=== PATIENT | female | born 1930 | race Caucasian/White ===

== ENCOUNTER 2016-11-11 11:36 | Emergency (ER) | payer MEDICARE, OTHER ==
[~2016-11-11] VITALS: Ht 152.4 cm; Wt 65.0 kg
[~2016-11-11 11:36] MED LIST: AMLO5 PO; ASPI81TA17 PO; ATOR10 PO; AZIT250T43 PO; B COTAB3 PO; CALTTAB PO; CENTCHW3 PO; CHOL1CAP6 PO; CLOP75 PO; CRAN600T PO; LEVA750T PO; MIRTA15 PO; OCUVTAB PO; OMEG306C PO; PROB1TAB PO; VITA100T65 PO
[2016-11-11 11:42] VITALS: BP 154/90; PULSE 88; RESP 18; TEMP 98.3; O2SAT 96
[2016-11-11] MEDS ORDERED: SODIUM CHLORID 0.9% 500 ML INJ 500 ML IV ONE (12:00)
--- NOTE | 2016-11-11 12:04 | PD ---
HPI Chief Complaint: Back/ Neck Pain or Injury Time Seen by Provider: 11:58 Travel History International Travel<30 days: No Contact w/Intl Traveler<30days: No Traveled to known affect area: No History of Present Illness HPI 86-year-old female with PMH of HTN, TIA, CVA, GERD, chronic pain, overactive bladder on Plavix presents to the ED via EMS from [facility] for evaluation of 3 day history of posterior neck pain. Patient denies any acute injury. She endorses 6/10 posterior neck pain worsened by range of motion. She denies headache, dizziness, numbness, tingling, weakness of the upper extremities. According to EMS the nurses at her assisted living were also concerned that she might have a UTI. Patient denies chest pain, palpitations, abdominal pain, nausea, vomiting, back pain, dysuria. She is ambulatory with a walker. Daughter is at bedside. PFSH Past Medical History Hx Anticoagulant Therapy: Yes Arthritis: Yes Blood Disorders: No Anxiety: Yes Depression: No Heart Rhythm Problems: No Cancer: No Cardiovascular Problems: Yes High Cholesterol: Yes Chemotherapy: No Chest Pain: No Congestive Heart Failure: No Diabetes: No Diminished Hearing: No Endocrine: No Gastrointestinal Disorders: Yes (GERD) GERD: Yes Glaucoma: Yes Genitourinary: Yes (FREQUENCY/INCONTINENCE) Hepatitis: No Hiatal Hernia: Yes Hypertension: Yes Immune Disorder: No Musculoskeletal: Yes (RIGHT KNEE SURGERY) Neurologic: No Psychiatric: No Reproductive: No Respiratory: No Immunizations Current: Yes Radiation Therapy: No Thyroid Disease: No Ulcer: No Menopausal: Yes Past Surgical History Abdominal Surgery: No AICD: No Cardiac Surgery: No Ear Surgery: No Endocrine Surgery: No Eye Surgery: No Genitourinary Surgery: No Gynecologic Surgery: Yes (VAGINAL HYSTERECTOMY) Hysterectomy: Yes Joint Replacement: Yes (RIGHT KNEE) Neurologic Surgery: No Oral Surgery: No Pacemaker: No Thoracic Surgery: No Other Surgery: Yes (hysterectomy, r knee) Social History Alcohol Use: No (RARE) Tobacco Use: No Substance Use: No Allergies-Medications (Allergen,Severity, Reaction): Coded Allergies: Bactrim (Unverified Allergy, Severe, Rash, 11/11/16) Bactroban (Unverified Allergy, Severe, Rash, 11/11/16) Septra (Unverified Allergy, Severe, Rash, 11/11/16) Uncoded Allergies: SULFA DRUGS (Allergy, Severe, Rash, 12/02/12) Reported Meds & Prescriptions Reported Meds & Active Scripts Active Levaquin 750 Mg Tab (Levofloxacin) 750 Mg Tab 750 Mg PO DAILY Azithromycin 250 Mg Tab 250 Mg PO DAILY Mirtazapine 15 Mg Tab 15 Mg PO HS Plavix (Clopidogrel Bisulfate) 75 Mg Tab 75 Mg PO DAILY Lipitor 10 mg tab (Atorvastatin) 10 Mg Tab 10 Mg PO DAILY Norvasc (Amlodipine Besylate) 5 Mg Tab 10 Mg PO HS Reported Vitamin E Unknown Strength Cap Unknown Dose PO DAILY Probiotic (Probiotic Product) 1 Tab Tab 1 Tab PO MOTH Ocuvite (Vit A/Vit C/Vit E/Selen/Cu/Zn/Lutei) Tab 1 Tab PO DAILY Centrum Silver (Multiple Vitamins W/ Minerals) Silver Chw 1 Tab PO DAILY B Complex (Vitamin B Complex) Tab 1 Cap PO DAILY Fish Oil ([place]-3 Fatty Acids) Unknown Strength Cap Unknown Dose PO DAILY Cranberry (Cranberry (Vaccinium Macrocarp) 600 Mg Tab 600 Mg PO DAILY Aspirin EC Low Dose (Aspirin) 81 Mg Tab 81 Mg PO DAILY Vitamin D-3 (Cholecalciferol) 1,000 Unit Tab 2,000 Unit PO DAILY Caltrate 600+D (Calcium Carbonate/Cholecalciferol) + Tab 1 Tab PO BID Review of Systems Except as stated in HPI: all other systems reviewed are Neg Physical Exam Narrative GENERAL: Well-nourished, well-developed, pleasant, elderly white female in no acute distress. SKIN: Focused skin assessment warm/dry. HEAD: Normocephalic. EYES: No scleral icterus. No injection or drainage. NECK: Supple, trachea midline. No JVD or lymphadenopathy. ++ Midline tenderness to palpation in the C5-, 6-7 area. Mild tenderness to palpation of the paraspinal musculature in the cervical area. CARDIOVASCULAR: Regular rate and rhythm without murmurs, gallops, or rubs. 2+ DP and radial pulses bilaterally. RESPIRATORY: Breath sounds clear and equal bilaterally. No accessory muscle use. GASTROINTESTINAL: Abdomen soft, non-tender, nondistended. No suprapubic tenderness. Active bowel sounds. MUSCULOSKELETAL: No cyanosis, or edema. NEUROLOGICAL: Awake and alert. Cranial nerves II through XII intact. Motor and sensory grossly within normal limits. Five out of 5 muscle strength in all muscle groups. Normal speech. No pronator drift. BACK: Nontender without obvious deformity. No CVA tenderness. Data Data Last Documented VS Vital Signs Date Time Temp Pulse Resp B/P Pulse Ox O2 Delivery O2 Flow Rate FiO2 11/11/16 11:42 98.3 88 18 154/[address] Cerv Spine W/O Contrast (11/11/16 11:47) Basic Metabolic Panel (Bmp) (11/11/16 11:47) Complete Blood Count With Diff (11/11/16 11:47) Urinalysis - C+S If Indicated (11/11/16 11:47) Iv Access Insert/Monitor (11/11/16 11:47) Sodium Chlorid 0.9% 500 Ml Inj (Ns 500 M (11/11/16 12:00) Acetaminophen (Tylenol) (11/11/16 12:45) Electrocardiogram (11/11/16 13:06) Ckmb (Isoenzyme) Profile (11/11/16 13:06) Troponin I (11/11/16 13:06) Chest, Single Ap (11/11/16 13:06) Labs Laboratory Tests Test 11/11/16 11/11/16 12:00 13:35 White Blood Count 12.0 TH/MM3 Red Blood Count 4.65 MIL/MM3 Hemoglobin 13.8 GM/DL Hematocrit 40.7 % Mean Corpuscular Volume 87.7 FL Mean Corpuscular Hemoglobin 29.7 PG Mean Corpuscular Hemoglobin 33.8 % Concent Red Cell Distribution Width 15.0 % Platelet Count 205 TH/MM3 Mean Platelet Volume 8.2 FL Neutrophils (%) (Auto) 70.9 % Lymphocytes (%) (Auto) 14.4 % Monocytes (%) (Auto) 13.5 % Eosinophils (%) (Auto) 0.9 % Basophils (%) (Auto) 0.3 % Neutrophils # (Auto) 8.5 TH/MM3 Lymphocytes # (Auto) 1.7 TH/MM3 Monocytes # (Auto) 1.6 TH/MM3 Eosinophils # (Auto) 0.1 TH/MM3 Basophils # (Auto) 0.0 TH/MM3 CBC Comment DIFF FINAL Differential Comment Sodium Level 140 MEQ/L Potassium Level 4.1 MEQ/L Chloride Level 104 MEQ/L Carbon Dioxide Level 29.2 MEQ/L Anion Gap 7 MEQ/L Blood Urea Nitrogen 24 MG/DL Creatinine 1.19 MG/DL Estimat Glomerular Filtration 43 ML/MIN Rate Random Glucose 93 MG/DL Calcium Level 10.1 MG/DL Total Creatine Kinase 52 U/L Troponin I LESS THAN 0.02 NG/ML Urine Color YELLOW Urine Turbidity HAZY Urine pH 7.5 Urine Specific [place] 1.011 Urine Protein NEG mg/dL Urine Glucose (UA) NEG mg/dL Urine Ketones NEG mg/dL Urine Occult Blood NEG Urine Nitrite NEG Urine Bilirubin NEG Urine Urobilinogen LESS THAN 2.0 MG/DL Urine Leukocyte Esterase NEG Urine RBC 1 /hpf Urine WBC 1 /hpf Urine Squamous Epithelial 1 /hpf Cells Urine Amorphous Sediment FEW Urine Mucus FEW /lpf Microscopic Urinalysis Comment CATH-CULT NOT IND MDM Medical Decision Making Medical Screen Exam Complete: Yes Emergency Medical Condition: Yes Differential Diagnosis Acute on chronic neck pain versus cervical subluxation versus cervical fracture versus degenerative changes versus UTI versus other Narrative Course 86-year-old female with PMH of HTN, TIA, CVA, GERD, chronic pain, overactive bladder on Plavix presents to the ED via EMS from [facility] for evaluation of 3 day history of posterior neck pain. Patient denies any acute injury. She endorses 6/10 posterior neck pain worsened by range of motion. She denies headache, dizziness, numbness, tingling, weakness of the upper extremities. According to EMS the nurse's at her assisted living were also concerned that she might have a UTI. Patient denies abdominal pain, nausea, vomiting, back pain, dysuria. She is ambulatory with a walker. Daughter at bedside. Vitals reviewed. Physical exam reveals an alert, pleasant, elderly white female in no acute distress. No appreciable M/R/G. CTAB. Abdomen soft, nontender, active bowel sounds. Equal pulses in the extremities. + Midline tenderness to palpation of the cervical spine and the surrounding musculature. No edema of the extremities. IV was established. Patient was administered 500 mL of normal saline bolus and 650 Tylenol by mouth. CBC: WBC 12.0 BMP: BUN 24 Cr 1.19 UA: No culture indicated. CT neck: Degenerative changes. No acute fracture or malalignment noted per radiology read. During the course of evaluation the patients daughter states that her mother has been complaining of chest pain at the assisted living facility. She states that her mother complained of sharp chest pain first about one week ago. Patient endorses "one or two" episodes since. Last episode this morning, onset suddenly, lasted 30 seconds to 1 minute. Relieved by Pepto Bismol given before arrival. Patient endorses one similar episode while here in the ED. EKG, CXR, cardiac enzymes added to the workup. EKG: Rate 77, sinus rhythm, occasional PVCs. MO interval 163, QRS 83, QTc 407. Normal axis. Questionable mild ST depression in V4 V5 and V6. Similar to previous EKG of 04/26/16. Reviewed by Dr. Brooks. Cardiac enzymes: Negative 1 Chest x-ray: Stable appearance with no acute cardiopulmonary disease per radiology read. Review of record reveals patient underwent heart catheter on 04/28/16. Ejection fraction 50%. Mild aortic and mitral valve regurgitation. On recheck the patient endorses improvement of her neck pain. I discussed the results of the workup with the patient and her daughter. I recommended admission to the chest pain center versus outpatient follow-up with stuffer. The patient and her daughter opted for outpatient follow-up. This is musculoskeletal neck pain. Patient and daughter instructed to continue with symptomatic treatment with Tylenol, muscle rubs, warm compresses. They're instructed to follow-up with the on-call stuffer Dr. Manzano. They indicated understanding of these instructions and are agreeable to the care plan. This patient is stable and discharged home. Diagnosis Primary Impression: Musculoskeletal neck pain Additional Impression: Intermittent chest pain Referrals: Mesfin Manzano MD Patient Instructions: General Instructions, Musculoskeletal Pain (ED) Additional Instructions: Rest, hydrate. Continue with symptomatic treatment of the muscular pain of the neck including Tylenol, muscle rubs, warm compresses. Follow-up with Dr. Manzano for evaluation of chest pain as discussed. Return to the ED for any urgent or emergent medical condition. Disposition: 01 DISCHARGE HOME Condition: Stable Susi Julien November 11, 2016 12:04
[2016-11-11 12:36] LABS: AUTOMATED NEUTROPHIL # 8.5 TH/MM3 (1.8-7.7); BASOPHIL % 0.3 % (0.0-2.0); EOSINOPHIL # 0.1 TH/MM3 (0-0.4); EOSINOPHIL % 0.9 % (0.0-4.0); HEMATOCRIT 40.7 % (35.0-46.0); HEMO FLAGS DIFF FINAL; LYMPH % 14.4 % (9.0-44.0); LYMPHOCYTE # 1.7 TH/MM3 (1.0-4.8); MEAN CELL VOLUME 87.7 FL (80.0-100.0); MEAN CORPUSCULAR HEMOGLOBIN 29.7 PG (27.0-34.0); MEAN CORPUSCULAR HGB CONC 33.8 % (32.0-36.0); MONO % 13.5 % (0.0-8.0); NEUT % 70.9 % (16.0-70.0); PLATELET COUNT 205 TH/MM3 (150-450); RED BLOOD COUNT 4.65 MIL/MM3 (4.00-5.30)
[2016-11-11] MEDS ORDERED: ACETAMINOPHEN 325 MG TAB PO ONE (12:45)
[2016-11-11 13:02] LABS: BICARBONATE 29.2 MEQ/L (21.0-32.0); POTASSIUM 4.1 MEQ/L (3.5-5.1)
--- NOTE | 2016-11-11 13:14 | RADRPT ---
EXAM DATE/TIME: 11/11/2016 12:37 CORRECTION Corrected on: November 11, 2016; [facility] COMPARISON: CT CERVICAL SPINE W/O CONTRAST, May 23, 2013, 12:26. INDICATIONS : Neck pain for three days. RADIATION DOSE: 23.56 CTDIvol (mGy) MEDICAL HISTORY : Hypertension. SURGICAL HISTORY : None. ENCOUNTER: Initial ACUITY: 1 day PAIN SCALE: 7/10 LOCATION: Bilateral neck TECHNIQUE: Volumetric scanning of the cervical spine was performed. Multiplanar reconstructions i n the sagittal, coronal and oblique axial planes were performed. Using automated exposure control a nd adjustment of the mA and/or kV according to patient size, radiation dose was kept as low as reason ably achievable to obtain optimal diagnostic quality images. FINDINGS: The sagittal reconstructions demonstrate normal alignment and normal prevertebral soft tissues. The d ens is intact and there is a normal atlantoaxial relationship. There is patchy osteopenia. Degenerati ve disc changes are again noted. The axial images demonstrate that the vertebral bodies and posterior elements are intact. The soft ti ssues are within normal limits. There is no evidence of acute fracture or malalignment. Degenerative changes are noted involving the facet joints. There are disc osteophyte complexes with mass effect on the anterior thecal sac at the C3-4, C4-5 and C5-6 levels. There is narrowing of the neural foramina bilaterally at the C3-4 and C4-5 levels. CONCLUSION: No acute fracture or malalignment. Degenerative changes. Brandon Fernandez MD on November 11, 2016 at 13:09 Board Certified Radiologist. This report was verified electronically. Brandon Fernandez MD on November 11, 2016 at 13:16 Board Certified Radiologist. This report was verified electronically.
--- NOTE | 2016-11-11 13:26 | RADRPT ---
EXAM DATE/TIME: 11/11/2016 13:18 [facility] COMPARISON: CHEST SINGLE AP, May 23, 2013, 11:32. CHEST PA & LAT, April 18, 2016, 12:55. INDICATIONS : Chest pain. MEDICAL HISTORY : Hypertension. SURGICAL HISTORY : None. ENCOUNTER: Initial ACUITY: 2 weeks PAIN SCORE: 7/10 LOCATION: Bilateral chest FINDINGS: A single view of the chest demonstrates the lungs to be symmetrically aerated without evidence of mas s, infiltrate or effusion. The size remains enlarged with no pulmonary edema. Tracheal calcification s are again noted. There is mild scarring. Osseous structures are intact. CONCLUSION: Stable appearance with no acute cardiopulmonary disease. Brandon Fernandez MD on November 11, 2016 at 13:23 Board Certified Radiologist. This report was verified electronically.
[2016-11-11 13:47] LABS: CREATINE KINASE 52 U/L (26-192)
[2016-11-11 13:55] LABS: BLOOD, URINE NEG (NEG); GLUCOSE,URINE NEG (NEG); KETONE, URINE NEG (NEG); MUCUS URINE FEW /lpf (OCC); NITRITE,URINE NEG (NEG); PH, URINE 7.5 (5.0-8.5); SQUAMOUS EPITHELIAL CELL URINE 1 /hpf (0-5); URINE COLOR YELLOW (YELLW/STRAW)
[2016-11-11 13:56] LABS: COMMENT (UR) CATH-CULT NOT IND; CULTURE IF INDICATED CATH CULTURE NOT IND
[2016-11-11 14:59] VITALS: RESP 17
--- NOTE | 2016-11-12 11:25 | EKG ---
Date Performed: 11/11/2016 Time Performed: 13:13:40 PTAGE: 86 years EKG: Sinus rhythm WITH OCCASIONAL SUPRAVENTRICULAR PREMATURE COMPLEXES MODERATE ST DEPRESSION ABNORMAL ECG PREVIOUS TRACING : 04/16/2016 12.44 DOCTOR: Jim Hitchcock Interpretating Date/Time 11/12/2016 11:20:14
== END 2016-11-11 17:32 | disposition home or self-care (01) ==
LOC: NEPC 11:36
DX: M54.2 Cervicalgia (principal); R07.9 Chest pain, unspecified; I10 Essential (primary) hypertension; R94.31 Abnormal electrocardiogram [ECG] [EKG]; Z79.01 Long term (current) use of anticoagulants
CPT/HCPCS: 71010; 72125; 80048; 81001; 82550; 84484; 85025; 93005; 96360; 99284; J7040

== ENCOUNTER 2016-12-03 13:15 | Emergency (ER) | payer MEDICARE, OTHER ==
[2016-12-03 13:20] VITALS: BP 124/61; PULSE 73; RESP 16; TEMP 98.1; O2SAT 96
[2016-12-03] MEDS ORDERED: SODIUM CHLORIDE 0.9% FLUSH 10 ML FLUSH IVF PRN (13:30)
[2016-12-03] MEDS ORDERED: TYLE325T PO (13:39)
[2016-12-03] MEDS ORDERED: NYST100084 TOPICAL (13:39)
[2016-12-03] MEDS ORDERED: PLAV75TA29 PO (13:39)
[2016-12-03] MEDS ORDERED: AMLO10TA2 PO (13:39)
[2016-12-03] MEDS ORDERED: ARTISOL3 EACH EYE (13:39)
[2016-12-03] MEDS ORDERED: FISH1000 PO (13:39)
[2016-12-03] MEDS ORDERED: VITA200T10 PO (13:39)
[2016-12-03] MEDS ORDERED: MULT-177 PO (13:39)
[2016-12-03] MEDS ORDERED: CALC1TAB34 PO (13:39)
[2016-12-03] MEDS ORDERED: OXYB10TA PO (13:39)
[2016-12-03] MEDS ORDERED: DIVA125C PO (13:39)
[2016-12-03] MEDS ORDERED: TRIAPOW TOPICAL (13:39)
[2016-12-03] MEDS ORDERED: ASPI-110 PO (13:39)
[2016-12-03] MEDS ORDERED: TH C450C PO (13:39)
[2016-12-03] MEDS ORDERED: DOCU100C PO (13:39)
[2016-12-03] MEDS ORDERED: VITA100018 PO (13:39)
[2016-12-03] MEDS ORDERED: LIPI10TA PO (13:39)
[2016-12-03] MEDS ORDERED: VITATAB11 PO (13:39)
[2016-12-03 14:09] VITALS: RESP 18; O2SAT 96
[2016-12-03] MEDS ORDERED: oxyCODONE/ACETAMINOPHEN 5 MG/325 MG TAB PO ONE (14:30)
--- NOTE | 2016-12-03 14:38 | PD ---
HPI Chief Complaint: Pain: Acute or Chronic Time Seen by Provider: 13:20 Travel History International Travel<30 days: No Contact w/Intl Traveler<30days: No Traveled to known affect area: No History of Present Illness HPI 86-year-old female arrives with right knee right femur and right hip pain. She is primarily wheelchair bound however has been participating with rehabilitation exercises. Since yesterday she has felt pain in right leg areas as described constant worse with palpation with maximal intensity overlying the right greater trochanter. No trauma is reported. Tylenol has not been helpful. PFSH Past Medical History Hx Anticoagulant Therapy: Yes Arthritis: Yes Blood Disorders: No Anxiety: Yes Depression: Yes Heart Rhythm Problems: No Cancer: No Cardiovascular Problems: Yes High Cholesterol: Yes Chemotherapy: No Chest Pain: No Congestive Heart Failure: No Cerebrovascular Accident: Yes Dementia: Yes Diabetes: No Diminished Hearing: No Endocrine: No Gastrointestinal Disorders: Yes (GERD) GERD: Yes Glaucoma: Yes Genitourinary: Yes (FREQUENCY/INCONTINENCE) Hepatitis: No Hiatal Hernia: Yes Hypertension: Yes Immune Disorder: No Musculoskeletal: Yes (RIGHT KNEE SURGERY) Neurologic: No Psychiatric: No Reproductive: No Respiratory: No Immunizations Current: Yes Radiation Therapy: No Thyroid Disease: No Ulcer: No Tetanus Vaccination: > 5 Years Influenza Vaccination: Yes Menopausal: Yes Past Surgical History Abdominal Surgery: No AICD: No Cardiac Surgery: No Ear Surgery: No Endocrine Surgery: No Eye Surgery: No Genitourinary Surgery: No Gynecologic Surgery: Yes (VAGINAL HYSTERECTOMY) Hysterectomy: Yes Joint Replacement: Yes (RIGHT KNEE) Neurologic Surgery: No Oral Surgery: No Pacemaker: No Thoracic Surgery: No Other Surgery: Yes (hysterectomy, r knee) Social History Alcohol Use: No (RARE) Tobacco Use: No Substance Use: No Allergies-Medications (Allergen,Severity, Reaction): Coded Allergies: Bactrim (Unverified Allergy, Severe, Rash, 12/03/16) Bactroban (Unverified Allergy, Severe, Rash, 12/03/16) Septra (Unverified Allergy, Severe, Rash, 12/03/16) Uncoded Allergies: SULFA DRUGS (Allergy, Severe, Rash, 12/02/12) Reported Meds & Prescriptions Reported Meds & Active Scripts Active Lortab (Hydrocodone-Acetaminophen) 5-325 Mg Tab 1 Tab PO Q6H PRN Reported Nystatin Topical 100,000 unit/gm Oint 1 Applic TOPICAL Q12HR Docusate Sodium 100 Mg Cap 100 Mg PO DAILY Caltrate 600+D Plus Minerals (Calcium Carbonate-Vitamin D W/Minerals) 600-800 Mg -Unit Tab 1 Tab PO BID Depakote Sprinkles (Divalproex Sodium) 125 mg Cap 125 Mg PO BID Aspirin 81 (Aspirin) 81 Mg Tabdr 81 Mg PO DAILY Plavix (Clopidogrel Bisulfate) 75 Mg Tab 75 Mg PO DAILY Lipitor (Atorvastatin Calcium) 10 Mg Tab 10 Mg PO HS Triamcinolone Acetonide (Triamcinolone Acetonide (Topic) 1 Pow Pow 0.05 % TOPICAL DAILY Artificial Tears (Dextran 70/Hypromellose) 1 Each Droperette 2 Drop EACH EYE BID Amlodipine (Amlodipine Besylate) 10 Mg Tab 10 Mg PO DAILY Oxybutynin ER 24 HR (Oxybutynin Chloride) 10 Mg Tab 10 Mg PO DAILY Tylenol (Acetaminophen) 325 Mg Tab 650 Mg PO Q6H PRN Cranberry (Cranberry Fruit Concentrate) 450 Mg Capsule 1 Cap PO DAILY Vitamin E (Vitamin E Mixed) 200 Unit Tablet 1 Cap PO DAILY Fish Oil ([place]-3 Fatty Acids) 1,000 Mg Cap 1 Cap PO DAILY Multiple Vitamins For Women (Multivit with Calcium,Iron,Min) 1 Each Tablet 1 Tab PO DAILY Vitamin D3 (Cholecalciferol) 1,000 Unit Tab 1,000 Units PO DAILY Vitamin B Complex (B-Complex Vitamins) 1 Tab 1 Cap PO DAILY Review of Systems Except as stated in HPI: all other systems reviewed are Neg Physical Exam Narrative GENERAL: 86 yo F, WNWD, NAD, pleasant SKIN: Warm and dry. HEAD: Atraumatic. Normocephalic. EYES: Pupils equal and round. No scleral icterus. No injection or drainage. ENT: No nasal bleeding or discharge. Mucous membranes pink and moist. NECK: Trachea midline. No JVD. CARDIOVASCULAR: Regular rate and rhythm. RESPIRATORY: No accessory muscle use. Clear to auscultation. Breath sounds equal bilaterally. GASTROINTESTINAL: Abdomen soft, non-tender, nondistended. Hepatic and splenic margins not palpable. MUSCULOSKELETAL: TTP R greater trochanter. No gross deformity. Unable to flex R hip. Minimal pain with axial loading on R side. 2+ DP bilaterally. NEUROLOGICAL: Awake and alert. No obvious cranial nerve deficits. Motor grossly within normal limits. Five out of 5 muscle strength in the arms and legs. Normal speech. PSYCHIATRIC: Appropriate mood and affect; insight and judgment normal. Data Data Last Documented VS Vital Signs Date Time Temp Pulse Resp B/P Pulse Ox O2 Delivery O2 Flow Rate FiO2 12/03/16 18:00 76 18 130/74 97 Room Air 12/03/16 13:20 98.1 VS reviewed Orders Femur (Ap & Lat/2vws) (12/03/16 13:26) Hip, Uni(Ap&Lat) W Ap Pelvis (12/03/16 13:26) Oximetry (12/03/16 13:26) Sodium Chloride 0.9% Flush (Ns Flush) (12/03/16 13:30) Knee, Complete (4vws) (12/03/16 ) Oxycodone-Acetamin 5-325 Mg (Percocet (12/03/16 14:30) MDM Medical Decision Making Medical Screen Exam Complete: Yes Emergency Medical Condition: Yes Medical Record Reviewed: Yes Differential Diagnosis Femoral neck fx, pelvis fx, contusion, bruise Narrative Course XRAYS OF KNEE/FEMUR: NORMAL XRAYS OF PELVIS/HIP: NORMAL The patient is resting comfortably and feels better, is alert and in no distress. The patients results and examination findings were discussed. The repeat examination is unremarkable and benign. The history, exam, diagnostic testing, and current condition do not suggest any significant pathology to warrant further testing, continued ED treatment, admission, or surgical evaluation at this point. The vital signs have been stable. The patient does not have uncontrollable pain, intractable vomiting, or other significant symptoms. The patient's condition is stable and appropriate for discharge. The patient will pursue further outpatient evaluation with a primary care physician or other designated or consulting physician as indicated in the discharge instructions. The patient expressed understanding and was agreeable with this plan. Diagnosis Primary Impression: Acute pain of right lower extremity Referrals: Gerald Gilmore MD 2 days Additional Instructions: You have a choice when it comes to health care, and we are glad that you chose [facility]. Hopefully, we have met your expectations on today's visit. You are welcome to return to [facility] at any time, as we are committed to meeting the health care needs of our community. Med/Other Pt SpecificInfo: Prescription(s) given Scripts Hydrocodone-Acetaminophen (Lortab)5-325 Mg Tab1 Tab PO Q6H PRN (PAIN SCALE 6 TO 10) #12 TAB Ref 0 Prov:Bernardo Doss MD 12/03/16 Disposition: 01 DISCHARGE HOME Condition: Stable Bernardo Doss MD December 03, 2016 14:38
--- NOTE | 2016-12-03 15:00 | RADHPO ---
EXAM DATE/TIME: 12/03/2016 14:20 [facility] COMPARISON: No previous studies available for comparison. INDICATIONS : Pain. MEDICAL HISTORY : None. SURGICAL HISTORY : Knee seven years ago ENCOUNTER: Initial ACUITY: 1 day PAIN SCORE: 10/10 LOCATION: Right hip/leg FINDINGS: 4 views of the right femur demonstrate no fracture or dislocation. Mineralization is within normal li mits. Visualized pelvic bones demonstrate no acute finding. There is hardware in the medial compartme nt of the right knee. No soft tissue abnormality or radiopaque foreign body is identified. CONCLUSION: No acute abnormality is identified. Bacilio Botello MD on December 03, 2016 at 14:57 Board Certified Radiologist. This report was verified electronically.
--- NOTE | 2016-12-03 15:02 | RADHPO ---
EXAM DATE/TIME: 12/03/2016 14:33 [facility] COMPARISON: No previous studies available for comparison. INDICATIONS : Pain. MEDICAL HISTORY : None. SURGICAL HISTORY : Knee surgery seven years ago ENCOUNTER: Initial ACUITY: 1 day PAIN SCORE: 10/10 LOCATION: Right Hip\leg FINDINGS: 4 views of the right knee demonstrate no fracture or dislocation. There is hardware in the medial com partment related to unicompartmental arthroplasty. There are no findings to indicate hardware failure , loosening, or uneven wear. No joint effusion is visualized. There is mild lateral joint space narro wing. No soft tissue abnormality or radiopaque foreign body is identified. CONCLUSION: No acute right knee abnormality is identified. There has been prior medial compartment arthroplasty. Bacilio Botello MD on December 03, 2016 at 14:59 Board Certified Radiologist. This report was verified electronically.
[2016-12-03 15:10] VITALS: BP 147/68; PULSE 73; RESP 18; O2SAT 97
[2016-12-03] MEDS ORDERED: HYDR-3533 PO (15:36)
--- NOTE | 2016-12-03 15:46 | RADHPO ---
EXAM DATE/TIME: 12/03/2016 13:58 [facility] COMPARISON: No previous studies available for comparison. INDICATIONS : Pain. MEDICAL HISTORY : None. SURGICAL HISTORY : Knee surgery seven years ago. ENCOUNTER: Initial ACUITY: 1 day PAIN SCORE: 10/10 LOCATION: Right hip/leg FINDINGS: There is no acute fracture or dislocation. Mild degenerative changes are noted involving the hip deepti nts. Degenerative changes and scoliosis of the lower lumbar spine are noted. CONCLUSION: 1. No acute fracture or dislocation. 2. Mild degenerative changes involving the hip joints. 3. Degenerative changes and scoliosis of the lumbar spine. Rocael Smart MD on December 03, 2016 at 15:37 Board Certified Radiologist. This report was verified electronically.
[2016-12-03 18:00] VITALS: BP 130/74; PULSE 76; RESP 18; O2SAT 97
== END 2016-12-03 18:39 | disposition home or self-care (01) ==
LOC: PHED 13:15
DX: M79.604 Pain in right leg (principal); I10 Essential (primary) hypertension; K21.9 Gastro-esophageal reflux disease without esophagitis; E78.00 Pure hypercholesterolemia, unspecified; F03.90 Unspecified dementia, unspecified severity, without behavioral disturbance, psychotic disturbance, mood disturbance, and anxiety; Z79.02 Long term (current) use of antithrombotics/antiplatelets; Z79.82 Long term (current) use of aspirin; Z79.899 Other long term (current) drug therapy; Z86.73 Personal history of transient ischemic attack (TIA), and cerebral infarction without residual deficits
CPT/HCPCS: 73502; 73552; 73564; 99284

== ENCOUNTER 2016-12-06 10:45 | Inpatient (IN) | payer MEDICARE, OTHER ==
[~2016-12-06] VITALS: Ht 157.5 cm; Wt 65.8 kg
[~2016-12-06 10:45] MED LIST changes: +AMLO10TA2 PO; -AMLO5 PO; +ARTISOL3 EACH EYE; +ASPI-110 PO; -ASPI81TA17 PO; -ATOR10 PO; -AZIT250T43 PO; -B COTAB3 PO; +CALC1TAB34 PO; -CALTTAB PO; -CENTCHW3 PO; -CHOL1CAP6 PO; -CLOP75 PO; -CRAN600T PO; +DIVA125C PO; +DOCU100C PO; +FISH1000 PO; +HYDR-3533 PO; -LEVA750T PO; +LIPI10TA PO; -MIRTA15 PO; +MULT-177 PO; +NYST100084 TOPICAL; -OCUVTAB PO; -OMEG306C PO; +OXYB10TA PO; +PLAV75TA29 PO; -PROB1TAB PO; +TH C450C PO; +TRIAPOW TOPICAL; +TYLE325T PO; +VITA100018 PO; -VITA100T65 PO; +VITA200T10 PO; +VITATAB11 PO
[2016-12-06 10:53] VITALS: BP 107/53; PULSE 74; RESP 15; TEMP 98.4; O2SAT 94
[2016-12-06 11:39] LABS: BLOOD, URINE NEG (NEG); GLUCOSE,URINE NEG (NEG); KETONE, URINE NEG (NEG); NITRITE,URINE NEG (NEG)
[2016-12-06 11:45] LABS: CHLORIDE 103 MEQ/L (98-107); COMMENT (UR) CATH-CULT NOT IND; CULTURE IF INDICATED CATH CULTURE NOT IND; METHOD OF COLLECTION CATH; POTASSIUM 4.1 MEQ/L (3.5-5.1); RBC, URINE 0-3 /hpf (0-3); SODIUM (NA) 139 MEQ/L (136-145); URINE COLOR YELLOW (YELLW/STRAW); WBC, URINE 0-2 /hpf (0-5)
[2016-12-06 11:48] LABS: ANION GAP 8 MEQ/L (5-15); BICARBONATE 27.9 MEQ/L (21.0-32.0); BLOOD UREA NITROGEN 39 MG/DL (7-18)
[2016-12-06 11:49] LABS: MAGNESIUM 2.2 MG/DL (1.5-2.5)
--- NOTE | 2016-12-06 11:49 | PD ---
HPI Chief Complaint: General Weakness Time Seen by Provider: 11:04 Travel History International Travel<30 days: No Contact w/Intl Traveler<30days: No Traveled to known affect area: No History of Present Illness HPI This 86-year-old female is brought by her daughter for complaint of generalized weakness. She was seen here last Saturday with pain in her left leg. She had multiple x-rays done which were unremarkable. He has been complaining of ongoing pain which seems greatest in the left pelvis. It is aggravated by certain movements but not by all. In the meantime she has had a loss of appetite and the daughter says she is less active than normal. She has a history of TIA in the past. She had a Lortab yesterday but has not had any pain medication today. she resides at an assisted living facility [facility] Past Medical History Hx Anticoagulant Therapy: Yes Arthritis: Yes Blood Disorders: No Anxiety: Yes Depression: Yes Heart Rhythm Problems: No Cancer: No Cardiovascular Problems: Yes High Cholesterol: Yes Chemotherapy: No Chest Pain: No Congestive Heart Failure: No Cerebrovascular Accident: Yes Dementia: Yes Diabetes: No Diminished Hearing: No Endocrine: No Gastrointestinal Disorders: Yes (GERD) GERD: Yes Glaucoma: Yes Genitourinary: Yes (FREQUENCY/INCONTINENCE) Hepatitis: No Hiatal Hernia: Yes Hypertension: Yes Immune Disorder: No Musculoskeletal: Yes (RIGHT KNEE SURGERY) Neurologic: No Psychiatric: No Reproductive: No Respiratory: No Immunizations Current: Yes Radiation Therapy: No Thyroid Disease: No Ulcer: No Tetanus Vaccination: Unknown Influenza Vaccination: Yes ?: Not Menopausal: Yes Past Surgical History Abdominal Surgery: No AICD: No Cardiac Surgery: No Ear Surgery: No Endocrine Surgery: No Eye Surgery: No Genitourinary Surgery: No Gynecologic Surgery: Yes (VAGINAL HYSTERECTOMY) Hysterectomy: Yes Joint Replacement: Yes (RIGHT KNEE) Neurologic Surgery: No Oral Surgery: No Pacemaker: No Thoracic Surgery: No Other Surgery: Yes (hysterectomy, r knee) Social History Alcohol Use: No (RARE) Tobacco Use: No Substance Use: No Allergies-Medications (Allergen,Severity, Reaction): Coded Allergies: Bactrim (Unverified Allergy, Severe, Rash, 12/06/16) Bactroban (Unverified Allergy, Severe, Rash, 12/06/16) Septra (Unverified Allergy, Severe, Rash, 12/06/16) Uncoded Allergies: SULFA DRUGS (Allergy, Severe, Rash, 12/02/12) Reported Meds & Prescriptions Reported Meds & Active Scripts Active Reported Nystatin Topical 100,000 unit/gm Oint 1 Applic TOPICAL Q12HR Docusate Sodium 100 Mg Cap 100 Mg PO DAILY Depakote Sprinkles (Divalproex Sodium) 125 mg Cap 125 Mg PO BID Aspirin 81 (Aspirin) 81 Mg Tabdr 81 Mg PO DAILY Plavix (Clopidogrel Bisulfate) 75 Mg Tab 75 Mg PO DAILY Lipitor (Atorvastatin Calcium) 10 Mg Tab 10 Mg PO HS Triamcinolone Acetonide (Triamcinolone Acetonide (Topic) 1 Pow Pow 0.05 % TOPICAL DAILY Artificial Tears (Dextran 70/Hypromellose) 1 Each Droperette 2 Drop EACH EYE BID Amlodipine (Amlodipine Besylate) 10 Mg Tab 10 Mg PO DAILY Oxybutynin ER 24 HR (Oxybutynin Chloride) 10 Mg Tab 10 Mg PO DAILY Tylenol (Acetaminophen) 325 Mg Tab 650 Mg PO Q6H PRN Cranberry (Cranberry Fruit Concentrate) 450 Mg Capsule 1 Cap PO DAILY Vitamin E (Vitamin E Mixed) 200 Unit Tablet 1 Cap PO DAILY Fish Oil ([place]-3 Fatty Acids) 1,000 Mg Cap 1 Cap PO DAILY Multiple Vitamins For Women (Multivit with Calcium,Iron,Min) 1 Each Tablet 1 Tab PO DAILY Vitamin D3 (Cholecalciferol) 1,000 Unit Tab 1,000 Units PO DAILY Vitamin B Complex (B-Complex Vitamins) 1 Tab 1 Cap PO DAILY Review of Systems General / Constitutional: No: Chills Eyes: No: Diploplia, Blurred Vision HENT: No: Headaches Cardiovascular: No: Chest Pain or Discomfort, Palpitations Respiratory: No: Cough, Shortness of Breath Gastrointestinal: Positive: Nausea, Loss of Appetite Genitourinary: No: Urgency, Frequency Musculoskeletal: Positive: Myalgias, Pain Skin: No Rash Neurologic: Positive: Weakness Hematologic/Lymphatic: No: Easy Bruising Physical Exam Narrative GENERAL: Well-developed female SKIN: Focused skin assessment warm/dry. HEAD: Atraumatic. Normocephalic. EYES: Pupils equal and round. No scleral icterus. No injection or drainage. ENT: No nasal bleeding or discharge. Mucous membranes pink and moist. NECK: Trachea midline. No JVD. CARDIOVASCULAR: Regular rate and rhythm. No murmur appreciated. RESPIRATORY: No accessory muscle use. Clear to auscultation. Breath sounds equal bilaterally. GASTROINTESTINAL: Abdomen soft, non-tender, nondistended. Hepatic and splenic margins not palpable. MUSCULOSKELETAL: There appears to be some shortening of the left leg. The right knee is not warm and I am able to flex and extend it without much pain. She does complain of some tenderness in the area of the left pelvis. The lateral hip is nontender NEUROLOGICAL: Awake and alert. No obvious cranial nerve deficits. Motor grossly within normal limits. Normal speech. PSYCHIATRIC: Appropriate mood and affect; insight and judgment normal. Data Data Last Documented VS Vital Signs Date Time Temp Pulse Resp B/P Pulse Ox O2 Delivery O2 Flow Rate FiO2 12/06/16 13:54 78 18 131/48 100 Room Air 12/06/16 10:53 98.4 Orders Complete Blood Count With Diff (12/06/16 11:19) Comprehensive Metabolic Panel (12/06/16 11:19) Troponin I (12/06/16 11:19) Prothrombin Time / Inr (Pt) (12/06/16 11:19) Act Partial Throm Time (Ptt) (12/06/16 11:19) Urinalysis - C+S If Indicated (12/06/16 11:19) Westergren Sedimentation Rate (12/06/16 11:19) Magnesium (Mg) (12/06/16 11:19) Thyroid Stimulating Hormone (12/06/16 11:19) Chest, Single Ap (12/06/16 11:19) Pelvis, Ap Only (Routine) (12/06/16 11:19) Mri Pelvis W/O Contrast (12/06/16 ) Protein Corrected Calcium(Pcc) (12/06/16 11:50) Sodium Chlor 0.9% 1000 Ml Inj (Ns 1000 M (12/06/16 12:00) Labs Laboratory Tests Test 12/06/16 11:20 White Blood Count 12.7 TH/MM3 Red Blood Count 4.69 MIL/MM3 Hemoglobin 13.5 GM/DL Hematocrit 41.0 % Mean Corpuscular Volume 87.2 FL Mean Corpuscular Hemoglobin 28.7 PG Mean Corpuscular Hemoglobin 32.9 % Concent Red Cell Distribution Width 14.4 % Platelet Count 163 TH/MM3 Mean Platelet Volume 8.8 FL Neutrophils (%) (Auto) 70.4 % Lymphocytes (%) (Auto) 14.7 % Monocytes (%) (Auto) 9.6 % Eosinophils (%) (Auto) 4.6 % Basophils (%) (Auto) 0.7 % Neutrophils # (Auto) 8.9 TH/MM3 Lymphocytes # (Auto) 1.9 TH/MM3 Monocytes # (Auto) 1.2 TH/MM3 Eosinophils # (Auto) 0.6 TH/MM3 Basophils # (Auto) 0.1 TH/MM3 CBC Comment DIFF FINAL Differential Comment Erythrocyte Sedimentation Rate 2 mm/hr Prothrombin Time 11.2 SEC Prothromb Time International 1.0 RATIO Ratio Activated Partial 25.1 SEC Thromboplast Time Urine Collection Type CATH Urine Color YELLOW Urine Turbidity HAZY Urine pH 6.0 Urine Specific Amelia 1.020 Urine Protein NEG mg/dL Urine Glucose (UA) NEG mg/dL Urine Ketones NEG mg/dL Urine Occult Blood NEG Urine Nitrite NEG Urine Bilirubin NEG Urine Leukocyte Esterase TRACE Urine RBC 0-3 /hpf Urine WBC 0-2 /hpf Urine Amorphous Sediment MOD Microscopic Urinalysis Comment CATH-CULT NOT IND Urine Collection Time 1120 Sodium Level 139 MEQ/L Potassium Level 4.1 MEQ/L Chloride Level 103 MEQ/L Carbon Dioxide Level 27.9 MEQ/L Anion Gap 8 MEQ/L Blood Urea Nitrogen 39 MG/DL Creatinine 1.30 MG/DL Estimat Glomerular Filtration 39 ML/MIN Rate Random Glucose 135 MG/DL Calcium Level 10.8 MG/DL Protein Corrected Calcium 10.9 MG/DL Magnesium Level 2.2 MG/DL Total Bilirubin 0.9 MG/DL Aspartate Amino Transf 42 U/L (AST/SGOT) Alanine Aminotransferase 23 U/L (ALT/SGPT) Alkaline Phosphatase 77 U/L Troponin I LESS THAN 0.02 NG/ML Total Protein 7.0 GM/DL Albumin 2.9 GM/DL Thyroid Stimulating Hormone 3.530 uIU/ML 3rd Gen [facility] Medical Decision Making Medical Screen Exam Complete: Yes Emergency Medical Condition: Yes Medical Record Reviewed: Yes Differential Diagnosis Differential includes dehydration, electrolyte imbalance, occult fracture, space -occupying lesion Narrative Course The BUN today is 39 which is higher than usual. Her white count is 12.7. X- ray of the pelvis was repeated and has been read as negative for fracture dislocation. An MRI of the pelvis shows diffuse edema of the right iliopsoas muscle and tendon. Differential includes muscle strain, infection hematoma. Patient is having intractable pain and now is also getting dehydrated Diagnosis Primary Impression: Dehydration Additional Impressions: intractable pelvic paiN intractable pelvic paiN Admitting Information Admitting Physician Requests: Observation Ld Cutler MD Dec 06, 2016 11:49
[2016-12-06 11:51] LABS: ALT (GPT) 23 U/L (10-53); AST (GOT) 42 U/L (15-37); GLOMERULAR FILTRATION RATE 39 ML/MIN (>89)
[2016-12-06 11:53] LABS: TOTAL BILIRUBIN ADULT 0.9 MG/DL (0.2-1.0)
[2016-12-06 11:54] LABS: ALKALINE PHOSPHATASE 77 U/L (45-117); AUTOMATED NEUTROPHIL # 8.9 TH/MM3 (1.8-7.7); BASOPHIL # 0.1 TH/MM3 (0-0.2); BASOPHIL % 0.7 % (0.0-2.0); EOSINOPHIL # 0.6 TH/MM3 (0-0.4); EOSINOPHIL % 4.6 % (0.0-4.0); HEMO FLAGS DIFF FINAL; LYMPH % 14.7 % (9.0-44.0); LYMPHOCYTE # 1.9 TH/MM3 (1.0-4.8); MEAN CELL VOLUME 87.2 FL (80.0-100.0); MEAN CORPUSCULAR HEMOGLOBIN 28.7 PG (27.0-34.0); MEAN CORPUSCULAR HGB CONC 32.9 % (32.0-36.0); MONO % 9.6 % (0.0-8.0); NEUT % 70.4 % (16.0-70.0); PLATELET COUNT 163 TH/MM3 (150-450); RED BLOOD COUNT 4.69 MIL/MM3 (4.00-5.30); RED CELL DISTRIBUTION WIDTH 14.4 % (11.6-17.2); WHITE BLOOD COUNT 12.7 TH/MM3 (4.0-11.0)
[2016-12-06 11:56] LABS: APTT (PATIENT) 25.1 SEC (24.3-30.1); PROTHROMBIN TIME - PATIENT 11.2 SEC (9.8-11.6)
--- NOTE | 2016-12-06 12:02 | RADHPO ---
EXAM DATE/TIME: 12/06/2016 11:35 [facility] COMPARISON: CHEST SINGLE AP, November 11, 2016, 13:18. INDICATIONS : Patient fell this morning. MEDICAL HISTORY : Hypertension. SURGICAL HISTORY : Knee surgery seven years ago. ENCOUNTER: Initial ACUITY: 1 day PAIN SCORE: 0/10 LOCATION: Bilateral chest FINDINGS: A single view of the chest demonstrates hypoinflation of the lungs with with no confluent infiltrate. Heart size is prominent but well compensated. There is some rightward deviation of the trachea proba cindy due to uncoiling of the aortic arch. This is unchanged. Osseous structures are grossly intact. CONCLUSION: 1. Hypoinflation with no acute infiltrate or pneumothorax. 2. Heart size remains prominent but well compensated. 3. 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 4. No acute fracture. Stone Pérez MD on December 06, 2016 at 11:56 Board Certified Radiologist. This report was verified electronically.
[2016-12-06] MEDS: SODIUM CHLOR 0.9% 1000 ML INJ 1,000 ML IV SCH (12:08)
--- NOTE | 2016-12-06 12:27 | RADHPO ---
EXAM DATE/TIME: 12/06/2016 11:39 [facility] COMPARISON: No previous studies available for comparison. INDICATIONS : Patient fell this morning. MEDICAL HISTORY : Hypertension. SURGICAL HISTORY : Knee surgery seven years ago. ENCOUNTER: Initial ACUITY: 1 day PAIN SCORE: 6/10 LOCATION: Bilateral Pelvis FINDINGS: A single frontal view of the pelvis demonstrates no evidence of fracture. The bony pelvic ring is in tact. Bony mineralization is normal. The soft tissues are intact. CONCLUSION: 1. No acute fracture or dislocation. Consider MRI examination if patient is unable to bear weight on the affected side. Jorge Bautista MD on December 06, 2016 at 12:24 Board Certified Radiologist. This report was verified electronically.
[2016-12-06 12:31] LABS: CALCIUM-PROTEIN CORRECTED 10.9 MG/DL (8.5-10.1)
--- NOTE | 2016-12-06 13:51 | RADHPO ---
EXAM DATE/TIME: 12/06/2016 13:03 [facility] COMPARISON: PELVIS AP ONLY, December 06, 2016, 11:39. INDICATIONS : Pain. MEDICAL HISTORY : Hypertension. SURGICAL HISTORY : Total knee replacement, right. Hysterectomy. ENCOUNTER: Initial ACUITY: 1 day PAIN SCORE: 8/10 LOCATION: Pelvis. TECHNIQUE: Multiplanar, multisequence magnetic resonance imaging of the pelvis was performed. FINDINGS: REPRODUCTIVE: Status post hysterectomy. BLADDER: No wall thickening or mass. MUSCULOSKELETAL: There is diffuse edema and enlargement of the right iliopsoas muscle. Edema extends around the distal iliopsoas tendon to its insertion. There is central heterogeneous low signal in the psoas muscle at the level of the sacrum measuring 2.2 x 1.3 cm. Similar globular low signal abnormality is seen in th e region of the distal iliopsoas tendon measuring 2.7 x 1.1 cm. Mild edema in the gluteus medius mini mus and marilyn muscles anteriorly bilaterally. Fatty atrophy of these muscles also noted. Prominent degenerative findings of the lumbar spine. Bone marrow signal otherwise within normal limits. BOWEL/MESENTERY: Visualized small and large bowel demonstrates no acute abnormality. There is no free fluid. INGUINAL: No lymphadenopathy or hernia. CONCLUSION: Diffuse edema of the right iliopsoas muscle and tendon. Differential diagnosis includes muscle strain , infection, and hematoma. No organized fluid collection identified. Rehan Reed MD on December 06, 2016 at 13:41 Board Certified Radiologist. This report was verified electronically.
[2016-12-06 13:54] VITALS: BP 131/48; PULSE 78; RESP 18; O2SAT 100
[2016-12-06] MEDS ORDERED: NALOXONE HCL 0.4 MG/ML AMP IV PRN (14:30)
[2016-12-06] MEDS ORDERED: SODIUM CHLORIDE 0.9% FLUSH 10 ML FLUSH IV FLUSH PRN (14:30)
[2016-12-06] MEDS ORDERED: ONDANSETRON HCL 4 MG/2 ML VIAL IVP PRN (14:30)
[2016-12-06] MEDS ORDERED: ACETAMINOPHEN/HYDROcodone 325 MG/7.5 MG TAB PO PRN (15:00)
[2016-12-06] MEDS ORDERED: ACETAMINOPHEN 325 MG TAB PO PRN ×2 (15:00)
[2016-12-06] MEDS ORDERED: ACETAMINOPHEN/HYDROcodone 325 MG/5 MG TAB PO PRN ×3 (15:00→19:00)
[2016-12-06] MEDS ORDERED: HYDROmorphone HCL PF 1 MG/ML VIAL IV PRN (15:00)
[2016-12-06 16:00] VITALS: BP 121/65; PULSE 73; RESP 16; O2SAT 94
[2016-12-06 16:23] LABS: CKMB 1.5 NG/ML (0.5-3.6)
--- NOTE | 2016-12-06 17:02 | HHI.HP ---
HPI Service [facility] Primary Care Physician Morgan Oviedo MD Admission Diagnosis INTRACTABLE PELVIC PAIN, DEHYDRATION Diagnoses: Chief Complaint: Generalized weakness Travel History International Travel<30 Days: No Contact w/Intl Traveler <30 Da: No Traveled to Known Affected Are: No History of Present Illness This is a 86-year-old female was brought in by her daughter because of generalized weakness. History is mainly taken from her daughter and chart review. She is confused and has history of dementia. She was seen here last Saturday with pain in her right knee and hip. She had multiple x-rays done which were unremarkable. No history of trauma or falls. She is mainly wheelchair bound and has been participating with physical therapy when she started complaining of right knee pain radiating to her right hip last week. Pain has been progressive and has not been relieved by Tylenol. She was prescribed Lortab during last ER visit which made her more confused. Pain is aggravated by certain movements. In the meantime she has had a loss of appetite and the daughter says she is less active than normal. Review of Systems Except as stated in HPI: all other systems reviewed are Neg Past Family Social History Past Medical History TIA, arthritis, anxiety, depression, hyperlipidemia, dementia, GERD, glaucoma, urinary incontinence and hypertension, Past Surgical History Vaginal hysterectomy, right knee replacement, umbilical hernia repair Reported Medications Nystatin Topical 100,000 unit/gm Oint 1 Applic TOPICAL Q12HR Docusate Sodium 100 Mg Cap 100 Mg PO DAILY Depakote Sprinkles (Divalproex Sodium) 125 mg Cap 125 Mg PO BID Aspirin 81 (Aspirin) 81 Mg Tabdr 81 Mg PO DAILY Plavix (Clopidogrel Bisulfate) 75 Mg Tab 75 Mg PO DAILY Lipitor (Atorvastatin Calcium) 10 Mg Tab 10 Mg PO HS Triamcinolone Acetonide (Triamcinolone Acetonide (Topic) 1 Pow Pow 0.05 % TOPICAL DAILY Artificial Tears (Dextran 70/Hypromellose) 1 Each Droperette 2 Drop EACH EYE BID Amlodipine (Amlodipine Besylate) 10 Mg Tab 10 Mg PO DAILY Oxybutynin ER 24 HR (Oxybutynin Chloride) 10 Mg Tab 10 Mg PO DAILY Tylenol (Acetaminophen) 325 Mg Tab 650 Mg PO Q6H PRN Cranberry (Cranberry Fruit Concentrate) 450 Mg Capsule 1 Cap PO DAILY Vitamin E (Vitamin E Mixed) 200 Unit Tablet 1 Cap PO DAILY Fish Oil ([place]-3 Fatty Acids) 1,000 Mg Cap 1 Cap PO DAILY Multiple Vitamins For Women (Multivit with Calcium,Iron,Min) 1 Each Tablet 1 Tab PO DAILY Vitamin D3 (Cholecalciferol) 1,000 Unit Tab 1,000 Units PO DAILY Vitamin B Complex (B-Complex Vitamins) 1 Tab 1 Cap PO DAILY Allergies: Coded Allergies: Bactrim (Unverified Allergy, Severe, Rash, 12/06/16) Bactroban (Unverified Allergy, Severe, Rash, 12/06/16) Septra (Unverified Allergy, Severe, Rash, 12/06/16) Uncoded Allergies: SULFA DRUGS (Allergy, Severe, Rash, 12/02/12) Family History No history of cancer Social History Occasional alcohol use. Does not smoke or use illicit drugs Physical Exam Vital Signs Vital Signs Date Time Temp Pulse Resp B/P Pulse Ox O2 Delivery O2 Flow Rate FiO2 12/06/16 16:00 73 16 121/65 94 Room Air 12/06/16 13:54 78 18 131/48 100 Room Air 12/06/16 11:10 94 Room Air 12/06/16 10:53 98.4 74 15 107/53 94 Physical Exam GENERAL: This is a well-nourished, well-developed patient, in no apparent distress. She is pleasantly confused SKIN: No rashes, ecchymoses or lesions. Cool and dry. HEAD: Atraumatic. Normocephalic. No temporal or scalp tenderness. EYES: Pupils equal round and reactive. Extraocular motions intact. No scleral icterus. No injection or drainage. ENT: Nose without bleeding, purulent drainage or septal hematoma. Throat without erythema, tonsillar hypertrophy or exudate. Uvula midline. Airway patent. NECK: Trachea midline. No JVD or lymphadenopathy. Supple, nontender, no meningeal signs. CARDIOVASCULAR: Regular rate and rhythm without murmurs, gallops, or rubs. Skipped beats corresponding to PVC RESPIRATORY: Clear to auscultation. Breath sounds equal bilaterally. No wheezes , rales, or rhonchi. GASTROINTESTINAL: Abdomen soft, non-tender, nondistended. No guarding. MUSCULOSKELETAL: Extremities without clubbing, cyanosis, or edema. Right hip is tender. It is not swollen or warm. I am able to flex and extend. No calf tenderness. Negative Homans sign bilaterally. Left lower extremity is shortened NEUROLOGICAL: Awake and alert. Cranial nerves II through XII intact. Motor and sensory grossly within normal limits. Five out of 5 muscle strength in all muscle groups. Normal speech. Oriented to person only Laboratory Laboratory Tests Test 12/06/16 11:20 White Blood Count 12.7 Red Blood Count 4.69 Hemoglobin 13.5 Hematocrit 41.0 Mean Corpuscular Volume 87.2 Mean Corpuscular Hemoglobin 28.7 Mean Corpuscular Hemoglobin 32.9 Concent Red Cell Distribution Width 14.4 Platelet Count 163 Mean Platelet Volume 8.8 Neutrophils (%) (Auto) 70.4 Lymphocytes (%) (Auto) 14.7 Monocytes (%) (Auto) 9.6 Eosinophils (%) (Auto) 4.6 Basophils (%) (Auto) 0.7 Neutrophils # (Auto) 8.9 Lymphocytes # (Auto) 1.9 Monocytes # (Auto) 1.2 Eosinophils # (Auto) 0.6 Basophils # (Auto) 0.1 CBC Comment DIFF FINAL Differential Comment Erythrocyte Sedimentation Rate 2 Prothrombin Time 11.2 Prothromb Time International 1.0 Ratio Activated Partial 25.1 Thromboplast Time Urine Collection Type CATH Urine Color YELLOW Urine Turbidity HAZY Urine pH 6.0 Urine Specific Moffit 1.020 Urine Protein NEG Urine Glucose (UA) NEG Urine Ketones NEG Urine Occult Blood NEG Urine Nitrite NEG Urine Bilirubin NEG Urine Leukocyte Esterase TRACE Urine RBC 0-3 Urine WBC 0-2 Urine Amorphous Sediment MOD Microscopic Urinalysis Comment CATH-CULT NOT IND Urine Collection Time 1120 Sodium Level 139 Potassium Level 4.1 Chloride Level 103 Carbon Dioxide Level 27.9 Anion Gap 8 Blood Urea Nitrogen 39 Creatinine 1.30 Estimat Glomerular Filtration 39 Rate Random Glucose 135 Calcium Level 10.8 Protein Corrected Calcium 10.9 Magnesium Level 2.2 Total Bilirubin 0.9 Aspartate Amino Transf 42 (AST/SGOT) Alanine Aminotransferase 23 (ALT/SGPT) Alkaline Phosphatase 77 Total Creatine Kinase 271 Creatine Kinase MB 1.5 Creatine Kinase MB % 0.6 Troponin I LESS THAN 0.02 Total Protein 7.0 Albumin 2.9 Thyroid Stimulating Hormone 3.530 3rd Gen Result Diagram: 12/06/16 1120 12/06/16 1120 Imaging Pelvic x-ray interpreted by me with no acute fracture or desiccation Last Impressions Pelvis X-Ray 12/06/16 1119 Signed Impressions: Service Date/Time: December 11:39 - CONCLUSION: 1. No acute fracture or dislocation. Consider MRI examination if patient is unable to bear weight on the affected side. Jorge Bautista MD Chest X-Ray 12/06/16 1119 Signed Impressions: Service Date/Time: , December 06, 2016 11:35 - CONCLUSION: 1. Hypoinflation with no acute infiltrate or pneumothorax. 2. Heart size remains prominent but well compensated. 3. 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 4. No acute fracture. Stone Pérez MD Pelvis MRI 12/06/16 0000 Signed Impressions: Service Date/Time: , December 06, 2016 13:03 - CONCLUSION: Diffuse edema of the right iliopsoas muscle and tendon. Differential diagnosis includes muscle strain, infection, and hematoma. No organized fluid collection identified. Rehan Reed MD Assessment and Plan Problem List: (1) Acute pain of right lower extremity ICD Code: M79.604 Status: Acute (2) Dehydration ICD Code: E86.0 Status: Acute Assessment and Plan Right hip pain with inability to ambulate. MRI of the pelvis shows Diffuse edema of the right iliopsoas muscle and tendon. Differential diagnosis includes muscle strain, infection, and hematoma. No organized fluid collection identified. ESR within normal limits. Pain management with Lortab and IV Dilaudid judicious use of narcotics. Physical therapy evaluation. Consider orthopedic consultation. Hold antiplatelets for now Metabolic and toxic encephalopathy secondary to acute kidney injury and use of narcotics. Because of history of TIA, will obtain head CT. If worse or persistent consider MRI Acute kidney injury likely secondary to dehydration. She has chronic kidney disease stage IV. Will start IV hydration and avoid nephrotoxins. Check CK Mild hypercalcemia secondary to immobilization patient is mainly wheelchair- bound. Patient will be on IV hydration and repeat level in the morning. If worse consider pamidronate Mild leukocytosis likely reactive. Urinalysis is unremarkable. ESR within normal limits. Monitor Mild AST elevation on statin. We'll hold statin for now and monitor Chronic medical conditions of TIA, arthritis, anxiety, depression, hyperlipidemia, dementia, GERD, glaucoma, urinary incontinence and hypertension. Continue outpatient medicines as appropriate DVT prophylaxis with SCD and early ambulation. Avoid pharmacological prophylaxis because of possible hematoma Code Status Full Discussed Condition With Patient, daughter and ER staff Eddi Dunne MD Dec 06, 2016 17:02
[2016-12-06 17:43] VITALS: BP 122/70; PULSE 79; RESP 18; TEMP 96.9; O2SAT 94
[2016-12-06] MEDS ORDERED: HYDR-3533 PO (18:34)
--- NOTE | 2016-12-06 18:34 | HHI.DCPOC ---
Discharge Care Plan Diagnosis: (1) Acute pain of right lower extremity (2) Dehydration Your Health Problems Are: Difficulty with ADL Exercise Tolerance Goals to Promote Your Health * To prevent worsening of your condition and complications * To maintain your health at the optimal level Directions to Meet Your Goals Take your medications as prescribed Follow your dietary instruction Follow activity as directed Keep your appointments as scheduled Take your immunizations and boosters as scheduled If your symptoms worsen call your PCP, if no PCP go to Urgent Care Center or Emergency Room Smoking is Dangerous to Your Health. Avoid second hand smoke Call the 24-hour hour crisis hotline for domestic abuse at Eddi Dunne MD Dec 06, 2016 18:34
--- NOTE | 2016-12-06 18:35 | HHI.FF ---
Face to Face Verification Diagnosis: (1) Acute pain of right lower extremity Physical Therapy Order: Evaluate and Treat, Improve ambulation, Strength and gait training I have seen patient Segun Carey on 12/06/16. My clinical findings support the need for the requested home health care services because: Ltd mobility - disease progression I certify that my clinical findings support that this patient is homebound because: Unsafe to leave home unassisted Eddi Dunne MD Dec 06, 2016 18:35
[2016-12-06] MEDS: ACETAMINOPHEN 1000 MG/100 ML VIAL IV SCH (18:47)
[2016-12-06 20:07] VITALS: O2SAT 92
[2016-12-06 20:17] VITALS: BP 102/52; PULSE 79; RESP 14; TEMP 96.6; O2SAT 97
[2016-12-06] MEDS: ARTIFICIAL TEARS OPTH SOLN 15 ML BTL EACH EYE SCH (21:00)
[2016-12-06] MEDS: NYSTATIN 100,000 U/GM OINT 15 GM TUBE TOPICAL SCH (21:00)
[2016-12-06] MEDS: SODIUM CHLORIDE 0.9% FLUSH 10 ML FLUSH IV FLUSH SCH (21:00)
[2016-12-06] MEDS ORDERED: SENNOSIDES 8.6 MG TAB PO PRN (21:00)
[2016-12-06] MEDS: DOCUSATE SODIUM 50 MG/SENNA 8.6 MG TAB PO SCH (21:00)
[2016-12-06] MEDS: DIVALPROEX SODIUM SPRINKLES 125 MG CAP PO SCH (21:00)
--- NOTE | 2016-12-06 21:38 | RADHPO ---
EXAM DATE/TIME: 12/06/2016 21:05 [facility] COMPARISON: CT BRAIN W/O CONTRAST, April 16, 2016, 11:58. INDICATIONS : Altered mental RADIATION DOSE: 63.37 CTDIvol (mGy) MEDICAL HISTORY : Cerebrovascular disease. Cardiovascular disease Dementia. SURGICAL HISTORY : Hysterectomy. ENCOUNTER: Initial ACUITY: 1 day PAIN SCALE: 0/10 LOCATION: Bilateral cranial TECHNIQUE: Multiple contiguous axial images were obtained of the head. Using automated exposure control and adj ustment of the mA and/or kV according to patient size, radiation dose was kept as low as reasonably a chievable to obtain optimal diagnostic quality images. FINDINGS: CEREBRUM: The ventricles are normal for age. No evidence of midline shift, mass lesion, hemorrhage or acute in farction. No extra-axial fluid collections are seen. POSTERIOR FOSSA: The cerebellum and brainstem are intact. The 4th ventricle is midline. The cerebellopontine angle i s unremarkable. EXTRACRANIAL: The visualized portion of the orbits is intact. SKULL: The calvaria is intact. No evidence of skull fracture. CONCLUSION: No acute disease. Justen Espino Jr., MD on December 06, 2016 at 21:36 Board Certified Radiologist. This report was verified electronically.
[2016-12-07 01:11] VITALS: BP 100/60; PULSE 80; RESP 16; TEMP 97.7; O2SAT 93
[2016-12-07] MEDS: ACETAMINOPHEN 1000 MG/100 ML VIAL IV SCH ×4 (03:56→22:03)
[2016-12-07 06:24] LABS: AUTOMATED NEUTROPHIL # 7.7 TH/MM3 (1.8-7.7); BASOPHIL % 0.3 % (0.0-2.0); EOSINOPHIL # 0.4 TH/MM3 (0-0.4); EOSINOPHIL % 3.4 % (0.0-4.0); HEMATOCRIT 34.6 % (35.0-46.0); HEMO FLAGS DIFF FINAL; LYMPH % 12.2 % (9.0-44.0); LYMPHOCYTE # 1.3 TH/MM3 (1.0-4.8); MEAN CELL VOLUME 88.1 FL (80.0-100.0); MONO % 11.2 % (0.0-8.0); NEUT % 72.9 % (16.0-70.0); PLATELET COUNT 153 TH/MM3 (150-450); RED BLOOD COUNT 3.93 MIL/MM3 (4.00-5.30); WHITE BLOOD COUNT 10.6 TH/MM3 (4.0-11.0)
[2016-12-07 06:32] LABS: CHLORIDE 108 MEQ/L (98-107); POTASSIUM 3.6 MEQ/L (3.5-5.1); SODIUM (NA) 143 MEQ/L (136-145)
[2016-12-07 06:48] LABS: ALKALINE PHOSPHATASE 69 U/L (45-117); ALT (GPT) 20 U/L (10-53); ANION GAP 7 MEQ/L (5-15); AST (GOT) 33 U/L (15-37); BICARBONATE 27.6 MEQ/L (21.0-32.0); BLOOD UREA NITROGEN 30 MG/DL (7-18); CREATINE KINASE 137 U/L (26-192); GLOMERULAR FILTRATION RATE 62 ML/MIN (>89); TOTAL BILIRUBIN ADULT 0.8 MG/DL (0.2-1.0)
[2016-12-07 08:00] VITALS: BP 165/78; PULSE 57; RESP 16; TEMP 96.7; O2SAT 92
[2016-12-07] MEDS: SODIUM CHLORIDE 0.9% FLUSH 10 ML FLUSH IV FLUSH SCH ×2 (09:00→21:00)
[2016-12-07] MEDS: DOCUSATE SODIUM 50 MG/SENNA 8.6 MG TAB PO SCH ×2 (09:00→22:02)
[2016-12-07] MEDS ORDERED: POTASSIUM CHLORIDE 10 MEQ CAP PO ONE (10:00)
[2016-12-07] MEDS: DIVALPROEX SODIUM SPRINKLES 125 MG CAP PO SCH ×2 (10:47→22:02)
[2016-12-07] MEDS: ARTIFICIAL TEARS OPTH SOLN 15 ML BTL EACH EYE SCH ×2 (10:47→21:00)
[2016-12-07] MEDS: NYSTATIN 100,000 U/GM OINT 15 GM TUBE TOPICAL SCH ×2 (10:47→21:00)
[2016-12-07] MEDS: TOLTERODINE TARTRATE 4 MG CAP LA PO SCH (10:47)
[2016-12-07] MEDS: TRIAMCINOLONE ACETONIDE 0.5% TOPICAL SCH (10:47)
[2016-12-07] MEDS: SODIUM CHLOR 0.9% 1000 ML INJ 1,000 ML IV SCH ×2 (10:48→18:35)
[2016-12-07] MEDS ORDERED: POTASSIUM CHLORIDE 20 MEQ CONTROLLED RELEASE TAB PO ONE (11:45)
--- NOTE | 2016-12-07 11:59 | HHI.PR ---
Subjective Remarks Follow-up right hip pain. Able to ambulate short very short distance with physical therapy. Still having right hip pain. She is more alert and oriented today. Seen with daughters. Discussed with RN and physical therapy Objective Vitals Vital Signs Date Time Temp Pulse Resp B/P Pulse Ox O2 Delivery O2 Flow Rate FiO2 12/07/16 08:00 96.7 57 16 165/78 92 12/07/16 01:11 97.7 80 16 100/60 93 12/06/16 20:17 96.6 79 14 102/52 97 12/06/16 20:07 92 21 12/06/16 17:52 16 12/06/16 17:43 96.9 79 18 122/70 94 12/06/16 16:00 73 16 121/65 94 Room Air 12/06/16 13:54 78 18 131/48 100 Room Air I/O 12/06/16 12/06/16 12/06/16 12/07/16 12/07/16 12/07/16 07:00 15:00 23:00 07:00 15:00 23:00 Intake Total 200 ml Output Total 150 ml Balance 50 ml Intake IV Total 200 ml Output Urine Total 150 ml # Voids 1 5 Result Diagram: 12/07/16 0545 12/07/16 0545 Imaging Last Impressions Pelvis X-Ray 12/06/16 1119 Signed Impressions: Service Date/Time: December 11:39 - CONCLUSION: 1. No acute fracture or dislocation. Consider MRI examination if patient is unable to bear weight on the affected side. Jorge Bautista MD Chest X-Ray 12/06/16 1119 Signed Impressions: Service Date/Time: December 11:35 - CONCLUSION: 1. Hypoinflation with no acute infiltrate or pneumothorax. 2. Heart size remains prominent but well compensated. 3. 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 4. No acute fracture. Stone Pérez MD Pelvis MRI 12/06/16 0000 Signed Impressions: Service Date/Time: December 13:03 - CONCLUSION: Diffuse edema of the right iliopsoas muscle and tendon. Differential diagnosis includes muscle strain, infection, and hematoma. No organized fluid collection identified. Rehan Reed MD Head CT 12/06/16 0000 Signed Impressions: Service Date/Time: December 21:05 - CONCLUSION: No acute disease. Justen Espino Jr., MD Objective Remarks GENERAL: This is a well-nourished, well-developed patient, in no apparent distress. She is oriented to place and month. SKIN: No rashes, ecchymoses or lesions. Cool and dry. HEAD: Atraumatic. Normocephalic. No temporal or scalp tenderness. EYES: Pupils equal round and reactive. Extraocular motions intact. No scleral icterus. No injection or drainage. ENT: Nose without bleeding, purulent drainage or septal hematoma. Throat without erythema, tonsillar hypertrophy or exudate. Uvula midline. Airway patent. NECK: Trachea midline. No JVD or lymphadenopathy. Supple, nontender, no meningeal signs. CARDIOVASCULAR: Regular rate and rhythm without murmurs, gallops, or rubs. Skipped beats corresponding to PVC RESPIRATORY: Clear to auscultation. Breath sounds equal bilaterally. No wheezes , rales, or rhonchi. GASTROINTESTINAL: Abdomen soft, non-tender, nondistended. No guarding. MUSCULOSKELETAL: Extremities without clubbing, cyanosis, or edema. Right hip is tender. It is not swollen or warm. I am able to flex and extend. No calf tenderness. Negative Homans sign bilaterally. Left lower extremity is shortened NEUROLOGICAL: Awake and alert. Cranial nerves II through XII intact. Motor and sensory grossly within normal limits. Five out of 5 muscle strength in all muscle groups. Normal speech. Oriented to place and month Procedures none A/P Problem List: (1) Acute pain of right lower extremity ICD Code: M79.604 Status: Acute (2) Dehydration ICD Code: E86.0 Status: Acute Assessment and Plan Right hip pain with inability to ambulate. MRI of the pelvis shows Diffuse edema of the right iliopsoas muscle and tendon. Differential diagnosis includes muscle strain, infection, and hematoma. No organized fluid collection identified. ESR within normal limits. Patient was able to ambulate a few steps with physical therapy. Pain management with IV acetaminophen, Lortab and IV Dilaudid as needed judicious use of narcotics. Physical therapy following. Consider orthopedic consultation. Hold antiplatelets for now Metabolic and toxic encephalopathy secondary to acute kidney injury and use of narcotics. Because of history of TIA, will obtain head CT which was unremarkable. If worse or persistent consider MRI. Slowly improving Acute kidney injury likely secondary to dehydration. She has chronic kidney disease stage IV. Continue IV hydration and and wean if tolerating by mouth avoid nephrotoxins. CK not significantly elevated Mild hypercalcemia secondary to immobilization patient is mainly wheelchair- bound. Improving on IV hydration and repeat level in the morning. If worse consider pamidronate Mild leukocytosis likely reactive. Urinalysis is unremarkable. ESR within normal limits. Improving. Monitor Mild AST elevation on statin. Improving will restart statin Chronic medical conditions of TIA, arthritis, anxiety, depression, hyperlipidemia, dementia, GERD, glaucoma, urinary incontinence and hypertension. Continue outpatient medicines as appropriate DVT prophylaxis with SCD and early ambulation. Avoid pharmacological prophylaxis because of possible hematoma Discharge Planning Not ready for discharge Eddi Dunne MD Dec 07, 2016 11:59
[2016-12-07 12:00] VITALS: BP 145/65; PULSE 60; RESP 16; TEMP 96.7; O2SAT 92
[2016-12-07 15:59] VITALS: BP 143/60; PULSE 55; RESP 16; TEMP 96.3; O2SAT 92
[2016-12-07 20:17] VITALS: BP 144/62; PULSE 73; RESP 14; TEMP 98.9; O2SAT 94
[2016-12-07 20:50] VITALS: O2SAT 94
[2016-12-08 00:11] VITALS: BP 150/70; PULSE 73; RESP 16; TEMP 98; O2SAT 95
[2016-12-08] MEDS: ACETAMINOPHEN 1000 MG/100 ML VIAL IV SCH ×3 (00:50→13:28)
[2016-12-08 08:00] VITALS: BP 158/68; PULSE 68; RESP 18; TEMP 95.5; O2SAT 95; O2SAT 96
[2016-12-08] MEDS: SODIUM CHLOR 0.9% 1000 ML INJ 1,000 ML IV SCH ×3 (08:06→21:15)
[2016-12-08 08:16] LABS: AUTOMATED NEUTROPHIL # 4.4 TH/MM3 (1.8-7.7); BASOPHIL # 0.1 TH/MM3 (0-0.2); BASOPHIL % 0.9 % (0.0-2.0); EOSINOPHIL % 12.2 % (0.0-4.0); HEMATOCRIT 36.8 % (35.0-46.0); HEMO FLAGS DIFF FINAL; LYMPH % 21.6 % (9.0-44.0); LYMPHOCYTE # 1.8 TH/MM3 (1.0-4.8); MEAN CELL VOLUME 88.8 FL (80.0-100.0); MEAN CORPUSCULAR HEMOGLOBIN 29.1 PG (27.0-34.0); MEAN CORPUSCULAR HGB CONC 32.8 % (32.0-36.0); MONO % 12.2 % (0.0-8.0); NEUT % 53.1 % (16.0-70.0); PLATELET COUNT 180 TH/MM3 (150-450); POTASSIUM 4.1 MEQ/L (3.5-5.1); RED BLOOD COUNT 4.14 MIL/MM3 (4.00-5.30); RED CELL DISTRIBUTION WIDTH 14.3 % (11.6-17.2); WHITE BLOOD COUNT 8.3 TH/MM3 (4.0-11.0)
[2016-12-08 08:32] LABS: BICARBONATE 25.8 MEQ/L (21.0-32.0); MAGNESIUM 2.1 MG/DL (1.5-2.5)
[2016-12-08] MEDS: SODIUM CHLORIDE 0.9% FLUSH 10 ML FLUSH IV FLUSH SCH ×2 (09:00→21:16)
[2016-12-08] MEDS: DOCUSATE SODIUM 50 MG/SENNA 8.6 MG TAB PO SCH ×2 (09:00→21:00)
[2016-12-08] MEDS: TOLTERODINE TARTRATE 4 MG CAP LA PO SCH (09:03)
[2016-12-08] MEDS: DIVALPROEX SODIUM SPRINKLES 125 MG CAP PO SCH ×2 (09:03→21:14)
[2016-12-08] MEDS: ARTIFICIAL TEARS OPTH SOLN 15 ML BTL EACH EYE SCH ×2 (09:20→21:14)
[2016-12-08] MEDS: TRIAMCINOLONE ACETONIDE 0.5% TOPICAL SCH (09:21)
[2016-12-08] MEDS: NYSTATIN 100,000 U/GM OINT 15 GM TUBE TOPICAL SCH ×2 (09:21→21:14)
--- NOTE | 2016-12-08 10:12 | HHI.PR ---
Subjective Remarks Follow-up right hip pain. States her pain is improving. She is alert and oriented to person, place and month. She is still on IV acetaminophen and has not required as needed analgesia discussed with RN Objective Vitals Vital Signs Date Time Temp Pulse Resp B/P Pulse Ox O2 Delivery O2 Flow Rate FiO2 12/08/16 08:00 95.5 68 18 158/68 96 12/08/16 01:20 18 12/08/16 00:11 98.0 73 16 150/70 95 12/07/16 20:50 94 21 12/07/16 20:17 98.9 73 14 144/62 94 12/07/16 15:59 96.3 55 16 143/60 92 12/07/16 12:00 96.7 60 16 145/65 92 I/O 12/07/16 12/07/16 12/07/16 12/08/16 12/08/16 12/08/16 07:00 15:00 23:00 07:00 15:00 23:00 Intake Total 690 ml Balance 690 ml Intake Oral 690 ml # Voids 5 3 2 3 Result Diagram: 12/08/16 0750 12/08/16 0750 Imaging Last Impressions Pelvis X-Ray 12/06/16 1119 Signed Impressions: Service Date/Time: December 11:39 - CONCLUSION: 1. No acute fracture or dislocation. Consider MRI examination if patient is unable to bear weight on the affected side. Jorge Bautista MD Chest X-Ray 12/06/16 1119 Signed Impressions: Service Date/Time: December 11:35 - CONCLUSION: 1. Hypoinflation with no acute infiltrate or pneumothorax. 2. Heart size remains prominent but well compensated. 3. 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 4. No acute fracture. Stone Pérez MD Pelvis MRI 12/06/16 0000 Signed Impressions: Service Date/Time: December 13:03 - CONCLUSION: Diffuse edema of the right iliopsoas muscle and tendon. Differential diagnosis includes muscle strain, infection, and hematoma. No organized fluid collection identified. Rehan Reed MD Head CT 12/06/16 0000 Signed Impressions: Service Date/Time: December 21:05 - CONCLUSION: No acute disease. Justen Espino Jr., MD Objective Remarks GENERAL: This is a well-nourished, well-developed patient, in no apparent distress. She is oriented to person, place and month. HEAD: Atraumatic. Normocephalic. EYES: Pupils equal round and reactive. Extraocular motions intact. No scleral icterus. No injection or drainage. ENT: Nose without bleeding, purulent drainage or septal hematoma. T NECK: Trachea midline. No JVD or lymphadenopathy. Supple, nontender, no meningeal signs. CARDIOVASCULAR: Regular rate and rhythm without murmurs, gallops, or rubs. Skipped beats corresponding to PVC RESPIRATORY: Clear to auscultation. Breath sounds equal bilaterally. No wheezes , rales, or rhonchi. GASTROINTESTINAL: Abdomen soft, non-tender, nondistended. No guarding. MUSCULOSKELETAL: Extremities without clubbing, cyanosis, or edema. Right hip is less tender. It is not swollen or warm. I am able to slightly flex and extend. No calf tenderness. Negative Homans sign bilaterally. Left lower extremity is shortened NEUROLOGICAL: Awake and alert. Cranial nerves II through XII intact. Motor and sensory grossly within normal limits. Five out of 5 muscle strength in all muscle groups. Normal speech. Oriented to place and month Procedures none A/P Problem List: (1) Acute pain of right lower extremity ICD Code: M79.604 Status: Acute (2) Dehydration ICD Code: E86.0 Status: Acute Assessment and Plan Right hip pain with inability to ambulate. MRI of the pelvis shows Diffuse edema of the right iliopsoas muscle and tendon. Differential diagnosis includes muscle strain, infection, and hematoma. No organized fluid collection identified. ESR within normal limits. Patient was able to ambulate a few steps with physical therapy. Pain management with IV acetaminophen, Lortab and IV Dilaudid as needed judicious use of narcotics. Physical therapy following. Hold antiplatelets for now. Repeat MRI Metabolic and toxic encephalopathy secondary to acute kidney injury and use of narcotics. Because of history of TIA, head CT was obtained which was unremarkable. If worse or persistent consider MRI. Improving Acute kidney injury likely secondary to dehydration. She has chronic kidney disease stage IV. Improving. Continue IV hydration and and wean if tolerating by mouth avoid nephrotoxins. CK not significantly elevated Mild hypercalcemia secondary to immobilization patient is mainly wheelchair- bound. Improving on IV hydration and repeat level in the morning. If worse consider pamidronate Mild leukocytosis likely reactive. Urinalysis is unremarkable. ESR within normal limits. Improving. Monitor Mild AST elevation on statin. Improving will restart statin Chronic medical conditions of TIA, arthritis, anxiety, depression, hyperlipidemia, dementia, GERD, glaucoma, urinary incontinence and hypertension. BP starting to creep up restart Norvasc. Family aware risk of TIA off antiplatelets. Continue outpatient medicines as appropriate DVT prophylaxis with SCD and early ambulation. Avoid pharmacological prophylaxis because of possible hematoma Discharge Planning Possible discharge in the morning will observe off IV acetaminophen and follow- up with physical therapy Eddi Dunne MD Dec 08, 2016 10:12
[2016-12-08 12:00] VITALS: BP 111/52; PULSE 70; RESP 17; TEMP 96; O2SAT 97
[2016-12-08] MEDS ORDERED: GADODIAMIDE PF 287 MG/ML 20 ML VIAL (for RAD MRI) IV ONE (12:14)
--- NOTE | 2016-12-08 12:53 | RADHPO ---
EXAM DATE/TIME: 12/08/2016 11:20 [facility] COMPARISON: MRI PELVIS W/O CONTRAST, December 06, 2016, 13:03. INDICATIONS : Right hip and groing pain. F/U abnormality on prior MRI. CONTRAST: 13 cc Omniscan (gadodiamide) IV MEDICAL HISTORY : Hypertension. SURGICAL HISTORY : Hysterectomy. Right knee surgery. ENCOUNTER: Subsequent ACUITY: 3 day PAIN SCORE: 3/10 LOCATION: Right pelvis TECHNIQUE: Multiplanar, multisequence magnetic resonance imaging of the pelvis was performed. FINDINGS: MUSCULOSKELETAL: Diffuse edema is again identified in the right iliopsoas muscle involving the psoas and iliac as port ions of the muscle. Diffuse enhancement on the postcontrast images follows the areas of edema on the T2-weighted images. No change in the extent of edema when compared to prior study of 12/06/2016. There is central non-enhancement in the psoas muscle on the postcontrast images but this area is low signal and not fluid signal on T2-weighted images. The central area of non-enhancement measures 1.9 x 1.6 c m in axial dimensions. REPRODUCTIVE: No mass is visualized. BLADDER: No wall thickening or mass. RETROPERITONEUM: There is no lymphadenopathy. Vascular structures are within normal limits. BOWEL/MESENTERY: Visualized small and large bowel demonstrates no acute abnormality. There is no free fluid. INGUINAL: No lymphadenopathy or hernia. CONCLUSION: Diffuse abnormality of the right iliopsoas muscle and tendon again identified. There is diffuse edema and diffuse enhancement on the postcontrast images in and around the muscle and tendon. Central non- enhancement is seen within the psoas muscle. This area has low signal on the T2 weighted images. Diff erential diagnosis is again muscle strain/hematoma versus infection. Signal characteristics of the ce ntral psoas muscle favor hematoma. Rehan Reed MD on December 08, 2016 at 12:42 Board Certified Radiologist. This report was verified electronically.
[2016-12-08] MEDS ORDERED: TRAM50TA PO (14:41)
[2016-12-08 16:00] VITALS: BP 133/60; PULSE 71; RESP 18; TEMP 95.8; O2SAT 97
[2016-12-08] MEDS: traMADol HCL 50 MG TAB PO PRN (17:31)
[2016-12-08 20:35] VITALS: O2SAT 94
[2016-12-08] MEDS: ATORVASTATIN 10 MG TAB PO SCH (21:14)
[2016-12-08 21:31] VITALS: BP 160/75; PULSE 76; RESP 14; TEMP 98.9; O2SAT 93
[2016-12-09 00:41] VITALS: BP 159/80; PULSE 70; RESP 12; TEMP 98.8; O2SAT 96
[2016-12-09] MEDS: SODIUM CHLOR 0.9% 1000 ML INJ 1,000 ML IV SCH (06:07)
[2016-12-09 07:33] LABS: AUTOMATED NEUTROPHIL # 5.2 TH/MM3 (1.8-7.7); BASOPHIL % 0.5 % (0.0-2.0); EOSINOPHIL # 0.6 TH/MM3 (0-0.4); EOSINOPHIL % 6.7 % (0.0-4.0); HEMATOCRIT 34.2 % (35.0-46.0); HEMO FLAGS DIFF FINAL; LYMPH % 24.2 % (9.0-44.0); LYMPHOCYTE # 2.2 TH/MM3 (1.0-4.8); MEAN CELL VOLUME 87.8 FL (80.0-100.0); MEAN CORPUSCULAR HEMOGLOBIN 28.8 PG (27.0-34.0); MEAN CORPUSCULAR HGB CONC 32.8 % (32.0-36.0); MONO % 11.6 % (0.0-8.0); PLATELET COUNT 200 TH/MM3 (150-450); WHITE BLOOD COUNT 9.1 TH/MM3 (4.0-11.0)
[2016-12-09 07:49] LABS: MAGNESIUM 2.1 MG/DL (1.5-2.5)
[2016-12-09 08:00] VITALS: BP 156/81; PULSE 76; RESP 18; TEMP 98.6; O2SAT 95; O2SAT 96
[2016-12-09] MEDS: DOCUSATE SODIUM 50 MG/SENNA 8.6 MG TAB PO SCH ×2 (08:25→20:35)
[2016-12-09] MEDS: NYSTATIN 100,000 U/GM OINT 15 GM TUBE TOPICAL SCH ×2 (08:25→20:36)
[2016-12-09] MEDS: TRIAMCINOLONE ACETONIDE 0.5% TOPICAL SCH (08:25)
[2016-12-09] MEDS: DIVALPROEX SODIUM SPRINKLES 125 MG CAP PO SCH ×2 (08:25→20:35)
[2016-12-09] MEDS: TOLTERODINE TARTRATE 4 MG CAP LA PO SCH (08:25)
[2016-12-09] MEDS: ARTIFICIAL TEARS OPTH SOLN 15 ML BTL EACH EYE SCH ×2 (08:25→20:36)
[2016-12-09] MEDS: SODIUM CHLORIDE 0.9% FLUSH 10 ML FLUSH IV FLUSH SCH ×2 (08:27→20:36)
[2016-12-09 12:00] VITALS: BP 138/71; PULSE 72; RESP 20; TEMP 97.3; O2SAT 96
--- NOTE | 2016-12-09 12:07 | HHI.PR ---
Subjective Remarks Follow-up right hip pain. Denies pain. So far tolerating tramadol. Discussed with case management, RN and physical therapy Objective Vitals Vital Signs Date Time Temp Pulse Resp B/P Pulse Ox O2 Delivery O2 Flow Rate FiO2 12/09/16 08:00 98.6 76 18 156/81 95 12/09/16 00:41 98.8 70 12 159/80 96 12/08/16 21:31 98.9 76 14 160/75 93 12/08/16 20:35 94 21 12/08/16 16:00 95.8 71 18 133/60 97 I/O 12/08/16 12/08/16 12/08/16 12/09/16 12/09/16 12/09/16 07:00 15:00 23:00 07:00 15:00 23:00 Intake Total 800 ml 320 ml Balance 800 ml 320 ml Intake Oral 800 ml IV Total 320 ml # Voids 3 4 1 3 # Bowel Movements 0 Result Diagram: 12/09/16 0708 12/09/16 0708 Imaging Last Impressions Pelvis MRI 12/08/16 0000 Signed Impressions: Service Date/Time: Thursday, December 08, 2016 11:20 - CONCLUSION: Diffuse abnormality of the right iliopsoas muscle and tendon again identified. There is diffuse edema and diffuse enhancement on the postcontrast images in and around the muscle and tendon. Central non-enhancement is seen within the psoas muscle. This area has low signal on the T2 weighted images. Differential diagnosis is again muscle strain/hematoma versus infection. Signal characteristics of the central psoas muscle favor hematoma. Rehan Reed MD Pelvis X-Ray 12/06/16 1119 Signed Impressions: Service Date/Time: December 11:39 - CONCLUSION: 1. No acute fracture or dislocation. Consider MRI examination if patient is unable to bear weight on the affected side. Jorge Bautista MD Chest X-Ray 12/06/16 1119 Signed Impressions: Service Date/Time: December 11:35 - CONCLUSION: 1. Hypoinflation with no acute infiltrate or pneumothorax. 2. Heart size remains prominent but well compensated. 3. 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 4. No acute fracture. Stone Pérez MD Head CT 12/06/16 0000 Signed Impressions: Service Date/Time: December 21:05 - CONCLUSION: No acute disease. Justen Espino Jr., MD Objective Remarks GENERAL: This is a well-nourished, well-developed patient, in no apparent distress. She is oriented to person, place and month. HEAD: Atraumatic. Normocephalic. EYES: Pupils equal round and reactive. Extraocular motions intact. No scleral icterus. No injection or drainage. ENT: Nose without bleeding, purulent drainage or septal hematoma. NECK: Trachea midline. No JVD or lymphadenopathy. Supple CARDIOVASCULAR: Regular rate and rhythm without murmurs, gallops, or rubs. RESPIRATORY: Clear to auscultation. Breath sounds equal bilaterally. No wheezes , rales, or rhonchi. GASTROINTESTINAL: Abdomen soft, non-tender, nondistended. No guarding. MUSCULOSKELETAL: Extremities without clubbing, cyanosis, or edema. Right hip is less tender. It is not swollen or warm. I am able to slightly flex and extend. No calf tenderness. Negative Homans sign bilaterally. Left lower extremity is shortened NEUROLOGICAL: Awake and alert. Cranial nerves II through XII intact. Motor and sensory grossly within normal limits. Five out of 5 muscle strength in all muscle groups. Normal speech. Oriented to place and month Procedures none A/P Problem List: (1) Acute pain of right lower extremity ICD Code: M79.604 Status: Acute (2) Dehydration ICD Code: E86.0 Status: Acute Assessment and Plan Right hip pain with inability to ambulate. MRI of the pelvis shows Diffuse edema of the right iliopsoas muscle and tendon. Differential diagnosis includes muscle strain, infection, and hematoma. No organized fluid collection identified. ESR within normal limits. Improving. Pain management with tramadol and IV Dilaudid as needed judicious use of narcotics. Physical therapy following. Repeat MRI with contrast showed no change but favors hematoma Hold antiplatelets for now. Family aware risk of TIA off antiplatelets. Metabolic and toxic encephalopathy secondary to acute kidney injury and use of narcotics. Because of history of TIA, head CT was obtained which was unremarkable. If worse or persistent consider MRI. Improving Acute kidney injury likely secondary to dehydration. She has chronic kidney disease stage IV. Improving. Continue IV hydration and and wean if tolerating by mouth avoid nephrotoxins. CK not significantly elevated Mild hypercalcemia secondary to immobilization patient is mainly wheelchair- bound. Improving on IV hydration. If worse consider pamidronate Mild leukocytosis likely reactive. Urinalysis is unremarkable. ESR within normal limits. Improving. Monitor Mild AST elevation on statin. Improving will restart statin Chronic medical conditions of TIA, arthritis, anxiety, depression, hyperlipidemia, dementia, GERD, glaucoma, urinary incontinence and hypertension. Continue outpatient medicines as appropriate DVT prophylaxis with SCD and early ambulation. Avoid pharmacological prophylaxis because of possible hematoma Discharge Planning Possible discharge to rehabilitation when arranged Eddi Dunne MD Dec 09, 2016 12:07
[2016-12-09 16:00] VITALS: BP 145/85; PULSE 81; RESP 20; TEMP 97.6; O2SAT 95
[2016-12-09] MEDS: traMADol HCL 50 MG TAB PO PRN (16:18)
--- NOTE | 2016-12-09 17:24 | HHI.PR ---
Subjective Remarks RN informed me that family is concerned the patient is lethargic. She informed Dr. Dunne. I evaluated the patient. Patient's blood glucose level is 118. She appears somnolent and is holding her hands up to her ears. She denies sensitivity to sounds and light, but does admit to a mild headache. She denies any chest pain or shortness of breath. Nurse denies patient having any vomiting or diarrhea. Denies any numbness, tingling, or focal weakness. Patient 's daughter states she arrived at 3:30pm and the patient has been like this since but had barely eaten any of her lunch. PE: Heart regular rate and rhythm. Lungs clear to auscultation bilaterally. Abdomen soft, nontender, nondistended. MSK: Right upper and lower leg is significantly swollen compared to left and patient is quite tender over the right calf. NEURO: Somnolent. Speech is normal. No obvious cranial nerve deficits. Negative pronator drift. Patient has 4/5 strength in upper extremities although equal. She is unable to lift her right leg due to current R hip pain. I informed Dr. Dunne and we agreed to obtain a head CT. When I went back to speak with the patient 2 minutes later after her daughter had given her some sherbet and grapes the patient was awake and alert watching TV without falling asleep and she now denies headache. Will hold off on head CT for now. RN advised to continue neuro checks. RN states patient was in and out like this yesterday. Will obtain Doppler ultrasound of right lower extremity. Objective Vitals Vital Signs Date Time Temp Pulse Resp B/P Pulse Ox O2 Delivery O2 Flow Rate FiO2 12/09/16 16:00 97.6 81 20 145/85 95 12/09/16 12:00 97.3 72 20 138/71 96 12/09/16 08:00 98.6 76 18 156/81 95 12/09/16 08:00 96 21 12/09/16 00:41 98.8 70 12 159/80 96 12/08/16 21:31 98.9 76 14 160/75 93 12/08/16 20:35 94 21 I/O 12/08/16 12/08/16 12/08/16 12/09/16 12/09/16 12/09/16 07:00 15:00 23:00 07:00 15:00 23:00 Intake Total 800 ml 320 ml 330 ml Balance 800 ml 320 ml 330 ml Intake Oral 800 ml 330 ml IV Total 320 ml # Voids 3 4 1 3 2 # Bowel Movements 0 Result Diagram: 12/09/1608 12/09/16 0708 Procedures none Diana Carrizales Dec 09, 2016 17:24
--- NOTE | 2016-12-09 18:20 | RADHPO ---
EXAM DATE/TIME: 12/09/2016 17:49 [facility] COMPARISON: No previous studies available for comparison. INDICATIONS : Right leg pain and swelling. MEDICAL HISTORY : Hypercholesterolemia. Gastroesophageal reflux disease. Dementia. CVA. Hypertension. Arthritis. SURGICAL HISTORY : Hysterectomy. Right knee surgery. ENCOUNTER: Initial ACUITY: 1 week PAIN SCORE: 6/10 LOCATION: Right leg. TECHNIQUE: Venous ultrasound of the leg was performed from the inguinal ligament to the proximal calf. Real-yoel e, color Doppler and spectral tracing, compression and augmentation techniques were used. FINDINGS: There is occlusive thrombus in the common femoral vein, popliteal and superficial femoral vein. CONCLUSION: Occlusive thrombus right leg. Sage Shoemaker MD on December 09, 2016 at 18:17 Board Certified Radiologist. This report was verified electronically.
[2016-12-09] MEDS ORDERED: ENOXAPARIN SODIUM 60 MG/0.6 ML SYRINGE SQ SCH (19:00)
[2016-12-09 20:00] VITALS: BP 147/82; PULSE 83; RESP 16; TEMP 97; O2SAT 96
[2016-12-09] MEDS: ATORVASTATIN 10 MG TAB PO SCH (20:35)
[2016-12-10] VITALS: BP 143/79; PULSE 78; RESP 16; TEMP 97.3; O2SAT 96
[2016-12-10 05:59] LABS: BASOPHIL % 0.5 % (0.0-2.0); EOSINOPHIL # 0.5 TH/MM3 (0-0.4); EOSINOPHIL % 5.2 % (0.0-4.0); HEMO FLAGS DIFF FINAL; LYMPH % 20.7 % (9.0-44.0); LYMPHOCYTE # 2.1 TH/MM3 (1.0-4.8); MEAN CELL VOLUME 88.1 FL (80.0-100.0); MEAN CORPUSCULAR HEMOGLOBIN 28.5 PG (27.0-34.0); MEAN CORPUSCULAR HGB CONC 32.3 % (32.0-36.0); MONO % 12.7 % (0.0-8.0); NEUT % 60.9 % (16.0-70.0); PLATELET COUNT 209 TH/MM3 (150-450); RED BLOOD COUNT 3.97 MIL/MM3 (4.00-5.30); WHITE BLOOD COUNT 9.9 TH/MM3 (4.0-11.0)
[2016-12-10] MEDS: SODIUM CHLOR 0.9% 1000 ML INJ 1,000 ML IV SCH (06:05)
[2016-12-10 06:07] LABS: POTASSIUM 4.2 MEQ/L (3.5-5.1)
[2016-12-10 06:14] LABS: BICARBONATE 25.9 MEQ/L (21.0-32.0); MAGNESIUM 2.3 MG/DL (1.5-2.5)
[2016-12-10 08:00] VITALS: BP 140/77; PULSE 79; RESP 17; TEMP 98; O2SAT 96
[2016-12-10] MEDS ORDERED: BISACODYL 10 MG SUPP RECTAL PRN (08:30)
[2016-12-10] MEDS ORDERED: MAGNESIUM HYDROXIDE SUSP 30 ML CUP PO PRN (08:30)
[2016-12-10] MEDS: TRIAMCINOLONE ACETONIDE 0.5% TOPICAL SCH (09:00)
[2016-12-10] MEDS: DOCUSATE SODIUM 50 MG/SENNA 8.6 MG TAB PO SCH ×2 (09:00→20:40)
[2016-12-10] MEDS: SODIUM CHLORIDE 0.9% FLUSH 10 ML FLUSH IV FLUSH SCH ×2 (09:00→20:41)
[2016-12-10] MEDS: DIVALPROEX SODIUM SPRINKLES 125 MG CAP PO SCH ×2 (09:44→20:40)
[2016-12-10] MEDS: TOLTERODINE TARTRATE 4 MG CAP LA PO SCH (09:44)
[2016-12-10] MEDS: ARTIFICIAL TEARS OPTH SOLN 15 ML BTL EACH EYE SCH ×2 (09:45→20:41)
[2016-12-10] MEDS: traMADol HCL 50 MG TAB PO PRN (10:50)
--- NOTE | 2016-12-10 11:04 | HHI.PR ---
Subjective Remarks Follow-up right hip hematoma. Patient denies any pain. Events noted. Right lower extremity swelling positive for DVT. Family agrees with IVC filter. Discussed with IR requires hematology consultation. Discussed with Dr. Silvestre Vasquez Ace with IVC filter. Family struggling to make decisions for the patient. We'll consult palliative care Objective Vitals Vital Signs Date Time Temp Pulse Resp B/P Pulse Ox O2 Delivery O2 Flow Rate FiO2 12/10/16 08:00 98.0 79 17 140/77 96 12/10/16 00:00 97.3 78 16 143/79 96 12/09/16 20:00 97.0 83 16 147/82 96 12/09/16 16:00 97.6 81 20 145/85 95 12/09/16 12:00 97.3 72 20 138/71 96 I/O 12/09/16 12/09/16 12/09/16 12/10/16 12/10/16 12/10/16 07:00 15:00 23:00 07:00 15:00 23:00 Intake Total 320 ml 330 ml 80 ml Balance 320 ml 330 ml 80 ml Intake Oral 330 ml 80 ml IV Total 320 ml # Voids 3 2 2 3 # Bowel Movements 0 0 Result Diagram: 12/10/16 0520 12/10/16 0520 Imaging Last Impressions Lower Extremity Ultrasound 12/09/16 0000 Signed Impressions: Service Date/Time: Friday, December 09, 2016 17:49 - CONCLUSION: Occlusive thrombus right leg. Sage Shoemaker MD Pelvis MRI 12/08/16 0000 Signed Impressions: Service Date/Time: Thursday, December 08, 2016 11:20 - CONCLUSION: Diffuse abnormality of the right iliopsoas muscle and tendon again identified. There is diffuse edema and diffuse enhancement on the postcontrast images in and around the muscle and tendon. Central non-enhancement is seen within the psoas muscle. This area has low signal on the T2 weighted images. Differential diagnosis is again muscle strain/hematoma versus infection. Signal characteristics of the central psoas muscle favor hematoma. Rehan Reed MD Pelvis X-Ray 12/06/16 1119 Signed Impressions: Service Date/Time: December 11:39 - CONCLUSION: 1. No acute fracture or dislocation. Consider MRI examination if patient is unable to bear weight on the affected side. Jorge Bautista MD Chest X-Ray 12/06/16 1119 Signed Impressions: Service Date/Time: December 11:35 - CONCLUSION: 1. Hypoinflation with no acute infiltrate or pneumothorax. 2. Heart size remains prominent but well compensated. 3. 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 4. No acute fracture. Stone Pérez MD Head CT 12/06/16 0000 Signed Impressions: Service Date/Time: , December 06, 2016 21:05 - CONCLUSION: No acute disease. Justen Espino Jr., MD Objective Remarks GENERAL: This is a well-nourished, well-developed patient, in no apparent distress. She is oriented to person, place and month. HEAD: Atraumatic. Normocephalic. EYES: Pupils equal round and reactive. Extraocular motions intact. No scleral icterus. No injection or drainage. ENT: Nose without bleeding, purulent drainage or septal hematoma. NECK: Trachea midline. No JVD or lymphadenopathy. Supple CARDIOVASCULAR: Regular rate and rhythm without murmurs, gallops, or rubs. RESPIRATORY: Clear to auscultation. Breath sounds equal bilaterally. No wheezes , rales, or rhonchi. GASTROINTESTINAL: Abdomen soft, non-tender, nondistended. No guarding. MUSCULOSKELETAL: Extremities without clubbing, cyanosis, or edema. Right hip is less tender. It is not swollen or warm. I am able to slightly flex and extend. Right leg is swollen. Left lower extremity is shortened NEUROLOGICAL: Awake and alert. Cranial nerves II through XII intact. Motor and sensory grossly within normal limits. Five out of 5 muscle strength in all muscle groups. Normal speech. Oriented to person, place and month Procedures none A/P Problem List: (1) Acute pain of right lower extremity ICD Code: M79.604 Status: Acute (2) Dehydration ICD Code: E86.0 Status: Acute Assessment and Plan Right hip pain with inability to ambulate. MRI of the pelvis shows Diffuse edema of the right iliopsoas muscle and tendon. Differential diagnosis includes muscle strain, infection, and hematoma. No organized fluid collection identified. ESR within normal limits. Improving. Pain management with tramadol and IV Dilaudid as needed judicious use of narcotics. Physical therapy following. Repeat MRI with contrast showed no change but favors hematoma Hold antiplatelets for now. Family aware risk of TIA off antiplatelets. Right lower extremity DVT. Unable to start anticoagulation secondary to hematoma. IVC filter requested, hematology consulted and agrees. Metabolic and toxic encephalopathy secondary to acute kidney injury and use of narcotics. Because of history of TIA, head CT was obtained which was unremarkable. If worse or persistent consider MRI. Improving Acute kidney injury likely secondary to dehydration. She has chronic kidney disease stage IV. Improving. Continue IV hydration and and wean if tolerating by mouth avoid nephrotoxins. CK not significantly elevated Mild hypercalcemia secondary to immobilization patient is mainly wheelchair- bound. Improving on IV hydration. If worse consider pamidronate Mild leukocytosis likely reactive. Urinalysis is unremarkable. ESR within normal limits. Improving. Monitor Mild AST elevation on statin. Improving will restart statin Chronic medical conditions of TIA, arthritis, anxiety, depression, hyperlipidemia, dementia, GERD, glaucoma, urinary incontinence and hypertension. Continue outpatient medicines as appropriate DVT prophylaxis with SCD and early ambulation. Avoid pharmacological prophylaxis because of possible hematoma Discharge Planning Not ready for discharge. Needs IVC filter. Consult palliative care to clarify goals of care I spent 35 minutes [id number] with the patient or on the siddiqui discussing the patient's disposition, prognosis, and plan of care with patient's caregivers. Over half the time spent was devoted to counseling the patient regarding placement in coordinating care with caregivers and case management. Eddi Dunne MD Dec 10, 2016 11:03
--- NOTE | 2016-12-10 11:19 | MB ---
cc: CARLOS WINN MD Cc: Primary Care Physician DATE OF CONSULTATION: 12/10/2016 Consult requested by the hospitalist service. REASON FOR CONSULTATION Patient with an occlusive thrombosis involving the right common femoral vein, right superficial femoral vein and right popliteal vein. She also has a hematoma involving the right psoas muscle. She is a suboptimal candidate for therapeutic anticoagulation. The hematology service has been asked to see her to weigh the risks and benefits of possible IVC filter placement. CHIEF COMPLAINT Increasing confusion, pain in her right leg and right hip which had been ongoing for 3 or 4 days prior to admission. HISTORY OF PRESENT ILLNESS Ms. Carey is a 86-year-old female who is a resident of an assisted-living facility, she is mostly wheelchair bound and requires assistance with almost all activities of daily living. 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 Ms. Carey was brought into [facility] by her daughters after she was found to be generally weak and fatigued as well as complaining of symptoms of right hip and right leg weakness. The patient has reportedly had hospitalizations over the past 3 or 4 weeks for various symptoms. Upon admission to the hospitalist the patient underwent MRI of the pelvis performed on 12/06/2016 to workup her hip pain and she was noted to have a hematoma involving the right psoas muscle. She was also noted to be in acute on chronic renal insufficiency and was hydrated. She underwent CT of the head as well for workup of the altered mental status and was noted to have no evidence of acute changes. Additionally, ultrasound Doppler of the right lower extremity was performed to evaluate her swelling and pain in the right leg and this revealed an occlusive thrombosis involving the right common femoral vein, popliteal vein and superficial femoral vein. I have been asked to see this patient to determine if she is a candidate for anticoagulation and if she is not, whether she will benefit from an IVC filter. PAST MEDICAL HISTORY 1. Adult failure to thrive. 2. History of TIA. 3. Osteoarthritis. 4. Anxiety. 5. Depression. 6. Hyperlipidemia. 7. Dementia. 8. Gastroesophageal reflux disease. 9. Glaucoma. 10. Incontinence of urine. 11. Hypertension. PAST SURGICAL HISTORY 1. Hysterectomy. 2. Right knee replacement. 3. Umbilical hernia repair. FAMILY HISTORY Daughter with pulmonary emboli. No other oncologic diagnoses noted or hematologic diagnoses noted. SOCIAL HISTORY , lives in shelter facility. No history of alcohol or illicit drug use or even tobacco. ALLERGIES BACTRIM, BACTROBAN, SULFA DRUGS AND SEPTRA. REVIEW OF SYSTEMS Difficult to obtain from this patient with a poor memory but she does report pain in her right hip and pain in her legs. She tells me she has difficulty standing or walking. She tells me her breathing is comfortable, she denies chest pain, she denies headaches, she denies overt bleeding. She denies GI bleeding as well. Her daughters are at bedside and they endorse this. PHYSICAL EXAMINATION VITAL SIGNS: Temperature 98 degrees Fahrenheit, heart rate 79 beats per minute, respiratory rate 17, blood pressure 140/77, O2 sats 96% on room air. GENERAL PHYSICAL APPEARANCE: Ms. Carey is an elderly lady, she is laying in bed, she appears to be somewhat frail. She is not acutely distressed. Her adult daughters are at bedside. HEENT: Head is atraumatic, normocephalic, conjunctivae are mildly pale, sclerae are anicteric, EOMI, PERRLA. ORAL EXAM: No pharyngeal erythema. NECK: No palpable cervical or supraclavicular lymphadenopathy. RESPIRATORY: Poor inspiratory effort but good air movement over the upper and middle lung zones on anterior exam, decreased bibasilar breath sounds. CARDIOVASCULAR: Regular rate and rhythm, S1-S2. No obvious murmurs, rubs or gallops. ABDOMEN: Thin belly, soft. There is some tenderness over the right lower quadrant, no palpable organ enlargement. LOWER EXTREMITIES: She does have bilateral pretibial edema, she has no calf tenderness. No thigh tenderness either. TIME BROKER: Moves all four limbs spontaneously, though generally decreased motor tone. MUSCULOSKELETAL: Generally decreased muscle mass. LABORATORY FINDINGS Blood work dated 12/10/2016: WBC count 9.9, hemoglobin 11.3 gm/dl, hematocrit 35%, platelet count is 209. Coags, PT 11.2, INR 1, PTT 25. CMP: Sodium 143, potassium 4.2, chloride 110, bicarbonate 26, BUN 23, creatinine 0.88, random glucose 86, calcium 9.1, magnesium is 2.3. Albumin is 2.4. IMAGING STUDIES Ultrasound Doppler of the right lower extremity dated 12/09/2016 indicates occlusive thrombosis in the right leg involving the common femoral vein, popliteal vein and superficial femoral vein. MRI of the pelvis dated 12/08/2016 indicates diffuse abnormality in the right iliopsoas muscle and tendon again identified, diffuse edema and diffuse enhancement, post contrast images in and around the muscle and tendon. Differential diagnosis again includes strain, hematoma versus infection. Signal characteristics of the central psoas muscle favor hematoma. ASSESSMENT Ms. Carey is a 86-year-old female who is quite frail and generally bed and wheelchair bound. She was noted to have progressive pain in her right hip and pain in her right leg associated with altered mental status which led up to this hospitalization. The etiology of the altered mental status is not known but is thought to be secondary to acute illness. The pain in her right hip has been traced to a hematoma involving the right iliopsoas muscle and her right leg pain is most likely secondary to an occlusive thrombosis involving the right femoral, popliteal and superficial femoral veins. This patient had been on aspirin and Plavix for management of recurrent TIAs. She does have baseline dementia and as I mentioned above she has a poor performance status due to general debility and requires assistance with essentially all activities of daily living including self-care and feeding. I have been asked to see her to determine if she is a candidate for IVC filter placement. DISCUSSION I had a long discussion with the patient's two daughters who are her primary health care surrogates. I talked to the patient as well to the extent to which she could understand, I explained the current situation and the treatment options available. I have explained to the patient's daughters that anticoagulation in the case of their mother is associated with risk of bleeding as it would be in anyone else, however, Ms. Carey is at high risk for bleeding given her general debility and her increased risk of falls. Also with a iliopsoas hematoma the concern is that anticoagulation may exacerbate the bleeding which would increase her morbidity. I therefore recommended against anticoagulation. Other options for mitigating the risk of thromboembolism of the right lower extremity deep venous thrombosis would be to place an IVC filter. I explained to the patient's daughters that an IVC filter is also not without risks as IVC filters may be associated with increased risk of deep venous thromboses in the lower extremities after they had been in place for more than 18 months. I did however explain the benefit of an IVC filter would be a decreased risk of life-threatening pulmonary emboli in the setting of this proximal deep venous thrombosis in the right lower extremity. Another option would be to just monitor her periodically without any specific intervention. However, this option was not acceptable to the patient's daughters. RECOMMENDATIONS 1. Deep venous thrombosis in the right lower extremity involving both proximal and distal veins, the patient has a relative contraindication for anticoagulation, i.e., a right iliopsoas muscle hematoma. She also is a high risk for falls. It is my assessment that Ms. Carey is a reasonable candidate for IVC filter placement and IR has been consulted to place one. I would at this point recommend against anticoagulation. MD SHARLENE Oseguera/JOHN /9:52 AM /10:52 AM
[2016-12-10 12:00] VITALS: BP 134/80; PULSE 81; RESP 18; TEMP 97.7; O2SAT 95
[2016-12-10] MEDS ORDERED: fentaNYL CITRATE 250 MCG/5 ML AMP IV PUSH ONE (13:15)
--- NOTE | 2016-12-10 13:50 | PD.RAD ---
Post Procedure Progress Note Pre Procedure Diagnosis: (1) DVT (deep venous thrombosis) Post Procedure Diagnosis: (1) DVT (deep venous thrombosis) Procedure Date: Dec 10, 2016 Supervising Radiologist: Justen Espino JR Proceduralist/Assist: Mable Tse RT(R), Ale Lua RT(R)() Anesthesia: Local Plan of Activity Patient to Unit: Nursing Unit Patient Condition: Good See PACS Report for procedural detail/treatment Vascular-Venous Procedure Procedure 1 Procedure(s): Retrievable IVC Filter Access Access Site(s): Right Femoral Vein Findings: IVC filter deployed without difficulty. Plan This is a retrievable device and can be removed up to one year from today's date. Jr. Srinivas,Justen Christy MD Dec 10, 2016 13:50
[2016-12-10] MEDS ORDERED: IOHEXOL 350 MG/ML 50 ML BTL (for RAD DIAG) IV ONE (14:15)
--- NOTE | 2016-12-10 15:50 | PD.CONS ---
Consult Service Palliative Care Consult Requested By Dr. Dunne . Primary Care Physician Morgan Oviedo MD . Reason for Consultation a. To assist with evaluation and management of symptoms including: Confusion , fatigue, pain b. To assist medical decision maker(s) with: better understanding of current medical conditions; weighing benefits/burdens of medical treatment options; making medical treatment decisions. . HPI History of Present Illness This 86-year-old female, with a past history of "mild" dementia, chronic musculoskeletal pain, hypertension, and chronic kidney disease, was admitted after presenting to the emergency department on 12/08/16 because of weakness and pain. The patient was admitted at this facility in April 2016 with altered mental status and TIA symptoms. She also was treated for pneumonia at that time, and was discharged to a rehabilitation facility where she stayed for 95 days. The patient's daughter reports that the patient did not progress very much during that rehabilitation process, and she was thus unable to return back to her home or she lived alone (with a visiting [employer] daily). She has been in an assisted living facility since then, and the daughter reports that the patient spent most of her time in bed or wheelchair, but could help with transfers or take a step or 2 with assistance. She now presented with worsening weakness and some worsening right hip pain, and findings in the emergency department included: * Pleasant confusion, weakness * White count 12.7, hemoglobin 13.5 * Sodium 139, creatinine 1.30, albumin 2.9 * Chest x-ray with no acute disease * Pelvis MRI revealed edema of the right iliopsoas muscle and tendon The patient was admitted, and further evaluation included a CT brain scan that showed some atrophy but no acute disease. The MRI was repeated, and it was felt to be consistent with a hematoma in that iliopsoas area. There was no reported history of known trauma. The patient underwent Doppler studies of the leg, and acute DVT was found in the right pelvis and leg. The patient was seen by hematology, and the decision was ultimately made to have an IVC filter inserted since anticoagulation would carry significant risk. The patient's daughters were having some difficulty in medical decision-making at times, and Palliative Care was consulted to assist with symptom management, and to discuss with the family the current problems, prognosis, and the benefits and burdens of the various treatment options. . Function/Cognitive Trajectory The patient has been declining over the past couple years. Her dementia has been gradually getting worse, and her weakness has progressed to the point to where she is primarily bed and wheelchair bound. She is confused but pleasant. . Review of Systems ROS Limitations: Altered Mental Status Constitutional: DENIES: Weight gain, Weight loss Endocrine: DENIES: Polyuria Eyes: DENIES: Eye inflammation Ears, nose, mouth, throat: DENIES: Epistaxis Respiratory: DENIES: Hemoptysis, Shortness of breath Cardiovascular: COMPLAINS OF: Syncope (twice last year), Lower Extremity Edema (mild), DENIES: Chest pain Gastrointestinal: COMPLAINS OF: Constipation (chronic/intermittent), DENIES: Bloody stools, Diarrhea, Vomiting, Vomiting blood Genitourinary: DENIES: Hematuria Musculoskeletal: COMPLAINS OF: Joint pain (arthritis, intermittent discomfort) , Back pain (chronic), Neck pain (chronic) Integumentary: DENIES: Rash Hematologic/Lymphatics: DENIES: Bruising, Lymphadenopathy Immunologic/Allergic: DENIES: Urticaria Neurologic: DENIES: Headache, Localized weakness, Seizures Psychiatric: COMPLAINS OF: Anxiety, Confusion, Depression, DENIES: Hallucinations Past Family Social History Coded Allergies: Bactrim (Unverified Allergy, Severe, Rash, 12/06/16) Bactroban (Unverified Allergy, Severe, Rash, 12/06/16) Septra (Unverified Allergy, Severe, Rash, 12/06/16) Uncoded Allergies: SULFA DRUGS (Allergy, Severe, Rash, 12/02/12) Past Medical History * Weakness, fatigue * Dementia, slowly progressive * Right leg DVT * IVC filter insertion 12/10/16 * Chronic pain, neck/back * Hypertension * GERD * Intermittent constipation * Chronic kidney disease * Glaucoma * Chronic urinary incontinence * Degenerative joint disease * Anxiety * Depression * History of TIA, 2016 * Seizure activity on EEG, 2016 . Past Surgical History * Vaginal hysterectomy, * right knee replacement, * umbilical hernia repair * IVC filter 12/10/16 . Reported Medications Nystatin Topical 100,000 unit/gm Oint 1 Applic TOPICAL Q12HR Docusate Sodium 100 Mg Cap 100 Mg PO DAILY Depakote Sprinkles (Divalproex Sodium) 125 mg Cap 125 Mg PO BID Aspirin 81 (Aspirin) 81 Mg Tabdr 81 Mg PO DAILY Plavix (Clopidogrel Bisulfate) 75 Mg Tab 75 Mg PO DAILY Lipitor (Atorvastatin Calcium) 10 Mg Tab 10 Mg PO HS Triamcinolone Acetonide (Triamcinolone Acetonide (Topic) 1 Pow Pow 0.05 % TOPICAL DAILY Artificial Tears (Dextran 70/Hypromellose) 1 Each Droperette 2 Drop EACH EYE BID Amlodipine (Amlodipine Besylate) 10 Mg Tab 10 Mg PO DAILY Oxybutynin ER 24 HR (Oxybutynin Chloride) 10 Mg Tab 10 Mg PO DAILY Tylenol (Acetaminophen) 325 Mg Tab 650 Mg PO Q6H PRN Cranberry (Cranberry Fruit Concentrate) 450 Mg Capsule 1 Cap PO DAILY Vitamin E (Vitamin E Mixed) 200 Unit Tablet 1 Cap PO DAILY Fish Oil ([place]-3 Fatty Acids) 1,000 Mg Cap 1 Cap PO DAILY Multiple Vitamins For Women (Multivit with Calcium,Iron,Min) 1 Each Tablet 1 Tab PO DAILY Vitamin D3 (Cholecalciferol) 1,000 Unit Tab 1,000 Units PO DAILY Vitamin B Complex (B-Complex Vitamins) 1 Tab 1 Cap PO DAILY . Current Medications Medications (Trade) Dose Ordered Sig/William Route Start Time Stop Time Status Last Admin (NS 1000 ml Inj) 1,000 ml @ 40 mls/hr Q24H IV 12/06/16 12:00 12/08/16 21:15 (NS Flush) 2 ml UNSCH PRN IV FLUSH 12/06/16 14:30 (NS Flush) 2 ml BID IV FLUSH 12/06/16 21:00 12/10/16 09:00 (Tylenol) 650 mg Q4H PRN PO 12/06/16 15:00 (Zofran Inj) 4 mg Q6H PRN IVP 12/06/16 14:30 (Tylenol) 650 mg Q6H PRN PO 12/06/16 15:00 (Dilaudid Pf Inj) 0.2 mg Q3H PRN IV 12/06/16 15:00 (Narcan Inj) 0.4 mg UNSCH PRN IV 12/06/16 14:30 ([place]ayne-Colace) 1 tab BID PO 12/06/16 21:00 12/10/16 09:00 (Senokot) 17.2 mg Q12HR PRN PO 12/06/16 21:00 (Depakote Sprinkles) 125 mg BID PO 12/06/16 21:00 12/10/16 09:44 (Mycostatin Oint) 1 applic Q12HR TOPICAL 12/06/16 21:00 12/09/16 20:36 (Tears Naturale Opth Soln) 2 drop BID EACH EYE 12/06/16 21:00 12/10/16 09:45 (Detrol La) 4 mg DAILY PO 12/07/16 09:00 12/10/16 09:44 (Aristocort 0.5% Cream) 1 applic DAILY TOPICAL 12/07/16 09:00 12/09/16 08:25 (Norvasc) 10 mg DAILY PO 12/08/16 13:00 12/10/16 09:44 (Lipitor) 10 mg HS PO 12/08/16 21:00 12/09/16 20:35 (Ultram) 50 mg Q6H PRN PO 12/08/16 15:00 12/10/16 10:50 (Milk Of Magnesia Liq) 30 ml Q12H PRN PO 12/10/16 08:30 (Dulcolax Supp) 10 mg DAILY PRN RECTAL 12/10/16 08:30 Family History No history of cancer. One daughter has had pulmonary emboli. . Substance Use Tobacco: None Alcohol: None Prescription med abuse: None Illicits: None . Psychosocial History The patient was born in [facility], and has lived in this area for several years. She lived alone until her last TIA in April 2016, and after a rehabilitation stay has lived in an assisted living facility since then. The patient has been twice, . She has 2 daughters who live locally, and one stepson. . Spiritual/Cultural Factors Rastafarian background. . Living Will: Never completed Health Care Surrogate: Never completed Durable Power of Molder: Never completed Family/friends goals: The patient's daughter Jess notes that the family wants to continue aggressive care at this time, including transfer to the [facility]. The patient's daughters have arranged for a return to a rehabilitation facility. They recognize that the patient has been declining in recent months/ years, and they understand that, overall, the decline is likely to continue. They are aware that they will need to reconsider resuscitation status as the patient declines and as her dementia worsens. . Ethical and Legal Issues There are no ethical issues that would impact her care or decision-making at this time. The patient lacks capacity for decision-making, likely secondary to her dementia , and she will not regain that capacity. Her 2 daughters, Jess and Chelita, are thus her medical decision makers, as there is no designated health care surrogate. . Physical Exam Vital Signs Date Time Temp Pulse Resp B/P Pulse Ox O2 Delivery O2 Flow Rate FiO2 12/10/16 12:00 97.7 81 18 134/80 95 12/10/16 08:00 98.0 79 17 140/77 96 12/10/16 00:00 97.3 78 16 143/79 96 12/09/16 20:00 97.0 83 16 147/82 96 12/09/16 16:00 97.6 81 20 145/85 95 12/09/16 12/10/16 19:00 07:00 Intake Total 330 ml 80 ml Balance 330 ml 80 ml Intake Oral 330 ml 80 ml # Voids 2 5 # Bowel Movements 0 Exam CONSTITUTIONAL/GENERAL: This is an elderly, pleasantly confused patient, in no apparent distress. TUBES/LINES/DRAINS: Peripheral IV SKIN: No jaundice, rashes, or lesions. No wounds seen anteriorly. Skin temperature appropriate. Not diaphoretic. HEAD: Atraumatic. Normocephalic. EYES: Pupils equal and round and reactive. Extraocular motions intact. No scleral icterus. No injection or drainage. Fundi not examined. ENT: Hearing grossly normal. Nose without bleeding or purulent drainage. Throat without visible erythema, exudates, masses, or lesions. NECK: Trachea midline. Supple, nontender. No palpable thyroid enlargement or nodularity. CARDIOVASCULAR: Regular rate and rhythm without murmurs, gallops, or rubs. No JVD. Peripheral pulses symmetric. RESPIRATORY/CHEST: Symmetric, unlabored respirations. Clear to auscultation. Breath sounds equal bilaterally. No wheezes, rales, or rhonchi. GASTROINTESTINAL: Abdomen soft, non-tender, nondistended. No hepato-splenomegaly , or palpable masses. No guarding. Bowel sounds present. GENITOURINARY: Without palpable bladder distension. MUSCULOSKELETAL: Extremities without clubbing, cyanosis, or edema. No joint tenderness or effusion noted. No calf tenderness. No mottling or clubbing. LYMPHATICS: No palpable cervical or supraclavicular adenopathy. NEUROLOGICAL: Awake and alert. Motor and sensory grossly within normal limits, although she is somewhat globally weak. Follows commands. Pleasantly confused. PSYCHIATRIC: No obvious anxiety/depression. no apparent hallucinations or other psychotic thought process. . Diagnostic Tests Laboratory Laboratory Tests Test 12/08/16 12/09/16 12/10/16 07:50 07:08 05:20 White Blood Count 8.3 TH/MM3 9.1 TH/MM3 9.9 TH/MM3 (4.0-11.0) (4.0-11.0) (4.0-11.0) Red Blood Count 4.14 MIL/MM3 3.90 MIL/MM3 3.97 MIL/MM3 (4.00-5.30) (4.00-5.30) (4.00-5.30) Hemoglobin 12.1 GM/DL 11.2 GM/DL 11.3 GM/DL (11.6-15.3) (11.6-15.3) (11.6-15.3) Hematocrit 36.8 % 34.2 % 35.0 % (35.0-46.0) (35.0-46.0) (35.0-46.0) Mean Corpuscular Volume 88.8 FL 87.8 FL 88.1 FL (80.0-100.0) (80.0-100.0) (80.0-100.0) Mean Corpuscular Hemoglobin 29.1 PG 28.8 PG 28.5 PG (27.0-34.0) (27.0-34.0) (27.0-34.0) Mean Corpuscular Hemoglobin 32.8 % 32.8 % 32.3 % Concent (32.0-36.0) (32.0-36.0) (32.0-36.0) Red Cell Distribution Width 14.3 % 14.0 % 14.0 % (11.6-17.2) (11.6-17.2) (11.6-17.2) Platelet Count 180 TH/MM3 200 TH/MM3 209 TH/MM3 (150-450) (150-450) (150-450) Mean Platelet Volume 8.0 FL 7.8 FL 7.7 FL (7.0-11.0) (7.0-11.0) (7.0-11.0) Neutrophils (%) (Auto) 53.1 % 57.0 % 60.9 % (16.0-70.0) (16.0-70.0) (16.0-70.0) Lymphocytes (%) (Auto) 21.6 % 24.2 % 20.7 % (9.0-44.0) (9.0-44.0) (9.0-44.0) Monocytes (%) (Auto) 12.2 % 11.6 % 12.7 % (0.0-8.0) (0.0-8.0) (0.0-8.0) Eosinophils (%) (Auto) 12.2 % 6.7 % (0.0-4.0) 5.2 % (0.0-4.0) (0.0-4.0) Basophils (%) (Auto) 0.9 % (0.0-2.0) 0.5 % (0.0-2.0) 0.5 % (0.0-2.0) Neutrophils # (Auto) 4.4 TH/MM3 5.2 TH/MM3 6.0 TH/MM3 (1.8-7.7) (1.8-7.7) (1.8-7.7) Lymphocytes # (Auto) 1.8 TH/MM3 2.2 TH/MM3 2.1 TH/MM3 (1.0-4.8) (1.0-4.8) (1.0-4.8) Monocytes # (Auto) 1.0 TH/MM3 1.1 TH/MM3 1.3 TH/MM3 (0-0.9) (0-0.9) (0-0.9) Eosinophils # (Auto) 1.0 TH/MM3 0.6 TH/MM3 0.5 TH/MM3 (0-0.4) (0-0.4) (0-0.4) Basophils # (Auto) 0.1 TH/MM3 0.0 TH/MM3 0.0 TH/MM3 (0-0.2) (0-0.2) (0-0.2) CBC Comment DIFF FINAL DIFF FINAL DIFF FINAL Differential Comment Sodium Level 144 MEQ/L 143 MEQ/L 143 MEQ/L (136-145) (136-145) (136-145) Potassium Level 4.1 MEQ/L 4.0 MEQ/L 4.2 MEQ/L (3.5-5.1) (3.5-5.1) (3.5-5.1) Chloride Level 112 MEQ/L 111 MEQ/L 110 MEQ/L (98-107) (98-107) (98-107) Carbon Dioxide Level 25.8 MEQ/L 25.0 MEQ/L 25.9 MEQ/L (21.0-32.0) (21.0-32.0) (21.0-32.0) Anion Gap 6 MEQ/L (5-15) 7 MEQ/L (5-15) 7 MEQ/L (5-15) Blood Urea Nitrogen 23 MG/DL (7-18) 21 MG/DL (7-18) 23 MG/DL (7-18) Creatinine 0.84 MG/DL 0.77 MG/DL 0.88 MG/DL (0.50-1.00) (0.50-1.00) (0.50-1.00) Estimat Glomerular Filtration 64 ML/MIN (>89) 71 ML/MIN (>89) 61 ML/MIN (>89) Rate Random Glucose 81 MG/DL 85 MG/DL 86 MG/DL (74-106) (74-106) (74-106) Calcium Level 8.7 MG/DL 8.8 MG/DL 9.1 MG/DL (8.5-10.1) (8.5-10.1) (8.5-10.1) Magnesium Level 2.1 MG/DL 2.1 MG/DL 2.3 MG/DL (1.5-2.5) (1.5-2.5) (1.5-2.5) Result Diagram: 12/10/1651912/10/16519 Imaging Last Impressions Lower Extremity Ultrasound 12/09/16 0000 Signed Impressions: Service Date/Time: Friday, December 09, 2016 17:49 - CONCLUSION: Occlusive thrombus right leg. Sage Shoemaker MD Pelvis MRI 12/08/16 0000 Signed Impressions: Service Date/Time: Thursday, December 08, 2016 11:20 - CONCLUSION: Diffuse abnormality of the right iliopsoas muscle and tendon again identified. There is diffuse edema and diffuse enhancement on the postcontrast images in and around the muscle and tendon. Central non-enhancement is seen within the psoas muscle. This area has low signal on the T2 weighted images. Differential diagnosis is again muscle strain/hematoma versus infection. Signal characteristics of the central psoas muscle favor hematoma. Rehan Reed MD Pelvis X-Ray 12/06/16 1119 Signed Impressions: Service Date/Time: December 11:39 - CONCLUSION: 1. No acute fracture or dislocation. Consider MRI examination if patient is unable to bear weight on the affected side. Jorge Bautista MD Chest X-Ray 12/06/16 1119 Signed Impressions: Service Date/Time: , December 06, 2016 11:35 - CONCLUSION: 1. Hypoinflation with no acute infiltrate or pneumothorax. 2. Heart size remains prominent but well compensated. 3. 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 4. No acute fracture. Stone Pérez MD Head CT 12/06/16 0000 Signed Impressions: Service Date/Time: December 21:05 - CONCLUSION: No acute disease. Justen Espino Jr., MD Procedures Retrievable IVC filter placement, 12/10/16 . Patient/Family Conference Present at Family Conference: Patient's oldest daughter Jess Rosenbaum via telephone. . Family Conference Time (mins): 30 Family Conference Location: Telephone Issues Discussed: * Palliative care role, purpose, approach * Additional medical, psychosocial, and spiritual history * Patients general health, functional status, and cognitive changes in the months leading up to the current hospitalization * Patient/family understanding of the current medical problems * Patient/family understanding of prognosis * Patients goals of care as best understood from advance directives and/or conversations and/or values * Current medical treatment options and benefits/burdens of those options * Likely scenarios comparing ongoing aggressive care with a transition to comfort measures only * Questions answered to the best of my ability * Palliative care contact information provided The patient's daughters have arranged for a return to a rehabilitation facility. They recognize that the patient has been declining in recent months/ years, and they understand that, overall, the decline is likely to continue. They are aware that they will need to reconsider resuscitation status as the patient declines and as her dementia worsens. . Assessment and Plan Disease Oriented Problem List: (1) weakness, fatigue (2) right leg DVT, retrievable IVC filter placement 12/10/16 (3) urinary incontinence, chronic (4) degenerative joint disease (5) chronic kidney disease (6) hypertension (7) constipation, intermittent/chronic (8) hyperlipidemia (9) history of TIA, 2016 (10) chronic pain, neck/back (11) seizure activity on EEG, 2016 (12) GERD Symptom Scale: (1) anxiety 0-10 Scale: Unable to quantify (2) pain 0-10 Scale: Unable to quantify (3) weakness, fatigue 0-10 Scale: Unable to quantify Pertinent Non-Medical Issues Psychosocial: , 2 daughters, lives at [facility] Spiritual: Rastafarian background Legal: The patient lacks capacity for decision-making, likely secondary to her dementia, and she will not regain that capacity. Her 2 daughters, Jess and Chelita, are thus her medical decision makers, as there is no designated health care surrogate. Ethical issues impacting care: None . Important Contacts Daughter: Jess Rosenbaum [phone] Daughter: Chelita Schultz [phone] . Prognosis The patient has mild dementia, and has been declining for the past couple years. She has worsening weakness and fatigue and is now nonambulatory. It is likely that her decline will continue, and that she has months to years of life remaining. . Code Status: Full Code Plan * FULL CODE * DECISION-MAKING: The patient lacks capacity for decision-making, likely secondary to her dementia, and she will not regain that capacity. Her 2 daughters, Jess and Chelita, are thus her medical decision makers, as there is no designated health care surrogate. * GOALS: The patient's daughters have arranged for a return to a rehabilitation facility. They recognize that the patient has been declining in recent months/ years, and they understand that, overall, the decline is likely to continue. They are aware that they will need to reconsider resuscitation status as the patient declines and as her dementia worsens. * SYMPTOMS: Her pain is managed with PRN Lortab. In the anxiety has not required specific treatment. Her weakness and fatigue is fairly significant, and she will be sent to the rehabilitation facility soon. * Palliative Care will see the patient intermittently / PRN during her hospitalization, or more frequently if changes occur that may impact her prognosis or trajectory of decline. . Time Spent Total Floor Time (mins): 76 Face to Face Time (mins): 44 >50% Counseling/Coord of Care: Yes Thank you for the opportunity to participate in the care of Ms. Carey. Attestation To help prompt me to consider important information that might be impacting today's encounter and assessment, information from prior notes written by myself or my colleagues may have been "brought forward" into today's note. My signature on this note, however, is an attestation that I personally performed the exam, history, and/or decision-making noted today, and, unless otherwise indicated, the interactions with patient, family, and staff as well as the review of records all occurred today. I also attest that the listed assessment and stated plan reflect my best clinical judgment today based on the combination of historical information, prior notes, and today's exam/ interactions. When time spent is documented, it refers only to time spent today by the signer, or if indicated, combined time spent today by collaborating physician/nurse practitioner. Liz Marcelo MD Dec 10, 2016 15:50
[2016-12-10 16:00] VITALS: BP 100/48; PULSE 84; RESP 17; TEMP 97.7; O2SAT 98
[2016-12-10] MEDS ORDERED: SENN1TAB PO (16:43)
--- NOTE | 2016-12-10 17:26 | RADHPO ---
EXAM DATE/TIME: 12/10/2016 13:25 [facility] COMPARISON: No previous studies available for comparison. INDICATIONS : Patient with lower extremitity DVT and not a candidate for anticoagulation therapy. Patient in need o f IVC filter placement. MEDICAL HISTORY : TIA, arthritis, anxiety, depression, hyperlipidemia, dementia, GERD, glaucoma, urinary incontinence a nd hypertension SURGICAL HISTORY : Vaginal hysterectomy, right knee replacement, umbilical hernia repair ENCOUNTER: Initial ACUITY: 1 week PAIN SCORE: 0/10 FLUORO TIME: 1.1 minutes IMAGE SERIES: 1 ACCESS SITE: Right Femoral vein CONTRAST: 1.) 15 cc Omnipaque (iohexol) 350 MEDICATION(S): 1.) 50 mcg fentanyl (Sublimaze) IV DEVICE(S): 1.) Inferior vena cava Bard Sonya filter PROCEDURE : 1. Ultrasound-guided venipuncture. 2. Inferior venacavogram. 3. Inferior vena cava filter placement. 4. Conscious sedation with continuous EKG and oximetry monitoring. The risks, benefits and alternatives to the procedure were explained and verbal and written consent w as obtained. The site was prepped in sterile fashion. Full sterile technique was used, including ca p, mask, sterile gloves and gown and a large sterile sheet. Hand hygiene and 2% chlorhexidine and/or betadine/alcohol prep was utilized per protocol for cutaneous antisepsis. The skin and subcutaneous tissues were infiltrated with local anesthetic solution. Ultrasound of the right groin shows an easily compressible common femoral vein. No thrombus involving the common femoral vein. With ultrasound and fluoroscopic guidance the targeted vein was punctured a nd a vascular sheath was placed. Inferior venacavogram was performed to demonstrate level of renal ve ins. No caval thrombus was identified. The prescribed filter was deployed in the infrarenal inferior vena cava. Following deployment the filter was identified in good position. Conscious sedation was performed with the prescribed dosages and duration as above in the presence of an independent trained radiology nurse to assist in the monitoring of the patient. EKG and oximetry remained stable throughout the procedure. The patient tolerated the procedure well and there were n o complications. The patient was sent to post anesthesia recovery in stable condition. CONCLUSION: Uncomplicated inferior vena cava filter placement as above. Justen Espino Jr., MD on December 10, 2016 at 17:23 Board Certified Radiologist. This report was verified electronically.
[2016-12-10 20:00] VITALS: BP 122/62; PULSE 86; RESP 18; TEMP 97.1; O2SAT 95
[2016-12-10] MEDS: NYSTATIN 100,000 U/GM OINT 15 GM TUBE TOPICAL SCH (20:40)
[2016-12-10] MEDS: ATORVASTATIN 10 MG TAB PO SCH (20:40)
[2016-12-11] VITALS: BP 142/72; PULSE 84; RESP 18; TEMP 97.6; O2SAT 95
[2016-12-11 08:00] VITALS: BP 157/78; PULSE 76; RESP 18; TEMP 97.8; O2SAT 95
[2016-12-11] MEDS: NYSTATIN 100,000 U/GM OINT 15 GM TUBE TOPICAL SCH (09:00)
[2016-12-11] MEDS: ARTIFICIAL TEARS OPTH SOLN 15 ML BTL EACH EYE SCH (09:00)
[2016-12-11] MEDS: DOCUSATE SODIUM 50 MG/SENNA 8.6 MG TAB PO SCH (09:00)
[2016-12-11] MEDS: DIVALPROEX SODIUM SPRINKLES 125 MG CAP PO SCH (10:33)
[2016-12-11] MEDS: TOLTERODINE TARTRATE 4 MG CAP LA PO SCH (10:33)
[2016-12-11] MEDS: traMADol HCL 50 MG TAB PO PRN (10:35)
[2016-12-11] MEDS: SODIUM CHLORIDE 0.9% FLUSH 10 ML FLUSH IV FLUSH SCH (10:36)
--- NOTE | 2016-12-11 11:03 | HHI.DS ---
Discharge Summary Admission Date Dec 08, 2016 at 11:08 Discharge Date: Dec 11, 2016 Admitting Diagnosis INTRACTABLE PELVIC PAIN, DEHYDRATION (1) Acute pain of right lower extremity ICD Code: M79.604 Diagnosis: Principal (2) Dehydration ICD Code: E86.0 Diagnosis: Principal Procedures IVC filter placement Brief History - From Admission This is a 86-year-old female was brought in by her daughter because of generalized weakness. History is mainly taken from her daughter and chart review. She is confused and has history of dementia. She was seen here last Saturday with pain in her right knee and hip. She had multiple x-rays done which were unremarkable. No history of trauma or falls. She is mainly wheelchair bound and has been participating with physical therapy when she started complaining of right knee pain radiating to her right hip last week. Pain has been progressive and has not been relieved by Tylenol. She was prescribed Lortab during last ER visit which made her more confused. Pain is aggravated by certain movements. In the meantime she has had a loss of appetite and the daughter says she is less active than normal. CBC/BMP: 12/10/16 0520 12/10/16 0520 Significant Findings Laboratory Tests Test 12/09/16 12/10/16 07:08 05:20 Red Blood Count 3.90 MIL/MM3 3.97 MIL/MM3 (4.00-5.30) (4.00-5.30) Hemoglobin 11.2 GM/DL 11.3 GM/DL (11.6-15.3) (11.6-15.3) Hematocrit 34.2 % (35.0-46.0) Monocytes (%) (Auto) 11.6 % 12.7 % (0.0-8.0) (0.0-8.0) Eosinophils (%) (Auto) 6.7 % (0.0-4.0) 5.2 % (0.0-4.0) Monocytes # (Auto) 1.1 TH/MM3 1.3 TH/MM3 (0-0.9) (0-0.9) Eosinophils # (Auto) 0.6 TH/MM3 0.5 TH/MM3 (0-0.4) (0-0.4) Chloride Level 111 MEQ/L 110 MEQ/L (98-107) (98-107) Blood Urea Nitrogen 21 MG/DL (7-18) 23 MG/DL (7-18) Estimat Glomerular Filtration 71 ML/MIN (>89) 61 ML/MIN (>89) Rate Imaging Last Impressions IVC Filter Placement X-Ray 12/10/16 0000 Signed Impressions: Service Date/Time: Saturday, December 10, 2016 13:25 - CONCLUSION: Uncomplicated inferior vena cava filter placement as above. Justen Espino Jr., MD Lower Extremity Ultrasound 12/09/16 0000 Signed Impressions: Service Date/Time: Friday, December 09, 2016 17:49 - CONCLUSION: Occlusive thrombus right leg. Sage Shoemaker MD Pelvis MRI 12/08/16 0000 Signed Impressions: Service Date/Time: Thursday, December 08, 2016 11:20 - CONCLUSION: Diffuse abnormality of the right iliopsoas muscle and tendon again identified. There is diffuse edema and diffuse enhancement on the postcontrast images in and around the muscle and tendon. Central non-enhancement is seen within the psoas muscle. This area has low signal on the T2 weighted images. Differential diagnosis is again muscle strain/hematoma versus infection. Signal characteristics of the central psoas muscle favor hematoma. Rehan Reed MD Pelvis X-Ray [id number]/06/[id number] Signed Impressions: Service Date/Time: December 11:39 - CONCLUSION: 1. No acute fracture or dislocation. Consider MRI examination if patient is unable to bear weight on the affected side. Jorge Bautista MD Chest X-Ray [id number]/06/[id number] Signed Impressions: Service Date/Time: December 11:35 - CONCLUSION: 1. Hypoinflation with no acute infiltrate or pneumothorax. 2. Heart size remains prominent but well compensated. 3. 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 4. No acute fracture. Stone Pérez MD Head CT 12/06/16 0000 Signed Impressions: Service Date/Time: December 21:05 - CONCLUSION: No acute disease. Justen Espino Jr., MD PE at Discharge GENERAL: This is a well-nourished, well-developed patient, in no apparent distress. She is oriented to person, place and month. HEAD: Atraumatic. Normocephalic. EYES: Pupils equal round and reactive. Extraocular motions intact. No scleral icterus. No injection or drainage. ENT: Nose without bleeding, purulent drainage or septal hematoma. NECK: Trachea midline. No JVD or lymphadenopathy. Supple CARDIOVASCULAR: Regular rate and rhythm without murmurs, gallops, or rubs. RESPIRATORY: Clear to auscultation. Breath sounds equal bilaterally. No wheezes , rales, or rhonchi. GASTROINTESTINAL: Abdomen soft, non-tender, nondistended. No guarding. MUSCULOSKELETAL: Extremities without clubbing, cyanosis, or edema. Right hip is less tender. It is not swollen or warm. I am able to slightly flex and extend. Right leg is swollen. Left lower extremity is shortened NEUROLOGICAL: Awake and alert. Cranial nerves II through XII intact. Motor and sensory grossly within normal limits. Five out of 5 muscle strength in all muscle groups. Normal speech. Oriented to person, place and month Hospital Course Right hip pain with inability to ambulate. MRI of the pelvis shows Diffuse edema of the right iliopsoas muscle and tendon. Differential diagnosis includes muscle strain, infection, and hematoma. No organized fluid collection identified. ESR within normal limits. Improving. Pain management with tramadol and IV Dilaudid as needed judicious use of narcotics. Physical therapy following. Repeat MRI with contrast showed no change but favors hematoma Hold antiplatelets for now. Family aware risk of TIA off antiplatelets. Right lower extremity DVT. Unable to start anticoagulation secondary to hematoma. IVC filter placed, hematology consulted and agreed. Metabolic and toxic encephalopathy secondary to acute kidney injury and use of narcotics. Because of history of TIA, head CT was obtained which was unremarkable. If worse or persistent consider MRI. Improving Acute kidney injury likely secondary to dehydration. She has chronic kidney disease stage IV. Improving. Status post IV hydration Mild hypercalcemia secondary to immobilization patient is mainly wheelchair- bound. Improving on IV hydration. If worse consider pamidronate Mild leukocytosis likely reactive. Urinalysis is unremarkable. ESR within normal limits. Improving. Monitor Mild AST elevation on statin. Improving will restart statin Chronic medical conditions of TIA, arthritis, anxiety, depression, hyperlipidemia, dementia, GERD, glaucoma, urinary incontinence and hypertension. Continue outpatient medicines as appropriate DVT prophylaxis with SCD and early ambulation. Avoid pharmacological prophylaxis because of possible hematoma Pt Condition on Discharge: Stable Discharge Disposition: Discharge to SNF Discharge Time: > 30 minutes Discharge Instructions DIET: Follow Instructions for: Heart Healthy Diet Activities you can perform: Regular-No Restrictions Activities to Avoid: Driving Follow up Referrals: PCP Follow-up - 1 Week New Medications: Tramadol (Tramadol) 50 Mg Tab 50 MG PO Q6H PRN PAIN #12 Ref 0 TAB Sennosides-Docusate Sodium (Senna Plus 8.6-50 mg) 1 Tab Tab 1 TAB PO BID Prevent Constipation #60 TAB Continued Medications: Acetaminophen (Tylenol) 325 Mg Tab 650 MG PO Q6H PRN PAIN/FEVER Ref 0 TAB B-Complex Vitamins (Vitamin B Complex) 1 Tab 1 CAP PO DAILY Calcium Carbonate-Vitamin D W/Minerals (Caltrate 600+D Plus Minerals) 600-800 Mg -Unit Tab 1 TAB PO BID Nutritional Supplement Ref 0 TAB Cholecalciferol (Vitamin D3) 1,000 Unit Tab 1000 UNITS PO DAILY Nutritional Supplement #1 Ref 0 BOTTLE Cranberry Fruit Concentrate (Cranberry) 450 Mg Capsule 1 CAP PO DAILY Divalproex Sprinkles (Depakote Sprinkles) 125 mg Cap 125 MG PO BID Control Seizures #60 Ref 0 CAP Docusate Sodium (Docusate Sodium) 100 Mg Cap 100 MG PO DAILY Prevent Constipation #60 Ref 0 CAP Multivit with Calcium,Iron,Min (Multiple Vitamins For Women) 1 Each Tablet 1 TAB PO DAILY Nystatin Topical (Nystatin Topical) 100,000 unit/gm Oint 1 APPLIC TOPICAL Q12HR Infection #15 Ref 0 GM Tasley-3 Fatty Acids (Fish Oil) 1,000 Mg Cap 1 CAP PO DAILY Oxybutynin ER 24 HR (Oxybutynin ER 24 HR) 10 Mg Tab 10 MG PO DAILY Overactive Bladder Ref 0 TAB Triamcinolone Acetonide (Topic (Triamcinolone Acetonide) 1 Pow Pow 0.05 % TOPICAL DAILY Vitamin E Mixed (Vitamin E) 200 Unit Tablet 1 CAP PO DAILY Additional Information I spent 35 minutes [id number] with the patient or on the siddiqui discussing the patient's disposition, prognosis, and plan of care with patient's caregivers. Over half the time spent was devoted to counseling the patient regarding placement in coordinating care with caregivers and case management. Eddi Dunne MD 6, 2017 11:03
== END 2016-12-11 12:52 | DRG 252 ==
LOC: PHED 10:45 → PHEDA 14:13 → PH3B 17:15 → OBSVTOIN 12-08 11:08
PROVIDERS: ADMIT Internal Medicine; ATTEND Internal Medicine
PROC: 06H03DZ Insertion of Intraluminal Device into Inferior Vena Cava, Percutaneous Approach (ICD-10-PCS; principal; 2016-12-10)
PROC: B5191ZZ Fluoroscopy of Inferior Vena Cava using Low Osmolar Contrast (ICD-10-PCS; 2016-12-10)
DX: I82.411 Acute embolism and thrombosis of right femoral vein (principal); G92 Toxic encephalopathy; N17.9 Acute kidney failure, unspecified; S70.01XA Contusion of right hip, initial encounter; I12.9 Hypertensive chronic kidney disease with stage 1 through stage 4 chronic kidney disease, or unspecified chronic kidney disease; N18.4 Chronic kidney disease, stage 4 (severe); E86.0 Dehydration; F03.90 Unspecified dementia, unspecified severity, without behavioral disturbance, psychotic disturbance, mood disturbance, and anxiety; X58.XXXA Exposure to other specified factors, initial encounter; D72.829 Elevated white blood cell count, unspecified; Z99.3 Dependence on wheelchair; E83.52 Hypercalcemia; F41.9 Anxiety disorder, unspecified; F32.9 Major depressive disorder, single episode, unspecified; E78.5 Hyperlipidemia, unspecified; R32 Unspecified urinary incontinence; M19.90 Unspecified osteoarthritis, unspecified site; K21.9 Gastro-esophageal reflux disease without esophagitis; H40.9 Unspecified glaucoma; Z96.651 Presence of right artificial knee joint; Z86.73 Personal history of transient ischemic attack (TIA), and cerebral infarction without residual deficits; R62.7 Adult failure to thrive; K59.00 Constipation, unspecified; R79.89 Other specified abnormal findings of blood chemistry
CPT/HCPCS: 37191; 70450; 71010; 72170; 72195; 72197; 80048; 80053; 81001; 82550; 82552; 83735; 84155; 84443; 84484; 85025; 85610; 85652; 85730; 93971; 96360; 96361; A9579; C1769; C1880; G8987-GP; G8988-GP; J0131; J1170; J3010; J7030; Q9967

== ENCOUNTER 2017-03-27 15:41 | Emergency (ER) | payer MEDICARE, OTHER ==
[~2017-03-27] VITALS: Ht 152.4 cm; Wt 64.0 kg
[~2017-03-27 15:41] MED LIST changes: -HYDR-3533 PO; +SENN1TAB PO; +TRAM50TA PO
[2017-03-27 15:45] VITALS: O2SAT 97
[2017-03-27 16:02] VITALS: BP 152/84; PULSE 80; RESP 18; TEMP 97.7; O2SAT 98
[2017-03-27 16:07] LABS: AUTOMATED NEUTROPHIL # 6.5 TH/MM3 (1.8-7.7); BASOPHIL % 0.5 % (0.0-2.0); EOSINOPHIL # 0.3 TH/MM3 (0-0.4); EOSINOPHIL % 3.3 % (0.0-4.0); HEMATOCRIT 39.5 % (35.0-46.0); HEMO FLAGS DIFF FINAL; LYMPH % 19.8 % (9.0-44.0); LYMPHOCYTE # 1.9 TH/MM3 (1.0-4.8); MEAN CELL VOLUME 86.2 FL (80.0-100.0); MEAN CORPUSCULAR HEMOGLOBIN 28.2 PG (27.0-34.0); MEAN CORPUSCULAR HGB CONC 32.8 % (32.0-36.0); MONO % 10.1 % (0.0-8.0); NEUT % 66.3 % (16.0-70.0); PLATELET COUNT 238 TH/MM3 (150-450); RED BLOOD COUNT 4.58 MIL/MM3 (4.00-5.30); RED CELL DISTRIBUTION WIDTH 14.1 % (11.6-17.2); WHITE BLOOD COUNT 9.7 TH/MM3 (4.0-11.0)
[2017-03-27 16:15] LABS: CHLORIDE 102 MEQ/L (98-107); POTASSIUM 4.2 MEQ/L (3.5-5.1); SODIUM (NA) 136 MEQ/L (136-145)
[2017-03-27 16:18] LABS: ANION GAP 7 MEQ/L (5-15); BICARBONATE 26.6 MEQ/L (21.0-32.0)
[2017-03-27 16:19] LABS: APTT (PATIENT) 26.7 SEC (24.3-30.1); BLOOD UREA NITROGEN 22 MG/DL (7-18); PROTHROMBIN TIME - PATIENT 11.5 SEC (9.8-11.6)
[2017-03-27 16:21] LABS: ALT (GPT) 21 U/L (10-53); AST (GOT) 26 U/L (15-37)
[2017-03-27 16:22] LABS: GLOMERULAR FILTRATION RATE 42 ML/MIN (>89)
[2017-03-27 16:23] LABS: TOTAL BILIRUBIN ADULT 0.3 MG/DL (0.2-1.0)
[2017-03-27 16:24] LABS: ALKALINE PHOSPHATASE 125 U/L (45-117)
--- NOTE | 2017-03-27 16:28 | PD ---
HPI Chief Complaint: Edema Time Seen by Provider: 15:51 Travel History International Travel<30 days: No Contact w/Intl Traveler<30days: No Traveled to known affect area: No History of Present Illness HPI This is a 76-year-old female history dementia, chronic kidney disease, seizure disorder, presents from the halfway for evaluation for DVT. The patient had an outpatient ultrasound to read that she had a DVT of her left lower extremity. The patient has no history of pain. Daughters are at the bedside state that she was earlier complaining of discomfort in her left heel. She's had a previous right sided DVT. She's also had a IVC filter put in place. There are no other complaints time my examination. PFSH Past Medical History Hx Anticoagulant Therapy: Yes Arthritis: Yes Blood Disorders: No Anxiety: Yes Depression: Yes Heart Rhythm Problems: No Cancer: No Cardiovascular Problems: Yes High Cholesterol: Yes Chemotherapy: No Chest Pain: No Congestive Heart Failure: No Cerebrovascular Accident: Yes Dementia: Yes Diabetes: No Diminished Hearing: Yes Endocrine: No Gastrointestinal Disorders: Yes (GERD) GERD: Yes Glaucoma: Yes Genitourinary: Yes (FREQUENCY/INCONTINENCE) Hepatitis: No Hiatal Hernia: Yes Hypertension: Yes Immune Disorder: No Musculoskeletal: Yes (RIGHT KNEE SURGERY) Neurologic: No Psychiatric: No Reproductive: No Respiratory: No Immunizations Current: Yes ([place]) Radiation Therapy: No Thyroid Disease: No Ulcer: No Tetanus Vaccination: Unknown Influenza Vaccination: Yes ?: Not Menopausal: Yes Past Surgical History Abdominal Surgery: No AICD: No Cardiac Surgery: No Ear Surgery: No Endocrine Surgery: No Eye Surgery: No Genitourinary Surgery: No Gynecologic Surgery: Yes (VAGINAL HYSTERECTOMY) Hysterectomy: Yes Joint Replacement: Yes (RIGHT KNEE) Neurologic Surgery: No Oral Surgery: No Pacemaker: No Thoracic Surgery: No Other Surgery: Yes (hysterectomy, r knee) Social History Alcohol Use: Yes (RARE) Tobacco Use: No Substance Use: No Allergies-Medications (Allergen,Severity, Reaction): Coded Allergies: mupirocin (Unverified Allergy, Severe, Rash, 03/27/17) sulfamethoxazole (Unverified Allergy, Severe, Rash, 03/27/17) trimethoprim (Unverified Allergy, Severe, Rash, 03/27/17) Uncoded Allergies: SULFA DRUGS (Allergy, Severe, Rash, 12/02/12) Reported Meds & Prescriptions Reported Meds & Active Scripts Active Senna Plus 8.6-50 mg (Sennosides-Docusate Sodium) 1 Tab Tab 1 Tab PO BID Reported Vitamin D3 (Cholecalciferol) 1,000 Unit Tab 1,000 Units PO DAILY Nystatin Topical 100,000 unit/gm Oint 1 Applic TOPICAL Q12HR Docusate Sodium 100 Mg Cap 100 Mg PO DAILY Caltrate 600+D Plus Minerals (Calcium Carbonate-Vitamin D W/Minerals) 600-800 Mg -Unit Tab 1 Tab PO BID Triamcinolone Acetonide (Triamcinolone Acetonide (Topic) 1 Pow Pow 0.05 % TOPICAL DAILY Oxybutynin ER 24 HR (Oxybutynin Chloride) 10 Mg Tab 10 Mg PO DAILY Tylenol (Acetaminophen) 325 Mg Tab 650 Mg PO Q6H PRN Cranberry (Cranberry Fruit Concentrate) 450 Mg Capsule 1 Cap PO DAILY Vitamin E (Vitamin E Mixed) 200 Unit Tablet 1 Cap PO DAILY Fish Oil ([place]urora-3 Fatty Acids) 1,000 Mg Cap 1 Cap PO DAILY Multiple Vitamins For Women (Multivit with Calcium,Iron,Min) 1 Each Tablet 1 Tab PO DAILY Vitamin D3 (Cholecalciferol) 1,000 Unit Tab 1,000 Units PO DAILY Vitamin B Complex (B-Complex Vitamins) 1 Tab 1 Cap PO DAILY Review of Systems Except as stated in HPI: all other systems reviewed are Neg General / Constitutional: No: Fever, Chills HENT: No: Headaches, Lightheadedness Cardiovascular: No: Chest Pain or Discomfort, Palpitations Respiratory: No: Cough, Shortness of Breath Gastrointestinal: No: Nausea, Vomiting, Abdominal Pain Musculoskeletal: Positive: Edema (left lower extremity), Pain (left heel pain earlier, none today) Neurologic: No: Weakness, Dizziness, Headache Physical Exam Narrative GENERAL: Well-nourished, well-developed patient in no acute obvious respiratory distress.. SKIN: Focused skin assessment warm/dry. HEAD: Normocephalic/atraumatic. EYES: No scleral icterus. No injection or drainage. NECK: Supple, trachea midline. CARDIOVASCULAR: Regular rate and rhythm without murmurs, gallops, or rubs. RESPIRATORY: Breath sounds equal bilaterally. No accessory muscle use. Decreased respiratory effort. GASTROINTESTINAL: Abdomen soft, non-tender, nondistended. MUSCULOSKELETAL: No cyanosis, or positive bilateral lower extremity edema. Worse on the left compared to the right. NEUROLOGICAL: Awake and infused. Cranial nerves II through XII intact. Motor grossly within normal limits. Five out of 5 muscle strength in all muscle groups. Normal speech. Data Data Last Documented VS Vital Signs Date Time Temp Pulse Resp B/P (MAP) Pulse Ox O2 Delivery O2 Flow Rate FiO2 03/27/17 16:02 97.7 80 18 152/84 (106) 98 03/27/17 15:45 Room Air Orders Orders Complete Blood Count With Diff (03/27/17 15:52) Comprehensive Metabolic Panel (03/27/17 15:52) Prothrombin Time / Inr (Pt) (03/27/17 15:52) Act Partial Throm Time (Ptt) (03/27/17 15:52) Chest, Single Ap (03/27/17 15:52) Iv Access Insert/Monitor (03/27/17 15:52) Ecg Monitoring (03/27/17 15:52) Oximetry (03/27/17 15:52) Rivaroxaban (Xarelto) (03/27/17 16:45) Labs Laboratory Tests Test 03/27/17 15:45 White Blood Count 9.7 TH/MM3 Red Blood Count 4.58 MIL/MM3 Hemoglobin 12.9 GM/DL Hematocrit 39.5 % Mean Corpuscular Volume 86.2 FL Mean Corpuscular Hemoglobin 28.2 PG Mean Corpuscular Hemoglobin Concent 32.8 % Red Cell Distribution Width 14.1 % Platelet Count 238 TH/MM3 Mean Platelet Volume 7.6 FL Neutrophils (%) (Auto) 66.3 % Lymphocytes (%) (Auto) 19.8 % Monocytes (%) (Auto) 10.1 % Eosinophils (%) (Auto) 3.3 % Basophils (%) (Auto) 0.5 % Neutrophils # (Auto) 6.5 TH/MM3 Lymphocytes # (Auto) 1.9 TH/MM3 Monocytes # (Auto) 1.0 TH/MM3 Eosinophils # (Auto) 0.3 TH/MM3 Basophils # (Auto) 0.0 TH/MM3 CBC Comment DIFF FINAL Differential Comment Prothrombin Time 11.5 SEC Prothromb Time International Ratio 1.0 RATIO Activated Partial Thromboplast Time 26.7 SEC Blood Urea Nitrogen 22 MG/DL Creatinine 1.20 MG/DL Random Glucose 102 MG/DL Total Protein 7.7 GM/DL Albumin 3.0 GM/DL Calcium Level 10.5 MG/DL Alkaline Phosphatase 125 U/L Aspartate Amino Transf (AST/SGOT) 26 U/L Alanine Aminotransferase (ALT/SGPT) 21 U/L Total Bilirubin 0.3 MG/DL Sodium Level 136 MEQ/L Potassium Level 4.2 MEQ/L Chloride Level 102 MEQ/L Carbon Dioxide Level 26.6 MEQ/L Anion Gap 7 MEQ/L Estimat Glomerular Filtration Rate 42 ML/MIN MDM Medical Decision Making Medical Screen Exam Complete: Yes Emergency Medical Condition: Yes Differential Diagnosis DVT versus renal sufficiency versus metabolic drainage Narrative Course 86 year old female presents via med 1 with a note from an ultrasound done today that shows a DVT. The patient has a creatinine clearance of 33. She'll be started on 15 mg of Xarelto daily. She'll be given a prescription for 21 pills. At that time the recommendation is they increased the dose. She is followed by Dr. Morgan Oviedo at the nursing facility. Further care per for anticoagulation will be per Dr. Oviedo. Diagnosis Primary Impression: Left leg DVT Additional Impression: Renal insufficiency Additional Instructions: Please use a cart cushions on the heels as needed for discomfort control and prevention of pressure sores. Med/Other Pt SpecificInfo: Prescription(s) given Scripts Rivaroxaban (Xarelto) 15 Mg Tab 15 MG PO DAILY for Blood Clot Prevention for 21 Days, #21 TAB 0 Refills Prov: José Caceres MD 03/27/17 Disposition: 01 DISCHARGE HOME Condition: Stable José Caceres MD Mar 27, 2017 16:28
[2017-03-27] MEDS ORDERED: FURO20TA PO (16:45)
[2017-03-27] MEDS ORDERED: RIVAROXABAN 15 MG TAB PO ONE (16:45)
[2017-03-27] MEDS ORDERED: VITA100064 PO (16:47)
[2017-03-27] MEDS ORDERED: XARE15TA PO (16:48)
--- NOTE | 2017-03-27 16:49 | RADRPT ---
EXAM DATE/TIME: 03/27/2017 16:10 [facility] COMPARISON: CHEST SINGLE AP, December 06, 2016, 11:35. INDICATIONS : Cough, wheezing for 24 hours MEDICAL HISTORY : Hypertension. SURGICAL HISTORY : None. ENCOUNTER: Initial ACUITY: 1 day PAIN SCORE: 0/10 LOCATION: Bilateral chest FINDINGS: A single view of the chest demonstrates lungs that are hypoinflated. Left basilar consolidation/effus ion. Minimal atelectatic changes in the right base. Accounting for low lung volumes, heart size is ryan rderline prominent. Osseous structures are intact with some degenerative spurring of the dorsal spine . CONCLUSION: 1. Hypoinflation with left basilar consolidation/effusion. Minimal right basilar atelectasis. 2. Borderline prominent heart Stone Pérez MD on March 27, 2017 at 16:40 Board Certified Radiologist. This report was verified electronically.
[2017-03-27 17:25] VITALS: BP 174/79
== END 2017-03-27 17:28 | disposition home or self-care (01) ==
LOC: PHED 15:41
DX: I82.402 Acute embolism and thrombosis of unspecified deep veins of left lower extremity (principal); I12.9 Hypertensive chronic kidney disease with stage 1 through stage 4 chronic kidney disease, or unspecified chronic kidney disease; N18.9 Chronic kidney disease, unspecified
CPT/HCPCS: 71010; 80053; 85025; 85610; 85730; 99284

== ENCOUNTER 2018-01-28 15:31 | Inpatient (IN) ==
[2018-01-28] MEDS ORDERED: Acetaminophen 325 MG Tablet PO ONE (15:39)
[2018-01-28] MEDS ORDERED: Sod Chloride 0.9% Inj 1,000 ML IV.SIG SCH (15:45)
--- NOTE | 2018-01-28 16:14 | XR ---
EXAM DATE: 01/28/2018 4:11 PM EDT AGE/SEX: 87 years / Female INDICATIONS: Cough, short of breath. CLINICAL DATA: This is the patient's sequela encounter. Patient reports that signs and symptoms have been present for 2 months and indicates a pain score of 0/10. MEDICAL/SURGICAL HISTORY: Hypertension. None. COMPARISON: [facility], CHEST SINGLE AP, 09/24/2017. . FINDINGS: A single AP portable semierect view of the chest was obtained. The study remains mid inspiratory. The re is apparent chronic scarring with no new confluent infiltrates or effusions. The heart size is mil dly prominent with atherosclerotic changes in the aorta. The bony thorax remains stable and intact. CONCLUSION: Stable appearance with no acute cardiopulmonary disease. Electronically signed by: Brandon Fernandez MD 01/28/2018 4:12 PM EDT
[2018-01-28 16:19] LABS: Baso # (Auto) 0.2 th/mm3 (0.0-0.2); Baso % (Auto) 1.4 % (0.0-2.0); Eos % (Auto) 0.1 % (0.0-4.0); Hematocrit 43.3 % (35.0-46.0); Hemoglobin 14.3 gm/dL (11.6-15.3); Lymph # (Auto) 1.4 th/mm3 (1.0-4.8); Lymph % (Auto) 10.2 % (9.0-44.0); Mean Corpuscular Hemoglobin 29.2 pg (27.0-34.0); Mean Corpuscular Volume 88.7 fL (80.0-100.0); Mean Platelet Volume 8.5 fL (7.0-11.0); Mono # (Auto) 1.3 th/mm3 (0.0-0.9); Mono % (Auto) 9.4 % (0.0-8.0); Neut # (Auto) 10.4 th/mm3 (1.8-7.7); Neut % (Auto) 78.9 % (16.0-70.0); Platelet Count 172 th/mm3 (150-450); Red Blood Count 4.89 mil/mm3 (4.00-5.30); Red Cell Distribution Width 16.3 % (11.6-17.2); White Blood Count 13.3 th/mm3 (4.0-11.0)
[2018-01-28 16:26] LABS: Chloride 104 meq/L (98-107); Sodium 134 meq/L (136-145)
[2018-01-28 16:29] LABS: Calcium 9.4 mg/dL (8.5-10.1); Lipase 62 U/L (73-393)
[2018-01-28 16:30] LABS: Albumin 3.3 g/dL (3.4-5.0); Anion Gap 8 meq/L (5-15); Blood Urea Nitrogen 27 mg/dL (7-18); Carbon Dioxide 22.4 meq/L (21.0-32.0); Glucose,Random 96 mg/dL (74-106)
[2018-01-28 16:31] LABS: Activated Partial Thrombo Time 22.8 sec (24.3-30.1); INR 1.1 Ratio
[2018-01-28 16:33] LABS: Alanine Aminotransferase 20 U/L (10-53); Aspartate Aminotransferase 40 U/L (15-37); Glomerular Filtration Rate 42 mL/min (>89)
[2018-01-28 16:34] LABS: Total Protein 7.7 g/dL (6.4-8.2)
[2018-01-28 16:36] LABS: Alkaline Phosphatase 86 U/L (45-117)
[2018-01-28 16:42] LABS: Creatine Kinase 81 U/L (26-192); Potassium 5.1 meq/L (3.5-5.1)
[2018-01-28 17:36] LABS: Bilirubin,Urine Negative (Negative); Clarity,Urine Clear (Clear); Color,Urine Yellow (Yellw/Straw); Glucose,Urine (UA) Negative (Negative); Leukocyte Esterase,Urine Negative (Negative); Nitrite,Urine Negative (Negative); PH,Urine 7.5 (5.0-8.5); Urobilinogen,Urine 0.2 mg/dL (Less than 2)
[2018-01-28 17:45] LABS: Amorphous Sediment,Urine Moderate /hpf; Collection Time,Urine 1715 hours
--- NOTE | 2018-01-28 17:53 | CT ---
EXAM DATE: 01/28/2018 5:50 PM EDT AGE/SEX: 87 years / Female INDICATIONS: Fell three days ago and has become less responsive. Altered mental status. CLINICAL DATA: This is the patient's initial encounter. Patient reports that signs and symptoms have been present for 3 days and indicates a pain score of 0/10. MEDICAL/SURGICAL HISTORY: Hypertension. Hypothyroidism. Cerebrovascular disease. . Knee surgery. RADIATION DOSE: 62.50 CTDI (mGy) COMPARISON: [facility], CT BRAIN W/O CONTRAST, 12/06/2016. . TECHNIQUE: CT of the head without contrast. Using automated exposure control and adjustment of the mA and/or kV according to patient size, radiation dose was kept as low as reasonably achievable to ob tain optimal diagnostic quality images. DICOM format image data is available electronically for revi ew and comparison. FINDINGS: Cerebrum: The ventricles are normal for age with diffuse mild to moderate atrophic change. No eviden ce of midline shift, mass lesion, hemorrhage or acute infarction. No extraaxial fluid collections ar e seen. Posterior Fossa: The cerebellum and brainstem are intact. The 4th ventricle is midline. The cerebe llopontine angle is unremarkable. Extracranial: The visualized portion of the orbits is intact. Skull: The calvaria is intact. No evidence of skull fracture. Hyperostosis frontalis interna is aga in noted. CONCLUSION: 1. Stable negative trauma study with no evidence of hemorrhage or mass effect. Electronically signed by: Brandon Fernandez MD 01/28/2018 5:52 PM EDT
--- NOTE | 2018-01-28 18:03 | ECG ---
Date Performed: 01/28/2018 Time Performed: 15:44:03 PTAGE: 87 years EKG: Sinus rhythm NONSPECIFIC ST & T-WAVE ABNORMALITY BORDERLINE ECG PREVIOUS TRACING : 11/11/2016 13.13 Since the previous tracing, no significant change noted DOCTOR: Flory Connor Interpretating Date/Time 01/28/2018 18:02:12
--- NOTE | 2018-01-28 18:25 | ED ---
HPI General Chief complaint: Fall Stated complaint: Fall Xsun Time Seen by Provider: 01/28/18 15:39 Source: family and EMS Mode of arrival: wheelchair Limitations: other (AMS) History of Present Illness HPI narrative: Patient is an 87-year-old female who is brought in due to altered mental status. Per daughter, she fell on Saturday. This was an unwitnessed fall, but she seemed only sustain a skin tear to her left leg. Her daughter says she is not been acting normal for the past few days. She became worried when she tried to call today and she did not answer. She does live at an assisted living facility. Staff states that she went to breakfast and lunch , but she has "not been acting right" for the past 2 or 3 days. Daughter says that she would not talk to her today. She has history of frequent urinary tract infections as well as stroke in the past. She is on Eliquis. On arrival , patient is not talking, but does follow directions. Related Data Home Medications Medication Instructions Recorded Confirmed apixaban [Eliquis] 2.5 mg PO DAILY 01/28/18 01/28/18 levothyroxine 75 mcg PO DAILY 01/28/18 01/28/18 oxybutynin chloride 10 mg PO DAILY 01/28/18 01/28/18 Allergies Allergy/AdvReac Type Severity Reaction Status Date / Time mupirocin Allergy Severe Rash Verified 01/28/18 16:33 sulfamethoxazole Allergy Severe Rash Verified 01/28/18 16:33 trimethoprim Allergy Severe Rash Verified 01/28/18 16:33 SULFA DRUGS Allergy Severe Rash Uncoded 01/28/18 16:33 Review of Systems ROS Unobtainable unobtainable due to mental status PMFSH Medical History Medical History Depression (Acute) HTN (hypertension) (Acute) Hypothyroid (Acute) Pneumonia (Acute) Prolapsed uterus (Acute) Stroke (Acute) UTI (urinary tract infection) (Acute) Surgical History Surgical History History of partial knee replacement (Acute) Social History Social History Substance History: No History of Abuse Smoking Status: Never smoker How Often Do You Have a Drink Containing Alcohol: Never Recent Travel in [facility] within the Last 8 Weeks: No Recent Out of Country Travel within the Last 8 Weeks: No Immunization History Tetanus Immunization: Unsure Hx Influenza Vaccine This Season: No Exam Narrative Exam Narrative: GENERAL: Awake and alert, but not answering questions. SKIN: Focused skin assessment warm/dry. Skin tear to the left cline. HEAD: Atraumatic. Normocephalic. EYES: Pupils equal and round and reactive. No scleral icterus. Extraocular movements intact. ENT: Mucous membranes pink and moist. NECK: Trachea midline. No JVD. CARDIOVASCULAR: Regular rate and rhythm. No murmur appreciated. RESPIRATORY: No accessory muscle use. Clear to auscultation. Breath sounds equal bilaterally. GASTROINTESTINAL: Abdomen soft, non-tender, nondistended. MUSCULOSKELETAL: No obvious deformities. No clubbing. No cyanosis. No edema. NEUROLOGICAL: Awake and alert. No obvious cranial nerve deficits. Moves all of her extremities. Course Hospital Course: IV established, labs sent. CT head ordered. Chest x-ray ordered. Given IV fluids. Given Tylenol. Reevaluation(s) Reevaluation #1: Patient seems to be more awake currently. She is talking now and says she has no pain anywhere. She still is unable to really provide much information. Time: 17:36 Initial Documented Vital Signs Pulse Oximetry 94 L 01/28/18 15:40 Last Documented Vital Signs Temperature 100.0 F H 01/28/18 17:00 Pulse Rate 84 01/28/18 17:00 Respiratory Rate 20 01/28/18 17:00 Blood Pressure 149/81 H 01/28/18 17:00 Pulse Oximetry 95 01/28/18 17:00 Medical Decision Making [facility] Narrative Medical decision making narrative: Patient is an 87-year-old female who comes in due to altered mental status. On arrival, she is not speaking, however she does follow directions. She is found to be febrile on arrival as well. IV established, labs sent. Chest x-ray performed shows no evidence of pneumonia. CT head shows no acute abnormalities. Labs show an elevated white blood cell count, no other acute abnormalities. Blood cultures sent. Patient given IV fluids and Tylenol. She did become more responsive as her fever went down. There is no source of infection found, so antibiotics have not been started as of yet. Concern is also for TIA versus stroke. Patient will be admitted for further workup. Differential Diagnosis Differential Diagnosis: Sepsis versus UTI versus pneumonia versus TIA versus CVA Medical Records Medical records reviewed: Yes I reviewed the patient's medical records. Lab Data Lab results reviewed: Yes I reviewed the patient's lab results. Result diagrams: 01/28/18 15:40 01/28/18 15:40 Lab Results 01/28/18 01/28/18 01/28/18 Range/Units 15:37 15:40 15:40 CBC w Diff WBC (4.0-11.0) th/mm3 RBC (4.00-5.30) mil/mm3 Hgb (11.6-15.3) gm/dL Hct (35.0-46.0) % MCV (80.0-100.0) fL MCH (27.0-34.0) pg MCHC (32.0-36.0) % RDW (11.6-17.2) % Plt Count (150-450) th/mm3 MPV (7.0-11.0) fL Neut % (Auto) (16.0-70.0) % Lymph % (Auto) (9.0-44.0) % Barry % (Auto) (0.0-8.0) % Eos % (Auto) (0.0-4.0) % Baso % (Auto) (0.0-2.0) % Neut # (Auto) (1.8-7.7) th/mm3 Lymph # (Auto) (1.0-4.8) th/mm3 Barry # (Auto) (0.0-0.9) th/mm3 Eos # (Auto) (0.0-0.4) th/mm3 Baso # (Auto) (0.0-0.2) th/mm3 WBC Differential Differential Comment PT 11.0 (9.8-11.6) sec INR 1.1 Ratio APTT 22.8 L (24.3-30.1) sec Sodium (136-145) meq/L Potassium (3.5-5.1) meq/L Chloride (98-107) meq/L Carbon Dioxide (21.0-32.0) meq/L Anion Gap (5-15) meq/L BUN (7-18) mg/dL Creatinine (0.50-1.00) mg/dL Estimated GFR (>89) mL/min POC Glucose 104 (68-110) mg/dl Random Glucose (74-106) mg/dL Lactic Acid (0.4-2.0) mmol/L Calcium (8.5-10.1) mg/dL Total Bilirubin (0.2-1.0) mg/dL AST (15-37) U/L ALT (10-53) U/L Alkaline Phosphatase (45-117) U/L Total Creatine Kinase 81 (26-192) U/L Troponin I Less than 0.02 L (0.02-0.05) ng/mL Total Protein (6.4-8.2) g/dL Albumin (3.4-5.0) g/dL Lipase 62 L (73-393) U/L TSH (0.358-3.740) uIU/mL Ur Collection Type Urine Color (Yellw/Straw) Urine Clarity (Clear) Urine pH (5.0-8.5) Ur Specific Dubois (1.002-1.035) Urine Protein (Neg-Trace) mg/dL Urine Glucose (UA) (Negative) mg/dL Urine Ketones (Negative) mg/dL Urine Occult Blood (Negative) Urine Nitrate (Negative) Urine Bilirubin (Negative) Urine Urobilinogen (Less than 2) mg/dL Ur Leukocyte Esterase (Negative) Ur Squamous Epith Cells (0-5) /hpf Ur Transition Epith Cell (None) /hpf Amorphous Sediment (None) /hpf Micro UA Comment Urine Culture Comments Urine Collection Time hours 01/28/18 01/28/18 01/28/18 Range/Units 15:40 15:40 15:40 CBC w Diff Auto diff final WBC 13.3 H (4.0-11.0) th/mm3 RBC 4.89 (4.00-5.30) mil/mm3 Hgb 14.3 (11.6-15.3) gm/dL Hct 43.3 (35.0-46.0) % MCV 88.7 (80.0-100.0) fL MCH 29.2 (27.0-34.0) pg MCHC 33.0 (32.0-36.0) % RDW 16.3 (11.6-17.2) % Plt Count 172 (150-450) th/mm3 MPV 8.5 (7.0-11.0) fL Neut % (Auto) 78.9 H (16.0-70.0) % Lymph % (Auto) 10.2 (9.0-44.0) % Barry % (Auto) 9.4 H (0.0-8.0) % Eos % (Auto) 0.1 (0.0-4.0) % Baso % (Auto) 1.4 (0.0-2.0) % Neut # (Auto) 10.4 H (1.8-7.7) th/mm3 Lymph # (Auto) 1.4 (1.0-4.8) th/mm3 Barry # (Auto) 1.3 H (0.0-0.9) th/mm3 Eos # (Auto) 0.0 (0.0-0.4) th/mm3 Baso # (Auto) 0.2 (0.0-0.2) th/mm3 WBC Differential . Differential Comment . PT (9.8-11.6) sec INR Ratio APTT (24.3-30.1) sec Sodium 134 L (136-145) meq/L Potassium 5.1 (3.5-5.1) meq/L Chloride 104 (98-107) meq/L Carbon Dioxide 22.4 (21.0-32.0) meq/L Anion Gap 8 (5-15) meq/L BUN 27 H (7-18) mg/dL Creatinine 1.20 H (0.50-1.00) mg/dL Estimated GFR 42 L (>89) mL/min POC Glucose (68-110) mg/dl Random Glucose 96 (74-106) mg/dL Lactic Acid 1.8 (0.4-2.0) mmol/L Calcium 9.4 (8.5-10.1) mg/dL Total Bilirubin 0.7 (0.2-1.0) mg/dL AST 40 H (15-37) U/L ALT 20 (10-53) U/L Alkaline Phosphatase 86 (45-117) U/L Total Creatine Kinase (26-192) U/L Troponin I (0.02-0.05) ng/mL Total Protein 7.7 (6.4-8.2) g/dL Albumin 3.3 L (3.4-5.0) g/dL Lipase (73-393) U/L TSH (0.358-3.740) uIU/mL Ur Collection Type Urine Color (Yellw/Straw) Urine Clarity (Clear) Urine pH (5.0-8.5) Ur Specific Dubois (1.002-1.035) Urine Protein (Neg-Trace) mg/dL Urine Glucose (UA) (Negative) mg/dL Urine Ketones (Negative) mg/dL Urine Occult Blood (Negative) Urine Nitrate (Negative) Urine Bilirubin (Negative) Urine Urobilinogen (Less than 2) mg/dL Ur Leukocyte Esterase (Negative) Ur Squamous Epith Cells (0-5) /hpf Ur Transition Epith Cell (None) /hpf Amorphous Sediment (None) /hpf Micro UA Comment Urine Culture Comments Urine Collection Time hours 01/28/18 01/28/18 Range/Units 15:40 17:15 CBC w Diff WBC (4.0-11.0) th/mm3 RBC (4.00-5.30) mil/mm3 Hgb (11.6-15.3) gm/dL Hct (35.0-46.0) % MCV (80.0-100.0) fL MCH (27.0-34.0) pg MCHC (32.0-36.0) % RDW (11.6-17.2) % Plt Count (150-450) th/mm3 MPV (7.0-11.0) fL Neut % (Auto) (16.0-70.0) % Lymph % (Auto) (9.0-44.0) % Barry % (Auto) (0.0-8.0) % Eos % (Auto) (0.0-4.0) % Baso % (Auto) (0.0-2.0) % Neut # (Auto) (1.8-7.7) th/mm3 Lymph # (Auto) (1.0-4.8) th/mm3 Barry # (Auto) (0.0-0.9) th/mm3 Eos # (Auto) (0.0-0.4) th/mm3 Baso # (Auto) (0.0-0.2) th/mm3 WBC Differential Differential Comment PT (9.8-11.6) sec INR Ratio APTT (24.3-30.1) sec Sodium (136-145) meq/L Potassium (3.5-5.1) meq/L Chloride (98-107) meq/L Carbon Dioxide (21.0-32.0) meq/L Anion Gap (5-15) meq/L BUN (7-18) mg/dL Creatinine (0.50-1.00) mg/dL Estimated GFR (>89) mL/min POC Glucose (68-110) mg/dl Random Glucose (74-106) mg/dL Lactic Acid (0.4-2.0) mmol/L Calcium (8.5-10.1) mg/dL Total Bilirubin (0.2-1.0) mg/dL AST (15-37) U/L ALT (10-53) U/L Alkaline Phosphatase (45-117) U/L Total Creatine Kinase (26-192) U/L Troponin I (0.02-0.05) ng/mL Total Protein (6.4-8.2) g/dL Albumin (3.4-5.0) g/dL Lipase (73-393) U/L TSH 0.421 (0.358-3.740) uIU/mL Ur Collection Type Cath Urine Color Yellow (Yellw/Straw) Urine Clarity Clear (Clear) Urine pH 7.5 (5.0-8.5) Ur Specific Dubois 1.010 (1.002-1.035) Urine Protein Negative (Neg-Trace) mg/dL Urine Glucose (UA) Negative (Negative) mg/dL Urine Ketones Negative (Negative) mg/dL Urine Occult Blood Trace (Negative) Urine Nitrate Negative (Negative) Urine Bilirubin Negative (Negative) Urine Urobilinogen 0.2 (Less than 2) mg/dL Ur Leukocyte Esterase Negative (Negative) Ur Squamous Epith Cells 6-10 H (0-5) /hpf Ur Transition Epith Cell 6-10 H (None) /hpf Amorphous Sediment Moderate H (None) /hpf Micro UA Comment Cath-culture not ind Urine Culture Comments Cath-cult not ind Urine Collection Time 1715 hours Imaging Data Radiologist's impression: Head CT 01/28/18 15:39 CONCLUSION: 1. Stable negative trauma study with no evidence of hemorrhage or mass effect. Chest X-Ray 01/28/18 15:40 CONCLUSION: Stable appearance with no acute cardiopulmonary disease. ECG Data EKG Prior to Arrival: No Attestation: I personally reviewed and interpreted this ECG as follows: Interpretation: ECG shows sinus rhythm at a rate of 85, no ST elevation or depression Discharge Plan Discharge Disposition Patient Disposition: 30 Still Patient Discharge Condition Condition: Stable Discharge Details Diagnosis: Altered mental status, Fever, Acute dehydration Physicians Team ED Provider: Kate Brooks Primary Care Provider: Morgan Oviedo Rxs /Orders / Referrals /Forms Prescriptions: No Action apixaban [Eliquis] 2.5 mg Tablet 2.5 mg PO DAILY RF: 0 oxybutynin chloride 10 mg Tablet Extended Release 24hr 10 mg PO DAILY RF: 0 levothyroxine 75 mcg Tablet 75 mcg PO DAILY RF: 0 Discharge Interventions Interventions: Vital Signs Last Done: 01/28/18 17:00 Status ED Status: With Doctor
[2018-01-28] MEDS ORDERED: Acetaminophen 325 MG Tablet PO PRN (22:49)
[2018-01-28] MEDS ORDERED: Sod Chloride 0.9% Inj 1,000 ML IV.CONT SCH (23:00)
--- NOTE | 2018-01-29 00:18 | XR ---
EXAM DATE: 01/29/2018 12:12 AM EDT AGE/SEX: 87 years / Female INDICATIONS: Short of breath. CLINICAL DATA: This is the patient's subsequent encounter. Patient reports that signs and symptoms h ave been present for 2 days and indicates a pain score of 0/10. MEDICAL/SURGICAL HISTORY: None. None. COMPARISON: [facility], CHEST 1V SINGLE AP, 01/28/2018. . FINDINGS: A single AP view of the chest demonstrates significant increase in interstitial markings when compare d to the prior study concerning for some developing vascular congestion or volume overload. This is s uperimposed on some stable baseline chronic interstitial fibrotic changes. Heart size is borderline p rominent. Levoscoliosis of the dorsal spine. Osseous structures are otherwise intact. CONCLUSION: 1. Increasing prominence of the interstitial markings. Concerning for some developing vascular conge stion or volume overload on baseline chronic fibrosis. 2. Heart size remains borderline prominent. Electronically signed by: Stone Pérez MD 01/29/2018 12:17 AM EDT
[2018-01-29 06:11] LABS: Baso % (Auto) 0.1 % (0.0-2.0); Hematocrit 40.2 % (35.0-46.0); Hemoglobin 13.3 gm/dL (11.6-15.3); Lymph # (Auto) 0.9 th/mm3 (1.0-4.8); Lymph % (Auto) 6.2 % (9.0-44.0); Mean Corpuscular HGB Conc 33.2 % (32.0-36.0); Mean Corpuscular Hemoglobin 29.1 pg (27.0-34.0); Mean Corpuscular Volume 87.6 fL (80.0-100.0); Mono # (Auto) 1.3 th/mm3 (0.0-0.9); Mono % (Auto) 8.6 % (0.0-8.0); Neut # (Auto) 12.6 th/mm3 (1.8-7.7); Neut % (Auto) 85.1 % (16.0-70.0); Platelet Count 153 th/mm3 (150-450); Red Blood Count 4.59 mil/mm3 (4.00-5.30); Red Cell Distribution Width 15.9 % (11.6-17.2); White Blood Count 14.8 th/mm3 (4.0-11.0)
[2018-01-29] MEDS: Levothyroxine 75 MCG Tablet PO SCH (06:23)
[2018-01-29 06:35] LABS: Calcium 8.8 mg/dL (8.5-10.1); Carbon Dioxide 21.9 meq/L (21.0-32.0); Potassium 3.7 meq/L (3.5-5.1)
--- NOTE | 2018-01-29 10:21 | P.HP ---
History of Present Illness Primary Care Physician: Morgan Oviedo MD Chief Complaint: Altered mental status History of Present Illness: 87-year-old female with known history of hypertension, anemia, hypothyroidism, stroke, dementia who lives at a local [facility] presented to the hospital because of altered mental status. Patient has decreased level consciousness at this time. Unable to obtain any information with the patient. She does open her eyes but she does not speak. Information was taken from medical records. Patient apparently lives at an [facility] and fell Saturday night. The patient was found to have a fever yesterday and was sent to the emergency department for evaluation. Patient mentation did improve after fever was controlled in the emergency department. However this morning patient again is with fever and altered mental status. Workup thus far did not indicate any etiology of the patient's fever. Workup did indicate findings consistent with systemic inflammatory response syndrome and possibly could be severe sepsis if an infection source was found with fever, leukocytosis, tachycardia, acute renal failure. Urinalysis was clear, chest x-ray was unremarkable, patient was admitted for further evaluation and management. - Diagnosis (1) Systemic inflammatory response syndrome (2) Leukocytosis (3) Fever of unknown origin (4) Altered mental status (5) Acute renal failure superimposed on stage 2 chronic kidney disease (6) Acute dehydration Review of Systems unobtainable due to mental status PMFSH - History History Provided By: Family Member - Medical History Medical History: Medical History (Last Updated 01/29/18 @ 09:41 by GEOVANNY Paris) Dementia Depression Gastroesophageal reflux HTN (hypertension) Hyperlipidemia Hypothyroid Pneumonia Prolapsed uterus Stroke UTI (urinary tract infection) - Surgical History Surgical History: Surgical History (Last Updated 01/29/18 @ 09:43 by GEOVANNY Paris) History of hysterectomy History of partial knee replacement History of umbilical hernia repair - Family History Family History: Family History (Last Updated 01/29/18 @ 09:43 by GEOVANNY Paris) Mother History of stroke - Tobacco History Smoking Status: Unknown if ever smoked - Alcohol History How Often Do You Have a Drink Containing Alcohol: Unable to Obtain - Substance Use History Substance History: Unable to Obtain - Travel History Recent Travel in the [place] Within the Last 8 Weeks: No Recent Travel Out of the Country Within the Last 8 Weeks: No - Immunization History Tetanus Immunization: Unsure Hx Influenza Vaccine This Season: No Medications and Allergies Active Medications: Active Medications Acetaminophen (Tylenol) 650 mg PO Q4H PRN PRN Reason: Temp > 100.4 Albuterol (Duoneb Neb (Prn)) 1 ampul NEB Q4HR NEB PRN PRN Reason: SHORTNESS OF BREATH/WHEEZING Last Admin: 01/29/18 00:05 Dose: 1 ampul Apixaban (Eliquis) 2.5 mg PO DAILY [facility] Last Admin: 01/29/18 09:00 Dose: Not Given Sodium Chloride (Ns Inj) 1,000 mls @ 0 mls/hr IV.SIG .Q0M [facility] Last Infusion: 01/28/18 20:04 Dose: Infused Sodium Chloride (Ns Inj) 1,000 mls @ 100 mls/hr IV.CONT .Q10H [facility] Last Infusion: 01/28/18 23:52 Dose: 0 mls/hr Acetaminophen (Ofirmev Inj) 1,000 mg in 100 mls @ 400 mls/hr IV.SIG Q6H PRN PRN Reason: FEVER Last Admin: 01/29/18 08:58 Dose: 400 mls/hr Levothyroxine Sodium (Synthroid) 75 mcg PO DAILY@0700 [facility] Last Admin: 01/29/18 06:23 Dose: Not Given Ondansetron HCl (Zofran Inj) 4 mg IV.PUSH Q6H PRN PRN Reason: NAUSEA OR VOMITING Allergies Allergy/AdvReac Type Severity Reaction Status Date / Time mupirocin Allergy Severe Rash Verified 01/28/18 16:33 sulfamethoxazole Allergy Severe Rash Verified 01/28/18 16:33 trimethoprim Allergy Severe Rash Verified 01/28/18 16:33 SULFA DRUGS Allergy Severe Rash Uncoded 01/28/18 16:33 Home Medications Medication Instructions Recorded Confirmed Type apixaban [Eliquis] 2.5 mg PO DAILY 01/28/18 01/28/18 History levothyroxine 75 mcg PO DAILY 01/28/18 01/28/18 History oxybutynin chloride 10 mg PO DAILY 01/28/18 01/28/18 History Exam Vital signs: Vital Signs 01/28/18 15:40 01/28/18 16:03 01/28/18 16:14 Temperature 101.3 F H 101.3 F H Pulse Rate 89 89 Respiratory Rate 20 20 Blood Pressure 182/71 H 180/71 H Pulse Oximetry 94 L 94 L 94 L 01/28/18 17:00 01/28/18 18:29 01/28/18 20:00 Temperature 100.0 F H 97.1 F L Pulse Rate 84 79 65 Respiratory Rate 20 18 16 Blood Pressure 149/81 H 167/66 H 133/64 Pulse Oximetry 95 95 96 01/28/18 20:09 01/29/18 00:00 01/29/18 00:06 Temperature 98.5 F 97.2 F L Pulse Rate 75 90 106 H Respiratory Rate 18 16 22 Blood Pressure 155/62 H 140/80 Pulse Oximetry 94 L 84 L 98 01/29/18 04:00 01/29/18 08:00 Temperature 97.4 F L 99 F Pulse Rate 94 H 74 Respiratory Rate 16 20 Blood Pressure 141/68 H 164/68 H Pulse Oximetry 97 95 Intake & Output 01/28/18 01/29/18 01/29/18 18:59 06:59 18:59 Intake Total 1065 / 1065 Balance 1065 / 1065 Weight 68.039 kg 64.3 kg Intake: IV 1065 / 1065 NS Inj 1,000 ML @ Wide Open IV. 1000 / 1000 SIG .Q0M [facility] Rx#:[id number] Other: # Urine Diapers 2 Narrative: GENERAL: Well-developed, well-nourished, in no acute distress. Patient barely arouses. She does open her eyes but cannot keep them open. Does not respond verbally HEENT: Head is normocephalic without any lesions or masses noted. Facial features are symmetric. Eyes: Pupils equal round reactive to light. Conjunctivae were clear. NECK: Supple without any masses. Trachea midline no deviation. No JVD, no bruits are appreciated CARDIAC: Regular rhythm, regular rate. S1/S2 are heard. No murmurs gallops or rubs. LUNGS: Clear to auscultation bilaterally. No wheeze, rhonchi or rales. No use of accessory muscles on inspiration or expiration. ABDOMEN: Soft, nontender. Nondistended. Bowel sounds heard in all 4 quadrants. No organomegaly or masses. Negative rebound, negative guarding EXTREMITIES: pulses are equal bilaterally. No cyanosis or clubbing. Left lower extremity does have significant edema as compared to the right, mild erythema noted to entire left lower extremity NEUROLOGY: Patient with decreased level consciousness, Deep tendon reflexes are 2+ in upper and lower extremities bilaterally. Plantar reflex intact. Patient does respond to painful stimuli Results - Labs CBC & Chem 7: 01/29/18 05:01 01/29/18 05:01 Labs: Laboratory Results - last 24 hr 01/28/18 01/28/18 01/28/18 15:37 15:40 15:40 CBC w Diff WBC RBC Hgb Hct MCV MCH MCHC RDW Plt Count MPV Neut % (Auto) Lymph % (Auto) [place] % (Auto) Eos % (Auto) Baso % (Auto) Neut # (Auto) Lymph # (Auto) [place] # (Auto) Eos # (Auto) Baso # (Auto) WBC Differential Differential Comment PT 11.0 INR 1.1 APTT 22.8 L Sodium Potassium Chloride Carbon Dioxide Anion Gap BUN Creatinine Estimated GFR POC Glucose 104 Random Glucose Lactic Acid Calcium Total Bilirubin AST ALT Alkaline Phosphatase Total Creatine Kinase 81 Troponin I Less than 0.02 L Total Protein Albumin Lipase 62 L TSH Ur Collection Type Urine Color Urine Clarity Urine pH Ur Specific [place] Urine Protein Urine Glucose (UA) Urine Ketones Urine Occult Blood Urine Nitrate Urine Bilirubin Urine Urobilinogen Ur Leukocyte Esterase Ur Squamous Epith Cells Ur Transition Epith Cell Amorphous Sediment Micro UA Comment Urine Culture Comments Urine Collection Time 01/28/18 01/28/18 01/28/18 15:40 15:40 15:40 CBC w Diff Auto diff final WBC 13.3 H RBC 4.89 Hgb 14.3 Hct 43.3 MCV 88.7 MCH 29.2 MCHC 33.0 RDW 16.3 Plt Count 172 MPV 8.5 Neut % (Auto) 78.9 H Lymph % (Auto) 10.2 [place] % (Auto) 9.4 H Eos % (Auto) 0.1 Baso % (Auto) 1.4 Neut # (Auto) 10.4 H Lymph # (Auto) 1.4 [place] # (Auto) 1.3 H Eos # (Auto) 0.0 Baso # (Auto) 0.2 WBC Differential . Differential Comment . PT INR APTT Sodium 134 L Potassium 5.1 Chloride 104 Carbon Dioxide 22.4 Anion Gap 8 BUN 27 H Creatinine 1.20 H Estimated GFR 42 L POC Glucose Random Glucose 96 Lactic Acid 1.8 Calcium 9.4 Total Bilirubin 0.7 AST 40 H ALT 20 Alkaline Phosphatase 86 Total Creatine Kinase Troponin I Total Protein 7.7 Albumin 3.3 L Lipase TSH Ur Collection Type Urine Color Urine Clarity Urine pH Ur Specific [place] Urine Protein Urine Glucose (UA) Urine Ketones Urine Occult Blood Urine Nitrate Urine Bilirubin Urine Urobilinogen Ur Leukocyte Esterase Ur Squamous Epith Cells Ur Transition Epith Cell Amorphous Sediment Micro UA Comment Urine Culture Comments Urine Collection Time 01/28/18 01/28/18 01/29/18 15:40 17:15 05:01 CBC w Diff Auto diff final WBC 14.8 H RBC 4.59 Hgb 13.3 Hct 40.2 MCV 87.6 MCH 29.1 MCHC 33.2 RDW 15.9 Plt Count 153 MPV 9.0 Neut % (Auto) 85.1 H Lymph % (Auto) 6.2 L [place] % (Auto) 8.6 H Eos % (Auto) 0.0 Baso % (Auto) 0.1 Neut # (Auto) 12.6 H Lymph # (Auto) 0.9 L [place] # (Auto) 1.3 H Eos # (Auto) 0.0 Baso # (Auto) 0.0 WBC Differential . Differential Comment . PT INR APTT Sodium Potassium Chloride Carbon Dioxide Anion Gap BUN Creatinine Estimated GFR POC Glucose Random Glucose Lactic Acid Calcium Total Bilirubin AST ALT Alkaline Phosphatase Total Creatine Kinase Troponin I Total Protein Albumin Lipase TSH 0.421 Ur Collection Type Cath Urine Color Yellow Urine Clarity Clear Urine pH 7.5 Ur Specific Clarinda 1.010 Urine Protein Negative Urine Glucose (UA) Negative Urine Ketones Negative Urine Occult Blood Trace Urine Nitrate Negative Urine Bilirubin Negative Urine Urobilinogen 0.2 Ur Leukocyte Esterase Negative Ur Squamous Epith Cells 6-10 H Ur Transition Epith Cell 6-10 H Amorphous Sediment Moderate H Micro UA Comment Cath-culture not ind Urine Culture Comments Cath-cult not ind Urine Collection Time 1715 01/29/18 05:01 CBC w Diff WBC RBC Hgb Hct MCV MCH MCHC RDW Plt Count MPV Neut % (Auto) Lymph % (Auto) [place] % (Auto) Eos % (Auto) Baso % (Auto) Neut # (Auto) Lymph # (Auto) [place] # (Auto) Eos # (Auto) Baso # (Auto) WBC Differential Differential Comment PT INR APTT Sodium 139 Potassium 3.7 D Chloride 109 H Carbon Dioxide 21.9 Anion Gap 8 BUN 23 H Creatinine 0.98 Estimated GFR 54 L POC Glucose Random Glucose 112 H Lactic Acid Calcium 8.8 Total Bilirubin AST ALT Alkaline Phosphatase Total Creatine Kinase Troponin I Total Protein Albumin Lipase TSH Ur Collection Type Urine Color Urine Clarity Urine pH Ur Specific [place] Urine Protein Urine Glucose (UA) Urine Ketones Urine Occult Blood Urine Nitrate Urine Bilirubin Urine Urobilinogen Ur Leukocyte Esterase Ur Squamous Epith Cells Ur Transition Epith Cell Amorphous Sediment Micro UA Comment Urine Culture Comments Urine Collection Time - Imaging Impressions Head CT 01/28/18 15:39 CONCLUSION: 1. Stable negative trauma study with no evidence of hemorrhage or mass effect. Chest X-Ray 01/28/18 15:40 CONCLUSION: Stable appearance with no acute cardiopulmonary disease. Chest X-Ray 01/28/18 23:49 CONCLUSION: 1. Increasing prominence of the interstitial markings. Concerning for some developing vascular congestion or volume overload on baseline chronic fibrosis. 2. Heart size remains borderline prominent. Caprini VTE Risk Assessment Caprini VTE Risk Assessment: Moderate/High Risk (score >= 2) Caprini Risk Assessment Model: Point Value = 1 Point Value = 2 Point Value = 3 Point Value = 5 Age 41-60 Minor surgery BMI > 25 kg/m2 Swollen legs Varicose veins or History of unexplained or recurrent spontaneous Oral contraceptives or hormone replacement Sepsis (< 1 month) Serious lung disease, including pneumonia (< 1 month) Abnormal pulmonary function Acute myocardial infarction Congestive heart failure (< 1 month) History of inflammatory bowel disease Medical patient at bed rest Age 61-74 Arthroscopic surgery Major open surgery (> 45 min) Laparoscopic surgery (> 45 min) Malignancy Confined to bed (> 72 hours) Immobilizing plaster cast Central venous access Age >= 75 History of VTE Family history of VTE Factor V Leiden Prothrombin [id number] Lupus anticoagulant Anticardiolipin antibodies Elevated serum homocysteine Heparin-induced thrombocytopenia Other congenital or acquired thrombophilia Stroke (< 1 month) Elective arthroplasty Hip, pelvis, or leg fracture Acute spinal cord injury (< 1 month) Prophylaxis Regimen: Total Risk Factor Score Risk Level Prophylaxis Regimen 0-1 Low Early ambulation 2 Moderate Order ONE of the following: *Sequential Compression Device (SCD) *Heparin 5000 units SQ BID 3-4 Higher Order ONE of the following medications: *Heparin 5000 units SQ TID *Enoxaparin/Lovenox 40 mg SQ daily (WT < 150 kg, CrCl > 30 mL/min) *Enoxaparin/Lovenox 30 mg SQ daily (WT < 150 kg, CrCl > 10-29 mL/min) *Enoxaparin/Lovenox 30 mg SQ BID (WT < 150 kg, CrCl > 30 mL/min) AND/OR *Sequential Compression Device (SCD) 5 or more Highest Order ONE of the following medications: *Heparin 5000 units SQ TID (Preferred with Epidurals) *Enoxaparin/Lovenox 40 mg SQ daily (WT < 150 kg, CrCl > 30 mL/min) *Enoxaparin/Lovenox 30 mg SQ daily (WT < 150 kg, CrCl > 10-29 mL/min) *Enoxaparin/Lovenox 30 mg SQ BID (WT < 150 kg, CrCl > 30 mL/min) AND *Sequential Compression Device (SCD) Assessment and Plan - Assessment (1) Systemic inflammatory response syndrome Code(s): R65.10 - Systemic inflammatory response syndrome (SIRS) of non- infectious origin without acute organ dysfunction Status: Acute (2) Leukocytosis Code(s): D72.829 - Elevated white blood cell count, unspecified Status: Acute (3) Fever of unknown origin Code(s): R50.9 - Fever, unspecified Status: Acute (4) Altered mental status Code(s): R41.82 - Altered mental status, unspecified Status: Acute (5) Acute renal failure superimposed on stage 2 chronic kidney disease Code(s): N17.9 - Acute kidney failure, unspecified; N18.2 - Chronic kidney disease, stage 2 (mild) Status: Acute (6) Acute dehydration Code(s): E86.0 - Dehydration Status: Acute - Plan Systemic inflammatory response syndrome -Patient meets criteria with leukocytosis, altered mental status, febrile illness, tachycardia, acute renal failure. If infectious source can be identified patient would be severely septic -Continue monitor for any infectious source -Continue IV fluids -Avoiding antibiotics at this time, since no infection source has been identified Altered mental status, likely toxic encephalopathy -ER recommendation indicates that the patient's mentation does not improve once fever is controlled -CT scan of the brain was unremarkable for any acute abnormality -Thus far workup does not indicate any metabolic encephalopathy, will also obtain ammonia level, B12, folate, RPR -We will get speech therapy to evaluate for us swallow assessment, keep patient n.p.o. at this time -Avoid any sedating medications Fever unknown origin -Urinalysis clear, chest x-ray did not indicate any acute abnormality -Discussed with nursing staff, there is no indication of any diarrhea illness -Left lower extremity is edematous and mildly erythema, possible DVT/cellulitis , records to have patient taking Eliquis at this time, however her last admission 4 months ago she was was on Xarelto. Patient may have failed anticoagulation treatment with Eliquis, unknown at this time. -Obtain lower extremity ultrasound -Obtain influenza, Legionella, pneumococcal testing -Continue to follow blood cultures -Consult infectious disease for recommendations -If no source identified and patient still with altered mentation and febrile illness will likely need LP for further evaluation -IV Tylenol for fever Hypoxia -Episode throughout the night of hypoxia of 84% -Chest x-ray did indicate increasing prominence in the interstitial markings, concerning for some developing vascular congestion or volume overload -Continue O2 supplementation maintain O2 sats greater than 92% -DuoNeb every 4 hours as needed for shortness of breath/dyspnea -Obtain pulmonary angiogram to rule out any DVT, evaluate for any infiltrate, possible aspiration Leukocytosis with left shift -No clear infectious source has been identified -Continue to monitor CBC Acute renal failure superimposed on chronic kidney disease stage II -Renal functions are improving with IV hydration -Continue monitor renal functions -Avoid nephrotoxins DVT prevention -Patient is on Eliquis (4) Altered mental status Qualifiers: Altered mental status type: unspecified Qualified Code(s): R41.82 - Altered mental status, unspecified
--- NOTE | 2018-01-29 13:45 | P.CONID ---
History of Present Illness Service: Infectious Disease Consult date: 01/29/18 Requesting Physician: Delmer Samayoa Reason for Consult: Evaluate patient with lethargy and fever Primary Care Provider: Morgan Oviedo MD Family Provider: Morgan Oviedo MD Chief Complaint: Altered mental status History of Present Illness: Patient seen and examined. Records reviewed. Patient is an 87-year-old female who is brought in due to altered mental status. She is normally awake and alert, interactive, lives in [facility]. There is some report that she had a fall, it was an unwitnessed, and she sustained a skin tear on her left leg. Per daughter she has not been her usual self, and she got worried because she did not answer her phone call. There was no mention that she had any fever or chills, or respiratory complaint or GI symptoms. She has had problems with UTI. On presentation, patient has been febrile. Her mental status improved after her temperature went down. She was admitted as a sepsis syndrome. Her WBC is 13,000. Urinalysis unremarkable. Chest x-ray did not show any acute infiltrate. Patient is still febrile today. Her influenza A testing came back positive. Infectious disease consultation has been requested to evaluate the patient. Review of Systems Constitutional: Reports fever(s), Denies headache(s), Denies lack of energy Eyes: Denies discharge, Denies pain Ears, Nose, Mouth, and Throat: Reports dry mouth, Denies nasal discharge, Denies pain with swallowing, Denies sinus pain, Denies sore throat Cardiovascular: Denies chest pain, Denies shortness of breath Respiratory: Denies chest congestion, Denies cough, Denies shortness of breath Gastrointestinal: Reports abdominal pain, Denies nausea, Denies vomiting Genitourinary: Reports urinary incontinence Musculoskeletal: Denies neck pain Skin/Breast: Reports dry skin, Denies rash Neurologic: Denies headache(s) PMF - History History Provided By: Family Member - Medical History Medical History: Medical History (Last Reviewed 01/29/18 @ 13:42 by Patrizia Valenzuela MD) Dementia Depression Gastroesophageal reflux HTN (hypertension) Hyperlipidemia Hypothyroid Pneumonia Prolapsed uterus Stroke UTI (urinary tract infection) - Surgical History Surgical History: Surgical History (Last Reviewed 01/29/18 @ 13:42 by Patrizia Valenzuela MD) History of hysterectomy History of partial knee replacement History of umbilical hernia repair - Family History Family History: Family History (Last Updated 01/29/18 @ 09:43 by GEOVANNY Paris) Mother History of stroke - Tobacco History Second Hand Smoke Exposure: No Smoking Status: Never smoker - Alcohol History How Often Do You Have a Drink Containing Alcohol: Never - Substance Use History Substance History: No History of Abuse - Travel History Recent Travel in the [place] Within the Last 8 Weeks: No Recent Travel Out of the Country Within the Last 8 Weeks: No - Immunization History Tetanus Immunization: Unsure Hx Influenza Vaccine This Season: No Medications and Allergies Active Medications: Active Medications Acetaminophen (Tylenol) 650 mg PO Q4H PRN PRN Reason: Temp > 100.4 Albuterol (Duoneb Neb (Prn)) 1 ampul NEB Q4HR NEB PRN PRN Reason: SHORTNESS OF BREATH/WHEEZING Last Admin: 01/29/18 00:05 Dose: 1 ampul Apixaban (Eliquis) 2.5 mg PO DAILY [facility] Last Admin: 01/29/18 09:00 Dose: Not Given Sodium Chloride (Ns Inj) 1,000 mls @ 0 mls/hr IV.SIG .Q0M [facility] Last Infusion: 01/28/18 20:04 Dose: Infused Sodium Chloride (Ns Inj) 1,000 mls @ 100 mls/hr IV.CONT .Q10H [facility] Last Infusion: 01/28/18 23:52 Dose: 0 mls/hr Acetaminophen (Ofirmev Inj) 1,000 mg in 100 mls @ 400 mls/hr IV.SIG Q6H PRN PRN Reason: FEVER Last Infusion: 01/29/18 09:13 Dose: Infused Levothyroxine Sodium (Synthroid) 75 mcg PO DAILY@0700 [facility] Last Admin: 01/29/18 06:23 Dose: Not Given Ondansetron HCl (Zofran Inj) 4 mg IV.PUSH Q6H PRN PRN Reason: NAUSEA OR VOMITING Allergies Allergy/AdvReac Type Severity Reaction Status Date / Time mupirocin Allergy Severe Rash Verified 01/28/18 16:33 sulfamethoxazole Allergy Severe Rash Verified 01/28/18 16:33 trimethoprim Allergy Severe Rash Verified 01/28/18 16:33 SULFA DRUGS Allergy Severe Rash Uncoded 01/28/18 16:33 Home Medications Medication Instructions Recorded Confirmed Type apixaban [Eliquis] 2.5 mg PO DAILY 01/28/18 01/28/18 History levothyroxine 75 mcg PO DAILY 01/28/18 01/28/18 History oxybutynin chloride 10 mg PO DAILY 01/28/18 01/28/18 History Exam Vital signs: Vital Signs 01/28/18 15:40 01/28/18 16:03 01/28/18 16:14 Temperature 101.3 F H 101.3 F H Pulse Rate 89 89 Respiratory Rate 20 20 Blood Pressure 182/71 H 180/71 H Pulse Oximetry 94 L 94 L 94 L 01/28/18 17:00 01/28/18 18:29 01/28/18 20:00 Temperature 100.0 F H 97.1 F L Pulse Rate 84 79 65 Respiratory Rate 20 18 16 Blood Pressure 149/81 H 167/66 H 133/64 Pulse Oximetry 95 95 96 01/28/18 20:09 01/29/18 00:00 01/29/18 00:06 Temperature 98.5 F 97.2 F L Pulse Rate 75 90 106 H Respiratory Rate 18 16 22 Blood Pressure 155/62 H 140/80 Pulse Oximetry 94 L 84 L 98 01/29/18 04:00 01/29/18 08:00 01/29/18 08:02 Temperature 97.4 F L 99 F 101.5 F H Pulse Rate 94 H 74 Respiratory Rate 16 20 Blood Pressure 141/68 H 164/68 H Pulse Oximetry 97 95 01/29/18 12:00 Temperature 100.4 F H Pulse Rate 80 Respiratory Rate 20 Blood Pressure 118/54 L Pulse Oximetry 95 Intake & Output 01/28/18 01/29/18 01/29/18 18:59 06:59 18:59 Intake Total 1065 / 1065 100 / 100 Balance 1065 / 1065 100 / 100 Weight 68.039 kg 64.3 kg Intake: IV 1065 / 1065 100 / 100 Ofirmev Inj 1,000 mg In 100 ml 100 / 100 @ 400 mls/hr IV.SIG Q6H PRN Rx# :[id number] NS Inj 1,000 ML @ Wide Open IV. 1000 / 1000 SIG .Q0M [facility] Rx#:[id number] Other: # Urine Diapers 2 Narrative: Physical Examination GENERAL: Patient is a well-nourished, well-developed elderly female, awake and alert, answering all my questions, not in respiratory distress. She knows her age, that she is in the hospital, told me wrong year 1987, and can not give me the name of the President SKIN: Warm and dry. No generalized rash, no ecchymoses and no evidence of embolic lesions. HEAD: Atraumatic. Normocephalic. No temporal wasting, or tenderness. EYES: [place] conjunctiva. No petechia or hemorrhage. Pupils equal, round and reactive to light. Extraocular movements full and intact. No scleral icterus. (+) arcus senilis. No injection or drainage. EARS, NOSE AND THROAT: Nose without bleeding or purulent nasal discharge. No sinus tenderness. Mucous membranes pink and moist. No oral lesions noted. No exudate. No oral thrush. NECK: Trachea midline. Supple and not tender, no meningeal signs. No nuchal rigidity CARDIOVASCULAR: Regular rate and rhythm. No murmurs, rubs or gallops heard RESPIRATORY: Clear to auscultation. Breath sounds equal bilaterally. No rales , wheezing or rhonchi ABDOMEN: Soft, nondistended, has diffuse tenderness, no guarding or rebound. Bowel sounds present and normoactive. ?distended bladder EXTREMITIES: No clubbing, cyanosis, or edema. No joint effusion, has good ROM. No calf tenderness. Well perfused and warm. NEUROLOGICAL: Awake and alert. Cranial nerves grossly intact. Motor grossly within normal limits. PSYCHIATRIC: calm and cooperative. LINE: No evidence of infection Results - Labs CBC & Chem 7: 01/29/18 05:01 01/29/18 05:01 Labs: Laboratory Results - last 24 hr 01/28/18 01/28/18 01/28/18 15:37 15:40 15:40 CBC w Diff WBC RBC Hgb Hct MCV MCH MCHC RDW Plt Count MPV Neut % (Auto) Lymph % (Auto) [place] % (Auto) Eos % (Auto) Baso % (Auto) Neut # (Auto) Lymph # (Auto) Baker # (Auto) Eos # (Auto) Baso # (Auto) WBC Differential Differential Comment PT 11.0 INR 1.1 APTT 22.8 L Sodium Potassium Chloride Carbon Dioxide Anion Gap BUN Creatinine Estimated GFR POC Glucose 104 Random Glucose Lactic Acid Calcium Total Bilirubin AST ALT Alkaline Phosphatase Ammonia Total Creatine Kinase 81 Troponin I Less than 0.02 L Total Protein Albumin Lipase 62 L TSH Ur Collection Type Urine Color Urine Clarity Urine pH Ur Specific [place] Urine Protein Urine Glucose (UA) Urine Ketones Urine Occult Blood Urine Nitrate Urine Bilirubin Urine Urobilinogen Ur Leukocyte Esterase Ur Squamous Epith Cells Ur Transition Epith Cell Amorphous Sediment Micro UA Comment Urine Culture Comments Urine Collection Time 01/28/18 01/28/18 01/28/18 15:40 15:40 15:40 CBC w Diff Auto diff final WBC 13.3 H RBC 4.89 Hgb 14.3 Hct 43.3 MCV 88.7 MCH 29.2 MCHC 33.0 RDW 16.3 Plt Count 172 MPV 8.5 Neut % (Auto) 78.9 H Lymph % (Auto) 10.2 Baker % (Auto) 9.4 H Eos % (Auto) 0.1 Baso % (Auto) 1.4 Neut # (Auto) 10.4 H Lymph # (Auto) 1.4 Baker # (Auto) 1.3 H Eos # (Auto) 0.0 Baso # (Auto) 0.2 WBC Differential . Differential Comment . PT INR APTT Sodium 134 L Potassium 5.1 Chloride 104 Carbon Dioxide 22.4 Anion Gap 8 BUN 27 H Creatinine 1.20 H Estimated GFR 42 L POC Glucose Random Glucose 96 Lactic Acid 1.8 Calcium 9.4 Total Bilirubin 0.7 AST 40 H ALT 20 Alkaline Phosphatase 86 Ammonia Total Creatine Kinase Troponin I Total Protein 7.7 Albumin 3.3 L Lipase TSH Ur Collection Type Urine Color Urine Clarity Urine pH Ur Specific [place] Urine Protein Urine Glucose (UA) Urine Ketones Urine Occult Blood Urine Nitrate Urine Bilirubin Urine Urobilinogen Ur Leukocyte Esterase Ur Squamous Epith Cells Ur Transition Epith Cell Amorphous Sediment Micro UA Comment Urine Culture Comments Urine Collection Time 01/28/18 01/28/18 01/29/18 15:40 17:15 05:01 CBC w Diff Auto diff final WBC 14.8 H RBC 4.59 Hgb 13.3 Hct 40.2 MCV 87.6 MCH 29.1 MCHC 33.2 RDW 15.9 Plt Count 153 MPV 9.0 Neut % (Auto) 85.1 H Lymph % (Auto) 6.2 L Baker % (Auto) 8.6 H Eos % (Auto) 0.0 Baso % (Auto) 0.1 Neut # (Auto) 12.6 H Lymph # (Auto) 0.9 L Baker # (Auto) 1.3 H Eos # (Auto) 0.0 Baso # (Auto) 0.0 WBC Differential . Differential Comment . PT INR APTT Sodium Potassium Chloride Carbon Dioxide Anion Gap BUN Creatinine Estimated GFR POC Glucose Random Glucose Lactic Acid Calcium Total Bilirubin AST ALT Alkaline Phosphatase Ammonia Total Creatine Kinase Troponin I Total Protein Albumin Lipase TSH 0.421 Ur Collection Type Cath Urine Color Yellow Urine Clarity Clear Urine pH 7.5 Ur Specific [place] 1.010 Urine Protein Negative Urine Glucose (UA) Negative Urine Ketones Negative Urine Occult Blood Trace Urine Nitrate Negative Urine Bilirubin Negative Urine Urobilinogen 0.2 Ur Leukocyte Esterase Negative Ur Squamous Epith Cells 6-10 H Ur Transition Epith Cell 6-10 H Amorphous Sediment Moderate H Micro UA Comment Cath-culture not ind Urine Culture Comments Cath-cult not ind Urine Collection Time 1715 01/29/18 01/29/18 05:01 11:00 CBC w Diff WBC RBC Hgb Hct MCV MCH MCHC RDW Plt Count MPV Neut % (Auto) Lymph % (Auto) Baker % (Auto) Eos % (Auto) Baso % (Auto) Neut # (Auto) Lymph # (Auto) Baker # (Auto) Eos # (Auto) Baso # (Auto) WBC Differential Differential Comment PT INR APTT Sodium 139 Potassium 3.7 D Chloride 109 H Carbon Dioxide 21.9 Anion Gap 8 BUN 23 H Creatinine 0.98 Estimated GFR 54 L POC Glucose Random Glucose 112 H Lactic Acid Calcium 8.8 Total Bilirubin AST ALT Alkaline Phosphatase Ammonia 21 Total Creatine Kinase Troponin I Total Protein Albumin Lipase TSH Ur Collection Type Urine Color Urine Clarity Urine pH Ur Specific [place] Urine Protein Urine Glucose (UA) Urine Ketones Urine Occult Blood Urine Nitrate Urine Bilirubin Urine Urobilinogen Ur Leukocyte Esterase Ur Squamous Epith Cells Ur Transition Epith Cell Amorphous Sediment Micro UA Comment Urine Culture Comments Urine Collection Time - Imaging Impressions Head CT 01/28/18 15:39 CONCLUSION: 1. Stable negative trauma study with no evidence of hemorrhage or mass effect. Chest X-Ray 01/28/18 15:40 CONCLUSION: Stable appearance with no acute cardiopulmonary disease. Chest X-Ray 01/28/18 23:49 CONCLUSION: 1. Increasing prominence of the interstitial markings. Concerning for some developing vascular congestion or volume overload on baseline chronic fibrosis. 2. Heart size remains borderline prominent. Assessment and Plan - Plan Impression Possible sepsis, on presentation - fevers, leukocytosis, tachycardia, lethargy (+) INfluenza A Hx dementia Recommendation Start tamiflu Follow C/S MOnitor temps Check bladder scan Monitor progress Will determine course of Rx depending on results of work-up I will follow along with you Thank you for this consultation
--- NOTE | 2018-01-29 14:07 | CT ---
EXAM DATE: 01/29/2018 1:48 PM EDT AGE/SEX: 87 years / Female INDICATIONS: Hypoxia. Short of breath. Fever. CLINICAL DATA: This is the patient's initial encounter. Patient reports that signs and symptoms have been present for 2 days and indicates a pain score of Nonresponsive. MEDICAL/SURGICAL HISTORY: Stroke. Gastroesophageal reflux disease. Hypertension. Dementia. Hyst erectomy. Umbilical hernia repair. RADIATION DOSE: 14.63 CTDI (mGy) COMPARISON: [facility], CHEST 1V SINGLE AP, 01/28/2018. . TECHNIQUE: Volumetric scanning was performed using a multi-row detector CT scanner during bolus infu shi of 75 ml Omnipaque 350 (iohexol) nonionic water-soluble contrast as a single exam dose. The radha a was post processed with a variety of visualization algorithms including full volume maximum intensi ty projection and sliding thin slab reformation. Using automated exposure control and adjustment of t he mA and/or kV according to patient size, radiation dose was kept as low as reasonably achievable to obtain optimal diagnostic quality images. DICOM format image data is available electronically for r eview and comparison. FINDINGS: Pulmonary Arteries: No filling defects are seen in the pulmonary arteries out to the subsegmental ve ssels. The left and right pulmonary arteries are normal in diameter. Lung: Patchy groundglass opacities in both lungs. There is mild consolidation in the posterior lung base. Effusion: There are small bilateral pleural effusions right greater than left. Mediastinum: No evidence of mediastinal or hilar adenopathy. There is moderate cardiomegaly with no pericardial effusion. Tracheal calcifications are present. There is a soft tissue nodular area in the in the proximal trachea measuring up to approximately 1.4 cm. The esophagus is dilated measuring 3 x 2 cm lobular mass best seen on axial image #16. Other: The axilla is unremarkable. CONCLUSION: 1. No evidence of pulmonary embolism. 2. Dilatation esophagus which contains air and a pre by 2 cm lobular soft tissue mass. This could be food or possible tumor. 3. Smaller soft tissue masslike area in the proximal trachea could represent tumor or mucus. 4. Groundglass opacities in both lungs which could indicate pulmonary edema or underlying interstiti al lung disease. 5. Small bilateral pleural effusions right greater than left. Electronically signed by: Brandon Fernandez MD 01/29/2018 2:06 PM EDT
--- NOTE | 2018-01-29 15:15 | US ---
EXAM DATE: 01/29/2018 3:03 PM EDT AGE/SEX: 87 years / Female INDICATIONS: Edema. Status post fall. Patient has a history of known right deep venous thrombosis an d has an inferior vena caval filter in place. CLINICAL DATA: This is the patient's initial encounter. Patient reports that signs and symptoms have been present for 4 - 6 days and indicates a pain score of 0/10. MEDICAL/SURGICAL HISTORY: Gastroesophageal reflux disease. Hypertension. Hypothyroidism. Dem entia. Depression. Hyperlipidemia. Pneumonia. Stroke. Prolapsed uterus. Hysterectomy. Umbilical ara ia repair. Partial knee replacement. COMPARISON: No prior exams available for comparison. TECHNIQUE: Venous ultrasound of both lower extremities was performed from the inguinal ligament to t he proximal calf. Real-time, color Doppler and spectral tracing, compression and augmentation techni ques were used. FINDINGS: There is nonocclusive thrombus left iliac vein, common femoral vein and proximal superfici al femoral vein. These are partially compressible and demonstrate echogenic thrombus with no color fl ow. The popliteal vein and calf veins are fully compressible and patent. There are no abnormal fluid collections. CONCLUSION: 1. Deep venous thrombosis as described. Electronically signed by: Brandon Fernandez MD 01/29/2018 3:14 PM EDT
[2018-01-29] MEDS: Oseltamivir Phosphate 75 MG Capsule PO SCH ×2 (15:25→20:13)
--- NOTE | 2018-01-29 15:29 | MR ---
EXAM DATE: 01/29/2018 2:48 PM EDT AGE/SEX: 87 years / Female INDICATIONS: CVA. Altered mental status. CLINICAL DATA: This is the patient's initial encounter. Patient reports that signs and symptoms have been present for 2 days and indicates a pain score of 0/10. MEDICAL/SURGICAL HISTORY: Hypertension. Stroke. Gastroesophageal reflux disease. Hysterectomy . Inguinal hernia repair. COMPARISON: No prior exams available for comparison. TECHNIQUE: Multiplanar, multisequence examination of the brain was performed without contrast. FINDINGS: MRI of the brain is performed in sagittal, axial and coronal planes. The craniocervical junction and midline structures are unremarkable. Diffusion weighted images demonstrate no abnormality. No acute c ortical infarction, acute hemorrhage, mass effect or midline shift is seen. The ventricles are large with a prominent sulcal pattern compatible with atrophy. There is periventricular hyperintensity on t he T2 weighted images consistent with small vessel vascular disease slightly more than expected in a patient of this age. Posterior fossa structures are unremarkable. CONCLUSION: Atrophy and chronic ischemic changes deep white matter. No acute intracranial process identified. Electronically signed by: Morgan Rodriguez MD 01/29/2018 3:28 PM EDT
--- NOTE | 2018-01-29 15:59 | MR ---
EXAM DATE: 01/29/2018 3:16 PM EDT AGE/SEX: 87 years / Female INDICATIONS: CVA. CLINICAL DATA: This is the patient's initial encounter. Patient reports that signs and symptoms have been present for 2 days and indicates a pain score of 0/10. MEDICAL/SURGICAL HISTORY: Hypertension. Gastroesophageal reflux disease. Hysterectomy. Inguin al hernia repair. COMPARISON: No prior exams available for comparison. TECHNIQUE: 3D [id number] MRA was performed. Source images, multiplanar STS MIP, and 3D volum e MIP reconstructions were reviewed. FINDINGS: There is excellent visualization of the major intracranial arteries out to the second-order branch ve ssels. There is no evidence for aneurysm, vessel truncation or stenosis, and no evidence for vascula r malformation. There is a origin of the posterior cerebral arteries bilaterally. Left CONCLUSION: 1. Electronically signed by: Morgan Rodriguez MD 01/29/2018 3:57 PM EDT
[2018-01-29 16:23] LABS: Vitamin B12 513 pg/mL (193-986)
[2018-01-30] MEDS: Levothyroxine 75 MCG Tablet PO SCH (06:07)
[2018-01-30] MEDS ORDERED: Dextrose 5%/NaCl 0.9% Inj 1,000 ML IV.CONT SCH (08:15)
--- NOTE | 2018-01-30 08:23 | P.PN ---
Subjective Interval history: 87-year-old female seen in follow-up today for severe sepsis secondary to influenza A. Patient is laying in bed. She is able to be aroused and does answer very weakly yes and no. Patient has remained afebrile since yesterday. Physical Exam Vital signs: Vital Signs 01/29/18 12:00 01/29/18 15:55 01/29/18 20:00 Temperature 100.4 F H 97.4 F L Pulse Rate 80 74 91 H Respiratory Rate 20 20 20 Blood Pressure 118/54 L 158/71 H 142/56 H Pulse Oximetry 95 94 L 95 01/29/18 20:03 01/30/18 00:00 01/30/18 04:00 Temperature 98.8 F 99.1 F Pulse Rate 82 70 72 Respiratory Rate 18 16 Blood Pressure 107/52 L 121/54 L Pulse Oximetry 97 97 01/30/18 08:00 Temperature 98.2 F Pulse Rate 93 H Respiratory Rate 23 Blood Pressure 115/54 L Pulse Oximetry 90 L Intake & Output 01/29/18 01/30/18 01/30/18 18:59 06:59 18:59 Intake Total 100 / 100 0 / 0 Output Total 550 / 550 100 / 100 Balance -450 / -450 -100 / -100 Intake: IV 100 / 100 Ofirmev Inj 1,000 mg In 100 ml 100 / 100 @ 400 mls/hr IV.SIG Q6H PRN Rx# :[id number] Oral 0 / 0 0 / 0 Output: Urine 550 / 550 Urine Amount (Catheter) 100 / 100 Indwelling Urethral Catheter 100 / 100 Narrative: GENERAL: Well-developed, well-nourished, in no acute distress. Patient barely arouses. She is responding verbally very minimally with yes and no responses HEENT: Head is normocephalic without any lesions or masses noted. Facial features are symmetric. Eyes: Pupils equal round reactive to light. Conjunctivae were clear. NECK: Supple without any masses. Trachea midline no deviation. No JVD, no bruits are appreciated CARDIAC: Regular rhythm, regular rate. S1/S2 are heard. No murmurs gallops or rubs. LUNGS: Clear to auscultation bilaterally. No wheeze, rhonchi or rales. No use of accessory muscles on inspiration or expiration. ABDOMEN: Soft, nontender. Nondistended. Bowel sounds heard in all 4 quadrants. No organomegaly or masses. Negative rebound, negative guarding EXTREMITIES: pulses are equal bilaterally. No cyanosis or clubbing. Left lower extremity does have significant edema as compared to the right, mild erythema noted to entire left lower extremity NEUROLOGY: Patient with decreased level consciousness, Deep tendon reflexes are 2+ in upper and lower extremities bilaterally. Plantar reflex intact. Patient does respond to painful stimuli - Urinary Catheter Management Indwelling Urethral Catheter Cath placed during this visit: yes Reason for continuing: Hourly intake/output Insertion date: 01/29/18 Insertion time: 10:39 Straight Cath placed during this visit: no Reason for continuing: Hourly intake/output Results - Labs CBC & Chem 7: 01/29/18 05:01 01/29/18 05:01 Laboratory Results - last 24 hr 01/29/18 01/29/18 11:00 11:00 Ammonia 21 Vitamin B12 513 Folate Greater than 20.0 H Microbiology 01/29/18 11:00 Urine - Catheterized Urine Streptococcus pneumoniae Antigen ( M - Final Presumptive negative for streptococcus pneumoniae antigen, suggesting no current or recent infection. Infection due to Streptococcus pneumoniae cannot be ruled out since the antigen present in the sample may be below the detection limit of the test. 01/29/18 11:00 Nasal Wash Influenza Types A,B Antigen - Final Positive for Flu A Antigen 01/28/18 15:45 Blood - Peripheral Aerobic Blood Culture - Preliminary No growth in 1 day 01/28/18 15:45 Blood - Peripheral Anaerobic Blood Culture - Preliminary No growth in 1 day 01/28/18 15:40 Blood - Peripheral Aerobic Blood Culture - Preliminary No growth in 1 day 01/28/18 15:40 Blood - Peripheral Anaerobic Blood Culture - Preliminary No growth in 1 day - Imaging Impressions Chest CTA 01/29/18 00:00 CONCLUSION: 1. No evidence of pulmonary embolism. 2. Dilatation esophagus which contains air and a pre by 2 cm lobular soft tissue mass. This could be food or possible tumor. 3. Smaller soft tissue masslike area in the proximal trachea could represent tumor or mucus. 4. Groundglass opacities in both lungs which could indicate pulmonary edema or underlying interstitial lung disease. 5. Small bilateral pleural effusions right greater than left. Head MRI 01/29/18 00:00 CONCLUSION: Head MRA 01/29/18 00:00 CONCLUSION: Venous Doppler Study 01/29/18 00:00 CONCLUSION: Assessment and Plan - Assessment (1) Severe sepsis Code(s): A41.9 - Sepsis, unspecified organism; R65.20 - Severe sepsis without septic shock Status: Acute (2) Leukocytosis Code(s): D72.829 - Elevated white blood cell count, unspecified Status: Acute (3) Fever of unknown origin Code(s): R50.9 - Fever, unspecified Status: Acute (4) Altered mental status Code(s): R41.82 - Altered mental status, unspecified Status: Acute (5) Acute renal failure superimposed on stage 2 chronic kidney disease Code(s): N17.9 - Acute kidney failure, unspecified; N18.2 - Chronic kidney disease, stage 2 (mild) Status: Acute (6) Acute dehydration Code(s): E86.0 - Dehydration Status: Acute - Plan Severe sepsis -Patient meets criteria with leukocytosis, altered mental status, febrile illness, tachycardia, acute renal failure. Influenza A infection -Cautious hydration due to easily fluid overloaded -Continue Tamiflu -Supportive care, IV Tylenol for fever, cautious IV hydration Altered mental status, likely toxic encephalopathy from sepsis -Mentation mildly improved this morning -CT scan of the brain was unremarkable for any acute abnormality -Workup for metabolic encephalopathy was on remarkable -Speech therapy to evaluate for us swallow assessment, keep patient n.p.o. at this time -Avoid any sedating medications Fever secondary to influenza A, afebrile at this time -Urinalysis clear, chest x-ray did not indicate any acute abnormality -Influenza testing positive for influenza A -pneumococcal, Legionella testing was negative -Blood cultures negative for 2 days -Consulted infectious disease for recommendations Left lower extremity DVT -Ultrasound was performed that did indicate DVT -Patient is already on anticoagulation with Eliquis -Patient already has IVC filter Hypoxia -Previous episode of hypoxia of 84% -Chest x-ray did indicate increasing prominence in the interstitial markings, concerning for some developing vascular congestion or volume overload -Continue O2 supplementation maintain O2 sats greater than 92% -DuoNeb every 4 hours as needed for shortness of breath/dyspnea -CTA of the thorax did not indicate any bony emboli, however did have a soft tissue mass versus food bolus in the esophagus with esophageal dilatation. There is groundglass appearance the patient he indicating possible fluid overload. No infiltrate identified Esophageal mass versus food bolus with esophageal dilatation -Currently the patient is not stable enough to undergo any procedure or evaluation -We will consult GI for further evaluation and management Leukocytosis with left shift -Continue to monitor CBC Acute renal failure superimposed on chronic kidney disease stage II, improved -Renal functions are improving with IV hydration -Continue monitor renal functions -Avoid nephrotoxins DVT prevention -Patient is on Eliquis (4) Altered mental status Qualifiers: Altered mental status type: unspecified Qualified Code(s): R41.82 - Altered mental status, unspecified
[2018-01-30] MEDS: Oseltamivir Phosphate 75 MG Capsule PO SCH ×2 (08:45→20:04)
--- NOTE | 2018-01-30 13:49 | P.PNID ---
Subjective Remarks: Patient is an 87-year-old female who is brought in due to altered mental status. She is normally awake and alert, interactive, lives in [facility]. There is some report that she had a fall, it was an unwitnessed, and she sustained a skin tear on her left leg. Per daughter she has not been her usual self, and she got worried because she did not answer her phone call. There was no mention that she had any fever or chills, or respiratory complaint or GI symptoms. She has had problems with UTI. On presentation, patient has been febrile. Her mental status improved after her temperature went down. She was admitted as a sepsis syndrome. Her WBC is 13,000. Urinalysis unremarkable. Chest x-ray did not show any acute infiltrate. Patient is still febrile today. Her influenza A testing came back positive. Infectious disease consultation has been requested to evaluate the patient. Notes reviewed Continues to have fever - 104 at noon Sounds congested today Lethargic Antibiotics: Tamiflu None Lines: No evidence of infection Past Medical History: Dementia Depression Gastroesophageal reflux HTN (hypertension) Hyperlipidemia Hypothyroid Pneumonia Prolapsed uterus Stroke UTI (urinary tract infection) History of hysterectomy History of partial knee replacement History of umbilical hernia repair Allergies/Adverse Reactions: Allergies mupirocin Allergy (Severe, Verified 01/28/18 16:33) Rash sulfamethoxazole Allergy (Severe, Verified 01/28/18 16:33) Rash trimethoprim Allergy (Severe, Verified 01/28/18 16:33) Rash SULFA DRUGS Allergy (Severe, Uncoded 01/28/18 16:33) Rash Objective Vital Signs 01/29/18 15:55 01/29/18 20:00 01/29/18 20:03 Temperature 97.4 F L Pulse Rate 74 91 H 82 Respiratory Rate 20 20 Blood Pressure 158/71 H 142/56 H Pulse Oximetry 94 L 95 01/30/18 00:00 01/30/18 04:00 01/30/18 07:30 Temperature 98.8 F 99.1 F Pulse Rate 70 72 Respiratory Rate 18 16 Blood Pressure 107/52 L 121/54 L Pulse Oximetry 97 97 90 L 01/30/18 08:00 01/30/18 11:11 01/30/18 12:00 Temperature 98.2 F 104.0 F H Pulse Rate 93 H 94 H Respiratory Rate 18 18 19 Blood Pressure 115/54 L 129/67 Pulse Oximetry 90 L 95 01/30/18 12:54 Temperature 101.3 F H Pulse Rate Respiratory Rate Blood Pressure Pulse Oximetry Intake & Output 01/29/18 01/30/18 01/30/18 18:59 06:59 18:59 Intake Total 100 / 100 0 / 0 100 / 100 Output Total 550 / 550 100 / 100 Balance -450 / -450 -100 / -100 100 / 100 Intake: IV 100 / 100 100 / 100 Ofirmev Inj 1,000 mg In 100 ml 100 / 100 100 / 100 @ 400 mls/hr IV.SIG Q6H PRN Rx# :[id number] Oral 0 / 0 0 / 0 0 / 0 Output: Urine 550 / 550 Urine Amount (Catheter) 100 / 100 Indwelling Urethral Catheter 100 / 100 01/28/18 15:45 Blood - Peripheral Aerobic Blood Culture - Preliminary No growth in 2 days 01/28/18 15:45 Blood - Peripheral Anaerobic Blood Culture - Preliminary No growth in 2 days 01/28/18 15:40 Blood - Peripheral Aerobic Blood Culture - Preliminary No growth in 2 days 01/28/18 15:40 Blood - Peripheral Anaerobic Blood Culture - Preliminary No growth in 2 days 01/29/18 11:00 Urine - Catheterized Urine Legionella Antigen - Final Presumptive negative for Legionella pneumophila serogroup 1 antigen in urine, suggesting no recent or recurrent infection. Infection due to Legionella cannot be ruled out since other serogroups and species may cause disease, antigen may not be present in urine in early infection, and the level of antigen present in the urine may be below the detection limit of the test. 01/29/18 11:00 Urine - Catheterized Urine Streptococcus pneumoniae Antigen ( M - Final Presumptive negative for streptococcus pneumoniae antigen, suggesting no current or recent infection. Infection due to Streptococcus pneumoniae cannot be ruled out since the antigen present in the sample may be below the detection limit of the test. 01/29/18 11:00 Nasal Wash Influenza Types A,B Antigen - Final Positive for Flu A Antigen Lab - Hematology Results 01/28/18 01/29/18 15:40 05:01 CBC w Diff Auto diff final Auto diff final WBC 13.3 H 14.8 H RBC 4.89 4.59 Hgb 14.3 13.3 Hct 43.3 40.2 MCV 88.7 87.6 MCH 29.2 29.1 MCHC 33.0 33.2 RDW 16.3 15.9 Plt Count 172 153 MPV 8.5 9.0 Neut % (Auto) 78.9 H 85.1 H Lymph % (Auto) 10.2 6.2 L [place] % (Auto) 9.4 H 8.6 H Eos % (Auto) 0.1 0.0 Baso % (Auto) 1.4 0.1 Neut # (Auto) 10.4 H 12.6 H Lymph # (Auto) 1.4 0.9 L [place] # (Auto) 1.3 H 1.3 H Eos # (Auto) 0.0 0.0 Baso # (Auto) 0.2 0.0 WBC Differential . . Differential Comment . . Lab - Chemistry Results 01/28/18 01/28/18 01/28/18 15:37 15:40 15:40 Sodium 134 L Potassium 5.1 Chloride 104 Carbon Dioxide 22.4 Anion Gap 8 BUN 27 H Creatinine 1.20 H Estimated GFR 42 L POC Glucose 104 Random Glucose 96 Lactic Acid Calcium 9.4 Total Bilirubin 0.7 AST 40 H ALT 20 Alkaline Phosphatase 86 Ammonia Total Creatine Kinase 81 Troponin I Less than 0.02 L Total Protein 7.7 Albumin 3.3 L Lipase 62 L Vitamin B12 Folate TSH 01/28/18 01/28/18 01/29/18 15:40 15:40 05:01 Sodium 139 Potassium 3.7 D Chloride 109 H Carbon Dioxide 21.9 Anion Gap 8 BUN 23 H Creatinine 0.98 Estimated GFR 54 L POC Glucose Random Glucose 112 H Lactic Acid 1.8 Calcium 8.8 Total Bilirubin AST ALT Alkaline Phosphatase Ammonia Total Creatine Kinase Troponin I Total Protein Albumin Lipase Vitamin B12 Folate TSH 0.421 01/29/18 01/29/18 11:00 11:00 Sodium Potassium Chloride Carbon Dioxide Anion Gap BUN Creatinine Estimated GFR POC Glucose Random Glucose Lactic Acid Calcium Total Bilirubin AST ALT Alkaline Phosphatase Ammonia 21 Total Creatine Kinase Troponin I Total Protein Albumin Lipase Vitamin B12 513 Folate Greater than 20.0 H TSH Imaging: ITS Impressions Head CT 01/28/18 15:39 CONCLUSION: 1. Stable negative trauma study with no evidence of hemorrhage or mass effect. Chest X-Ray 01/28/18 23:49 CONCLUSION: 1. Increasing prominence of the interstitial markings. Concerning for some developing vascular congestion or volume overload on baseline chronic fibrosis. 2. Heart size remains borderline prominent. Chest CTA 01/29/18 00:00 CONCLUSION: 1. No evidence of pulmonary embolism. 2. Dilatation esophagus which contains air and a pre by 2 cm lobular soft tissue mass. This could be food or possible tumor. 3. Smaller soft tissue masslike area in the proximal trachea could represent tumor or mucus. 4. Groundglass opacities in both lungs which could indicate pulmonary edema or underlying interstitial lung disease. 5. Small bilateral pleural effusions right greater than left. Head MRI 01/29/18 00:00 CONCLUSION: Head MRA 01/29/18 00:00 CONCLUSION: Venous Doppler Study 01/29/18 00:00 CONCLUSION: Physical Exam: GENERAL: Patient is a well-nourished, well-developed elderly female, lethergic, difficult to arouse, not in respiratory distress. SKIN: Warm and dry. No generalized rash, no ecchymoses and no evidence of embolic lesions. HEAD: Atraumatic. Normocephalic. No temporal wasting, or tenderness. EYES: Mallory conjunctiva. No petechia or hemorrhage. Pupils equal, round and reactive to light. Extraocular movements full and intact. No scleral icterus. (+) arcus senilis. No injection or drainage. EARS, NOSE AND THROAT: Nose without bleeding or purulent nasal discharge. No sinus tenderness. Mucous membranes pink and moist. No oral lesions noted. No exudate. No oral thrush. NECK: Trachea midline. Supple and not tender, no meningeal signs. No nuchal rigidity CARDIOVASCULAR: Regular rate and rhythm. No murmurs, rubs or gallops heard RESPIRATORY: Coarse breath sounds bilaterally. No rales, wheezing or rhonchi ABDOMEN: Soft, nondistended, has diffuse tenderness, no guarding or rebound. Bowel sounds present and normoactive. ?distended bladder EXTREMITIES: No clubbing, cyanosis, or edema. No joint effusion, has good ROM. No calf tenderness. Well perfused and warm. NEUROLOGICAL: Lethargic PSYCHIATRIC: Unable to assess LINE: No evidence of infection Assessment and Plan - Plan Impression Possible sepsis, on presentation - fevers, leukocytosis, tachycardia, lethargy (+) INfluenza A Possible PNA, usually Staph aureus could develop as secondary bacterial PNA Hx dementia Recommendation Continue tamiflu Follow C/S CXR Add Teflaro - cover CAP, as well as MRSA Check ESR, CRP Monitor temps Monitor progress
--- NOTE | 2018-01-30 14:18 | XR ---
EXAM DATE: 01/30/2018 2:09 PM EDT AGE/SEX: 87 years / Female INDICATIONS: Congestion. CLINICAL DATA: This is the patient's subsequent encounter. Patient reports that signs and symptoms h ave been present for 4 - 6 days and indicates a pain score of Nonresponsive. MEDICAL/SURGICAL HISTORY: Non-responsive. Non-responsive. COMPARISON: [facility], CHEST 1V SINGLE AP, 01/28/2018. . FINDINGS: 2 AP portable erect views of the chest were obtained and demonstrate interval decrease in the bilater al streaky opacity seen on the prior study. There is mild residual at the lung bases which may repres ent scarring. The heart size remains mildly prominent with atherosclerotic changes in the aorta. Ther e is no distinct effusion. CONCLUSION: Mild interval improvement in pulmonary opacities. There is mild residual lung bases with scarring. Electronically signed by: Brandon Fernandez MD 01/30/2018 2:16 PM EDT
--- NOTE | 2018-01-30 15:29 | P.CONPAL ---
Consult Service: Palliative Care Requesting Physician: Parish Rosenbaum Reason for Consult: a. To assist with evaluation and management of symptoms including:altered mental status b. To assist medical decision maker(s) with: better understanding of current medical conditions; weighing benefits/burdens of medical treatment options; making medical treatment decisions. Primary Care Provider: Morgan Oviedo MD History of Present Illness History of Present Illness: Patient is a 87-year-old past medical history of hypertension, anemia, hyp hypothyroidism, CVA, and vascular dementia who lives in the [facility]. Patient was brought into the hospital because of decreased level consciousness. Patient also had a a recent fall. Patient was brought to the ER on 01/28/2018 as patient was found to have a fever. And her mentation worsens. In the ER: * Temperature is 101.3, pulse is 89, respirations 20, blood pressure is 22/71, pulse ox is 94% * WBCs 13.3, hemoglobin is 14.3, hematocrit 43.3, platelets 172 * Sodium is 139, potassium 5.1, chloride 104, bicarb is 22.4, BUN is 27, creatinine is 1.20 * AST is 40, ALT is 20, alk phos is 86 * Troponin I is less than 0.02 * Albumin 3.3 * PT is 11.0, INR is 1.1, PTT is 22.8 * Blood cultures are pending. * Nasal wash is positive for flu antigen * Head CT is stable is negative for trauma, hemorrhage or mass-effect * Chest x-ray stable appearance and show no acute cardiopulmonary disease * EKG shows sinus rhythm no ST elevation or depression Patient's care is transferred to hospitalist. Patient started on breathing treatments Tamiflu, 01/29/2018-MRI MRA was ordered. No acute intracranial processes. CTA of the chest shows no evidence of PE. There is a dilatation esophagus containing air and a 2 cm lobular soft tissue mass. Radiologist noted could be food or possible tumor. There is smaller soft tissue masslike area in the proximal trachea. There is groundglass opacity in both lungs which indicate pulmonary edema or underlying interstitial lung disease. There are small bilateral pleural effusion. Patient continued to have fevers. Continued leukocytosis 01/30/2018. Patient continued to be obtunded, leukocytosis has worsened, patient continued fevers. Chest x-ray today did show some mild improvement in pulmonary opacities. There is mild residual lung bases with scarring. Given patient's advanced age, and declining condition palliative care was consulted to review goals of care with designated power of snaker driving horses for health. On my visit patient is mostly obtunded, lethargic. Patient's daughters at bedside. She opened eyes briefly but quickly went back to sleep. Spoke with patient's daughter and power of snaker driving horses for health care Jess Rosenbaum. Spoke about patient's advanced age, comorbidities, risks versus benefits of aggressive resuscitation. She is informed that given her advanced age, current flu she may not bounce back from this. We inquire about any advanced directives , conversation patient has has had in regards to being on the ventilator and being on life support. Medical team is worried that further aggressive care, patient may undergo more of the trauma associated with aggressive care, without the intended benefits despite aggressive care such as intubation and CPR. Patient other daughter currently is on vacation in [place]. After further discussion over the telephone, they have both decided to continue with aggressive care and to maintain full CODE STATUS. Function/Cognitive Trajectory: Pt had been seen by palliative care in the past. At the time mark had endorse, that her weakness is progress with which she is primarly bed and wheelchari bound. Per daughter patient dementia is more likely due to her previous history of stroke vascular disease. Today daughter endorse that her memory deficits have been mild. She is verbal and able communicate with daughter. Patient is chair bound and needs assistance with ADLs but lives in [facility] and not a nursing facility. She is able still converse with daughter and have some quality of life. She has had several hospitalizations. [facility] - History History Provided By: Family Member - Medical History Medical History: Medical History (Last Reviewed 01/30/18 @ 14:56 by Milan Wray) Dementia Depression Gastroesophageal reflux HTN (hypertension) Hyperlipidemia Hypothyroid Pneumonia Prolapsed uterus Stroke UTI (urinary tract infection) - Surgical History Surgical History: Surgical History (Last Reviewed 01/30/18 @ 14:56 by Milan Wray) History of hysterectomy History of partial knee replacement History of umbilical hernia repair - Family History Family History: Family History (Last Updated 01/29/18 @ 09:43 by GEOVANNY Paris) Mother History of stroke - Tobacco History Second Hand Smoke Exposure: No Smoking Status: Never smoker - Alcohol History How Often Do You Have a Drink Containing Alcohol: Never - Substance Use History Substance History: No History of Abuse - Travel History Recent Travel in the [place] Within the Last 8 Weeks: No Recent Travel Out of the Country Within the Last 8 Weeks: No - Immunization History Tetanus Immunization: Unsure Hx Influenza Vaccine This Season: No Medications and Allergies Active Medications: Active Medications Acetaminophen (Tylenol) 650 mg PO Q4H PRN PRN Reason: Temp > 100.4 Albuterol (Duoneb Neb (Prn)) 1 ampul NEB Q4HR NEB PRN PRN Reason: SHORTNESS OF BREATH/WHEEZING Last Admin: 01/29/18 00:05 Dose: 1 ampul Apixaban (Eliquis) 2.5 mg PO DAILY [facility] Last Admin: 01/30/18 08:45 Dose: Not Given Acetaminophen (Ofirmev Inj) 1,000 mg in 100 mls @ 400 mls/hr IV.SIG Q6H PRN PRN Reason: FEVER Last Infusion: 01/30/18 12:06 Dose: Infused Dextrose/Sodium Chloride (D5w/Normal Saline Inj) 1,000 mls @ 42 mls/hr IV.CONT .[id number] [facility] Stop: 01/31/18 08:03 Last Admin: 01/30/18 08:44 Dose: 42 mls/hr Ceftaroline Fosamil 300 mg/ (Sodium Chloride) 100 mls @ 100 mls/hr IV.SIG Q12H [facility] Levothyroxine Sodium (Synthroid) 75 mcg PO DAILY@0700 [facility] Last Admin: 01/30/18 06:07 Dose: Not Given Ondansetron HCl (Zofran Inj) 4 mg IV.PUSH Q6H PRN PRN Reason: NAUSEA OR VOMITING Oseltamivir Phosphate (Tamiflu) 75 mg PO BID [facility] Last Admin: 01/30/18 08:45 Dose: Not Given Allergies Allergy/AdvReac Type Severity Reaction Status Date / Time mupirocin Allergy Severe Rash Verified 01/28/18 16:33 sulfamethoxazole Allergy Severe Rash Verified 01/28/18 16:33 trimethoprim Allergy Severe Rash Verified 01/28/18 16:33 SULFA DRUGS Allergy Severe Rash Uncoded 01/28/18 16:33 Home Medications Medication Instructions Recorded Confirmed Type apixaban [Eliquis] 2.5 mg PO DAILY 01/28/18 01/28/18 History levothyroxine 75 mcg PO DAILY 01/28/18 01/28/18 History oxybutynin chloride 10 mg PO DAILY 01/28/18 01/28/18 History Advance Directives Living Will: Yes Power of Crnp: Yes Physical Exam Vital Signs: Vital Signs - 24 hr 01/29/18 15:55 01/29/18 20:00 01/29/18 20:03 Temperature 97.4 F L Pulse Rate 74 91 H 82 Respiratory Rate 20 20 Blood Pressure 158/71 H 142/56 H Pulse Oximetry 94 L 95 01/30/18 00:00 01/30/18 04:00 01/30/18 07:30 Temperature 98.8 F 99.1 F Pulse Rate 70 72 Respiratory Rate 18 16 Blood Pressure 107/52 L 121/54 L Pulse Oximetry 97 97 90 L 01/30/18 08:00 01/30/18 11:11 01/30/18 12:00 Temperature 98.2 F 104.0 F H Pulse Rate 93 H 94 H Respiratory Rate 18 18 19 Blood Pressure 115/54 L 129/67 Pulse Oximetry 90 L 95 01/30/18 12:54 Temperature 101.3 F H Pulse Rate Respiratory Rate Blood Pressure Pulse Oximetry I&O: Intake & Output 01/28/18 01/29/18 01/30/18 01/31/18 06:59 06:59 06:59 06:59 Intake Total 1065 / 1065 100 / 100 100 / 100 Output Total 650 / 650 Balance 1065 / 1065 -550 / -550 100 / 100 Weight 64.3 kg Physical Exam: CONSTITUTIONAL/GENERAL: This is an elderly female, obtunded, open eyes briefly, could not follow commands TUBES/LINES/DRAINS:piv monroe. SKIN: No jaundice, rashes, or lesions. Ecchymoses on upper extremities. HEAD: Atraumatic. Normocephalic. EYES: Pupils equal and round and reactive. Extraocular motions intact. No scleral icterus. No injection or drainage. Fundi not examined. ENT: Hearing grossly normal. Nose without bleeding or purulent drainage. Throat without visible erythema, NECK: Trachea midline. Supple, nontender. No palpable thyroid enlargement or nodularity. CARDIOVASCULAR: Regular rate and rhythm without murmurs, gallops, or rubs. No JVD. Peripheral pulses symmetric. RESPIRATORY/CHEST: Symmetric, unlabored respirations. mild rhonchi by base GASTROINTESTINAL: Abdomen soft, non-tender, nondistended. No hepato-splenomegaly , or palpable masses. No guarding. Bowel sounds present. GENITOURINARY: Without palpable bladder distension. Monroe catheter in place. MUSCULOSKELETAL: Extremities without clubbing, cyanosis, or edema. No joint tenderness or effusion noted. No calf tenderness. No mottling or clubbing. LYMPHATICS: No palpable cervical or supraclavicular adenopathy. NEUROLOGICAL: obtunded, could not follow commands. Moves all extremities. PSYCHIATRIC: could not examine given level of mentation. Diagnostic Tests Laboratory: Laboratory Results - last 72 hr 01/28/18 01/28/18 01/28/18 15:37 15:40 15:40 CBC w Diff WBC RBC Hgb Hct MCV MCH MCHC RDW Plt Count MPV Neut % (Auto) Lymph % (Auto) [place] % (Auto) Eos % (Auto) Baso % (Auto) Neut # (Auto) Lymph # (Auto) [place] # (Auto) Eos # (Auto) Baso # (Auto) WBC Differential Differential Comment PT 11.0 INR 1.1 APTT 22.8 L Sodium Potassium Chloride Carbon Dioxide Anion Gap BUN Creatinine Estimated GFR POC Glucose 104 Random Glucose Lactic Acid Calcium Total Bilirubin AST ALT Alkaline Phosphatase Ammonia Total Creatine Kinase 81 Troponin I Less than 0.02 L Total Protein Albumin Lipase 62 L Vitamin B12 Folate TSH Ur Collection Type Urine Color Urine Clarity Urine pH Ur Specific [place] Urine Protein Urine Glucose (UA) Urine Ketones Urine Occult Blood Urine Nitrate Urine Bilirubin Urine Urobilinogen Ur Leukocyte Esterase Ur Squamous Epith Cells Ur Transition Epith Cell Amorphous Sediment Micro UA Comment Urine Culture Comments Urine Collection Time RPR 01/28/18 01/28/18 01/28/18 15:40 15:40 15:40 CBC w Diff Auto diff final WBC 13.3 H RBC 4.89 Hgb 14.3 Hct 43.3 MCV 88.7 MCH 29.2 MCHC 33.0 RDW 16.3 Plt Count 172 MPV 8.5 Neut % (Auto) 78.9 H Lymph % (Auto) 10.2 [place] % (Auto) 9.4 H Eos % (Auto) 0.1 Baso % (Auto) 1.4 Neut # (Auto) 10.4 H Lymph # (Auto) 1.4 [place] # (Auto) 1.3 H Eos # (Auto) 0.0 Baso # (Auto) 0.2 WBC Differential . Differential Comment . PT INR APTT Sodium 134 L Potassium 5.1 Chloride 104 Carbon Dioxide 22.4 Anion Gap 8 BUN 27 H Creatinine 1.20 H Estimated GFR 42 L POC Glucose Random Glucose 96 Lactic Acid 1.8 Calcium 9.4 Total Bilirubin 0.7 AST 40 H ALT 20 Alkaline Phosphatase 86 Ammonia Total Creatine Kinase Troponin I Total Protein 7.7 Albumin 3.3 L Lipase Vitamin B12 Folate TSH Ur Collection Type Urine Color Urine Clarity Urine pH Ur Specific [place] Urine Protein Urine Glucose (UA) Urine Ketones Urine Occult Blood Urine Nitrate Urine Bilirubin Urine Urobilinogen Ur Leukocyte Esterase Ur Squamous Epith Cells Ur Transition Epith Cell Amorphous Sediment Micro UA Comment Urine Culture Comments Urine Collection Time RPR 01/28/18 01/28/18 01/29/18 15:40 17:15 05:01 CBC w Diff Auto diff final WBC 14.8 H RBC 4.59 Hgb 13.3 Hct 40.2 MCV 87.6 MCH 29.1 MCHC 33.2 RDW 15.9 Plt Count 153 MPV 9.0 Neut % (Auto) 85.1 H Lymph % (Auto) 6.2 L [place] % (Auto) 8.6 H Eos % (Auto) 0.0 Baso % (Auto) 0.1 Neut # (Auto) 12.6 H Lymph # (Auto) 0.9 L [place] # (Auto) 1.3 H Eos # (Auto) 0.0 Baso # (Auto) 0.0 WBC Differential . Differential Comment . PT INR APTT Sodium Potassium Chloride Carbon Dioxide Anion Gap BUN Creatinine Estimated GFR POC Glucose Random Glucose Lactic Acid Calcium Total Bilirubin AST ALT Alkaline Phosphatase Ammonia Total Creatine Kinase Troponin I Total Protein Albumin Lipase Vitamin B12 Folate TSH 0.421 Ur Collection Type Cath Urine Color Yellow Urine Clarity Clear Urine pH 7.5 Ur Specific [place] 1.010 Urine Protein Negative Urine Glucose (UA) Negative Urine Ketones Negative Urine Occult Blood Trace Urine Nitrate Negative Urine Bilirubin Negative Urine Urobilinogen 0.2 Ur Leukocyte Esterase Negative Ur Squamous Epith Cells 6-10 H Ur Transition Epith Cell 6-10 H Amorphous Sediment Moderate H Micro UA Comment Cath-culture not ind Urine Culture Comments Cath-cult not ind Urine Collection Time 1715 RPR 01/29/18 01/29/18 01/29/18 05:01 11:00 11:00 CBC w Diff WBC RBC Hgb Hct MCV MCH MCHC RDW Plt Count MPV Neut % (Auto) Lymph % (Auto) [place] % (Auto) Eos % (Auto) Baso % (Auto) Neut # (Auto) Lymph # (Auto) [place] # (Auto) Eos # (Auto) Baso # (Auto) WBC Differential Differential Comment PT INR APTT Sodium 139 Potassium 3.7 D Chloride 109 H Carbon Dioxide 21.9 Anion Gap 8 BUN 23 H Creatinine 0.98 Estimated GFR 54 L POC Glucose Random Glucose 112 H Lactic Acid Calcium 8.8 Total Bilirubin AST ALT Alkaline Phosphatase Ammonia 21 Total Creatine Kinase Troponin I Total Protein Albumin Lipase Vitamin B12 513 Folate Greater than 20.0 H TSH Ur Collection Type Urine Color Urine Clarity Urine pH Ur Specific [place] Urine Protein Urine Glucose (UA) Urine Ketones Urine Occult Blood Urine Nitrate Urine Bilirubin Urine Urobilinogen Ur Leukocyte Esterase Ur Squamous Epith Cells Ur Transition Epith Cell Amorphous Sediment Micro UA Comment Urine Culture Comments Urine Collection Time RPR 01/29/18 11:00 CBC w Diff WBC RBC Hgb Hct MCV MCH MCHC RDW Plt Count MPV Neut % (Auto) Lymph % (Auto) [place] % (Auto) Eos % (Auto) Baso % (Auto) Neut # (Auto) Lymph # (Auto) [place] # (Auto) Eos # (Auto) Baso # (Auto) WBC Differential Differential Comment PT INR APTT Sodium Potassium Chloride Carbon Dioxide Anion Gap BUN Creatinine Estimated GFR POC Glucose Random Glucose Lactic Acid Calcium Total Bilirubin AST ALT Alkaline Phosphatase [place] Total Creatine Kinase Troponin I Total Protein Albumin Lipase Vitamin B12 Folate TSH Ur Collection Type Urine Color Urine Clarity Urine pH Ur Specific [place] Urine Protein Urine Glucose (UA) Urine Ketones Urine Occult Blood Urine Nitrate Urine Bilirubin Urine Urobilinogen Ur Leukocyte Esterase Ur Squamous Epith Cells Ur Transition Epith Cell Amorphous Sediment Micro UA Comment Urine Culture Comments Urine Collection Time RPR Nonreactive Result Diagrams: 01/31/18 05:09 01/31/18 05:19 Microbiology: Microbiology 01/28/18 15:45 Aerobic Blood Culture - Preliminary Blood - Peripheral No growth in 2 days Anaerobic Blood Culture - Preliminary No growth in 2 days 01/28/18 15:40 Aerobic Blood Culture - Preliminary Blood - Peripheral No growth in 2 days Anaerobic Blood Culture - Preliminary No growth in 2 days 01/29/18 11:00 Legionella Antigen - Final Urine - Catheterized Urine Presumptive negative for Legionella pneumophila serogroup 1 antigen in urine, suggesting no recent or recurrent infection. Infection due to Legionella cannot be ruled out since other serogroups and species may cause disease, antigen may not be present in urine in early infection, and the level of antigen present in the urine may be below the detection limit of the test. 01/29/18 11:00 Streptococcus pneumoniae Antigen (M - Final Urine - Catheterized Urine Presumptive negative for streptococcus pneumoniae antigen, suggesting no current or recent infection. Infection due to Streptococcus pneumoniae cannot be ruled out since the antigen present in the sample may be below the detection limit of the test. 01/29/18 11:00 Influenza Types A,B Antigen - Final Nasal Wash Positive for Flu A Antigen Imaging: Head CT 01/28/18 15:39 CONCLUSION: 1. Stable negative trauma study with no evidence of hemorrhage or mass effect. Chest X-Ray 01/28/18 15:40 CONCLUSION: Stable appearance with no acute cardiopulmonary disease. Chest X-Ray 01/28/18 23:49 CONCLUSION: 1. Increasing prominence of the interstitial markings. Concerning for some developing vascular congestion or volume overload on baseline chronic fibrosis. 2. Heart size remains borderline prominent. Chest CTA 01/29/18 00:00 CONCLUSION: 1. No evidence of pulmonary embolism. 2. Dilatation esophagus which contains air and a pre by 2 cm lobular soft tissue mass. This could be food or possible tumor. 3. Smaller soft tissue masslike area in the proximal trachea could represent tumor or mucus. 4. Groundglass opacities in both lungs which could indicate pulmonary edema or underlying interstitial lung disease. 5. Small bilateral pleural effusions right greater than left. Head MRI 01/29/18 00:00 CONCLUSION: Head MRA 01/29/18 00:00 CONCLUSION: Venous Doppler Study 01/29/18 00:00 CONCLUSION: Chest X-Ray 01/30/18 00:00 CONCLUSION: Patient/Family Conference Present at Family Conference: Pt's Jamey Rosenbaum and Heather. Issues Discussed: * Palliative care role, purpose, approach * Additional medical, psychosocial, and spiritual history * Patients general health, functional status, and cognitive changes in the months leading up to the current hospitalization * Patient/family understanding of the current medical problems * Patient/family understanding of prognosis * Patients goals of care as best understood from advance directives and/or conversations and/or values * Current medical treatment options and benefits/burdens of those options * Likely scenarios comparing ongoing aggressive care with a transition to comfort measures only * Questions answered to the best of my ability * Palliative care contact information provided Assessment and Plan - Disease Oriented Problem List (1) Influenza (2) Altered mental status (3) Acute dehydration (4) Leukocytosis (5) Systemic inflammatory response syndrome (6) Acute renal failure superimposed on 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 Worked in an [employer] for 35 years. . 2 daughtes, and 1 step son. Spiritual:unknown Legal:Daughter Lillian Rosenbaum, and Chelita Schultz are POAs Ethical issues impacting care:None Important Contacts: Lillian Linder [phone]. Chelita Schultz currently is in [place] for vacation [phone] Prognosis: 87 year old with influenza, leukocytosis, renal insufficieny, with hx of cva, dvt, vascular dementia. Prognosis is guarded, risk of decompensation, setback, and high. Code Status: Full Code Plan: == capacity- does not have capacity to make medical decicions. Has hx of dementia, unclear even when mentation was good, how much insight and ability to weigh risk and benefits were there. == POA is Titus Rosenbaum. and Sidney Schultz (currently on vacation in [place]). == Goals of care: Spoke with patient's daughter and power of snaker driving horses for health care Jess Rosenbaum. Spoke about patient's advanced age, comorbidities, risks versus benefits of aggressive resuscitation. She is informed that given her advanced age, current flu she may not bounce back from this. We inquire about any advanced directives , previous conversation patient has has had in regards to being on the ventilator and being on life support. Medical team is worried that further aggressive care, patient may undergo more of the trauma associated with aggressive care, without the intended benefits despite aggressive care such as intubation and CPR. Patient other daughter currently is on vacation in [place], but Jess was able to converse with her sister After further family discussion, they have both decided to continue with aggressive care and to maintain full CODE STATUS. == symptom: altered mentation- secondary to influenza, infection. and current situation. No med rec. dyspnea- flu. No med rec. defer to medical team. == palliative care will follow as clinical condition evolves to review goals of care, and provide recommendation/ assistance on symptom of discomfort. Appreciation Thank you for the opportunity to participate in the care of Segun Carey. Attestation Attestation: To help prompt me to consider important information that might be impacting today's encounter and assessment, information from prior notes written by myself or my colleagues may have been "brought forward" into today's note. My signature on this note, however, is an attestation that I personally performed the exam, history, and/or decision-making noted today, and, unless otherwise indicated, the interactions with patient, family, and staff as well as the review of records all occurred today. I also attest that the listed assessment and stated plan reflect my best clinical judgment today based on the combination of historical information, prior notes, and today's exam/ interactions. When time spent is documented, it refers only to time spent today by the signer, or if indicated, combined time spent today by collaborating physician/nurse practitioner.
[2018-01-30] MEDS: Ceftaroline Inj 300 MG in Sodium Chlor 0.9% Inj 100 ML IV.SIG SCH (15:59)
--- NOTE | 2018-01-30 17:54 | P.CONGI ---
History of Present Illness Consult date: 01/30/18 Consult reason: Esophageal mass Chief complaint: ALTERED MENTAL STATUS, FEVER, DEHYDRATION History of Present Illness: Patient is an 87-year-old female who lives in assisted living facility who was sent to the hospital because of altered mental state the patient has a history of hypertension anemia hypothyroidism stroke dementia. Patient currently weak and frail in bed barely able to mumble with occasional words that come out We are asked to see her because during the process of her workup a CT of the chest showed an esophageal mass with esophageal dilation Patient has been assessed to be unable to swallow at this point and has influenza A positive Review of Systems unobtainable due to mental status PMFSH - History History Provided By: Family Member - Medical History Medical History: Medical History (Last Reviewed 01/30/18 @ 14:56 by Milan Wray) Dementia Depression Gastroesophageal reflux HTN (hypertension) Hyperlipidemia Hypothyroid Pneumonia Prolapsed uterus Stroke UTI (urinary tract infection) - Surgical History Surgical History: Surgical History (Last Reviewed 01/30/18 @ 14:56 by Milan Wray) History of hysterectomy History of partial knee replacement History of umbilical hernia repair - Family History Family History: Family History (Last Updated 01/29/18 @ 09:43 by GEOVANNY Paris) Mother History of stroke - Tobacco History Second Hand Smoke Exposure: No Smoking Status: Never smoker - Alcohol History How Often Do You Have a Drink Containing Alcohol: Never - Substance Use History Substance History: No History of Abuse - Travel History Recent Travel in the [place] Within the Last 8 Weeks: No Recent Travel Out of the Country Within the Last 8 Weeks: No - Immunization History Tetanus Immunization: Unsure Hx Influenza Vaccine This Season: No Medications and Allergies Active Medications: Active Medications Acetaminophen (Tylenol) 650 mg PO Q4H PRN PRN Reason: Temp > 100.4 Albuterol (Duoneb Neb (Prn)) 1 ampul NEB Q4HR NEB PRN PRN Reason: SHORTNESS OF BREATH/WHEEZING Last Admin: 01/29/18 00:05 Dose: 1 ampul Apixaban (Eliquis) 2.5 mg PO DAILY [facility] Last Admin: 01/30/18 08:45 Dose: Not Given Acetaminophen (Ofirmev Inj) 1,000 mg in 100 mls @ 400 mls/hr IV.SIG Q6H PRN PRN Reason: FEVER Last Infusion: 01/30/18 12:06 Dose: Infused Dextrose/Sodium Chloride (D5w/Normal Saline Inj) 1,000 mls @ 42 mls/hr IV.CONT .[id number] [facility] Stop: 01/31/18 08:03 Last Admin: 01/30/18 08:44 Dose: 42 mls/hr Ceftaroline Fosamil 300 mg/ (Sodium Chloride) 100 mls @ 100 mls/hr IV.SIG Q12H [facility] Last Admin: 01/30/18 15:59 Dose: 100 mls/hr Levothyroxine Sodium (Synthroid) 75 mcg PO DAILY@0700 [facility] Last Admin: 01/30/18 06:07 Dose: Not Given Ondansetron HCl (Zofran Inj) 4 mg IV.PUSH Q6H PRN PRN Reason: NAUSEA OR VOMITING Oseltamivir Phosphate (Tamiflu) 75 mg PO BID [facility] Last Admin: 01/30/18 08:45 Dose: Not Given Allergies Allergy/AdvReac Type Severity Reaction Status Date / Time mupirocin Allergy Severe Rash Verified 01/28/18 16:33 sulfamethoxazole Allergy Severe Rash Verified 01/28/18 16:33 trimethoprim Allergy Severe Rash Verified 01/28/18 16:33 SULFA DRUGS Allergy Severe Rash Uncoded 01/28/18 16:33 Home Medications Medication Instructions Recorded Confirmed Type apixaban [Eliquis] 2.5 mg PO DAILY 01/28/18 01/28/18 History levothyroxine 75 mcg PO DAILY 01/28/18 01/28/18 History oxybutynin chloride 10 mg PO DAILY 01/28/18 01/28/18 History Exam Vital signs: Vital Signs 01/29/18 20:00 01/29/18 20:03 01/30/18 00:00 Temperature 98.8 F Pulse Rate 91 H 82 70 Respiratory Rate 20 18 Blood Pressure 142/56 H 107/52 L Pulse Oximetry 95 97 01/30/18 04:00 01/30/18 07:30 01/30/18 08:00 Temperature 99.1 F 98.2 F Pulse Rate 72 93 H Respiratory Rate 16 18 Blood Pressure 121/54 L 115/54 L Pulse Oximetry 97 90 L 90 L 01/30/18 11:11 01/30/18 12:00 01/30/18 12:54 Temperature 104.0 F H 101.3 F H Pulse Rate 94 H Respiratory Rate 18 19 Blood Pressure 129/67 Pulse Oximetry 95 Intake & Output 01/29/18 01/30/18 01/30/18 18:59 06:59 18:59 Intake Total 100 / 100 0 / 0 100 / 100 Output Total 550 / 550 100 / 100 Balance -450 / -450 -100 / -100 100 / 100 Intake: IV 100 / 100 100 / 100 Ofirmev Inj 1,000 mg In 100 ml 100 / 100 100 / 100 @ 400 mls/hr IV.SIG Q6H PRN Rx# :[id number] Oral 0 / 0 0 / 0 0 / 0 Output: Urine 550 / 550 Urine Amount (Catheter) 100 / 100 Indwelling Urethral Catheter 100 / 100 Narrative: Patient is an elderly frail chronically sick appearing female - Constitutional no acute distress - Routine HEENT Exam Head: Present: normocephalic Eye: Present: EOMI ENT: Present: mucous membranes moist - Routine Neck Exam Present: supple - Routine Respiratory Exam Present: diminished air movement - Routine Cardiovascular Exam Present: RRR - Routine Abdominal Exam Present: soft, normoactive bowel sounds - Routine Extremities Exam Absent: cyanosis, clubbing - Routine Skin Exam Present: dry, warm - Routine Neurological Exam Present: alert. Absent: oriented X3 Results - Labs CBC & Chem 7: 01/29/18 05:01 01/29/18 05:01 Labs: Laboratory Results - last 24 hr 01/29/18 01/30/18 01/30/18 11:00 14:40 14:40 ESR 17 C-Reactive Protein 30.20 H RPR Nonreactive - Imaging Impressions Chest X-Ray 01/30/18 00:00 CONCLUSION: Assessment and Plan - Plan We are asked to evaluate the patient for an esophageal mass Currently her respiratory status and general condition are not sufficient for a safe endoscopy We will follow along with you and once she is deemed clinically stable we will pursue upper endoscopy to further evaluate the CT chest findings in the esophagus Continue with current supportive care Monitor labs
[2018-01-31] MEDS: Ceftaroline Inj 300 MG in Sodium Chlor 0.9% Inj 100 ML IV.SIG SCH (03:21)
[2018-01-31 05:44] LABS: Baso % (Auto) 0.2 % (0.0-2.0); Eos % (Auto) 0.2 % (0.0-4.0); Hematocrit 35.7 % (35.0-46.0); Hemoglobin 11.6 gm/dL (11.6-15.3); Lymph # (Auto) 0.9 th/mm3 (1.0-4.8); Lymph % (Auto) 6.4 % (9.0-44.0); Mean Corpuscular HGB Conc 32.6 % (32.0-36.0); Mean Corpuscular Hemoglobin 28.9 pg (27.0-34.0); Mean Corpuscular Volume 88.7 fL (80.0-100.0); Mean Platelet Volume 8.8 fL (7.0-11.0); Mono # (Auto) 1.1 th/mm3 (0.0-0.9); Mono % (Auto) 7.6 % (0.0-8.0); Neut # (Auto) 12.1 th/mm3 (1.8-7.7); Neut % (Auto) 85.6 % (16.0-70.0); Platelet Count 137 th/mm3 (150-450); Red Blood Count 4.02 mil/mm3 (4.00-5.30); Red Cell Distribution Width 16.3 % (11.6-17.2); White Blood Count 14.1 th/mm3 (4.0-11.0)
[2018-01-31 05:50] LABS: Potassium 3.6 meq/L (3.5-5.1)
[2018-01-31 05:56] LABS: Calcium 8.6 mg/dL (8.5-10.1)
[2018-01-31 05:57] LABS: Carbon Dioxide 21.4 meq/L (21.0-32.0)
[2018-01-31] MEDS: Levothyroxine 75 MCG Tablet PO SCH (06:04)
--- NOTE | 2018-01-31 08:16 | P.PN ---
Subjective Interval history: Follow-up today for severe sepsis secondary to influenza A. Patient seen and examined, lying in bed sleeping, awakens to voice. Patient is lethargic although awakens to voice. Follows commands appropriately. Is oriented to self and place. Palliative care and to see patient today, spoke with family. Nutritional intake is decreased for the past 3 days. Also spoke with GI who at this time recommends Dobbhoff placement. Family is agreeable. Blood cultures growing gram-negative faisal. Awaiting repeat draw. Patient does state she is uncomfortable although is unable to tell me where her pain is at. Spoke to bedside RN has been updated. Physical Exam Vital signs: Vital Signs 01/30/18 11:11 01/30/18 12:00 01/30/18 12:54 Temperature 104.0 F H 101.3 F H Pulse Rate 94 H Respiratory Rate 18 19 Blood Pressure 129/67 Pulse Oximetry 95 01/30/18 20:00 01/30/18 20:25 01/30/18 22:12 Temperature 101.3 F H 100.5 F H Pulse Rate 83 Respiratory Rate 20 Blood Pressure 94/49 L Pulse Oximetry 93 L 92 L 01/31/18 00:00 01/31/18 04:00 Temperature 98.1 F 97.7 F Pulse Rate 66 69 Respiratory Rate 16 18 Blood Pressure 85/47 L 110/50 L Pulse Oximetry 96 96 Intake & Output 01/30/18 01/31/18 01/31/18 18:59 06:59 18:59 Intake Total 200 / 200 260 / 260 200 / 200 Output Total 200 / 200 450 / 450 Balance 0 / 0 -190 / -190 200 / 200 Weight 64.2 kg Intake: IV 200 / 200 200 / 200 200 / 200 D5W/Normal Saline Inj 1,000 ML 200 / 200 @ 42 mls/hr IV.CONT .[id number] [facility] Rx#:[id number] Ofirmev Inj 1,000 mg In 100 ml 100 / 100 100 / 100 @ 400 mls/hr IV.SIG Q6H PRN Rx# :[id number] Teflaro Inj 300 MG In NS Inj 100 / 100 100 / 100 100 ML @ 100 mls/hr IV.SIG Q12H [facility] Rx#:[id number] Oral 0 / 0 60 / 60 Output: Urine 200 / 200 450 / 450 Stool 0 / 0 Other: Date of Last Bowel Movement 01/30/18 Narrative: GENERAL: Well-developed, well-nourished, in no acute distress. Arouses to voice. HEENT: Head is normocephalic without any lesions or masses noted. Facial features are symmetric. Eyes: Pupils equal round reactive to light. Conjunctivae were clear. NECK: Supple without any masses. Trachea midline no deviation. No JVD, no bruits are appreciated CARDIAC: Regular rhythm, regular rate. S1/S2 are heard. No murmurs gallops or rubs. LUNGS: Rhonchi throughout. No wheeze, rhonchi or rales. No use of accessory muscles on inspiration or expiration. ABDOMEN: Soft, nontender. Nondistended. Bowel sounds heard in all 4 quadrants. No organomegaly or masses. Negative rebound, negative guarding EXTREMITIES: pulses are equal bilaterally. No cyanosis or clubbing. Left lower extremity does have significant edema as compared to the right, mild erythema noted to entire left lower extremity NEUROLOGY: Patient lethargic but arousable, Deep tendon reflexes are 2+ in upper and lower extremities bilaterally. Plantar reflex intact. Wiggles toes to command. - Urinary Catheter Management Indwelling Urethral Catheter Cath placed during this visit: yes Reason for continuing: Hourly intake/output Insertion date: 01/29/18 Insertion time: 10:39 Straight Cath placed during this visit: no Reason for continuing: Hourly intake/output Results - Labs CBC & Chem 7: 01/31/18 05:09 01/31/18 05:19 Laboratory Results - last 24 hr 01/29/18 01/30/18 01/30/18 11:00 14:40 14:40 CBC w Diff WBC RBC Hgb Hct MCV MCH MCHC RDW Plt Count MPV Neut % (Auto) Lymph % (Auto) [place] % (Auto) Eos % (Auto) Baso % (Auto) Neut # (Auto) Lymph # (Auto) [place] # (Auto) Eos # (Auto) Baso # (Auto) WBC Differential Differential Comment ESR 17 Sodium Potassium Chloride Carbon Dioxide Anion Gap BUN Creatinine Estimated GFR Random Glucose Calcium C-Reactive Protein 30.20 H RPR Nonreactive 01/31/18 01/31/18 05:09 05:19 CBC w Diff Auto diff final WBC 14.1 H RBC 4.02 Hgb 11.6 Hct 35.7 MCV 88.7 MCH 28.9 MCHC 32.6 RDW 16.3 Plt Count 137 L MPV 8.8 Neut % (Auto) 85.6 H Lymph % (Auto) 6.4 L [place] % (Auto) 7.6 Eos % (Auto) 0.2 Baso % (Auto) 0.2 Neut # (Auto) 12.1 H Lymph # (Auto) 0.9 L [place] # (Auto) 1.1 H Eos # (Auto) 0.0 Baso # (Auto) 0.0 WBC Differential . Differential Comment . ESR Sodium 143 Potassium 3.6 Chloride 113 H Carbon Dioxide 21.4 Anion Gap 9 BUN 39 H Creatinine 1.30 H Estimated GFR 39 L Random Glucose 118 H Calcium 8.6 C-Reactive Protein RPR Microbiology 01/30/18 14:09 Blood - Peripheral Aerobic Blood Culture - Preliminary gram negative rods 01/30/18 14:09 Blood - Peripheral Anaerobic Blood Culture - Preliminary gram negative rods 01/30/18 14:13 Blood - Peripheral Aerobic Blood Culture - Preliminary gram negative rods 01/28/18 15:45 Blood - Peripheral Aerobic Blood Culture - Preliminary No growth in 2 days 01/28/18 15:45 Blood - Peripheral Anaerobic Blood Culture - Preliminary No growth in 2 days 01/28/18 15:40 Blood - Peripheral Aerobic Blood Culture - Preliminary No growth in 2 days 01/28/18 15:40 Blood - Peripheral Anaerobic Blood Culture - Preliminary No growth in 2 days 01/29/18 11:00 Urine - Catheterized Urine Legionella Antigen - Final Presumptive negative for Legionella pneumophila serogroup 1 antigen in urine, suggesting no recent or recurrent infection. Infection due to Legionella cannot be ruled out since other serogroups and species may cause disease, antigen may not be present in urine in early infection, and the level of antigen present in the urine may be below the detection limit of the test. - Imaging Impressions Chest X-Ray 01/30/18 00:00 CONCLUSION: Assessment and Plan - Assessment (1) Severe sepsis Code(s): A41.9 - Sepsis, unspecified organism; R65.20 - Severe sepsis without septic shock Status: Acute (2) Leukocytosis Code(s): D72.829 - Elevated white blood cell count, unspecified Status: Acute (3) Fever of unknown origin Code(s): R50.9 - Fever, unspecified Status: Acute (4) Altered mental status Code(s): R41.82 - Altered mental status, unspecified Status: Acute (5) Acute renal failure superimposed on stage 2 chronic kidney disease Code(s): N17.9 - Acute kidney failure, unspecified; N18.2 - Chronic kidney disease, stage 2 (mild) Status: Acute (6) Acute dehydration Code(s): E86.0 - Dehydration Status: Acute - Plan Severe sepsis with bacteremia Influenza A infection -Patient meets criteria with leukocytosis with left shift, altered mental status , febrile illness, tachycardia, acute renal failure. -Urinalysis clear, chest x-ray did not indicate any acute abnormality -Influenza testing positive for influenza A -Pneumococcal, Legionella testing was negative -Blood cultures growing gram neg rods x 3 bottles. Awaiting growth. Redrew cultures, follow. -Consulted infectious disease, appreciate input and recs. Elevated CRP. -On IV Zyvox and Zosyn. -Continue Tamiflu. -Supportive care, IV Tylenol for fever, cautious IV hydration, avoid overload. -Continue to monitor CBC. TMAX 101.3 overnight. Altered mental status, likely toxic encephalopathy from sepsis -Mentation mildly improved this morning. -CT scan of the brain was unremarkable for any acute abnormality. -Workup for metabolic encephalopathy was unremarkable. -Speech therapy to evaluate for us swallow assessment, failed evaluation. Keep patient n.p.o. at this time, will continue to monitor. -Avoid any sedating medications. -Palliative care has been consulted and following, appreciate input and recommendations. Has been speaking with family, addressing nutritional status, is agreeable to dobhouff placement for tube feeding. -Will continue to monitor. Left lower extremity DVT -Ultrasound was performed that did indicate DVT -Patient is already on anticoagulation with Eliquis -Patient already has IVC filter Hypoxia -Previous episode of hypoxia of 84%. Currently requiring 3 LNC, o2 sats 96%. -Chest x-ray did indicate increasing prominence in the interstitial markings, concerning for some developing vascular congestion or volume overload -Continue O2 supplementation maintain O2 sats greater than 92% -DuoNeb every 4 hours as needed for shortness of breath/dyspnea -CTA of the thorax did not indicate any bony emboli, however did have a soft tissue mass versus food bolus in the esophagus with esophageal dilatation. There is groundglass appearance the patient he indicating possible fluid overload. No infiltrate identified. -Repeat CXR reviewed from 01/30/18 showing mild improvement in pulmonary opacities. Esophageal mass versus food bolus with esophageal dilatation -Currently the patient is not stable enough to undergo any procedure or evaluation -GI consulted and following, appreciate input and recommendations. -Spoke to GI today regarding decreased nutritional status. Will attempt to place dobhouff and verify placement with KUB. Will start tube feedings. Acute renal failure superimposed on chronic kidney disease stage II -Renal functions slightly worse today, 1.3. Will continue IVF. -Continue monitor renal functions -Avoid nephrotoxins DVT prevention -Patient is on Eliquis (4) Altered mental status Qualifiers: Altered mental status type: unspecified Qualified Code(s): R41.82 - Altered mental status, unspecified
--- NOTE | 2018-01-31 10:58 | P.PNPAL ---
Reason for Visit Reason for visit: a. To assist with evaluation and management of symptoms including: follow up to altered mental status b. To assist medical decision maker(s) with: better understanding of current medical conditions; weighing benefits/burdens of medical treatment options; making medical treatment decisions. Subjective Subjective/Interval History: Patient since last continue to of leukocytosis. Blood cultures show Gram neg faisal. Pt is afebrile this morning. abx was changed. ID continue to follow patients. Cr is 1.3, higher than yesterday. GI had came by for evaluation of mass in the throat, no edg plan until pt clinically stronger. Patient mentation is much improved this morning. She is communicating, able to tell me her name. Confusion remains. She said " I don't feel so good." She is not able to elaborate more. She was able to tell me she has 2 daughters. She is much more alert and responsive. Family/Friend Interactions: Spoke with pt's daughter and grandson. Gave updates, review labs, vitals, specialist visit. They feel patient mentation is better and has improved. They are very glad she did not need to be place on life support. They understand she is still at risk for decline, and remains ill. In terms of nutrition pt has not have anything to eat since Sunday 01/28. I review them the esophageal mass. They are amenable to tube feedings if necessary (if she continue to fail swallow eval) either Dubbhoff or PEG at least temporarily. Goals remains aggressive. Full Code. Advance Directives Living Will: Copy in medical record Health Care Surrogate: Copy in medical record Objective Vital Signs: Vital Signs 01/30/18 11:11 01/30/18 12:00 01/30/18 12:54 Temperature 104.0 F H 101.3 F H Pulse Rate 94 H Respiratory Rate 18 19 Blood Pressure 129/67 Pulse Oximetry 95 01/30/18 20:00 01/30/18 20:25 01/30/18 22:12 Temperature 101.3 F H 100.5 F H Pulse Rate 83 Respiratory Rate 20 Blood Pressure 94/49 L Pulse Oximetry 93 L 92 L 01/31/18 00:00 01/31/18 04:00 01/31/18 08:00 Temperature 98.1 F 97.7 F 97.2 F L Pulse Rate 66 69 64 Respiratory Rate 16 18 18 Blood Pressure 85/47 L 110/50 L 105/50 L Pulse Oximetry 96 96 96 Intake & Output 01/30/18 01/31/18 01/31/18 18:59 06:59 18:59 Intake Total 200 / 200 260 / 260 200 / 200 Output Total 200 / 200 450 / 450 Balance 0 / 0 -190 / -190 200 / 200 Weight 64.2 kg Intake: IV 200 / 200 200 / 200 200 / 200 D5W/Normal Saline Inj 1,000 ML 200 / 200 @ 42 mls/hr IV.CONT .[id number] [facility] Rx#:[id number] Ofirmev Inj 1,000 mg In 100 ml 100 / 100 100 / 100 @ 400 mls/hr IV.SIG Q6H PRN Rx# :[id number] Teflaro Inj 300 MG In NS Inj 100 / 100 100 / 100 100 ML @ 100 mls/hr IV.SIG Q12H [facility] Rx#:[id number] Oral 0 / 0 60 / 60 Output: Urine 200 / 200 450 / 450 Stool 0 / 0 Other: Date of Last Bowel Movement 01/30/18 Physical Exam: CONSTITUTIONAL/GENERAL: This is an elderly female, more alert, follow some commands TUBES/LINES/DRAINS:piv monroe. SKIN: No jaundice, rashes, or lesions. Ecchymoses on upper extremities. HEAD: Atraumatic. Normocephalic. EYES: Pupils equal and round and reactive. Extraocular motions intact. ENT: Hearing grossly normal. Nose without bleeding or purulent drainage. Throat without visible erythema, NECK: Trachea midline. Supple, nontender. No palpable thyroid enlargement or nodularity. CARDIOVASCULAR: Regular rate and rhythm without murmurs, gallops, or rubs. No JVD. Peripheral pulses symmetric. RESPIRATORY/CHEST: Symmetric, unlabored respirations. mild rhonchi by base GASTROINTESTINAL: Abdomen soft, non-tender, nondistended. No hepato-splenomegaly , or palpable masses. No guarding. Bowel sounds present. GENITOURINARY: Without palpable bladder distension. Monroe catheter in place. MUSCULOSKELETAL: Extremities without clubbing, cyanosis, or edema. LYMPHATICS: No palpable cervical or supraclavicular adenopathy. NEUROLOGICAL: Improve mentation. Diagnostic Tests Laboratory: Laboratory Results - last 72 hr 01/28/18 01/28/18 01/28/18 15:37 15:40 15:40 CBC w Diff WBC RBC Hgb Hct MCV MCH MCHC RDW Plt Count MPV Neut % (Auto) Lymph % (Auto) [place] % (Auto) Eos % (Auto) Baso % (Auto) Neut # (Auto) Lymph # (Auto) [place] # (Auto) Eos # (Auto) Baso # (Auto) WBC Differential Differential Comment ESR PT 11.0 INR 1.1 APTT 22.8 L Sodium Potassium Chloride Carbon Dioxide Anion Gap BUN Creatinine Estimated GFR POC Glucose 104 Random Glucose Lactic Acid Calcium Total Bilirubin AST ALT Alkaline Phosphatase Ammonia Total Creatine Kinase 81 Troponin I Less than 0.02 L C-Reactive Protein Total Protein Albumin Lipase 62 L Vitamin B12 Folate TSH Ur Collection Type Urine Color Urine Clarity Urine pH Ur Specific [place] Urine Protein Urine Glucose (UA) Urine Ketones Urine Occult Blood Urine Nitrate Urine Bilirubin Urine Urobilinogen Ur Leukocyte Esterase Ur Squamous Epith Cells Ur Transition Epith Cell Amorphous Sediment Micro UA Comment Urine Culture Comments Urine Collection Time RPR 01/28/18 01/28/18 01/28/18 15:40 15:40 15:40 CBC w Diff Auto diff final WBC 13.3 H RBC 4.89 Hgb 14.3 Hct 43.3 MCV 88.7 MCH 29.2 MCHC 33.0 RDW 16.3 Plt Count 172 MPV 8.5 Neut % (Auto) 78.9 H Lymph % (Auto) 10.2 [place] % (Auto) 9.4 H Eos % (Auto) 0.1 Baso % (Auto) 1.4 Neut # (Auto) 10.4 H Lymph # (Auto) 1.4 [place] # (Auto) 1.3 H Eos # (Auto) 0.0 Baso # (Auto) 0.2 WBC Differential . Differential Comment . ESR PT INR APTT Sodium 134 L Potassium 5.1 Chloride 104 Carbon Dioxide 22.4 Anion Gap 8 BUN 27 H Creatinine 1.20 H Estimated GFR 42 L POC Glucose Random Glucose 96 Lactic Acid 1.8 Calcium 9.4 Total Bilirubin 0.7 AST 40 H ALT 20 Alkaline Phosphatase 86 Ammonia Total Creatine Kinase Troponin I C-Reactive Protein Total Protein 7.7 Albumin 3.3 L Lipase Vitamin B12 Folate TSH Ur Collection Type Urine Color Urine Clarity Urine pH Ur Specific [place] Urine Protein Urine Glucose (UA) Urine Ketones Urine Occult Blood Urine Nitrate Urine Bilirubin Urine Urobilinogen Ur Leukocyte Esterase Ur Squamous Epith Cells Ur Transition Epith Cell Amorphous Sediment Micro UA Comment Urine Culture Comments Urine Collection Time RPR 01/28/18 01/28/18 01/29/18 15:40 17:15 05:01 CBC w Diff Auto diff final WBC 14.8 H RBC 4.59 Hgb 13.3 Hct 40.2 MCV 87.6 MCH 29.1 MCHC 33.2 RDW 15.9 Plt Count 153 MPV 9.0 Neut % (Auto) 85.1 H Lymph % (Auto) 6.2 L [place] % (Auto) 8.6 H Eos % (Auto) 0.0 Baso % (Auto) 0.1 Neut # (Auto) 12.6 H Lymph # (Auto) 0.9 L [place] # (Auto) 1.3 H Eos # (Auto) 0.0 Baso # (Auto) 0.0 WBC Differential . Differential Comment . ESR PT INR APTT Sodium Potassium Chloride Carbon Dioxide Anion Gap BUN Creatinine Estimated GFR POC Glucose Random Glucose Lactic Acid Calcium Total Bilirubin AST ALT Alkaline Phosphatase Ammonia Total Creatine Kinase Troponin I C-Reactive Protein Total Protein Albumin Lipase Vitamin B12 Folate TSH 0.421 Ur Collection Type Cath Urine Color Yellow Urine Clarity Clear Urine pH 7.5 Ur Specific [place] 1.010 Urine Protein Negative Urine Glucose (UA) Negative Urine Ketones Negative Urine Occult Blood Trace Urine Nitrate Negative Urine Bilirubin Negative Urine Urobilinogen 0.2 Ur Leukocyte Esterase Negative Ur Squamous Epith Cells 6-10 H Ur Transition Epith Cell 6-10 H Amorphous Sediment Moderate H Micro UA Comment Cath-culture not ind Urine Culture Comments Cath-cult not ind Urine Collection Time 1715 RPR 01/29/18 01/29/18 01/29/18 05:01 11:00 11:00 CBC w Diff WBC RBC Hgb Hct MCV MCH MCHC RDW Plt Count MPV Neut % (Auto) Lymph % (Auto) [place] % (Auto) Eos % (Auto) Baso % (Auto) Neut # (Auto) Lymph # (Auto) [place] # (Auto) Eos # (Auto) Baso # (Auto) WBC Differential Differential Comment ESR PT INR APTT Sodium 139 Potassium 3.7 D Chloride 109 H Carbon Dioxide 21.9 Anion Gap 8 BUN 23 H Creatinine 0.98 Estimated GFR 54 L POC Glucose Random Glucose 112 H Lactic Acid Calcium 8.8 Total Bilirubin AST ALT Alkaline Phosphatase Ammonia 21 Total Creatine Kinase Troponin I C-Reactive Protein Total Protein Albumin Lipase Vitamin B12 513 Folate Greater than 20.0 H TSH Ur Collection Type Urine Color Urine Clarity Urine pH Ur Specific [place] Urine Protein Urine Glucose (UA) Urine Ketones Urine Occult Blood Urine Nitrate Urine Bilirubin Urine Urobilinogen Ur Leukocyte Esterase Ur Squamous Epith Cells Ur Transition Epith Cell Amorphous Sediment Micro UA Comment Urine Culture Comments Urine Collection Time RPR 01/29/18 01/30/18 01/30/18 11:00 14:40 14:40 CBC w Diff WBC RBC Hgb Hct MCV MCH MCHC RDW Plt Count MPV Neut % (Auto) Lymph % (Auto) [place] % (Auto) Eos % (Auto) Baso % (Auto) Neut # (Auto) Lymph # (Auto) [place] # (Auto) Eos # (Auto) Baso # (Auto) WBC Differential Differential Comment ESR 17 PT INR APTT Sodium Potassium Chloride Carbon Dioxide Anion Gap BUN Creatinine Estimated GFR POC Glucose Random Glucose Lactic Acid Calcium Total Bilirubin AST ALT Alkaline Phosphatase Ammonia Total Creatine Kinase Troponin I C-Reactive Protein 30.20 H Total Protein Albumin Lipase Vitamin B12 Folate TSH Ur Collection Type Urine Color Urine Clarity Urine pH Ur Specific [place] Urine Protein Urine Glucose (UA) Urine Ketones Urine Occult Blood Urine Nitrate Urine Bilirubin Urine Urobilinogen Ur Leukocyte Esterase Ur Squamous Epith Cells Ur Transition Epith Cell Amorphous Sediment Micro UA Comment Urine Culture Comments Urine Collection Time RPR Nonreactive 01/31/18 01/31/18 05:09 05:19 CBC w Diff Auto diff final WBC 14.1 H RBC 4.02 Hgb 11.6 Hct 35.7 MCV 88.7 MCH 28.9 MCHC 32.6 RDW 16.3 Plt Count 137 L MPV 8.8 Neut % (Auto) 85.6 H Lymph % (Auto) 6.4 L [place] % (Auto) 7.6 Eos % (Auto) 0.2 Baso % (Auto) 0.2 Neut # (Auto) 12.1 H Lymph # (Auto) 0.9 L [place] # (Auto) 1.1 H Eos # (Auto) 0.0 Baso # (Auto) 0.0 WBC Differential . Differential Comment . ESR PT INR APTT Sodium 143 Potassium 3.6 Chloride 113 H Carbon Dioxide 21.4 Anion Gap 9 BUN 39 H Creatinine 1.30 H Estimated GFR 39 L POC Glucose Random Glucose 118 H Lactic Acid Calcium 8.6 Total Bilirubin AST ALT Alkaline Phosphatase Ammonia Total Creatine Kinase Troponin I C-Reactive Protein Total Protein Albumin Lipase Vitamin B12 Folate TSH Ur Collection Type Urine Color Urine Clarity Urine pH Ur Specific [place] Urine Protein Urine Glucose (UA) Urine Ketones Urine Occult Blood Urine Nitrate Urine Bilirubin Urine Urobilinogen Ur Leukocyte Esterase Ur Squamous Epith Cells Ur Transition Epith Cell Amorphous Sediment Micro UA Comment Urine Culture Comments Urine Collection Time RPR Result Diagrams: 01/31/18 05:09 01/31/18 05:19 Microbiology: Microbiology 01/30/18 14:09 Aerobic Blood Culture - Preliminary Blood - Peripheral gram negative rods Anaerobic Blood Culture - Preliminary gram negative rods 01/30/18 14:13 Aerobic Blood Culture - Preliminary Blood - Peripheral gram negative rods 01/28/18 15:45 Aerobic Blood Culture - Preliminary Blood - Peripheral No growth in 2 days Anaerobic Blood Culture - Preliminary No growth in 2 days 01/28/18 15:40 Aerobic Blood Culture - Preliminary Blood - Peripheral No growth in 2 days Anaerobic Blood Culture - Preliminary No growth in 2 days 01/29/18 11:00 Legionella Antigen - Final Urine - Catheterized Urine Presumptive negative for Legionella pneumophila serogroup 1 antigen in urine, suggesting no recent or recurrent infection. Infection due to Legionella cannot be ruled out since other serogroups and species may cause disease, antigen may not be present in urine in early infection, and the level of antigen present in the urine may be below the detection limit of the test. 01/29/18 11:00 Streptococcus pneumoniae Antigen (M - Final Urine - Catheterized Urine Presumptive negative for streptococcus pneumoniae antigen, suggesting no current or recent infection. Infection due to Streptococcus pneumoniae cannot be ruled out since the antigen present in the sample may be below the detection limit of the test. 01/29/18 11:00 Influenza Types A,B Antigen - Final Nasal Wash Positive for Flu A Antigen Assessment and Plan - Disease Oriented Problem List (1) Influenza (2) Gram-negative infection (3) Altered mental status Comment: improve. although remains confuse. Approaching baseline per family. (4) Acute dehydration (5) Leukocytosis (6) Oropharyngeal mass (7) Acute renal failure superimposed on stage 2 chronic kidney disease Pertinent Non-Medical Issues: Psychosocial:Originally from [facility]. Worked in an [employer] for 35 years. . 2 daughtes, and 1 step son. Spiritual:sabianism background Legal:Daughter Lillian Rosenbaum, and Chelita Ageeltkirt Schultz are POAs Ethical issues impacting care:None Important Contacts: Lillian Linder [phone]. Chelita Schultz currently is in [place] for vacation [phone] Prognosis: 87 year old with influenza, leukocytosis, renal insufficieny, with hx of cva, dvt, vascular dementia. Prognosis is guarded, risk of decompensation, setback, and high. Code Status: Full Code Plan: == capacity- does not have capacity to make medical decicions. Has hx of dementia, unclear even when mentation was good, how much insight and ability to weigh risk and benefits were there. == POA is Jess Rosenbamu. and Sidney Schultz (currently on vacation in [place]). == Goals of care: Gave updates, review labs, vitals, specialist visit. They feel patient mentation is better and has improved. They are very glad she did not need to be place on life support. They understand she is still at risk for decline, and remains ill. In terms of nutrition pt has not have anything to eat since Sunday 01/28. I review them the esophageal mass. They are amenable to tube feedings if necessary (if she continue to fail swallow eval) either Dubbhoff or PEG at least temporarily(defer to medical team given esophageal mass which route of tube feeding she would require if necessary ). Goals remains aggressive. Full Code. == symptom: altered mentation- secondary to influenza, infection. and current situation. Improve this morning, contin treatment dyspnea- denies. Has pneumonia/ flu. == palliative care will follow as clinical condition evolves to review goals of care, and provide recommendation/ assistance on symptom of discomfort. Will not be available during the weekend. Attestation Attestation: To help prompt me to consider important information that might be impacting today's encounter and assessment, information from prior notes written by myself or my colleagues may have been "brought forward" into today's note. My signature on this note, however, is an attestation that I personally performed the exam, history, and/or decision-making noted today, and, unless otherwise indicated, the interactions with patient, family, and staff as well as the review of records all occurred today. I also attest that the listed assessment and stated plan reflect my best clinical judgment today based on the combination of historical information, prior notes, and today's exam/ interactions. When time spent is documented, it refers only to time spent today by the signer, or if indicated, combined time spent today by collaborating physician/nurse practitioner.
[2018-01-31] MEDS: Piperacil/Tazo 4.5 GM Premix 4.5 GM/100 ML BAG IV.SIG SCH ×3 (12:33→22:00)
[2018-01-31] MEDS: Oseltamivir Phosphate 75 MG Capsule PO SCH ×2 (12:34→22:19)
[2018-01-31] MEDS: Phenol 1.4% 180 ML Spray Bottle OROPHARYNG PRN (12:36)
--- NOTE | 2018-01-31 13:19 | P.PNID ---
Subjective Remarks: Patient is an 87-year-old female who is brought in due to altered mental status. She is normally awake and alert, interactive, lives in [facility]. There is some report that she had a fall, it was an unwitnessed, and she sustained a skin tear on her left leg. Per daughter she has not been her usual self, and she got worried because she did not answer her phone call. There was no mention that she had any fever or chills, or respiratory complaint or GI symptoms. She has had problems with UTI. On presentation, patient has been febrile. Her mental status improved after her temperature went down. She was admitted as a sepsis syndrome. Her WBC is 13,000. Urinalysis unremarkable. Chest x-ray did not show any acute infiltrate. Patient is still febrile today. Her influenza A testing came back positive. Infectious disease consultation has been requested to evaluate the patient. Notes reviewed Temps 100+ More awake today States she does not feel good Looks tachypneic but sats good on nasal O2 Palliative med and GI notes reviewed BC 01/30 with GNR WBC same at 14K Creatinine up to 1.3 Antibiotics: Tamiflu Teflaro Lines: No evidence of infection Past Medical History: Dementia Depression Gastroesophageal reflux HTN (hypertension) Hyperlipidemia Hypothyroid Pneumonia Prolapsed uterus Stroke UTI (urinary tract infection) History of hysterectomy History of partial knee replacement History of umbilical hernia repair Allergies/Adverse Reactions: Allergies mupirocin Allergy (Severe, Verified 01/28/18 16:33) Rash sulfamethoxazole Allergy (Severe, Verified 01/28/18 16:33) Rash trimethoprim Allergy (Severe, Verified 01/28/18 16:33) Rash SULFA DRUGS Allergy (Severe, Uncoded 01/28/18 16:33) Rash Objective Vital Signs 01/30/18 20:00 01/30/18 20:25 01/30/18 22:12 Temperature 101.3 F H 100.5 F H Pulse Rate 83 Respiratory Rate 20 Blood Pressure 94/49 L Pulse Oximetry 93 L 92 L 01/31/18 00:00 01/31/18 04:00 01/31/18 08:00 Temperature 98.1 F 97.7 F 97.2 F L Pulse Rate 66 69 64 Respiratory Rate 16 18 18 Blood Pressure 85/47 L 110/50 L 105/50 L Pulse Oximetry 96 96 96 Intake & Output 0701/31/18 01/31/18 18:59 06:59 18:59 Intake Total 200 / 200 260 / 260 200 / 200 Output Total 200 / 200 450 / 450 Balance 0 / 0 -190 / -190 200 / 200 Weight 64.2 kg Intake: IV 200 / 200 200 / 200 200 / 200 D5W/Normal Saline Inj 1,000 ML 200 / 200 @ 42 mls/hr IV.CONT .[id number] [facility] Rx#:[id number] Ofirmev Inj 1,000 mg In 100 ml 100 / 100 100 / 100 @ 400 mls/hr IV.SIG Q6H PRN Rx# :[id number] Teflaro Inj 300 MG In NS Inj 100 / 100 100 / 100 100 ML @ 100 mls/hr IV.SIG Q12H [facility] Rx#:[id number] Oral 0 / 0 60 / 60 Output: Urine 200 / 200 450 / 450 Stool 0 / 0 Other: Date of Last Bowel Movement 01/30/18 01/30/18 14:13 Blood - Peripheral Aerobic Blood Culture - Preliminary gram negative rods 01/30/18 14:13 Blood - Peripheral Anaerobic Blood Culture - Preliminary No growth in 1 day 01/28/18 15:45 Blood - Peripheral Aerobic Blood Culture - Preliminary No growth in 3 days 01/28/18 15:45 Blood - Peripheral Anaerobic Blood Culture - Preliminary No growth in 3 days 01/28/18 15:40 Blood - Peripheral Aerobic Blood Culture - Preliminary No growth in 3 days 01/28/18 15:40 Blood - Peripheral Anaerobic Blood Culture - Preliminary No growth in 3 days 01/31/18 10:30 Blood - Peripheral Aerobic Blood Culture - Pending 01/31/18 10:30 Blood - Peripheral Anaerobic Blood Culture - Pending 01/31/18 10:28 Blood - Peripheral Aerobic Blood Culture - Pending 01/31/18 10:28 Blood - Peripheral Anaerobic Blood Culture - Pending 01/30/18 14:09 Blood - Peripheral Aerobic Blood Culture - Preliminary gram negative rods 01/30/18 14:09 Blood - Peripheral Anaerobic Blood Culture - Preliminary gram negative rods 01/29/18 11:00 Urine - Catheterized Urine Legionella Antigen - Final Presumptive negative for Legionella pneumophila serogroup 1 antigen in urine, suggesting no recent or recurrent infection. Infection due to Legionella cannot be ruled out since other serogroups and species may cause disease, antigen may not be present in urine in early infection, and the level of antigen present in the urine may be below the detection limit of the test. 01/29/18 11:00 Urine - Catheterized Urine Streptococcus pneumoniae Antigen ( M - Final Presumptive negative for streptococcus pneumoniae antigen, suggesting no current or recent infection. Infection due to Streptococcus pneumoniae cannot be ruled out since the antigen present in the sample may be below the detection limit of the test. 01/29/18 11:00 Nasal Wash Influenza Types A,B Antigen - Final Positive for Flu A Antigen Lab - Hematology Results 01/30/18 01/31/18 14:40 05:09 CBC w Diff Auto diff final WBC 14.1 H RBC 4.02 Hgb 11.6 Hct 35.7 MCV 88.7 MCH 28.9 MCHC 32.6 RDW 16.3 Plt Count 137 L MPV 8.8 Neut % (Auto) 85.6 H Lymph % (Auto) 6.4 L [place] % (Auto) 7.6 Eos % (Auto) 0.2 Baso % (Auto) 0.2 Neut # (Auto) 12.1 H Lymph # (Auto) 0.9 L [place] # (Auto) 1.1 H Eos # (Auto) 0.0 Baso # (Auto) 0.0 WBC Differential . Differential Comment . ESR 17 Lab - Chemistry Results 01/29/18 01/30/18 01/31/18 11:00 14:40 05:19 Sodium 143 Potassium 3.6 Chloride 113 H Carbon Dioxide 21.4 Anion Gap 9 BUN 39 H Creatinine 1.30 H Estimated GFR 39 L Random Glucose 118 H Calcium 8.6 C-Reactive Protein 30.20 H Vitamin B12 513 Folate Greater than 20.0 H Imaging: ITS Impressions Head CT 01/28/18 15:39 CONCLUSION: 1. Stable negative trauma study with no evidence of hemorrhage or mass effect. Chest CTA 01/29/18 00:00 CONCLUSION: 1. No evidence of pulmonary embolism. 2. Dilatation esophagus which contains air and a pre by 2 cm lobular soft tissue mass. This could be food or possible tumor. 3. Smaller soft tissue masslike area in the proximal trachea could represent tumor or mucus. 4. Groundglass opacities in both lungs which could indicate pulmonary edema or underlying interstitial lung disease. 5. Small bilateral pleural effusions right greater than left. Head MRI 01/29/18 00:00 CONCLUSION: Atrophy and chronic ischemic changes deep white matter. No acute intracranial process identified. Head MRA 01/29/18 00:00 CONCLUSION: 1. Venous Doppler Study 01/29/18 00:00 CONCLUSION: 1. Deep venous thrombosis as described. Chest X-Ray 01/30/18 00:00 CONCLUSION: Mild interval improvement in pulmonary opacities. There is mild residual lung bases with scarring. Physical Exam: GENERAL: Tsai awake, answering my questions, tachypneic, on nasal O2 SKIN: Warm and dry. No generalized rash, no ecchymoses and no evidence of embolic lesions. HEAD: Atraumatic. Normocephalic. No temporal wasting, or tenderness. EYES: [place] conjunctiva. No petechia or hemorrhage. Pupils equal, round and reactive to light. Extraocular movements full and intact. No scleral icterus. (+) arcus senilis. No injection or drainage. EARS, NOSE AND THROAT: Nose without bleeding or purulent nasal discharge. No sinus tenderness. Mucous membranes pink and moist. No oral lesions noted. No exudate. No oral thrush. NECK: Trachea midline. Supple and not tender, no meningeal signs. No nuchal rigidity CARDIOVASCULAR: Regular rate and rhythm. No murmurs, rubs or gallops heard RESPIRATORY: Coarse breath sounds bilaterally. No rales, wheezing or rhonchi ABDOMEN: Soft, nondistended, has diffuse tenderness, no guarding or rebound. Bowel sounds present and normoactive. EXTREMITIES: No clubbing, cyanosis, or edema. No joint effusion, has good ROM. No calf tenderness. Well perfused and warm. NEUROLOGICAL: More awake, answering my questions PSYCHIATRIC: Calm and cooperative LINE: No evidence of infection Assessment and Plan - Plan Impression GNR sepsis, source - fevers, leukocytosis, tachycardia, lethargy (+) INfluenza A Possible PNA, usually Staph aureus could develop as secondary bacterial PNA ?Esophageal mass Hx dementia Recommendation Continue tamiflu Change Teflaro to Zosyn for broader GNR coverage Use Zyvox for MRSA coverage Repeat BC to document clearing Follow C/S Monitor temps Monitor progress Palliative medicine following GI evaluating ?esophageal mass
--- NOTE | 2018-01-31 15:18 | XR ---
EXAM DATE: 01/31/2018 2:34 PM EDT AGE/SEX: 87 years / Female INDICATIONS: Abdomen pain. CLINICAL DATA: This is the patient's initial encounter. Patient reports that signs and symptoms have been present for 4 - 6 days and indicates a pain score of 2/10. MEDICAL/SURGICAL HISTORY: . Stroke. Gastroesophageal reflux disease. Hypertension. Dementia. . Hysterectomy. Umbilical hernia repair COMPARISON: No prior exams available for comparison. FINDINGS: The abdominal bowel gas pattern is normal. No abnormal masses, calcifications, or organomegaly is s een. The osseous structures are unremarkable. An inferior vena cava filter is in place. There is ev idence of previous hernia repair. CONCLUSION: No evidence of obstruction. Electronically signed by: Morgan Rodriguez MD 01/31/2018 3:16 PM EDT
--- NOTE | 2018-01-31 16:58 | P.PNGI ---
Subjective Interval history: Patient sleeping easy to arouse denies any pain Physical Exam Vital signs: Vital Signs 01/30/18 20:00 01/30/18 20:25 01/30/18 22:12 Temperature 101.3 F H 100.5 F H Pulse Rate 83 Respiratory Rate 20 Blood Pressure 94/49 L Pulse Oximetry 93 L 92 L 01/31/18 00:00 01/31/18 04:00 01/31/18 08:00 Temperature 98.1 F 97.7 F 97.2 F L Pulse Rate 66 69 64 Respiratory Rate 16 18 18 Blood Pressure 85/47 L 110/50 L 105/50 L Pulse Oximetry 96 96 96 01/31/18 12:00 01/31/18 14:05 01/31/18 16:00 Temperature 97.2 F L 101.8 F H Pulse Rate 64 95 H Respiratory Rate 18 18 Blood Pressure 105/50 L Pulse Oximetry 96 96 95 Intake & Output 01/30/18 01/31/18 01/31/18 18:59 06:59 18:59 Intake Total 200 / 200 260 / 260 200 / 200 Output Total 200 / 200 450 / 450 Balance 0 / 0 -190 / -190 200 / 200 Weight 64.2 kg Intake: IV 200 / 200 200 / 200 200 / 200 D5W/Normal Saline Inj 1,000 ML 200 / 200 @ 42 mls/hr IV.CONT .[id number] [facility] Rx#:[id number] Ofirmev Inj 1,000 mg In 100 ml 100 / 100 100 / 100 @ 400 mls/hr IV.SIG Q6H PRN Rx# :[id number] Teflaro Inj 300 MG In NS Inj 100 / 100 100 / 100 100 ML @ 100 mls/hr IV.SIG Q12H [facility] Rx#:[id number] Oral 0 / 0 60 / 60 Output: Urine 200 / 200 450 / 450 Stool 0 / 0 Other: Date of Last Bowel Movement 01/30/18 - Constitutional no acute distress - Routine HEENT Exam Head: Present: normocephalic Eye: Present: EOMI - Routine Neck Exam Present: supple - Routine Respiratory Exam Present: diminished air movement - Routine Cardiovascular Exam Present: RRR - Routine Abdominal Exam Present: soft, normoactive bowel sounds - Routine Extremities Exam Absent: cyanosis, clubbing, edema - Urinary Catheter Management Indwelling Urethral Catheter Cath placed during this visit: yes Reason for continuing: Hourly intake/output Insertion date: 01/29/18 Insertion time: 10:39 Straight Cath placed during this visit: no Reason for continuing: Hourly intake/output Results - Labs CBC & Chem 7: 01/31/18 05:09 01/31/18 05:19 Laboratory Results - last 24 hr 01/31/18 01/31/18 05:09 05:19 CBC w Diff Auto diff final WBC 14.1 H RBC 4.02 Hgb 11.6 Hct 35.7 MCV 88.7 MCH 28.9 MCHC 32.6 RDW 16.3 Plt Count 137 L MPV 8.8 Neut % (Auto) 85.6 H Lymph % (Auto) 6.4 L [place] % (Auto) 7.6 Eos % (Auto) 0.2 Baso % (Auto) 0.2 Neut # (Auto) 12.1 H Lymph # (Auto) 0.9 L [place] # (Auto) 1.1 H Eos # (Auto) 0.0 Baso # (Auto) 0.0 WBC Differential . Differential Comment . Sodium 143 Potassium 3.6 Chloride 113 H Carbon Dioxide 21.4 Anion Gap 9 BUN 39 H Creatinine 1.30 H Estimated GFR 39 L Random Glucose 118 H Calcium 8.6 Microbiology 01/30/18 14:13 Blood - Peripheral Aerobic Blood Culture - Preliminary gram negative rods 01/30/18 14:13 Blood - Peripheral Anaerobic Blood Culture - Preliminary No growth in 1 day 01/28/18 15:45 Blood - Peripheral Aerobic Blood Culture - Preliminary No growth in 3 days 01/28/18 15:45 Blood - Peripheral Anaerobic Blood Culture - Preliminary No growth in 3 days 01/28/18 15:40 Blood - Peripheral Aerobic Blood Culture - Preliminary No growth in 3 days 01/28/18 15:40 Blood - Peripheral Anaerobic Blood Culture - Preliminary No growth in 3 days 01/30/18 14:09 Blood - Peripheral Aerobic Blood Culture - Preliminary gram negative rods 01/30/18 14:09 Blood - Peripheral Anaerobic Blood Culture - Preliminary gram negative rods - Imaging Impressions Head MRI 01/29/18 00:00 CONCLUSION: Atrophy and chronic ischemic changes deep white matter. No acute intracranial process identified. Head MRA 01/29/18 00:00 CONCLUSION: 1. Venous Doppler Study 01/29/18 00:00 CONCLUSION: 1. Deep venous thrombosis as described. Chest X-Ray 01/30/18 00:00 CONCLUSION: Mild interval improvement in pulmonary opacities. There is mild residual lung bases with scarring. Abdomen X-Ray 01/31/18 00:00 CONCLUSION: No evidence of obstruction. Assessment and Plan - Plan Possible esophageal mass Currently her respiratory status and general condition are not sufficient for a safe endoscopy but appears to be improving We will follow along with you and once she is deemed clinically stable we will pursue upper endoscopy to further evaluate the CT chest findings in the esophagus Continue with current supportive care Monitor labs Based on family request we may proceed also with PEG placement and this will be most likely on Saturday
--- NOTE | 2018-01-31 18:13 | XR ---
EXAM DATE: 01/31/2018 6:00 PM EDT AGE/SEX: 87 years / Female INDICATIONS: Dobhouff tube placement CLINICAL DATA: This is the patient's initial encounter. Patient reports that signs and symptoms have been present for 1 day and indicates a pain score of Nonresponsive. MEDICAL/SURGICAL HISTORY: . Stroke. Gastroesophageal reflux disease. Hypertension . Hysterecto my. Umbilical hernia repair. COMPARISON: [facility]PO, ABDOMEN 1V KUB, 01/31/2018. [facility], CTA PULMONARY W CONTRAST W 3D, 01/29/2018. . FINDINGS: There is a Dobbhoff tube seen in the lower chest. This projects to the left of midline. Th is is likely within a hiatal hernia. It does overlie the proximal aspect of the left mainstem bronchu s but does not appear to extend out to the bronchus supplying the left lower lobe. This tube should n ot be used until it can be confirmed within the stomach below the diaphragm. There is a IVC filter present. There is degenerative change in the lumbar spine. The bowel gas patter n is unremarkable. Free air is not seen. There is increased density at the lung bases. CONCLUSION: Feeding tube seen projecting over the lower medial left chest. This is likely within a hiatal hernia but this cannot not be confirmed on a single AP view. One could attempt to advance the Dobbhoff tube. If it is truly in the hiatal hernia, it should pass into the stomach within the abdomen. Electronically signed by: Bacilio Yepez MD 01/31/2018 6:12 PM EDT
[2018-01-31] MEDS: Dextrose 5%/NaCl 0.9% Inj 1,000 ML IV.CONT SCH (22:19)
[2018-02-01] MEDS: Piperacil/Tazo 4.5 GM Premix 4.5 GM/100 ML BAG IV.SIG SCH ×2 (04:13→10:00)
[2018-02-01] MEDS: Levothyroxine 75 MCG Tablet PO SCH (06:38)
[2018-02-01 08:04] LABS: Baso % (Auto) 0.3 % (0.0-2.0); Eos # (Auto) 0.4 th/mm3 (0.0-0.4); Eos % (Auto) 3.4 % (0.0-4.0); Hematocrit 34.9 % (35.0-46.0); Hemoglobin 11.3 gm/dL (11.6-15.3); Lymph # (Auto) 1.2 th/mm3 (1.0-4.8); Mean Corpuscular HGB Conc 32.4 % (32.0-36.0); Mean Corpuscular Hemoglobin 28.8 pg (27.0-34.0); Mean Corpuscular Volume 88.7 fL (80.0-100.0); Mean Platelet Volume 9.2 fL (7.0-11.0); Mono # (Auto) 1.6 th/mm3 (0.0-0.9); Mono % (Auto) 14.5 % (0.0-8.0); Neut # (Auto) 7.9 th/mm3 (1.8-7.7); Neut % (Auto) 70.8 % (16.0-70.0); Platelet Count 128 th/mm3 (150-450); Red Blood Count 3.94 mil/mm3 (4.00-5.30); Red Cell Distribution Width 16.4 % (11.6-17.2); White Blood Count 11.1 th/mm3 (4.0-11.0)
--- NOTE | 2018-02-01 08:35 | P.PN ---
Subjective Interval history: Follow-up bacteremia. Patient seen and examined, lying in bed comfortably no apparent distress. Daughter is at bedside and updated. Patient is awake and nursing attempted bedside swallow, did well. Will have speech therapy assess. Attempt applesauce for now. Gastroenterology at bedside and updated, plan for PEG tube placement on Saturday if patient is not tolerating p.o. intake. Patient' s family is agreeable. She denies any pain. Vital signs stable. Afebrile. Physical Exam Vital signs: Vital Signs 01/31/18 12:00 01/31/18 14:05 01/31/18 16:00 Temperature 97.2 F L 101.8 F H Pulse Rate 64 95 H Respiratory Rate 18 18 Blood Pressure 105/50 L Pulse Oximetry 96 96 95 01/31/18 19:45 01/31/18 20:00 02/01/18 00:00 Temperature 100.1 F H 96.0 F L Pulse Rate 50 L 59 L Respiratory Rate 15 18 Blood Pressure 118/59 L 129/63 Pulse Oximetry 94 L 96 97 02/01/18 04:00 02/01/18 07:29 Temperature 96.9 F L 97 F L Pulse Rate 57 L 56 L Respiratory Rate 18 20 Blood Pressure 111/89 130/60 Pulse Oximetry 100 99 Intake & Output 01/31/18 02/01/18 02/01/18 18:59 06:59 18:59 Intake Total 600 / 600 700 / 700 Output Total 250 / 250 200 / 200 Balance 350 / 350 500 / 500 Weight 64.2 kg Intake: IV 600 / 600 700 / 700 D5W/Normal Saline Inj 1,000 ML 200 / 200 @ 42 mls/hr IV.CONT .[id number] [facility] Rx#:[id number] Ofirmev Inj 1,000 mg In 100 ml 100 / 100 @ 400 mls/hr IV.SIG Q6H PRN Rx# :[id number] Zyvox 600 mg Premix 300 ML @ 300 / 300 300 / 300 300 mls/hr IV.SIG Q12H [facility] Rx#: [id number] Zosyn 4.5 GM Premix 4.5 gm In 100 / 100 300 / 300 100 ml @ 200 mls/hr IV.SIG Q6H [facility] Rx#:[id number] Oral 0 / 0 0 / 0 Output: Urine 250 / 250 200 / 200 Stool 0 / 0 Narrative: GENERAL: Well-developed, well-nourished, in no acute distress. Awake, clear speech. HEENT: Head is normocephalic without any lesions or masses noted. Facial features are symmetric. Eyes: Pupils equal round reactive to light. Conjunctivae were clear. NECK: Supple without any masses. Trachea midline no deviation. No JVD, no bruits are appreciated CARDIAC: Regular rhythm, regular rate. S1/S2 are heard. No murmurs gallops or rubs. LUNGS: Rhonchi throughout. No wheeze, rhonchi or rales. No use of accessory muscles on inspiration or expiration. ABDOMEN: Soft, nontender. Nondistended. Bowel sounds heard in all 4 quadrants. No organomegaly or masses. Negative rebound, negative guarding EXTREMITIES: pulses are equal bilaterally. No cyanosis or clubbing. Left lower extremity does have significant edema as compared to the right, mild erythema noted to entire left lower extremity NEUROLOGY: Patient awake, Deep tendon reflexes are 2+ in upper and lower extremities bilaterally. Plantar reflex intact. Wiggles toes to command. - Urinary Catheter Management Indwelling Urethral Catheter Cath placed during this visit: yes Reason for continuing: Other continuation reason Insertion date: 01/29/18 Insertion time: 10:39 Straight Cath placed during this visit: no Reason for continuing: Chronic Urinary Retention Results - Labs CBC & Chem 7: 02/01/18 06:35 01/31/18 05:19 Laboratory Results - last 24 hr 02/01/18 06:35 CBC w Diff Auto diff final WBC 11.1 H RBC 3.94 L Hgb 11.3 L Hct 34.9 L MCV 88.7 MCH 28.8 MCHC 32.4 RDW 16.4 Plt Count 128 L MPV 9.2 Neut % (Auto) 70.8 H Lymph % (Auto) 11.0 [place] % (Auto) 14.5 H Eos % (Auto) 3.4 Baso % (Auto) 0.3 Neut # (Auto) 7.9 H Lymph # (Auto) 1.2 [place] # (Auto) 1.6 H Eos # (Auto) 0.4 Baso # (Auto) 0.0 WBC Differential . Differential Comment . Microbiology 01/30/18 14:13 Blood - Peripheral Aerobic Blood Culture - Preliminary gram negative rods 01/30/18 14:13 Blood - Peripheral Anaerobic Blood Culture - Preliminary No growth in 1 day 01/28/18 15:45 Blood - Peripheral Aerobic Blood Culture - Preliminary No growth in 3 days 01/28/18 15:45 Blood - Peripheral Anaerobic Blood Culture - Preliminary No growth in 3 days 01/28/18 15:40 Blood - Peripheral Aerobic Blood Culture - Preliminary No growth in 3 days 01/28/18 15:40 Blood - Peripheral Anaerobic Blood Culture - Preliminary No growth in 3 days 01/30/18 14:09 Blood - Peripheral Aerobic Blood Culture - Preliminary gram negative rods 01/30/18 14:09 Blood - Peripheral Anaerobic Blood Culture - Preliminary gram negative rods - Imaging Impressions Head MRI 01/29/18 00:00 CONCLUSION: Atrophy and chronic ischemic changes deep white matter. No acute intracranial process identified. Head MRA 01/29/18 00:00 CONCLUSION: 1. Venous Doppler Study 01/29/18 00:00 CONCLUSION: 1. Deep venous thrombosis as described. Chest X-Ray 01/30/18 00:00 CONCLUSION: Mild interval improvement in pulmonary opacities. There is mild residual lung bases with scarring. Abdomen X-Ray 01/31/18 00:00 CONCLUSION: No evidence of obstruction. Abdomen X-Ray 01/31/18 00:00 CONCLUSION: Feeding tube seen projecting over the lower medial left chest. This is likely within a hiatal hernia but this cannot not be confirmed on a single AP view. One could attempt to advance the Dobbhoff tube. If it is truly in the hiatal hernia, it should pass into the stomach within the abdomen. Assessment and Plan - Assessment (1) Severe sepsis Code(s): A41.9 - Sepsis, unspecified organism; R65.20 - Severe sepsis without septic shock Status: Acute (2) Leukocytosis Code(s): D72.829 - Elevated white blood cell count, unspecified Status: Acute (3) Fever of unknown origin Code(s): R50.9 - Fever, unspecified Status: Acute (4) Altered mental status Code(s): R41.82 - Altered mental status, unspecified Status: Acute (5) Acute renal failure superimposed on stage 2 chronic kidney disease Code(s): N17.9 - Acute kidney failure, unspecified; N18.2 - Chronic kidney disease, stage 2 (mild) Status: Acute (6) Acute dehydration Code(s): E86.0 - Dehydration Status: Acute - Plan Severe sepsis with bacteremia Influenza A infection -Patient meets criteria with leukocytosis with left shift, altered mental status , febrile illness, tachycardia, acute renal failure. -Urinalysis clear, chest x-ray did not indicate any acute abnormality -Influenza testing positive for influenza A -Pneumococcal, Legionella testing was negative -Blood cultures growing gram neg rods x 3 bottles. Awaiting growth. Redrew cultures, follow. -Consulted infectious disease, appreciate input and recs. Elevated CRP. -On IV Zyvox and Zosyn. -Continue Tamiflu. -Supportive care, IV Tylenol for fever, cautious IV hydration, avoid overload. -Continue to monitor CBC. Afebrile overnight. Altered mental status, likely toxic encephalopathy from sepsis -Mentation improved this morning. Spoke with daughter and updated. Will attempt nursing swallow eval today. Have speech come to reassess. -CT scan of the brain was unremarkable for any acute abnormality. -Workup for metabolic encephalopathy was unremarkable. -Speech therapy to evaluate for us swallow assessment, failed evaluation initially. Reassess today. -Avoid any sedating medications. -Palliative care has been consulted and following, appreciate input and recommendations. Has been speaking with family, addressing nutritional status, is agreeable to PEG today placement for tube feeding if needed. -Will continue to monitor. Left lower extremity DVT -Ultrasound was performed that did indicate DVT. -Patient is already on anticoagulation with Eliquis. -Patient already has IVC filter. Hypoxia -Previous episode of hypoxia of 84% initially. Currently requiring 3 LNC, o2 sats 96%. -Chest x-ray did indicate increasing prominence in the interstitial markings, concerning for some developing vascular congestion or volume overload -Continue O2 supplementation maintain O2 sats greater than 92% -DuoNeb every 4 hours as needed for shortness of breath/dyspnea -CTA of the thorax did not indicate any bony emboli, however did have a soft tissue mass versus food bolus in the esophagus with esophageal dilatation. There is groundglass appearance the patient he indicating possible fluid overload. No infiltrate identified. -Repeat CXR reviewed from 01/30/18 showing mild improvement in pulmonary opacities. Esophageal mass versus food bolus with esophageal dilatation -Currently the patient is not stable enough to undergo any procedure or evaluation -GI consulted and following, appreciate input and recommendations. -Spoke to GI today regarding decreased nutritional status. Attempted dobhouff placement with no success. Will attempt swallow eval again today. Possible PEG tube placement Saturday if patient is not tolerating PO intake at that time. Acute renal failure superimposed on chronic kidney disease stage II -Renal functions slightly worse 1.3. Will continue IVF. Awaiting labs today. -Continue monitor renal functions -Avoid nephrotoxins DVT prevention -Patient is on Eliquis (4) Altered mental status Qualifiers: Altered mental status type: unspecified Qualified Code(s): R41.82 - Altered mental status, unspecified
[2018-02-01] MEDS: Oseltamivir Phosphate 75 MG Capsule PO SCH ×3 (08:44→21:16)
--- NOTE | 2018-02-01 12:40 | P.PNID ---
Subjective Remarks: Patient is an 87-year-old female who is brought in due to altered mental status. She is normally awake and alert, interactive, lives in [facility]. There is some report that she had a fall, it was an unwitnessed, and she sustained a skin tear on her left leg. Per daughter she has not been her usual self, and she got worried because she did not answer her phone call. There was no mention that she had any fever or chills, or respiratory complaint or GI symptoms. She has had problems with UTI. On presentation, patient has been febrile. Her mental status improved after her temperature went down. She was admitted as a sepsis syndrome. Her WBC is 13,000. Urinalysis unremarkable. Chest x-ray did not show any acute infiltrate. Patient is still febrile today. Her influenza A testing came back positive. Infectious disease consultation has been requested to evaluate the patient. Notes reviewed Last high temp yesterday at 4 pm Feels good Very awake and alert today Not SOB No abdominal pain Has more (+) BC today from 01/31 Palliative med and GI notes reviewed BC 01/30 with GNR WBC lower at 11K Creatinine up to 1.3 Antibiotics: Tamiflu Zosyn Zyvox Lines: No evidence of infection Past Medical History: Dementia Depression Gastroesophageal reflux HTN (hypertension) Hyperlipidemia Hypothyroid Pneumonia Prolapsed uterus Stroke UTI (urinary tract infection) History of hysterectomy History of partial knee replacement History of umbilical hernia repair Allergies/Adverse Reactions: Allergies mupirocin Allergy (Severe, Verified 01/28/18 16:33) Rash sulfamethoxazole Allergy (Severe, Verified 01/28/18 16:33) Rash trimethoprim Allergy (Severe, Verified 01/28/18 16:33) Rash SULFA DRUGS Allergy (Severe, Uncoded 01/28/18 16:33) Rash Objective Vital Signs 01/31/18 14:05 01/31/18 16:00 01/31/18 19:45 Temperature 101.8 F H Pulse Rate 95 H Respiratory Rate 18 Blood Pressure Pulse Oximetry 96 95 94 L 01/31/18 20:00 02/01/18 00:00 02/01/18 04:00 Temperature 100.1 F H 96.0 F L 96.9 F L Pulse Rate 50 L 59 L 57 L Respiratory Rate 15 18 18 Blood Pressure 118/59 L 129/63 111/89 Pulse Oximetry 96 97 100 02/01/18 07:29 02/01/18 08:00 02/01/18 10:42 Temperature 97 F L Pulse Rate 56 L 55 L Respiratory Rate 20 Blood Pressure 130/60 Pulse Oximetry 99 96 02/01/18 11:01 Temperature 96.8 F L Pulse Rate 59 L Respiratory Rate 20 Blood Pressure 126/58 L Pulse Oximetry 98 Intake & Output 01/31/18 02/01/18 02/01/18 18:59 06:59 18:59 Intake Total 600 / 600 700 / 700 400 / 400 Output Total 250 / 250 200 / 200 Balance 350 / 350 500 / 500 400 / 400 Weight 64.2 kg Intake: IV 600 / 600 700 / 700 400 / 400 D5W/Normal Saline Inj 1,000 ML 200 / 200 @ 42 mls/hr IV.CONT .[id number] [facility] Rx#:[id number] Ofirmev Inj 1,000 mg In 100 ml 100 / 100 @ 400 mls/hr IV.SIG Q6H PRN Rx# :[id number] Zyvox 600 mg Premix 300 ML @ 300 / 300 300 / 300 300 / 300 300 mls/hr IV.SIG Q12H [facility] Rx#: [id number] Zosyn 4.5 GM Premix 4.5 gm In 100 / 100 300 / 300 100 / 100 100 ml @ 200 mls/hr IV.SIG Q6H [facility] Rx#:[id number] Oral 0 / 0 0 / 0 Output: Urine 250 / 250 200 / 200 Stool 0 / 0 Other: Date of Last Bowel Movement 01/30/18 01/31/18 10:30 Blood - Peripheral Aerobic Blood Culture - Preliminary gram negative coccobacilli 01/31/18 10:30 Blood - Peripheral Anaerobic Blood Culture - Preliminary No growth in 1 day 01/31/18 10:28 Blood - Peripheral Aerobic Blood Culture - Preliminary No growth in 1 day 01/31/18 10:28 Blood - Peripheral Anaerobic Blood Culture - Preliminary No growth in 1 day 01/28/18 15:45 Blood - Peripheral Aerobic Blood Culture - Preliminary No growth in 4 days 01/28/18 15:45 Blood - Peripheral Anaerobic Blood Culture - Preliminary No growth in 4 days 01/28/18 15:40 Blood - Peripheral Aerobic Blood Culture - Preliminary No growth in 4 days 01/28/18 15:40 Blood - Peripheral Anaerobic Blood Culture - Preliminary No growth in 4 days 02/01/18 10:11 Blood - Peripheral Aerobic Blood Culture - Pending 02/01/18 10:11 Blood - Peripheral Anaerobic Blood Culture - Pending 01/30/18 14:13 Blood - Peripheral Aerobic Blood Culture - Preliminary gram negative rods 01/30/18 14:13 Blood - Peripheral Anaerobic Blood Culture - Preliminary gram negative coccobacilli 01/30/18 14:09 Blood - Peripheral Aerobic Blood Culture - Preliminary gram negative rods 01/30/18 14:09 Blood - Peripheral Anaerobic Blood Culture - Preliminary gram negative rods 01/29/18 11:00 Urine - Catheterized Urine Legionella Antigen - Final Presumptive negative for Legionella pneumophila serogroup 1 antigen in urine, suggesting no recent or recurrent infection. Infection due to Legionella cannot be ruled out since other serogroups and species may cause disease, antigen may not be present in urine in early infection, and the level of antigen present in the urine may be below the detection limit of the test. 01/29/18 11:00 Urine - Catheterized Urine Streptococcus pneumoniae Antigen ( M - Final Presumptive negative for streptococcus pneumoniae antigen, suggesting no current or recent infection. Infection due to Streptococcus pneumoniae cannot be ruled out since the antigen present in the sample may be below the detection limit of the test. 01/29/18 11:00 Nasal Wash Influenza Types A,B Antigen - Final Positive for Flu A Antigen Lab - Hematology Results 01/30/18 01/31/18 02/01/18 14:40 05:09 06:35 CBC w Diff Auto diff final Auto diff final WBC 14.1 H 11.1 H RBC 4.02 3.94 L Hgb 11.6 11.3 L Hct 35.7 34.9 L MCV 88.7 88.7 MCH 28.9 28.8 MCHC 32.6 32.4 RDW 16.3 16.4 Plt Count 137 L 128 L MPV 8.8 9.2 Neut % (Auto) 85.6 H 70.8 H Lymph % (Auto) 6.4 L 11.0 [place] % (Auto) 7.6 14.5 H Eos % (Auto) 0.2 3.4 Baso % (Auto) 0.2 0.3 Neut # (Auto) 12.1 H 7.9 H Lymph # (Auto) 0.9 L 1.2 [place] # (Auto) 1.1 H 1.6 H Eos # (Auto) 0.0 0.4 Baso # (Auto) 0.0 0.0 WBC Differential . . Differential Comment . . ESR 17 Lab - Chemistry Results 01/30/18 01/31/18 14:40 05:19 Sodium 143 Potassium 3.6 Chloride 113 H Carbon Dioxide 21.4 Anion Gap 9 BUN 39 H Creatinine 1.30 H Estimated GFR 39 L Random Glucose 118 H Calcium 8.6 C-Reactive Protein 30.20 H Imaging: ITS Impressions Head CT 01/28/18 15:39 CONCLUSION: 1. Stable negative trauma study with no evidence of hemorrhage or mass effect. Chest CTA 01/29/18 00:00 CONCLUSION: 1. No evidence of pulmonary embolism. 2. Dilatation esophagus which contains air and a pre by 2 cm lobular soft tissue mass. This could be food or possible tumor. 3. Smaller soft tissue masslike area in the proximal trachea could represent tumor or mucus. 4. Groundglass opacities in both lungs which could indicate pulmonary edema or underlying interstitial lung disease. 5. Small bilateral pleural effusions right greater than left. Head MRI 01/29/18 00:00 CONCLUSION: Atrophy and chronic ischemic changes deep white matter. No acute intracranial process identified. Head MRA 01/29/18 00:00 CONCLUSION: 1. Venous Doppler Study 01/29/18 00:00 CONCLUSION: 1. Deep venous thrombosis as described. Chest X-Ray 01/30/18 00:00 CONCLUSION: Mild interval improvement in pulmonary opacities. There is mild residual lung bases with scarring. Abdomen X-Ray 01/31/18 00:00 CONCLUSION: Feeding tube seen projecting over the lower medial left chest. This is likely within a hiatal hernia but this cannot not be confirmed on a single AP view. One could attempt to advance the Dobbhoff tube. If it is truly in the hiatal hernia, it should pass into the stomach within the abdomen. Physical Exam: GENERAL: awake and alert, being fed by daughter, REBECCA. Knows she is in the hospital, and its 2018 SKIN: Warm and dry. No generalized rash, no ecchymoses and no evidence of embolic lesions. HEAD: Atraumatic. Normocephalic. No temporal wasting, or tenderness. EYES: [place] conjunctiva. No petechia or hemorrhage. Pupils equal, round and reactive to light. Extraocular movements full and intact. No scleral icterus. (+) arcus senilis. No injection or drainage. EARS, NOSE AND THROAT: Nose without bleeding or purulent nasal discharge. No sinus tenderness. Mucous membranes pink and moist. No oral lesions noted. No exudate. No oral thrush. NECK: Trachea midline. Supple and not tender, no meningeal signs. No nuchal rigidity CARDIOVASCULAR: Regular rate and rhythm. No murmurs, rubs or gallops heard RESPIRATORY: Coarse breath sounds bilaterally. No rales, wheezing or rhonchi ABDOMEN: Soft, nondistended, has diffuse tenderness, no guarding or rebound. Bowel sounds present and normoactive. EXTREMITIES: No clubbing, cyanosis, or edema. No joint effusion, has good ROM. No calf tenderness. Well perfused and warm. NEUROLOGICAL: More awake, answering my questions PSYCHIATRIC: Calm and cooperative LINE: No evidence of infection Assessment and Plan - Plan Impression GNR sepsis, source - fevers, leukocytosis, tachycardia, lethargy - better (+) INfluenza A Possible PNA, usually Staph aureus could develop as secondary bacterial PNA ?Esophageal mass Hx dementia Recommendation Continue tamiflu Continue Zosyn for broader GNR coverage Continue Zyvox for MRSA coverage Follow C/S Monitor temps Monitor progress Palliative medicine following GI evaluating ?esophageal mass Explained plan to daughter
--- NOTE | 2018-02-01 13:15 | P.PNGI ---
Subjective Interval history: Patient is more awake and according to her and her daughter she is able to swallow which according to them is a great improvement and she is was able to swallow water and take popsicle Physical Exam Vital signs: Vital Signs 01/31/18 14:05 01/31/18 16:00 01/31/18 19:45 Temperature 101.8 F H Pulse Rate 95 H Respiratory Rate 18 Blood Pressure Pulse Oximetry 96 95 94 L 01/31/18 20:00 02/01/18 00:00 02/01/18 04:00 Temperature 100.1 F H 96.0 F L 96.9 F L Pulse Rate 50 L 59 L 57 L Respiratory Rate 15 18 18 Blood Pressure 118/59 L 129/63 111/89 Pulse Oximetry 96 97 100 02/01/18 07:29 02/01/18 08:00 02/01/18 10:42 Temperature 97 F L Pulse Rate 56 L 55 L Respiratory Rate 20 Blood Pressure 130/60 Pulse Oximetry 99 96 02/01/18 11:01 Temperature 96.8 F L Pulse Rate 59 L Respiratory Rate 20 Blood Pressure 126/58 L Pulse Oximetry 98 Intake & Output 01/31/18 02/01/18 02/01/18 18:59 06:59 18:59 Intake Total 600 / 600 700 / 700 400 / 400 Output Total 250 / 250 200 / 200 Balance 350 / 350 500 / 500 400 / 400 Weight 64.2 kg Intake: IV 600 / 600 700 / 700 400 / 400 D5W/Normal Saline Inj 1,000 ML 200 / 200 @ 42 mls/hr IV.CONT .[id number] [facility] Rx#:[id number] Ofirmev Inj 1,000 mg In 100 ml 100 / 100 @ 400 mls/hr IV.SIG Q6H PRN Rx# :[id number] Zyvox 600 mg Premix 300 ML @ 300 / 300 300 / 300 300 / 300 300 mls/hr IV.SIG Q12H [facility] Rx#: [id number] Zosyn 4.5 GM Premix 4.5 gm In 100 / 100 300 / 300 100 / 100 100 ml @ 200 mls/hr IV.SIG Q6H [facility] Rx#:[id number] Oral 0 / 0 0 / 0 Output: Urine 250 / 250 200 / 200 Stool 0 / 0 Other: Date of Last Bowel Movement 01/30/18 - Constitutional no acute distress - Routine HEENT Exam Head: Present: normocephalic, atraumatic Eye: Present: EOMI, PERRL ENT: Present: dentition normal - Routine Neck Exam Present: supple - Routine Respiratory Exam Comments: Clear to auscultation precaution - Routine Cardiovascular Exam Present: RRR, S1, S2 - Routine Abdominal Exam Present: soft, normoactive bowel sounds - Routine Skin Exam Present: intact - Urinary Catheter Management Indwelling Urethral Catheter Cath placed during this visit: yes Reason for continuing: Other continuation reason Insertion date: 01/29/18 Insertion time: 10:39 Straight Cath placed during this visit: no Reason for continuing: Chronic Urinary Retention Results - Labs CBC & Chem 7: 02/01/18 06:35 01/31/18 05:19 Laboratory Results - last 24 hr 02/01/18 06:35 CBC w Diff Auto diff final WBC 11.1 H RBC 3.94 L Hgb 11.3 L Hct 34.9 L MCV 88.7 MCH 28.8 MCHC 32.4 RDW 16.4 Plt Count 128 L MPV 9.2 Neut % (Auto) 70.8 H Lymph % (Auto) 11.0 Roberts % (Auto) 14.5 H Eos % (Auto) 3.4 Baso % (Auto) 0.3 Neut # (Auto) 7.9 H Lymph # (Auto) 1.2 Roberts # (Auto) 1.6 H Eos # (Auto) 0.4 Baso # (Auto) 0.0 WBC Differential . Differential Comment . Microbiology 01/31/18 10:30 Blood - Peripheral Aerobic Blood Culture - Preliminary gram negative coccobacilli 01/31/18 10:30 Blood - Peripheral Anaerobic Blood Culture - Preliminary No growth in 1 day 01/31/18 10:28 Blood - Peripheral Aerobic Blood Culture - Preliminary No growth in 1 day 01/31/18 10:28 Blood - Peripheral Anaerobic Blood Culture - Preliminary No growth in 1 day 01/28/18 15:45 Blood - Peripheral Aerobic Blood Culture - Preliminary No growth in 4 days 01/28/18 15:45 Blood - Peripheral Anaerobic Blood Culture - Preliminary No growth in 4 days 01/28/18 15:40 Blood - Peripheral Aerobic Blood Culture - Preliminary No growth in 4 days 01/28/18 15:40 Blood - Peripheral Anaerobic Blood Culture - Preliminary No growth in 4 days 01/30/18 14:13 Blood - Peripheral Aerobic Blood Culture - Preliminary gram negative rods 01/30/18 14:13 Blood - Peripheral Anaerobic Blood Culture - Preliminary gram negative coccobacilli - Imaging Impressions Abdomen X-Ray 01/31/18 00:00 CONCLUSION: No evidence of obstruction. Abdomen X-Ray 01/31/18 00:00 CONCLUSION: Feeding tube seen projecting over the lower medial left chest. This is likely within a hiatal hernia but this cannot not be confirmed on a single AP view. One could attempt to advance the Dobbhoff tube. If it is truly in the hiatal hernia, it should pass into the stomach within the abdomen. Assessment and Plan - Plan Possible esophageal mass Currently her respiratory status and general condition are not sufficient for a safe endoscopy but appears to be improving We will follow along with you and once she is deemed clinically stable we will pursue upper endoscopy to further evaluate the CT chest findings in the esophagus Continue with current supportive care Monitor labs Based on family request we may proceed also with PEG placement and this will be most likely on Saturday02/01/2018 patient is doing better, according to the daughter and the patient she is able to swallow, but want to assess how she is eating and try to avoid endoscopy and PEG tube, will advance diet as tolerated and I plan to them that it is not only the ability to swallow but also the quantity to make sure that she has enough for nutritional purposes, will reassess in the next 48 hours and see how she is doing
[2018-02-01 14:23] LABS: Potassium 3.5 meq/L (3.5-5.1)
[2018-02-01 14:26] LABS: Calcium 8.8 mg/dL (8.5-10.1)
--- NOTE | 2018-02-01 15:14 | ECHRPT ---
Indication: Sepsis, Endocarditis CONCLUSIONS The left ventricular systolic function is mildly reduced with an estimated ejection fraction of 45%. Wall thickness is normal. Normal left ventricular size. Global hypokinesis. The left atrial size is [id number] dilated. Moderate mitral valve regurgitation. Trileaflet aortic valve. Slight to mild aortic valve sclerosis is present. Moderate aortic valve reg urgitation. There is mild tricuspid valve regurgitation. The estimated pulmonary arterial pressure is 45 mmHg. BP: 130 / 60 HR: 55 Rhythm: MEASUREMENTS (Male / Female) Normal Values Technical Quality:Fair 2D ECHO LV Diastolic Diameter PLAX 5.0 cm 4.2 - 5.9 / 3.9 - 5.3 cm LV Systolic Diameter PLAX 4.1 cm IVS Diastolic Thickness 0.8 cm 0.6 - 1.0 / 0.6 - 0.9 cm LVPW Diastolic Thickness 0.8 cm 0.6 - 1.0 / 0.6 - 0.9 cm LV Relative Wall Thickness 0.3 RV Internal Dim ED PLAX 2.9 cm LVOT Diameter 1.9 cm LA Systolic Diameter LX 4.2 cm 3.0 - 4.0 / 2.7 - 3.8 cm M-MODE Aortic Root Diameter MM 1.9 cm LA Systolic Diameter MM 5.2 cm LA Ao Ratio MM 2.7 AV Cusp Separation MM 1.6 cm DOPPLER AV Peak Velocity 167.0 cm/s AV Peak Gradient 11.2 mmHg AI Peak Velocity 389.0 cm/s AI Peak Gradient 60.5 mmHg AI Pressure Half Time 416.0 ms LVOT Peak Velocity 69.4 cm/s LVOT Peak Gradient 1.9 mmHg AV Area Cont Eq pk 1.2 cm MV Area PHT 3.9 cm Mitral E Point Velocity 92.5 cm/s Mitral A Point Velocity 28.9 cm/s Mitral E to A Ratio 3.2 LV E' Lateral Velocity 6.0 cm/s Mitral E to LV E' Lateral Ratio 15.4 LV E' Septal Velocity 3.0 cm/s Mitral E to LV E' Septal Ratio 30.7 TR Peak Velocity 322.0 cm/s TR Peak Gradient 41.5 mmHg Right Atrial Pressure 10.0 mmHg Pulmonary Artery Systolic Pressu 51.5 mmHg Right Ventricular Systolic Press 51.5 mmHg FINDINGS LEFT VENTRICLE The left ventricular systolic function is mildly reduced with an estimated ejection fraction of 45%. Wall thickness is normal. Normal left ventricular size. Global hypokinesis. RIGHT VENTRICLE Normal right ventricular size and systolic function. LEFT ATRIUM The left atrial size is [id number] dilated. RIGHT ATRIUM The right atrial size is normal. ATRIAL SEPTUM Normal atrial septal thickness without atrial level shunting by limited color doppler interrogation. AORTA The aortic root and proximal ascending aorta are normal in size on limited imaging. MITRAL VALVE Moderate mitral valve regurgitation. AORTIC VALVE Trileaflet aortic valve. Slight to mild aortic valve sclerosis is present. Moderate aortic valve regurgitation. TRICUSPID VALVE Structurally normal tricuspid valve. There is mild tricuspid valve regurgitation. The estimated pulmonary arterial pressure is 45 mmHg. PULMONARY VALVE Trivial pulmonary valve regurgitation. VESSELS The inferior vena cava is normal in size. PERICARDIUM No pericardial effusion. Charli Conner MD (Electronically Signed) Final Date:01 February 2018 15:13
[2018-02-01] MEDS: Piperacil/Tazo 3.375 GM Premix 50 ML IV.SIG SCH ×2 (16:29→22:01)
[2018-02-01] MEDS: Dextrose 5%/NaCl 0.9% Inj 1,000 ML IV.CONT SCH (22:04)
[2018-02-02] MEDS: Piperacil/Tazo 3.375 GM Premix 50 ML IV.SIG SCH ×2 (04:12→10:39)
[2018-02-02] MEDS: Levothyroxine 75 MCG Tablet PO SCH (07:07)
--- NOTE | 2018-02-02 07:38 | P.PN ---
Subjective Interval history: Follow-up bacteremia. Patient seen and examined, lying in bed sleeping. Patient arouses to voice. Is awake and alert oriented to self and place. Friend is at bedside and updated here to assist patient with eating. Patient is tolerating p.o. intake well. Gastroenterology following. Will continue to monitor. Vital signs stable overnight. Afebrile. She denies any pain. No changes or acute events overnight. Following blood cultures. Physical Exam Vital signs: Vital Signs 02/01/18 08:00 02/01/18 10:42 02/01/18 11:01 Temperature 96.8 F L Pulse Rate 55 L 59 L Respiratory Rate 20 Blood Pressure 126/58 L Pulse Oximetry 96 98 02/01/18 14:56 02/01/18 19:34 02/01/18 20:00 Temperature 97.4 F L 97.0 F L Pulse Rate 60 64 Respiratory Rate 20 20 Blood Pressure 132/59 L 136/67 Pulse Oximetry 98 99 99 02/02/18 00:00 02/02/18 04:00 02/02/18 06:14 Temperature 97.7 F 97.9 F Pulse Rate 65 59 L 57 L Respiratory Rate 20 16 20 Blood Pressure 122/56 L 125/54 L Pulse Oximetry 98 98 02/02/18 07:14 Temperature 98.6 F Pulse Rate 66 Respiratory Rate 20 Blood Pressure 132/59 L Pulse Oximetry 98 Intake & Output 02/01/18 02/02/18 02/02/18 18:59 06:59 18:59 Intake Total 860 / 860 1450 / 1450 Output Total 300 / 300 450 / 450 Balance 560 / 560 1000 / 1000 Weight 64 kg Intake: IV 400 / 400 1450 / 1450 D5W/Normal Saline Inj 1,000 ML 1000 / 1000 @ 42 mls/hr IV.CONT .[id number] [facility] Rx#:[id number] Zyvox 600 mg Premix 300 ML @ 300 / 300 300 / 300 300 mls/hr IV.SIG Q12H [facility] Rx#: [id number] Zosyn 3.375 GM Premix 50 ML @ 0 / 0 150 / 150 100 mls/hr IV.SIG Q6H [facility] Rx#: [id number] Zosyn 4.5 GM Premix 4.5 gm In 100 / 100 100 ml @ 200 mls/hr IV.SIG Q6H [facility] Rx#:[id number] Oral 460 / 460 0 / 0 Output: Urine 300 / 300 450 / 450 Other: Date of Last Bowel Movement 01/30/18 # Bowel Movements 1 Narrative: GENERAL: Well-developed, well-nourished, in no acute distress. Awake, clear speech. HEENT: Head is normocephalic without any lesions or masses noted. Facial features are symmetric. Eyes: Pupils equal round reactive to light. Conjunctivae were clear. NECK: Supple without any masses. Trachea midline no deviation. No JVD, no bruits are appreciated CARDIAC: Regular rhythm, regular rate. S1/S2 are heard. No murmurs gallops or rubs. LUNGS: Rhonchi throughout. No wheeze, rhonchi or rales. No use of accessory muscles on inspiration or expiration. ABDOMEN: Soft, nontender. Nondistended. Bowel sounds heard in all 4 quadrants. No organomegaly or masses. Negative rebound, negative guarding EXTREMITIES: pulses are equal bilaterally. No cyanosis or clubbing. Left lower extremity does have significant edema as compared to the right, mild erythema noted to entire left lower extremity NEUROLOGY: Patient awake, Deep tendon reflexes are 2+ in upper and lower extremities bilaterally. Plantar reflex intact. Wiggles toes to command. - Urinary Catheter Management Indwelling Urethral Catheter Cath placed during this visit: yes Reason for continuing: Acute urinary retention Insertion date: 01/29/18 Insertion time: 10:39 Straight Cath placed during this visit: no Reason for continuing: Not indwelling catheter Results - Labs CBC & Chem 7: 02/01/18 06:35 02/01/18 13:53 Laboratory Results - last 24 hr 02/01/18 02/01/18 06:35 13:53 CBC w Diff Auto diff final WBC 11.1 H RBC 3.94 L Hgb 11.3 L Hct 34.9 L MCV 88.7 MCH 28.8 MCHC 32.4 RDW 16.4 Plt Count 128 L MPV 9.2 Neut % (Auto) 70.8 H Lymph % (Auto) 11.0 Wood % (Auto) 14.5 H Eos % (Auto) 3.4 Baso % (Auto) 0.3 Neut # (Auto) 7.9 H Lymph # (Auto) 1.2 Wood # (Auto) 1.6 H Eos # (Auto) 0.4 Baso # (Auto) 0.0 WBC Differential . Differential Comment . Sodium 138 Potassium 3.5 Chloride 107 Carbon Dioxide 23.0 Anion Gap 8 BUN 36 H Creatinine 1.20 H Estimated GFR 42 L Random Glucose 118 H Calcium 8.8 Microbiology 01/30/18 14:09 Blood - Peripheral Aerobic Blood Culture - Final Pasteurella multocida 01/30/18 14:09 Blood - Peripheral Anaerobic Blood Culture - Final Pasteurella multocida 01/30/18 14:13 Blood - Peripheral Aerobic Blood Culture - Final Pasteurella multocida 01/30/18 14:13 Blood - Peripheral Anaerobic Blood Culture - Preliminary gram negative coccobacilli 01/31/18 10:30 Blood - Peripheral Aerobic Blood Culture - Preliminary gram negative coccobacilli 01/31/18 10:30 Blood - Peripheral Anaerobic Blood Culture - Preliminary No growth in 1 day 01/31/18 10:28 Blood - Peripheral Aerobic Blood Culture - Preliminary No growth in 1 day 01/31/18 10:28 Blood - Peripheral Anaerobic Blood Culture - Preliminary No growth in 1 day 01/28/18 15:45 Blood - Peripheral Aerobic Blood Culture - Preliminary No growth in 4 days 01/28/18 15:45 Blood - Peripheral Anaerobic Blood Culture - Preliminary No growth in 4 days 01/28/18 15:40 Blood - Peripheral Aerobic Blood Culture - Preliminary No growth in 4 days 01/28/18 15:40 Blood - Peripheral Anaerobic Blood Culture - Preliminary No growth in 4 days Assessment and Plan - Assessment (1) Severe sepsis Code(s): A41.9 - Sepsis, unspecified organism; R65.20 - Severe sepsis without septic shock Status: Acute (2) Leukocytosis Code(s): D72.829 - Elevated white blood cell count, unspecified Status: Acute (3) Fever of unknown origin Code(s): R50.9 - Fever, unspecified Status: Acute (4) Altered mental status Code(s): R41.82 - Altered mental status, unspecified Status: Acute (5) Acute renal failure superimposed on stage 2 chronic kidney disease Code(s): N17.9 - Acute kidney failure, unspecified; N18.2 - Chronic kidney disease, stage 2 (mild) Status: Acute (6) Acute dehydration Code(s): E86.0 - Dehydration Status: Acute - Plan Severe sepsis with bacteremia Influenza A infection -Patient met criteria with leukocytosis with left shift, altered mental status, febrile illness, tachycardia, acute renal failure. -Urinalysis clear, chest x-ray did not indicate any acute abnormality -Influenza testing positive for influenza A -Pneumococcal, Legionella testing was negative -Blood cultures growing Pasteurella multocida 3 bottles. Redrew cultures, negative 1 day. Follow. -Consulted infectious disease, appreciate input and recs. -Elevated CRP. -On IV Zyvox and Zosyn. -Continue Tamiflu. -Supportive care, IV Tylenol for fever, cautious IV hydration, avoid overload. -Continue to monitor CBC. Afebrile overnight. Altered mental status, likely toxic encephalopathy from sepsis. Improving. -Mentation improved this morning. -CT scan of the brain was unremarkable for any acute abnormality. -Workup for metabolic encephalopathy was unremarkable. -Speech therapy to evaluate for swallow assessment, failed evaluation initially. Is now tolerating p.o. intake. Will advance diet as tolerated. -Avoid any sedating medications. -Palliative care has been consulted and following, appreciate input and recommendations. Has been speaking with family, addressing nutritional status, is agreeable to PEG today placement for tube feeding if needed. -Will continue to monitor. Left lower extremity DVT -Ultrasound was performed that did indicate DVT. -Patient is already on anticoagulation with Eliquis. -Patient already has IVC filter. Hypoxia, improving. -Previous episode of hypoxia of 84% initially. Currently requiring 2 LNC, o2 sats 96%. Titrate as tolerated. -Chest x-ray did indicate increasing prominence in the interstitial markings, concerning for some developing vascular congestion or volume overload -Continue O2 supplementation maintain O2 sats greater than 92% -DuoNeb every 4 hours as needed for shortness of breath/dyspnea -CTA of the thorax did not indicate any bony emboli, however did have a soft tissue mass versus food bolus in the esophagus with esophageal dilatation. There is groundglass appearance the patient he indicating possible fluid overload. No infiltrate identified. -Repeat CXR reviewed from 01/30/18 showing mild improvement in pulmonary opacities. Esophageal mass versus food bolus with esophageal dilatation -Currently the patient is not stable enough to undergo any procedure or evaluation -GI consulted and following, appreciate input and recommendations. -Gastroenterology following, since patient is tolerating p.o. intake PEG tube placement will be put on hold for now. Advance diet as tolerated. Calorie count. Acute renal failure superimposed on chronic kidney disease stage II -Creatinine 1.2. Will continue IVF. Monitor for overload. -Continue monitor renal functions -Avoid nephrotoxins DVT prevention -Patient is on Eliquis (4) Altered mental status Qualifiers: Altered mental status type: unspecified Qualified Code(s): R41.82 - Altered mental status, unspecified
[2018-02-02] MEDS: Phenol 1.4% 180 ML Spray Bottle OROPHARYNG PRN (10:03)
[2018-02-02] MEDS: Oseltamivir Phosphate 75 MG Capsule PO SCH ×2 (10:08→22:28)
--- NOTE | 2018-02-02 13:29 | P.PNID ---
Subjective Remarks: Patient is an 87-year-old female who is brought in due to altered mental status. She is normally awake and alert, interactive, lives in [facility]. There is some report that she had a fall, it was an unwitnessed, and she sustained a skin tear on her left leg. Per daughter she has not been her usual self, and she got worried because she did not answer her phone call. There was no mention that she had any fever or chills, or respiratory complaint or GI symptoms. She has had problems with UTI. On presentation, patient has been febrile. Her mental status improved after her temperature went down. She was admitted as a sepsis syndrome. Her WBC is 13,000. Urinalysis unremarkable. Chest x-ray did not show any acute infiltrate. Patient is still febrile today. Her influenza A testing came back positive. Infectious disease consultation has been requested to evaluate the patient. Notes reviewed Temps has been WNL for >24 hours Awake and alert States she lives in [facility] with her cat - has not had any scratc or bites, but her cat likes to lick her BC with Pasteurella - 2 from 01/30, one from No new (+) BC Feels good Not SOB No abdominal pain WBC lower at 11K Last CXR better Echo noted Antibiotics: Tamiflu Zosyn Zyvox Lines: No evidence of infection Past Medical History: Dementia Depression Gastroesophageal reflux HTN (hypertension) Hyperlipidemia Hypothyroid Pneumonia Prolapsed uterus Stroke UTI (urinary tract infection) History of hysterectomy History of partial knee replacement History of umbilical hernia repair Allergies/Adverse Reactions: Allergies mupirocin Allergy (Severe, Verified 01/28/18 16:33) Rash sulfamethoxazole Allergy (Severe, Verified 01/28/18 16:33) Rash trimethoprim Allergy (Severe, Verified 01/28/18 16:33) Rash SULFA DRUGS Allergy (Severe, Uncoded 01/28/18 16:33) Rash Objective Vital Signs 02/01/18 14:56 02/01/18 19:34 02/01/18 20:00 Temperature 97.4 F L 97.0 F L Pulse Rate 60 64 Respiratory Rate 20 20 Blood Pressure 132/59 L 136/67 Pulse Oximetry 98 99 99 02/02/18 00:00 02/02/18 04:00 02/02/18 06:14 Temperature 97.7 F 97.9 F Pulse Rate 65 59 L 57 L Respiratory Rate 20 16 20 Blood Pressure 122/56 L 125/54 L Pulse Oximetry 98 98 02/02/18 07:14 02/02/18 08:00 02/02/18 09:30 Temperature 98.6 F Pulse Rate 66 62 Respiratory Rate 20 Blood Pressure 132/59 L Pulse Oximetry 98 95 02/02/18 11:18 Temperature 98.8 F Pulse Rate 68 Respiratory Rate 20 Blood Pressure 130/56 L Pulse Oximetry 98 Intake & Output 02/01/18 02/02/18 02/02/18 18:59 06:59 18:59 Intake Total 860 / 860 1450 / 1450 350 / 350 Output Total 300 / 300 450 / 450 Balance 560 / 560 1000 / 1000 350 / 350 Weight 64 kg Intake: IV 400 / 400 1450 / 1450 350 / 350 D5W/Normal Saline Inj 1,000 ML 1000 / 1000 @ 42 mls/hr IV.CONT .[id number] [facility] Rx#:[id number] Zyvox 600 mg Premix 300 ML @ 300 / 300 300 / 300 300 / 300 300 mls/hr IV.SIG Q12H [facility] Rx#: [id number] Zosyn 3.375 GM Premix 50 ML @ 0 / 0 150 / 150 50 / 50 100 mls/hr IV.SIG Q6H [facility] Rx#: [id number] Zosyn 4.5 GM Premix 4.5 gm In 100 / 100 100 ml @ 200 mls/hr IV.SIG Q6H [facility] Rx#:[id number] Oral 460 / 460 0 / 0 Output: Urine 300 / 300 450 / 450 Other: Date of Last Bowel Movement 01/30/18 # Bowel Movements 1 02/01/18 10:11 Blood - Peripheral Aerobic Blood Culture - Preliminary No growth in 1 day 02/01/18 10:11 Blood - Peripheral Anaerobic Blood Culture - Preliminary No growth in 1 day 01/31/18 10:30 Blood - Peripheral Aerobic Blood Culture - Preliminary gram negative coccobacilli 01/31/18 10:30 Blood - Peripheral Anaerobic Blood Culture - Preliminary No growth in 2 days 01/31/18 10:28 Blood - Peripheral Aerobic Blood Culture - Preliminary No growth in 2 days 01/31/18 10:28 Blood - Peripheral Anaerobic Blood Culture - Preliminary No growth in 2 days 01/28/18 15:45 Blood - Peripheral Aerobic Blood Culture - Final No growth in 5 days 01/28/18 15:45 Blood - Peripheral Anaerobic Blood Culture - Final No growth in 5 days 01/28/18 15:40 Blood - Peripheral Aerobic Blood Culture - Final No growth in 5 days 01/28/18 15:40 Blood - Peripheral Anaerobic Blood Culture - Final No growth in 5 days 01/30/18 14:13 Blood - Peripheral Aerobic Blood Culture - Final Pasteurella multocida 01/30/18 14:13 Blood - Peripheral Anaerobic Blood Culture - Final Pasteurella multocida 01/30/18 14:09 Blood - Peripheral Aerobic Blood Culture - Final Pasteurella multocida 01/30/18 14:09 Blood - Peripheral Anaerobic Blood Culture - Final Pasteurella multocida 02/02/18 06:20 Blood - Peripheral Aerobic Blood Culture - Pending 02/02/18 06:20 Blood - Peripheral Anaerobic Blood Culture - Pending Lab - Hematology Results 02/01/18 06:35 CBC w Diff Auto diff final WBC 11.1 H RBC 3.94 L Hgb 11.3 L Hct 34.9 L MCV 88.7 MCH 28.8 MCHC 32.4 RDW 16.4 Plt Count 128 L MPV 9.2 Neut % (Auto) 70.8 H Lymph % (Auto) 11.0 [place] % (Auto) 14.5 H Eos % (Auto) 3.4 Baso % (Auto) 0.3 Neut # (Auto) 7.9 H Lymph # (Auto) 1.2 [place] # (Auto) 1.6 H Eos # (Auto) 0.4 Baso # (Auto) 0.0 WBC Differential . Differential Comment . Lab - Chemistry Results 02/01/18 13:53 Sodium 138 Potassium 3.5 Chloride 107 Carbon Dioxide 23.0 Anion Gap 8 BUN 36 H Creatinine 1.20 H Estimated GFR 42 L Random Glucose 118 H Calcium 8.8 Imaging: ITS Impressions Head CT 01/28/18 15:39 CONCLUSION: 1. Stable negative trauma study with no evidence of hemorrhage or mass effect. Chest CTA 01/29/18 00:00 CONCLUSION: 1. No evidence of pulmonary embolism. 2. Dilatation esophagus which contains air and a pre by 2 cm lobular soft tissue mass. This could be food or possible tumor. 3. Smaller soft tissue masslike area in the proximal trachea could represent tumor or mucus. 4. Groundglass opacities in both lungs which could indicate pulmonary edema or underlying interstitial lung disease. 5. Small bilateral pleural effusions right greater than left. Head MRI 01/29/18 00:00 CONCLUSION: Atrophy and chronic ischemic changes deep white matter. No acute intracranial process identified. Head MRA 01/29/18 00:00 CONCLUSION: 1. Venous Doppler Study 01/29/18 00:00 CONCLUSION: 1. Deep venous thrombosis as described. Chest X-Ray 01/30/18 00:00 CONCLUSION: Mild interval improvement in pulmonary opacities. There is mild residual lung bases with scarring. Abdomen X-Ray 01/31/18 00:00 CONCLUSION: Feeding tube seen projecting over the lower medial left chest. This is likely within a hiatal hernia but this cannot not be confirmed on a single AP view. One could attempt to advance the Dobbhoff tube. If it is truly in the hiatal hernia, it should pass into the stomach within the abdomen. Physical Exam: GENERAL: awake and alert, NAD. Answering all my questions SKIN: Warm and dry. No generalized rash, no ecchymoses and no evidence of embolic lesions. HEAD: Atraumatic. Normocephalic. No temporal wasting, or tenderness. EYES: [place] conjunctiva. No petechia or hemorrhage. Pupils equal, round and reactive to light. Extraocular movements full and intact. No scleral icterus. (+) arcus senilis. No injection or drainage. EARS, NOSE AND THROAT: Nose without bleeding or purulent nasal discharge. No sinus tenderness. Mucous membranes pink and moist. No oral lesions noted. No exudate. No oral thrush. NECK: Trachea midline. Supple and not tender, no meningeal signs. No nuchal rigidity CARDIOVASCULAR: Regular rate and rhythm. No murmurs, rubs or gallops heard RESPIRATORY: Coarse breath sounds bilaterally. No rales, wheezing or rhonchi ABDOMEN: Soft, nondistended, min tenderness, no guarding or rebound. Bowel sounds present and normoactive. EXTREMITIES: No clubbing, cyanosis, or edema. No joint effusion, has good ROM. No calf tenderness. Well perfused and warm. NEUROLOGICAL: Awake, answering my questions PSYCHIATRIC: Calm and cooperative LINE: No evidence of infection Assessment and Plan - Plan Impression Primary Pasteurella sepsis - fevers, leukocytosis, tachycardia, lethargy - better - no new (+) BC (+) INfluenza A Possible PNA, usually Staph aureus could develop as secondary bacterial PNA - better ?Esophageal mass Hx dementia Recommendation Continue tamiflu - end date ordered Stop Zosyn Stop Zyvox IV Rocephin for Pasteurella Follow C/S Monitor temps Monitor progress Palliative medicine following GI evaluating ?esophageal mass
--- NOTE | 2018-02-02 16:12 | P.PNGI ---
Subjective Interval history: Patient laying in bed comfortably, she said that she is doing better, she is tolerating oral intake, Physical Exam Vital signs: Vital Signs 02/01/18 19:34 02/01/18 20:00 02/02/18 00:00 Temperature 97.0 F L 97.7 F Pulse Rate 64 65 Respiratory Rate 20 20 Blood Pressure 136/67 122/56 L Pulse Oximetry 99 99 98 02/02/18 04:00 02/02/18 06:14 02/02/18 07:14 Temperature 97.9 F 98.6 F Pulse Rate 59 L 57 L 66 Respiratory Rate 16 20 20 Blood Pressure 125/54 L 132/59 L Pulse Oximetry 98 98 02/02/18 08:00 02/02/18 09:30 02/02/18 11:18 Temperature 98.8 F Pulse Rate 62 68 Respiratory Rate 20 Blood Pressure 130/56 L Pulse Oximetry 95 98 02/02/18 14:59 Temperature 98.9 F Pulse Rate 67 Respiratory Rate 20 Blood Pressure 128/62 Pulse Oximetry 98 Intake & Output 02/01/18 02/02/18 02/02/18 18:59 06:59 18:59 Intake Total 860 / 860 1450 / 1450 450 / 450 Output Total 300 / 300 450 / 450 Balance 560 / 560 1000 / 1000 450 / 450 Weight 64 kg Intake: IV 400 / 400 1450 / 1450 450 / 450 D5W/Normal Saline Inj 1,000 ML 1000 / 1000 @ 42 mls/hr IV.CONT .[id number] [facility] Rx#:[id number] Zyvox 600 mg Premix 300 ML @ 300 / 300 300 / 300 300 / 300 300 mls/hr IV.SIG Q12H [facility] Rx#: [id number] Zosyn 3.375 GM Premix 50 ML @ 0 / 0 150 / 150 50 / 50 100 mls/hr IV.SIG Q6H [facility] Rx#: [id number] Zosyn 4.5 GM Premix 4.5 gm In 100 / 100 100 ml @ 200 mls/hr IV.SIG Q6H [facility] Rx#:[id number] Rocephin Inj 2,000 MG In NS Inj 100 / 100 100 ML @ 200 mls/hr IV.SIG Q24H [facility] Rx#:[id number] Oral 460 / 460 0 / 0 Output: Urine 300 / 300 450 / 450 Other: Date of Last Bowel Movement 01/30/18 # Bowel Movements 1 - Constitutional no acute distress - Routine HEENT Exam Head: Present: normocephalic Eye: Present: EOMI, PERRL ENT: Present: mucous membranes moist - Routine Neck Exam Present: supple - Routine Respiratory Exam Present: CTA bilaterally - Routine Cardiovascular Exam Present: RRR, S1 - Routine Abdominal Exam Present: soft, normoactive bowel sounds - Urinary Catheter Management Indwelling Urethral Catheter Cath placed during this visit: yes Reason for continuing: Hourly intake/output Insertion date: 01/29/18 Insertion time: 10:39 Straight Cath placed during this visit: no Reason for continuing: Other continuation reason Results - Labs CBC & Chem 7: 02/01/18 06:35 02/01/18 13:53 Microbiology 01/31/18 10:30 Blood - Peripheral Aerobic Blood Culture - Final Pasteurella multocida 01/31/18 10:30 Blood - Peripheral Anaerobic Blood Culture - Preliminary No growth in 2 days 02/01/18 10:11 Blood - Peripheral Aerobic Blood Culture - Preliminary No growth in 1 day 02/01/18 10:11 Blood - Peripheral Anaerobic Blood Culture - Preliminary No growth in 1 day 01/31/18 10:28 Blood - Peripheral Aerobic Blood Culture - Preliminary No growth in 2 days 01/31/18 10:28 Blood - Peripheral Anaerobic Blood Culture - Preliminary No growth in 2 days 01/28/18 15:45 Blood - Peripheral Aerobic Blood Culture - Final No growth in 5 days 01/28/18 15:45 Blood - Peripheral Anaerobic Blood Culture - Final No growth in 5 days 01/28/18 15:40 Blood - Peripheral Aerobic Blood Culture - Final No growth in 5 days 01/28/18 15:40 Blood - Peripheral Anaerobic Blood Culture - Final No growth in 5 days 01/30/18 14:13 Blood - Peripheral Aerobic Blood Culture - Final Pasteurella multocida 01/30/18 14:13 Blood - Peripheral Anaerobic Blood Culture - Final Pasteurella multocida 01/30/18 14:09 Blood - Peripheral Aerobic Blood Culture - Final Pasteurella multocida 01/30/18 14:09 Blood - Peripheral Anaerobic Blood Culture - Final Pasteurella multocida Assessment and Plan - Plan Possible esophageal mass Currently her respiratory status and general condition are not sufficient for a safe endoscopy but appears to be improving We will follow along with you and once she is deemed clinically stable we will pursue upper endoscopy to further evaluate the CT chest findings in the esophagus Continue with current supportive care Monitor labs Based on family request we may proceed also with PEG placement and this will be most likely on Saturday02/01/2018 patient is doing better, according to the daughter and the patient she is able to swallow, but want to assess how she is eating and try to avoid endoscopy and PEG tube, will advance diet as tolerated and I plan to them that it is not only the ability to swallow but also the quantity to make sure that she has enough for nutritional purposes, will reassess in the next 48 hours and see how she is doing 02/02/2018 doing better today tolerating more liquid and solid diet, discussed with the hospitalist team, will hold off on PEG tube at this time, try to increase diet as tolerated with supplement, please call us back if needed
[2018-02-02] MEDS: Dextrose 5%/NaCl 0.9% Inj 1,000 ML IV.CONT SCH (22:29)
--- NOTE | 2018-02-03 07:29 | P.PN ---
Subjective Interval history: Follow-up bacteremia. Patient seen and examined, lying in bed comfortably in nad. No reports of any acute events overnight. Patient did eat well with each meal yesterday, finished most of her food. Continue calorie counting. ID following and continued on antibiotics. Patient is afebrile. VSS. Denies any pain. Physical Exam Vital signs: Vital Signs 02/02/18 08:00 02/02/18 09:30 02/02/18 11:18 Temperature 98.8 F Pulse Rate 62 68 Respiratory Rate 20 Blood Pressure 130/56 L Pulse Oximetry 95 98 02/02/18 14:59 02/02/18 20:00 02/03/18 00:00 Temperature 98.9 F 96.7 F L 98.0 F Pulse Rate 67 64 60 Respiratory Rate 20 16 16 Blood Pressure 128/62 137/62 133/63 Pulse Oximetry 98 99 97 Intake & Output 02/02/18 02/03/18 02/03/18 18:59 06:59 18:59 Intake Total 1530 / 1530 1000 / 1000 Output Total 1050 / 1050 850 / 850 Balance 480 / 480 150 / 150 Weight 66.5 kg Intake: IV 450 / 450 1000 / 1000 D5W/Normal Saline Inj 1,000 ML 1000 / 1000 @ 42 mls/hr IV.CONT .[id number] [facility] Rx#:[id number] Zyvox 600 mg Premix 300 ML @ 300 / 300 300 mls/hr IV.SIG Q12H [facility] Rx#: [id number] Zosyn 3.375 GM Premix 50 ML @ 50 / 50 100 mls/hr IV.SIG Q6H [facility] Rx#: [id number] Rocephin Inj 2,000 MG In NS Inj 100 / 100 100 ML @ 200 mls/hr IV.SIG Q24H [facility] Rx#:[id number] Oral 1080 / 1080 Output: Urine Amount (Catheter) 1050 / 1050 850 / 850 Indwelling Urethral Catheter 1050 / 1050 850 / 850 Narrative: GENERAL: Well-developed, well-nourished, in no acute distress. Awake, clear speech. HEENT: Head is normocephalic without any lesions or masses noted. Facial features are symmetric. Eyes: Pupils equal round reactive to light. Conjunctivae were clear. NECK: Supple without any masses. Trachea midline no deviation. No JVD, no bruits are appreciated CARDIAC: Regular rhythm, regular rate. S1/S2 are heard. No murmurs gallops or rubs. LUNGS: Rhonchi throughout. No wheeze, rhonchi or rales. No use of accessory muscles on inspiration or expiration. ABDOMEN: Soft, nontender. Nondistended. Bowel sounds heard in all 4 quadrants. No organomegaly or masses. Negative rebound, negative guarding EXTREMITIES: pulses are equal bilaterally. No cyanosis or clubbing. Left lower extremity does have significant edema as compared to the right, mild erythema noted to entire left lower extremity NEUROLOGY: Patient awake, Deep tendon reflexes are 2+ in upper and lower extremities bilaterally. Plantar reflex intact. Wiggles toes to command. - Urinary Catheter Management Indwelling Urethral Catheter Cath placed during this visit: yes Urethral indwelling: Yes Reason for continuing: Acute urinary retention Insertion date: 01/29/18 Insertion time: 10:39 Straight Cath placed during this visit: no Reason for continuing: Not indwelling catheter Results - Labs CBC & Chem 7: 02/01/18 06:35 02/01/18 13:53 Microbiology 01/31/18 10:30 Blood - Peripheral Aerobic Blood Culture - Final Pasteurella multocida 01/31/18 10:30 Blood - Peripheral Anaerobic Blood Culture - Preliminary No growth in 2 days 02/01/18 10:11 Blood - Peripheral Aerobic Blood Culture - Preliminary No growth in 1 day 02/01/18 10:11 Blood - Peripheral Anaerobic Blood Culture - Preliminary No growth in 1 day 01/31/18 10:28 Blood - Peripheral Aerobic Blood Culture - Preliminary No growth in 2 days 01/31/18 10:28 Blood - Peripheral Anaerobic Blood Culture - Preliminary No growth in 2 days 01/28/18 15:45 Blood - Peripheral Aerobic Blood Culture - Final No growth in 5 days 01/28/18 15:45 Blood - Peripheral Anaerobic Blood Culture - Final No growth in 5 days 01/28/18 15:40 Blood - Peripheral Aerobic Blood Culture - Final No growth in 5 days 01/28/18 15:40 Blood - Peripheral Anaerobic Blood Culture - Final No growth in 5 days 01/30/18 14:13 Blood - Peripheral Aerobic Blood Culture - Final Pasteurella multocida 01/30/18 14:13 Blood - Peripheral Anaerobic Blood Culture - Final Pasteurella multocida 01/30/18 14:09 Blood - Peripheral Aerobic Blood Culture - Final Pasteurella multocida 01/30/18 14:09 Blood - Peripheral Anaerobic Blood Culture - Final Pasteurella multocida Assessment and Plan - Assessment (1) Severe sepsis Code(s): A41.9 - Sepsis, unspecified organism; R65.20 - Severe sepsis without septic shock Status: Acute (2) Leukocytosis Code(s): D72.829 - Elevated white blood cell count, unspecified Status: Acute (3) Fever of unknown origin Code(s): R50.9 - Fever, unspecified Status: Acute (4) Altered mental status Code(s): R41.82 - Altered mental status, unspecified Status: Acute (5) Acute renal failure superimposed on stage 2 chronic kidney disease Code(s): N17.9 - Acute kidney failure, unspecified; N18.2 - Chronic kidney disease, stage 2 (mild) Status: Acute (6) Acute dehydration Code(s): E86.0 - Dehydration Status: Acute - Plan Severe sepsis with bacteremia Influenza A infection -Patient met criteria with leukocytosis with left shift, altered mental status, febrile illness, tachycardia, acute renal failure. -Urinalysis clear, chest x-ray did not indicate any acute abnormality -Influenza testing positive for influenza A -Pneumococcal, Legionella testing was negative -Blood cultures growing Pasteurella multocida 3 bottles. Redrew cultures, negative 1 day. Follow. -Consulted infectious disease, appreciate input and recs. -Elevated CRP. -Previously on Zyvox and Zosyn. Changed to IV Rocephin for Pasteurella. -Continue Tamiflu. -Supportive care, IV Tylenol for fever, cautious IV hydration, avoid overload. -Continue to monitor CBC. Afebrile overnight. Altered mental status, likely toxic encephalopathy from sepsis. Improving. -Mentation improved this morning. -CT scan of the brain was unremarkable for any acute abnormality. -Workup for metabolic encephalopathy was unremarkable. -Speech therapy to evaluate for swallow assessment, failed evaluation initially. Is now tolerating p.o. intake. Will advance diet as tolerated. -Avoid any sedating medications. -Palliative care has been consulted and following, appreciate input and recommendations. Has been speaking with family, addressing nutritional status, is agreeable to PEG today placement for tube feeding if needed. -Will continue to monitor. Acute urinary retention vs dehydration on 01/29/18 -Sarmiento cath placed. Measure accurate output, adequate. -Attempt removal today and assess patient output. Left lower extremity DVT -Ultrasound was performed that did indicate DVT. -Patient is already on anticoagulation with Eliquis. -Patient already has IVC filter. Hypoxia, improving. -Previous episode of hypoxia of 84% initially. Currently requiring 2 LNC, o2 sats 96%. Titrate as tolerated. -Chest x-ray did indicate increasing prominence in the interstitial markings, concerning for some developing vascular congestion or volume overload -Continue O2 supplementation maintain O2 sats greater than 92% -DuoNeb every 4 hours as needed for shortness of breath/dyspnea -CTA of the thorax did not indicate any bony emboli, however did have a soft tissue mass versus food bolus in the esophagus with esophageal dilatation. There is groundglass appearance the patient he indicating possible fluid overload. No infiltrate identified. -Repeat CXR reviewed from 01/30/18 showing mild improvement in pulmonary opacities. Esophageal mass versus food bolus with esophageal dilatation -Currently the patient is not stable enough to undergo any procedure or evaluation -GI consulted and following, appreciate input and recommendations. -Gastroenterology following, since patient is tolerating p.o. intake PEG tube placement will be put on hold for now. Advance diet as tolerated. Calorie count. Acute renal failure superimposed on chronic kidney disease stage II -Creatinine 1.2. Will continue IVF. Monitor for overload. -Continue monitor renal functions -Avoid nephrotoxins DVT prevention -Patient is on Eliquis Discharge Planning: Awaiting clinical improvement. Still on IV antibiotics. Awaiting final ID recs. Likely 24-48 hours to SNF. CM assisting. (4) Altered mental status Qualifiers: Altered mental status type: unspecified Qualified Code(s): R41.82 - Altered mental status, unspecified
[2018-02-03] MEDS: Levothyroxine 75 MCG Tablet PO SCH (09:57)
[2018-02-03] MEDS ORDERED: Oseltamivir Phosphate 75 MG Capsule PO ONE (11:09)
--- NOTE | 2018-02-03 12:35 | P.PNID ---
Subjective Remarks: Patient is an 87-year-old female who is brought in due to altered mental status. She is normally awake and alert, interactive, lives in [facility]. There is some report that she had a fall, it was an unwitnessed, and she sustained a skin tear on her left leg. Per daughter she has not been her usual self, and she got worried because she did not answer her phone call. There was no mention that she had any fever or chills, or respiratory complaint or GI symptoms. She has had problems with UTI. On presentation, patient has been febrile. Her mental status improved after her temperature went down. She was admitted as a sepsis syndrome. Her WBC is 13,000. Urinalysis unremarkable. Chest x-ray did not show any acute infiltrate. Patient is still febrile today. Her influenza A testing came back positive. Infectious disease consultation has been requested to evaluate the patient. Notes reviewed Afebrile Awake and answering my questions States she is tired and waiting to go home Daughter at bedside No new (+) BC Echo report noted States she lives in [facility] with her cat - has not had any scratch or bites, but she had skin tear in her leg; her cat likes to lick her BC with Pasteurella - 2 from 01/30, one from No new (+) BC Not SOB No abdominal pain WBC lower at 11K Last CXR better Antibiotics: Tamiflu Rocephin Lines: No evidence of infection Past Medical History: Dementia Depression Gastroesophageal reflux HTN (hypertension) Hyperlipidemia Hypothyroid Pneumonia Prolapsed uterus Stroke UTI (urinary tract infection) History of hysterectomy History of partial knee replacement History of umbilical hernia repair Allergies/Adverse Reactions: Allergies mupirocin Allergy (Severe, Verified 01/28/18 16:33) Rash sulfamethoxazole Allergy (Severe, Verified 01/28/18 16:33) Rash trimethoprim Allergy (Severe, Verified 01/28/18 16:33) Rash SULFA DRUGS Allergy (Severe, Uncoded 01/28/18 16:33) Rash Objective Vital Signs 02/02/18 14:59 02/02/18 20:00 02/03/18 00:00 Temperature 98.9 F 96.7 F L 98.0 F Pulse Rate 67 64 60 Respiratory Rate 20 16 16 Blood Pressure 128/62 137/62 133/63 Pulse Oximetry 98 99 97 02/03/18 08:00 02/03/18 09:11 02/03/18 12:00 Temperature 97.6 F 97.7 F Pulse Rate 57 L 62 Respiratory Rate 18 18 Blood Pressure 157/68 H 170/72 H Pulse Oximetry 99 96 99 Intake & Output 02/02/18 02/03/18 02/03/18 18:59 06:59 18:59 Intake Total 1530 / 1530 1000 / 1000 Output Total 1050 / 1050 850 / 850 Balance 480 / 480 150 / 150 Weight 66.5 kg Intake: IV 450 / 450 1000 / 1000 D5W/Normal Saline Inj 1,000 ML 1000 / 1000 @ 42 mls/hr IV.CONT .[id number] [facility] Rx#:[id number] Zyvox 600 mg Premix 300 ML @ 300 / 300 300 mls/hr IV.SIG Q12H [facility] Rx#: [id number] Zosyn 3.375 GM Premix 50 ML @ 50 / 50 100 mls/hr IV.SIG Q6H [facility] Rx#: [id number] Rocephin Inj 2,000 MG In NS Inj 100 / 100 100 ML @ 200 mls/hr IV.SIG Q24H [facility] Rx#:[id number] Oral 1080 / 1080 Output: Urine Amount (Catheter) 1050 / 1050 850 / 850 Indwelling Urethral Catheter 1050 / 1050 850 / 850 01/30/18 14:13 Blood - Peripheral Aerobic Blood Culture - Final Pasteurella multocida 01/30/18 14:13 Blood - Peripheral Anaerobic Blood Culture - Final Pasteurella multocida 02/02/18 06:20 Blood - Peripheral Aerobic Blood Culture - Preliminary No growth in 1 day 02/02/18 06:20 Blood - Peripheral Anaerobic Blood Culture - Preliminary No growth in 1 day 02/01/18 10:11 Blood - Peripheral Aerobic Blood Culture - Preliminary No growth in 2 days 02/01/18 10:11 Blood - Peripheral Anaerobic Blood Culture - Preliminary No growth in 2 days 01/31/18 10:30 Blood - Peripheral Aerobic Blood Culture - Final Pasteurella multocida 01/31/18 10:30 Blood - Peripheral Anaerobic Blood Culture - Preliminary No growth in 3 days 01/31/18 10:28 Blood - Peripheral Aerobic Blood Culture - Preliminary No growth in 3 days 01/31/18 10:28 Blood - Peripheral Anaerobic Blood Culture - Preliminary No growth in 3 days 01/28/18 15:45 Blood - Peripheral Aerobic Blood Culture - Final No growth in 5 days 01/28/18 15:45 Blood - Peripheral Anaerobic Blood Culture - Final No growth in 5 days 01/28/18 15:40 Blood - Peripheral Aerobic Blood Culture - Final No growth in 5 days 01/28/18 15:40 Blood - Peripheral Anaerobic Blood Culture - Final No growth in 5 days 01/30/18 14:09 Blood - Peripheral Aerobic Blood Culture - Final Pasteurella multocida 01/30/18 14:09 Blood - Peripheral Anaerobic Blood Culture - Final Pasteurella multocida Lab - Chemistry Results 02/01/18 13:53 Sodium 138 Potassium 3.5 Chloride 107 Carbon Dioxide 23.0 Anion Gap 8 BUN 36 H Creatinine 1.20 H Estimated GFR 42 L Random Glucose 118 H Calcium 8.8 Imaging: ITS Impressions Head CT 01/28/18 15:39 CONCLUSION: 1. Stable negative trauma study with no evidence of hemorrhage or mass effect. Chest CTA 01/29/18 00:00 CONCLUSION: 1. No evidence of pulmonary embolism. 2. Dilatation esophagus which contains air and a pre by 2 cm lobular soft tissue mass. This could be food or possible tumor. 3. Smaller soft tissue masslike area in the proximal trachea could represent tumor or mucus. 4. Groundglass opacities in both lungs which could indicate pulmonary edema or underlying interstitial lung disease. 5. Small bilateral pleural effusions right greater than left. Head MRI 01/29/18 00:00 CONCLUSION: Atrophy and chronic ischemic changes deep white matter. No acute intracranial process identified. Head MRA 01/29/18 00:00 CONCLUSION: 1. Venous Doppler Study 01/29/18 00:00 CONCLUSION: 1. Deep venous thrombosis as described. Chest X-Ray 01/30/18 00:00 CONCLUSION: Mild interval improvement in pulmonary opacities. There is mild residual lung bases with scarring. Abdomen X-Ray 01/31/18 00:00 CONCLUSION: Feeding tube seen projecting over the lower medial left chest. This is likely within a hiatal hernia but this cannot not be confirmed on a single AP view. One could attempt to advance the Dobbhoff tube. If it is truly in the hiatal hernia, it should pass into the stomach within the abdomen. Physical Exam: GENERAL: awake and answering my questions, NAD. SKIN: Warm and dry. No generalized rash HEAD: Atraumatic. Normocephalic. No temporal wasting, or tenderness. EYES: Wilburn conjunctiva. No petechia or hemorrhage. Pupils equal, round and reactive to light. Extraocular movements full and intact. No scleral icterus. (+) arcus senilis. No injection or drainage. EARS, NOSE AND THROAT: Nose without bleeding or purulent nasal discharge. No sinus tenderness. Mucous membranes pink and moist. No oral lesions noted. No exudate. No oral thrush. NECK: Trachea midline. Supple and not tender, no meningeal signs. No nuchal rigidity CARDIOVASCULAR: Regular rate and rhythm. No murmurs, rubs or gallops heard RESPIRATORY: Coarse breath sounds bilaterally. No rales, wheezing or rhonchi ABDOMEN: Soft, nondistended, min tenderness, no guarding or rebound. Bowel sounds present and normoactive. EXTREMITIES: No clubbing, cyanosis, or edema. No joint effusion, has good ROM. No calf tenderness. Well perfused and warm. NEUROLOGICAL: Awake, answering my questions PSYCHIATRIC: Calm and cooperative LINE: No evidence of infection Assessment and Plan - Plan Impression Primary Pasteurella sepsis - fevers, leukocytosis, tachycardia, lethargy - better - no new (+) BC (+) INfluenza A Possible PNA, usually Staph aureus could develop as secondary bacterial PNA - better ?Esophageal mass Hx dementia Recommendation Continue tamiflu - end date ordered IV Rocephin for Pasteurella - decide on course of Rx once BC all finalized Follow C/S Monitor temps Monitor progress Spoke with daughter at bedside Dr Perera will start seeing patient tomorrow 02/04
[2018-02-03] MEDS: Dextrose 5%/NaCl 0.9% Inj 1,000 ML IV.CONT SCH (20:27)
[2018-02-03] MEDS ORDERED: Oseltamivir Liq 30 MG/5 ML Oral Syringe PO SCH (21:00)
[2018-02-04] MEDS: Dextrose 5%/NaCl 0.9% Inj 1,000 ML IV.CONT SCH (05:31)
--- NOTE | 2018-02-04 08:42 | P.PN ---
Subjective Interval history: 87-year-old female who is seen and examined today for follow-up on sepsis, altered mental status. Patient appears to be better she is not look septic at this time. She is talking and answering questions. Patient denies any new complaints today. Vital signs are stable, patient remains afebrile. Physical Exam Vital signs: Vital Signs 02/03/18 09:11 02/03/18 12:00 02/03/18 15:35 Temperature 97.7 F 98.1 F Pulse Rate 62 70 Respiratory Rate 18 18 Blood Pressure 170/72 H 154/69 H Pulse Oximetry 96 99 99 02/03/18 19:50 02/03/18 20:00 02/04/18 00:00 Temperature 97.4 F L 97.1 F L Pulse Rate 74 69 Respiratory Rate 20 16 Blood Pressure 169/74 H 152/82 H Pulse Oximetry 96 96 96 Intake & Output 02/03/18 02/04/18 02/04/18 18:59 06:59 18:59 Intake Total 220 / 220 1440 / 1440 Output Total 450 / 450 Balance -230 / -230 1440 / 1440 Weight 66.5 kg Intake: IV 100 / 100 1000 / 1000 D5W/Normal Saline Inj 1,000 ML 1000 / 1000 @ 42 mls/hr IV.CONT .[id number] [facility] Rx#:[id number] Rocephin Inj 2,000 MG In NS Inj 100 / 100 100 ML @ 200 mls/hr IV.SIG Q24H [facility] Rx#:[id number] Oral 120 / 120 240 / 240 Other 200 / 200 Output: Urine 450 / 450 Other: # Incontinent Voids 2 # Urine Diapers 2 Date of Last Bowel Movement 02/03/18 02/03/18 # Bowel Movements 2 3 Narrative: GENERAL: Well-developed, well-nourished, in no acute distress. Awakens easily, clear speech. HEENT: Head is normocephalic without any lesions or masses noted. Facial features are symmetric. Eyes: Extraocular muscles are intact. Conjunctivae were clear. NECK: Supple without any masses. Trachea midline no deviation. No JVD, no bruits are appreciated CARDIAC: Regular rhythm, regular rate. S1/S2 are heard. No murmurs gallops or rubs. LUNGS: Rhonchi throughout. No wheeze, rhonchi or rales. No use of accessory muscles on inspiration or expiration. ABDOMEN: Soft, nontender. Nondistended. Bowel sounds heard in all 4 quadrants. No organomegaly or masses. Negative rebound, negative guarding EXTREMITIES: pulses are equal bilaterally. No cyanosis or clubbing. Left lower extremity does have significant edema as compared to the right, mild erythema noted to entire left lower extremity NEUROLOGY: Patient awake, Deep tendon reflexes are 2+ in upper and lower extremities bilaterally. Plantar reflex intact. Purposeful movements. - Urinary Catheter Management Indwelling Urethral Catheter Cath placed during this visit: yes Urethral indwelling: Yes Reason for continuing: Acute urinary retention Insertion date: 01/29/18 Insertion time: 10:39 Straight Cath placed during this visit: no Reason for continuing: Not indwelling catheter Results - Labs CBC & Chem 7: 02/01/18 06:35 02/01/18 13:53 Microbiology 01/30/18 14:13 Blood - Peripheral Aerobic Blood Culture - Final Pasteurella multocida 01/30/18 14:13 Blood - Peripheral Anaerobic Blood Culture - Final Pasteurella multocida 02/02/18 06:20 Blood - Peripheral Aerobic Blood Culture - Preliminary No growth in 1 day 02/02/18 06:20 Blood - Peripheral Anaerobic Blood Culture - Preliminary No growth in 1 day 02/01/18 10:11 Blood - Peripheral Aerobic Blood Culture - Preliminary No growth in 2 days 02/01/18 10:11 Blood - Peripheral Anaerobic Blood Culture - Preliminary No growth in 2 days 01/31/18 10:30 Blood - Peripheral Aerobic Blood Culture - Final Pasteurella multocida 01/31/18 10:30 Blood - Peripheral Anaerobic Blood Culture - Preliminary No growth in 3 days 01/31/18 10:28 Blood - Peripheral Aerobic Blood Culture - Preliminary No growth in 3 days 01/31/18 10:28 Blood - Peripheral Anaerobic Blood Culture - Preliminary No growth in 3 days - Imaging Head CT 01/28/18 15:39 CONCLUSION: 1. Stable negative trauma study with no evidence of hemorrhage or mass effect. Chest CTA 01/29/18 00:00 CONCLUSION: 1. No evidence of pulmonary embolism. 2. Dilatation esophagus which contains air and a pre by 2 cm lobular soft tissue mass. This could be food or possible tumor. 3. Smaller soft tissue masslike area in the proximal trachea could represent tumor or mucus. 4. Groundglass opacities in both lungs which could indicate pulmonary edema or underlying interstitial lung disease. 5. Small bilateral pleural effusions right greater than left. Head MRI 01/29/18 00:00 CONCLUSION: Atrophy and chronic ischemic changes deep white matter. No acute intracranial process identified. Head MRA 01/29/18 00:00 CONCLUSION: 1. Venous Doppler Study 01/29/18 00:00 CONCLUSION: 1. Deep venous thrombosis as described. Chest X-Ray 01/30/18 00:00 CONCLUSION: Mild interval improvement in pulmonary opacities. There is mild residual lung bases with scarring. Abdomen X-Ray 01/31/18 00:00 CONCLUSION: Feeding tube seen projecting over the lower medial left chest. This is likely within a hiatal hernia but this cannot not be confirmed on a single AP view. One could attempt to advance the Dobbhoff tube. If it is truly in the hiatal hernia, it should pass into the stomach within the abdomen. - Procedures ECHOCARDIOGRAM CONCLUSIONS The left ventricular systolic function is mildly reduced with an estimated ejection fraction of 45%. Wall thickness is normal. Normal left ventricular size. Global hypokinesis. The left atrial size is [id number] dilated. Moderate mitral valve regurgitation. Trileaflet aortic valve. Slight to mild aortic valve sclerosis is present. Moderate aortic valve regurgitation. There is mild tricuspid valve regurgitation. The estimated pulmonary arterial pressure is 45 mmHg. Assessment and Plan - Assessment (1) Severe sepsis Code(s): A41.9 - Sepsis, unspecified organism; R65.20 - Severe sepsis without septic shock Status: Acute (2) Leukocytosis Code(s): D72.829 - Elevated white blood cell count, unspecified Status: Acute (3) Fever of unknown origin Code(s): R50.9 - Fever, unspecified Status: Acute (4) Altered mental status Code(s): R41.82 - Altered mental status, unspecified Status: Acute (5) Acute renal failure superimposed on stage 2 chronic kidney disease Code(s): N17.9 - Acute kidney failure, unspecified; N18.2 - Chronic kidney disease, stage 2 (mild) Status: Acute (6) Acute dehydration Code(s): E86.0 - Dehydration Status: Acute - Plan Bacteremia -Pasteurella multocida isolated and blood cultures -Currently on Rocephin -Infectious disease is following the patient and recommending continuation Rocephin until all blood cultures are finalized -Further recommendations once blood cultures are complete Influenza A infection -Patient no longer febrile -Tamiflu was discontinued due to patient refusing medication, also is little to no benefit of the patient taken medication if greater than 2 days onset of symptoms. -Continue supportive care Acute renal failure superimposed on chronic kidney disease stage II, worsening -Renal functions are improving with IV hydration -Continue monitor renal functions -Avoid nephrotoxins Esophageal mass versus food bolus with esophageal dilatation -Currently the patient is not stable enough to undergo any procedure or evaluation -GI was consulted and follow patient during her stay in the hospital -There was consideration of endoscopy and PEG tube placement, however since patient is tolerating diet no PEG tube at this time. -Patient did have Dobbhoff earlier, however it has been removed -Calorie count in place at this time, await result Altered mental status, likely toxic encephalopathy from sepsis, improving -Mentation improves daily -CT scan of the brain was unremarkable for any acute abnormality -Workup for metabolic encephalopathy was on remarkable -Speech therapy is following the patient on a daily basis -Avoid any sedating medications Left lower extremity DVT, -Ultrasound was performed that did indicate DVT -Patient is already on anticoagulation with Eliquis -Patient already has IVC filter severe sepsis, resolved -Patient meets criteria with leukocytosis, altered mental status, febrile illness, tachycardia, acute renal failure. Influenza A infection, bacteremia -Status post cautious hydration -Supportive care, IV Tylenol for fever -Urinalysis clear, chest x-ray did not indicate any acute abnormality -Influenza testing positive for influenza A -pneumococcal, Legionella testing was negative Hypoxia, resolved -Previous episode of hypoxia of 84% -Chest x-ray did indicate increasing prominence in the interstitial markings, concerning for some developing vascular congestion or volume overload -Continue O2 supplementation maintain O2 sats greater than 92% -DuoNeb every 4 hours as needed for shortness of breath/dyspnea -CTA of the thorax did not indicate any pulmonary emboli, however did have a soft tissue mass versus food bolus in the esophagus with esophageal dilatation. There is groundglass appearance the patient he indicating possible fluid overload. No infiltrate identified Leukocytosis with left shift, resolved -Continue to monitor CBC DVT prevention -Patient is on Eliquis (4) Altered mental status Qualifiers: Altered mental status type: unspecified Qualified Code(s): R41.82 - Altered mental status, unspecified
[2018-02-04] MEDS: Levothyroxine 75 MCG Tablet PO SCH (10:49)
--- NOTE | 2018-02-04 12:19 | P.DIET ---
Nutritional Evaluation Type of nutrition evaluation: initial Nutrition consult regarding: Diet Evaluation Nutrition screening: [facility] Screening comments: 02/[address] [facility] Calorie Count Subjective Barriers to Nutrition: Swallowing problem Subjective Comments: Pt reports she is able to eat better, swallow better. Objective - Diagnosis AMS, Fever, Dehydration - Objective [place] body weight: 100 kg % IBW: 141 Body Weight Used for Calculations: Upper end of IBW (50kg) Energy Needs - Lower Range (kCal/kg): 30 Energy Needs - Upper Range (kCal/kg): 35 Lower Limit kCal/kg (kCals): 1,500 Upper Limit kCal/kg (kCals): 1,750 Lower Limit Protein Factor (Grams per Kg): 1.1 Upper Limit Protein Factor (Grams per Kg): 1.4 Lower Protein Needs (Protein): 55 Upper Protein Needs (Protein): 70 Fluid Factor (ml/kg): 25 Estimated Fluid Needs (ml): 1,662 (Actual Wt used here) Dietitian Reviewed in Medical Record: Current diet, Curent medications, Intake & Output, Labs, Medical history Diet Order: Pureed with nectar thick liquids Speech Therapy Recommendations: Yes Objective Comments: PMH: hypertension, anemia, hypothyroidism, stroke, dementia, GERD, HLD, PNA Meds include: Synthroid Lab include: BUN 36, Cr 1.2, GFR 42, Glucose 118 +3 BM's 02/03 Assessment Assessment: Pt at nutritional risk r/t dx. Admitted with AMS, Fever, Dehydration, pt appears much better per MD notes. She is swallowing better and tolerating a po diet. Pt is receiving Ensure tid, each provides 250 kcals and 9 gms protein. Pt' s nutritional needs as assessed above. [facility] for calorie count to determine if pt needs a PEG tube placement. Calorie count will run 02/04-02/06 to be calculated 8/ 3 in the AM. Recommendations: Pureed diet with nectar thick liquids, Ensure tid Calorie Count 02/04-02/06 to be calculated 8/3 in the AM Dietitian to Monitor: Lab values, Supplement acceptance, Diet tolerance, Weight change, PO Intake, Swallow recommendations, Medical course
--- NOTE | 2018-02-04 16:45 | P.PNID ---
Subjective Remarks: ID coverage: Patient is an 87-year-old female who is brought in due to altered mental status. She is normally awake and alert, interactive, lives in [facility]. There is some report that she had a fall, it was an unwitnessed, and she sustained a skin tear on her left leg. Per daughter she has not been her usual self, and she got worried because she did not answer her phone call. There was no mention that she had any fever or chills, or respiratory complaint or GI symptoms. She has had problems with UTI. On presentation, patient has been febrile. Her mental status improved after her temperature went down. She was admitted as a sepsis syndrome. Her WBC is 13,000. Urinalysis unremarkable. Chest x-ray did not show any acute infiltrate. Patient is still febrile today. Her influenza A testing came back positive. Infectious disease consultation has been requested to evaluate the patient. Notes reviewed Discussed with RN. She notifies me that the patient's family is deciding for hospice. Patient is very somnolent. Barely arouses from sleep. Did not receive any sedative medicines. RN notifies me that she was somnolent also yesterday evening. Blood culture from 02/01 and 02/02 negative. States she lives in [facility] with her cat - has not had any scratch or bites, but she had skin tear in her leg; her cat likes to lick her BC with Pasteurella - 2 from 01/30, one from No new (+) BC Does not appear to be in respiratory distress. Antibiotics: Tamiflu Rocephin Lines: No evidence of infection Past Medical History: Dementia Depression Gastroesophageal reflux HTN (hypertension) Hyperlipidemia Hypothyroid Pneumonia Prolapsed uterus Stroke UTI (urinary tract infection) History of hysterectomy History of partial knee replacement History of umbilical hernia repair Allergies/Adverse Reactions: Allergies mupirocin Allergy (Severe, Verified 01/28/18 16:33) Rash sulfamethoxazole Allergy (Severe, Verified 01/28/18 16:33) Rash trimethoprim Allergy (Severe, Verified 01/28/18 16:33) Rash SULFA DRUGS Allergy (Severe, Uncoded 01/28/18 16:33) Rash Objective Vital Signs 02/03/18 19:50 02/03/18 20:00 02/04/18 00:00 Temperature 97.4 F L 97.1 F L Pulse Rate 74 69 Respiratory Rate 20 16 Blood Pressure 169/74 H 152/82 H Pulse Oximetry 96 96 96 02/04/18 07:00 02/04/18 08:00 02/04/18 12:00 Temperature 95.8 F L 96.1 F L Pulse Rate 62 69 Respiratory Rate 12 20 Blood Pressure 150/67 H 169/95 H Pulse Oximetry 98 98 97 Intake & Output 02/03/18 02/04/18 02/04/18 18:59 06:59 18:59 Intake Total 220 / 220 1890 / 1890 Output Total 450 / 450 Balance -230 / -230 1890 / 1890 Weight 66.5 kg Intake: IV 100 / 100 1000 / 1000 D5W/Normal Saline Inj 1,000 ML 1000 / 1000 @ 42 mls/hr IV.CONT .[id number] [facility] Rx#:[id number] Rocephin Inj 2,000 MG In NS Inj 100 / 100 100 ML @ 200 mls/hr IV.SIG Q24H [facility] Rx#:[id number] Oral 120 / 120 490 / 490 Oral Supplement 200 / 200 Other 200 / 200 Output: Urine 450 / 450 Other: # Incontinent Voids 2 # Urine Diapers 2 Date of Last Bowel Movement 02/03/18 02/03/18 # Bowel Movements 2 3 02/02/18 06:20 Blood - Peripheral Aerobic Blood Culture - Preliminary No growth in 2 days 02/02/18 06:20 Blood - Peripheral Anaerobic Blood Culture - Preliminary No growth in 2 days 02/01/18 10:11 Blood - Peripheral Aerobic Blood Culture - Preliminary No growth in 3 days 02/01/18 10:11 Blood - Peripheral Anaerobic Blood Culture - Preliminary No growth in 3 days 01/31/18 10:30 Blood - Peripheral Aerobic Blood Culture - Final Pasteurella multocida 01/31/18 10:30 Blood - Peripheral Anaerobic Blood Culture - Preliminary No growth in 4 days 01/31/18 10:28 Blood - Peripheral Aerobic Blood Culture - Preliminary No growth in 4 days 01/31/18 10:28 Blood - Peripheral Anaerobic Blood Culture - Preliminary No growth in 4 days 01/30/18 14:13 Blood - Peripheral Aerobic Blood Culture - Final Pasteurella multocida 01/30/18 14:13 Blood - Peripheral Anaerobic Blood Culture - Final Pasteurella multocida 01/28/18 15:45 Blood - Peripheral Aerobic Blood Culture - Final No growth in 5 days 01/28/18 15:45 Blood - Peripheral Anaerobic Blood Culture - Final No growth in 5 days 01/28/18 15:40 Blood - Peripheral Aerobic Blood Culture - Final No growth in 5 days 01/28/18 15:40 Blood - Peripheral Anaerobic Blood Culture - Final No growth in 5 days 01/30/18 14:09 Blood - Peripheral Aerobic Blood Culture - Final Pasteurella multocida 01/30/18 14:09 Blood - Peripheral Anaerobic Blood Culture - Final Pasteurella multocida Imaging: ITS Impressions Head CT 01/28/18 15:39 CONCLUSION: 1. Stable negative trauma study with no evidence of hemorrhage or mass effect. Chest CTA 01/29/18 00:00 CONCLUSION: 1. No evidence of pulmonary embolism. 2. Dilatation esophagus which contains air and a pre by 2 cm lobular soft tissue mass. This could be food or possible tumor. 3. Smaller soft tissue masslike area in the proximal trachea could represent tumor or mucus. 4. Groundglass opacities in both lungs which could indicate pulmonary edema or underlying interstitial lung disease. 5. Small bilateral pleural effusions right greater than left. Head MRI 01/29/18 00:00 CONCLUSION: Atrophy and chronic ischemic changes deep white matter. No acute intracranial process identified. Head MRA 01/29/18 00:00 CONCLUSION: 1. Venous Doppler Study 01/29/18 00:00 CONCLUSION: 1. Deep venous thrombosis as described. Chest X-Ray 01/30/18 00:00 CONCLUSION: Mild interval improvement in pulmonary opacities. There is mild residual lung bases with scarring. Abdomen X-Ray 01/31/18 00:00 CONCLUSION: Feeding tube seen projecting over the lower medial left chest. This is likely within a hiatal hernia but this cannot not be confirmed on a single AP view. One could attempt to advance the Dobbhoff tube. If it is truly in the hiatal hernia, it should pass into the stomach within the abdomen. Physical Exam: GENERAL: Somnolent. SKIN: Warm and dry. HEAD: Normocephalic. EYES: No scleral icterus. No injection or drainage. NECK: Supple, trachea midline. No JVD or lymphadenopathy. CARDIOVASCULAR: Regular rate and rhythm without murmurs, gallops, or rubs. RESPIRATORY: Breath sounds equal bilaterally. No accessory muscle use. GASTROINTESTINAL: Abdomen soft, non-tender, nondistended. MUSCULOSKELETAL: No cyanosis, or edema. Normal muscle bulk. NEURO: Somnolent. Difficult to assess. PSYCH: Unable to assess. Assessment and Plan - Plan Impression Primary Pasteurella sepsis - fevers, leukocytosis, tachycardia, lethargy - Mental status probably has declined. Patient very somnolent currently. - no new (+) BC (+) INfluenza A Possible PNA, usually Staph aureus could develop as secondary bacterial PNA - better ?Esophageal mass Hx dementia Recommendation Continue tamiflu - end date ordered. Add Levaquin. Continue IV Rocephin for Pasteurella - decide on course of Rx once BC all finalized If blood cultures are negative 3 days would give 10 days of antibiotics Treatment from the first negative blood culture. Follow C/S Monitor temps Monitor progress
[2018-02-05] MEDS: Dextrose 5%/NaCl 0.9% Inj 1,000 ML IV.CONT SCH ×2 (00:41→21:43)
[2018-02-05 07:02] LABS: Potassium 3.8 meq/L (3.5-5.1)
[2018-02-05 07:05] LABS: Baso % (Auto) 0.1 % (0.0-2.0); Eos # (Auto) 0.3 th/mm3 (0.0-0.4); Eos % (Auto) 3.6 % (0.0-4.0); Hematocrit 33.5 % (35.0-46.0); Hemoglobin 11.5 gm/dL (11.6-15.3); Lymph # (Auto) 1.2 th/mm3 (1.0-4.8); Lymph % (Auto) 15.3 % (9.0-44.0); Mean Corpuscular HGB Conc 34.3 % (32.0-36.0); Mean Corpuscular Hemoglobin 29.3 pg (27.0-34.0); Mean Corpuscular Volume 85.4 fL (80.0-100.0); Mean Platelet Volume 8.2 fL (7.0-11.0); Mono # (Auto) 0.9 th/mm3 (0.0-0.9); Mono % (Auto) 11.4 % (0.0-8.0); Neut # (Auto) 5.7 th/mm3 (1.8-7.7); Neut % (Auto) 69.6 % (16.0-70.0); Platelet Count 206 th/mm3 (150-450); Red Blood Count 3.92 mil/mm3 (4.00-5.30); White Blood Count 8.1 th/mm3 (4.0-11.0)
[2018-02-05 07:07] LABS: Red Cell Distribution Width 16.2 % (11.6-17.2)
[2018-02-05 07:21] LABS: Calcium 8.6 mg/dL (8.5-10.1)
[2018-02-05 07:22] LABS: Carbon Dioxide 22.6 meq/L (21.0-32.0)
[2018-02-05] MEDS: Levothyroxine 75 MCG Tablet PO SCH ×2 (08:23→10:24)
--- NOTE | 2018-02-05 09:48 | P.PN ---
Subjective Interval history: Patient seen and examined today for follow-up on sepsis, altered mental status, malnutrition. Patient laying in bed. She does arouse very easily. She does respond to questions appropriately. Patient does not want to eat. Awaiting hospice consultation. Vital signs are stable, patient afebrile Physical Exam Vital signs: Vital Signs 02/04/18 12:00 02/04/18 16:00 02/04/18 20:00 Temperature 96.1 F L 98.3 F 99.6 F Pulse Rate 69 71 67 Respiratory Rate 20 20 20 Blood Pressure 169/95 H 174/74 H 155/60 H Pulse Oximetry 97 96 96 02/04/18 20:15 02/05/18 00:00 02/05/18 07:27 Temperature 98.4 F Pulse Rate 66 Respiratory Rate 16 Blood Pressure 150/72 H Pulse Oximetry 96 96 93 L 02/05/18 08:00 02/05/18 08:01 Temperature 99.3 F Pulse Rate 67 Respiratory Rate 16 Blood Pressure 156/70 H Pulse Oximetry 96 96 Intake & Output 02/04/18 02/05/18 02/05/18 18:59 06:59 18:59 Intake Total 320 / 320 150 / 150 Balance 320 / 320 150 / 150 Intake: IV 150 / 150 Levaquin 750 mg Premix Inj 150 150 / 150 ML @ 100 mls/hr IV.SIG Q48H [facility] Rx#:[id number] Oral 320 / 320 Other: # Voids 4 Date of Last Bowel Movement 02/04/18 # Bowel Movements 2 2 Narrative: GENERAL: Well-developed, well-nourished, in no acute distress. Awakens easily, clear speech. HEENT: Head is normocephalic without any lesions or masses noted. Facial features are symmetric. Eyes: Extraocular muscles are intact. Conjunctivae were clear. NECK: Supple without any masses. Trachea midline no deviation. No JVD, no bruits are appreciated CARDIAC: Regular rhythm, regular rate. S1/S2 are heard. No murmurs gallops or rubs. LUNGS: Rhonchi throughout. No wheeze, rhonchi or rales. No use of accessory muscles on inspiration or expiration. ABDOMEN: Soft, nontender. Nondistended. Bowel sounds heard in all 4 quadrants. No organomegaly or masses. Negative rebound, negative guarding EXTREMITIES: pulses are equal bilaterally. No cyanosis or clubbing. Left lower extremity does have significant edema as compared to the right, mild erythema noted to entire left lower extremity NEUROLOGY: Patient awake, Deep tendon reflexes are 2+ in upper and lower extremities bilaterally. Plantar reflex intact. Purposeful movements. - Urinary Catheter Management Indwelling Urethral Catheter Cath placed during this visit: yes Urethral indwelling: Yes Reason for continuing: Acute urinary retention Insertion date: 01/29/18 Insertion time: 10:39 Straight Cath placed during this visit: no Reason for continuing: Not indwelling catheter Results - Labs CBC & Chem 7: 02/05/18 06:00 02/05/18 06:00 Laboratory Results - last 24 hr 02/05/18 02/05/18 06:00 06:00 CBC w Diff Auto diff final WBC 8.1 RBC 3.92 L Hgb 11.5 L Hct 33.5 L MCV 85.4 MCH 29.3 MCHC 34.3 RDW 16.2 Plt Count 206 D MPV 8.2 Neut % (Auto) 69.6 Lymph % (Auto) 15.3 [place] % (Auto) 11.4 H Eos % (Auto) 3.6 Baso % (Auto) 0.1 Neut # (Auto) 5.7 Lymph # (Auto) 1.2 [place] # (Auto) 0.9 Eos # (Auto) 0.3 Baso # (Auto) 0.0 WBC Differential . Differential Comment . Sodium 141 Potassium 3.8 Chloride 110 H Carbon Dioxide 22.6 Anion Gap 8 BUN 17 Creatinine 0.72 Estimated GFR 76 L Random Glucose 105 Calcium 8.6 Microbiology 02/02/18 06:20 Blood - Peripheral Aerobic Blood Culture - Preliminary No growth in 2 days 02/02/18 06:20 Blood - Peripheral Anaerobic Blood Culture - Preliminary No growth in 2 days 02/01/18 10:11 Blood - Peripheral Aerobic Blood Culture - Preliminary No growth in 3 days 02/01/18 10:11 Blood - Peripheral Anaerobic Blood Culture - Preliminary No growth in 3 days 01/31/18 10:30 Blood - Peripheral Aerobic Blood Culture - Final Pasteurella multocida 01/31/18 10:30 Blood - Peripheral Anaerobic Blood Culture - Preliminary No growth in 4 days 01/31/18 10:28 Blood - Peripheral Aerobic Blood Culture - Preliminary No growth in 4 days 01/31/18 10:28 Blood - Peripheral Anaerobic Blood Culture - Preliminary No growth in 4 days - Procedures ECHOCARDIOGRAM CONCLUSIONS The left ventricular systolic function is mildly reduced with an estimated ejection fraction of 45%. Wall thickness is normal. Normal left ventricular size. Global hypokinesis. The left atrial size is [id number] dilated. Moderate mitral valve regurgitation. Trileaflet aortic valve. Slight to mild aortic valve sclerosis is present. Moderate aortic valve regurgitation. There is mild tricuspid valve regurgitation. The estimated pulmonary arterial pressure is 45 mmHg. Assessment and Plan - Assessment (1) Severe sepsis Code(s): A41.9 - Sepsis, unspecified organism; R65.20 - Severe sepsis without septic shock Status: Acute (2) Leukocytosis Code(s): D72.829 - Elevated white blood cell count, unspecified Status: Acute (3) Fever of unknown origin Code(s): R50.9 - Fever, unspecified Status: Acute (4) Altered mental status Code(s): R41.82 - Altered mental status, unspecified Status: Acute (5) Acute renal failure superimposed on stage 2 chronic kidney disease Code(s): N17.9 - Acute kidney failure, unspecified; N18.2 - Chronic kidney disease, stage 2 (mild) Status: Acute (6) Acute dehydration Code(s): E86.0 - Dehydration Status: Acute - Plan Bacteremia -Pasteurella multocida isolated on blood cultures -Currently on Rocephin -Infectious disease is following the patient and recommending continuation Rocephin until all blood cultures are finalized and then will likely need 10 days with antibiotics thereafter -Further recommendations once blood cultures are complete Influenza A infection -Patient no longer febrile -Tamiflu was discontinued due to patient refusing medication, also is little to no benefit of the patient taken medication if greater than 2 days onset of symptoms. -Continue supportive care -Continue to monitor for any dairy pneumonia Acute renal failure superimposed on chronic kidney disease stage II, improved -Renal functions are improving with IV hydration -Continue monitor renal functions -Avoid nephrotoxins Esophageal mass versus food bolus with esophageal dilatation -Currently the patient is not stable enough to undergo any procedure or evaluation -GI was consulted and follow patient during her stay in the hospital -There was consideration of endoscopy and PEG tube placement, however since patient is tolerating diet no PEG tube at this time. -Patient did have Dobbhoff earlier, however it has been removed -Calorie count in place at this time, await result Altered mental status, likely toxic encephalopathy from sepsis, improving -Mentation improves daily -CT scan of the brain was unremarkable for any acute abnormality -Workup for metabolic encephalopathy was on remarkable -Speech therapy is following the patient on a daily basis -Avoid any sedating medications Left lower extremity DVT, -Ultrasound was performed that did indicate DVT -Patient is already on anticoagulation with Eliquis -Patient already has IVC filter severe sepsis, resolved -Patient meets criteria with leukocytosis, altered mental status, febrile illness, tachycardia, acute renal failure. Influenza A infection, bacteremia -Status post cautious hydration -Supportive care, IV Tylenol for fever -Urinalysis clear, chest x-ray did not indicate any acute abnormality -Influenza testing positive for influenza A -pneumococcal, Legionella testing was negative Hypoxia, resolved -Previous episode of hypoxia of 84% -Chest x-ray did indicate increasing prominence in the interstitial markings, concerning for some developing vascular congestion or volume overload -Continue O2 supplementation maintain O2 sats greater than 92% -DuoNeb every 4 hours as needed for shortness of breath/dyspnea -CTA of the thorax did not indicate any pulmonary emboli, however did have a soft tissue mass versus food bolus in the esophagus with esophageal dilatation. There is groundglass appearance the patient he indicating possible fluid overload. No infiltrate identified Leukocytosis with left shift, resolved -Continue to monitor CBC DVT prevention -Patient is on Eliquis Discharge Planning: Case management consulted for hospice consult at the request of the family. Awaiting consultation to be performed (4) Altered mental status Qualifiers: Altered mental status type: unspecified Qualified Code(s): R41.82 - Altered mental status, unspecified
--- NOTE | 2018-02-05 14:55 | P.PNID ---
Subjective Remarks: ID coverage: Patient is an 87-year-old female who is brought in due to altered mental status. She is normally awake and alert, interactive, lives in [facility]. There is some report that she had a fall, it was an unwitnessed, and she sustained a skin tear on her left leg. Per daughter she has not been her usual self, and she got worried because she did not answer her phone call. There was no mention that she had any fever or chills, or respiratory complaint or GI symptoms. She has had problems with UTI. On presentation, patient has been febrile. Her mental status improved after her temperature went down. She was admitted as a sepsis syndrome. Her WBC is 13,000. Urinalysis unremarkable. Chest x-ray did not show any acute infiltrate. Patient is still febrile today. Her influenza A testing came back positive. Infectious disease consultation has been requested to evaluate the patient. Notes reviewed Discussed with RN. She notifies me that the patient's family is deciding for hospice. Patient is still lethargic but more awake today. Answers yes/no. Admits to pain but not telling me the location. Blood culture from 02/01 and 02/02 negative. States she lives in [facility] with her cat - has not had any scratch or bites, but she had skin tear in her leg; her cat likes to lick her BC with Pasteurella - 2 from 01/30, one from No new (+) BC Antibiotics: Rocephin Levaquin Lines: RUE IV No evidence of infection Past Medical History: Dementia Depression Gastroesophageal reflux HTN (hypertension) Hyperlipidemia Hypothyroid Pneumonia Prolapsed uterus Stroke UTI (urinary tract infection) History of hysterectomy History of partial knee replacement History of umbilical hernia repair Allergies/Adverse Reactions: Allergies mupirocin Allergy (Severe, Verified 01/28/18 16:33) Rash sulfamethoxazole Allergy (Severe, Verified 01/28/18 16:33) Rash trimethoprim Allergy (Severe, Verified 01/28/18 16:33) Rash SULFA DRUGS Allergy (Severe, Uncoded 01/28/18 16:33) Rash Objective Vital Signs 02/04/18 16:00 02/04/18 20:00 02/04/18 20:15 Temperature 98.3 F 99.6 F Pulse Rate 71 67 Respiratory Rate 20 20 Blood Pressure 174/74 H 155/60 H Pulse Oximetry 96 96 96 02/05/18 00:00 02/05/18 07:27 02/05/18 08:00 Temperature 98.4 F Pulse Rate 66 Respiratory Rate 16 Blood Pressure 150/72 H Pulse Oximetry 96 93 L 96 02/05/18 08:01 02/05/18 12:16 Temperature 99.3 F 97.7 F Pulse Rate 67 65 Respiratory Rate 16 18 Blood Pressure 156/70 H 140/61 Pulse Oximetry 96 97 Intake & Output 02/04/18 02/05/18 02/05/18 18:59 06:59 18:59 Intake Total 320 / 320 150 / 150 Balance 320 / 320 150 / 150 Intake: IV 150 / 150 Levaquin 750 mg Premix Inj 150 150 / 150 ML @ 100 mls/hr IV.SIG Q48H [facility] Rx#:[id number] Oral 320 / 320 Other: # Voids 4 Date of Last Bowel Movement 02/04/18 # Bowel Movements 2 2 02/02/18 06:20 Blood - Peripheral Aerobic Blood Culture - Preliminary No growth in 3 days 02/02/18 06:20 Blood - Peripheral Anaerobic Blood Culture - Preliminary No growth in 3 days 02/01/18 10:11 Blood - Peripheral Aerobic Blood Culture - Preliminary No growth in 4 days 02/01/18 10:11 Blood - Peripheral Anaerobic Blood Culture - Preliminary No growth in 4 days 01/31/18 10:30 Blood - Peripheral Aerobic Blood Culture - Final Pasteurella multocida 01/31/18 10:30 Blood - Peripheral Anaerobic Blood Culture - Final No growth in 5 days 01/31/18 10:28 Blood - Peripheral Aerobic Blood Culture - Final No growth in 5 days 01/31/18 10:28 Blood - Peripheral Anaerobic Blood Culture - Final No growth in 5 days 01/30/18 14:13 Blood - Peripheral Aerobic Blood Culture - Final Pasteurella multocida 01/30/18 14:13 Blood - Peripheral Anaerobic Blood Culture - Final Pasteurella multocida 01/28/18 15:45 Blood - Peripheral Aerobic Blood Culture - Final No growth in 5 days 01/28/18 15:45 Blood - Peripheral Anaerobic Blood Culture - Final No growth in 5 days 01/28/18 15:40 Blood - Peripheral Aerobic Blood Culture - Final No growth in 5 days 01/28/18 15:40 Blood - Peripheral Anaerobic Blood Culture - Final No growth in 5 days Lab - Hematology Results 02/05/18 06:00 CBC w Diff Auto diff final WBC 8.1 RBC 3.92 L Hgb 11.5 L Hct 33.5 L MCV 85.4 MCH 29.3 MCHC 34.3 RDW 16.2 Plt Count 206 D MPV 8.2 Neut % (Auto) 69.6 Lymph % (Auto) 15.3 [place] % (Auto) 11.4 H Eos % (Auto) 3.6 Baso % (Auto) 0.1 Neut # (Auto) 5.7 Lymph # (Auto) 1.2 [place] # (Auto) 0.9 Eos # (Auto) 0.3 Baso # (Auto) 0.0 WBC Differential . Differential Comment . Lab - Chemistry Results 02/05/18 06:00 Sodium 141 Potassium 3.8 Chloride 110 H Carbon Dioxide 22.6 Anion Gap 8 BUN 17 Creatinine 0.72 Estimated GFR 76 L Random Glucose 105 Calcium 8.6 Imaging: ITS Impressions Head CT 01/28/18 15:39 CONCLUSION: 1. Stable negative trauma study with no evidence of hemorrhage or mass effect. Chest CTA 01/29/18 00:00 CONCLUSION: 1. No evidence of pulmonary embolism. 2. Dilatation esophagus which contains air and a pre by 2 cm lobular soft tissue mass. This could be food or possible tumor. 3. Smaller soft tissue masslike area in the proximal trachea could represent tumor or mucus. 4. Groundglass opacities in both lungs which could indicate pulmonary edema or underlying interstitial lung disease. 5. Small bilateral pleural effusions right greater than left. Head MRI 01/29/18 00:00 CONCLUSION: Atrophy and chronic ischemic changes deep white matter. No acute intracranial process identified. Head MRA 01/29/18 00:00 CONCLUSION: 1. Venous Doppler Study 01/29/18 00:00 CONCLUSION: 1. Deep venous thrombosis as described. Chest X-Ray 01/30/18 00:00 CONCLUSION: Mild interval improvement in pulmonary opacities. There is mild residual lung bases with scarring. Abdomen X-Ray 01/31/18 00:00 CONCLUSION: Feeding tube seen projecting over the lower medial left chest. This is likely within a hiatal hernia but this cannot not be confirmed on a single AP view. One could attempt to advance the Dobbhoff tube. If it is truly in the hiatal hernia, it should pass into the stomach within the abdomen. Physical Exam: GENERAL: Lethargic. SKIN: Warm and dry. HEAD: Normocephalic. EYES: No scleral icterus. No injection or drainage. NECK: Supple, trachea midline. No JVD or lymphadenopathy. CARDIOVASCULAR: Regular rate and rhythm without murmurs, gallops, or rubs. RESPIRATORY: Clear. Breath sounds equal bilaterally. No accessory muscle use. GASTROINTESTINAL: Abdomen soft, non-tender, nondistended. MUSCULOSKELETAL: No cyanosis, or edema. Normal muscle bulk. NEURO: Lethargic. non focal. PSYCH: Unable to assess. Assessment and Plan - Plan Impression Primary Pasteurella sepsis - fevers, leukocytosis, tachycardia, lethargy - Mental status probably has declined. Patient very somnolent currently. - no new (+) BC (+) INfluenza A Possible PNA, usually Staph aureus could develop as secondary bacterial PNA - better ?Esophageal mass Hx dementia Recommendation Continue Levaquin. Continue IV Rocephin for Pasteurella - decide on course of Rx once BC all finalized If blood cultures are negative 3 days would give 10 days of antibiotics Treatment from the first negative blood culture. Follow C/S Monitor temps Monitor progress.
[2018-02-05] MEDS: Phenol 1.4% 180 ML Spray Bottle OROPHARYNG PRN (16:49)
--- NOTE | 2018-02-06 06:31 | P.PN ---
Subjective Interval history: Patient seen and examined today for follow-up on sepsis, bacteremia, malnutrition. Patient appears to be doing better. She arouses easily, answers questions appropriately. Patient vital signs are stable, patient remains afebrile. Physical Exam Vital signs: Vital Signs 02/05/18 07:27 02/05/18 08:00 02/05/18 08:01 Temperature 99.3 F Pulse Rate 67 Respiratory Rate 16 Blood Pressure 156/70 H Pulse Oximetry 93 L 96 96 02/05/18 12:16 02/05/18 16:32 02/05/18 19:35 Temperature 97.7 F 96.7 F L Pulse Rate 65 66 Respiratory Rate 18 20 Blood Pressure 140/61 157/77 H Pulse Oximetry 97 97 94 L 02/05/18 20:00 02/06/18 00:00 Temperature 98.3 F 99.5 F Pulse Rate 72 65 Respiratory Rate 20 20 Blood Pressure 166/73 H 159/67 H Pulse Oximetry 98 99 Intake & Output 02/05/18 02/05/18 02/06/18 06:59 18:59 06:59 Intake Total 150 / 150 800 / 800 360 / 360 Balance 150 / 150 800 / 800 360 / 360 Weight 68.1 kg Intake: IV 150 / 150 800 / 800 300 / 300 D5W/Normal Saline Inj 1,000 ML 700 / 700 300 / 300 @ 42 mls/hr IV.CONT .[id number] [facility] Rx#:[id number] Levaquin 750 mg Premix Inj 150 150 / 150 ML @ 100 mls/hr IV.SIG Q48H [facility] Rx#:[id number] Rocephin Inj 2,000 MG In NS Inj 100 / 100 100 ML @ 200 mls/hr IV.SIG Q24H [facility] Rx#:[id number] Oral 60 / 60 Other: # Voids 2 2 Date of Last Bowel Movement 02/04/18 # Bowel Movements 2 # Incontinent Bowel Movements 1 Narrative: GENERAL: Well-developed, well-nourished, in no acute distress. Awakens easily, clear speech. HEENT: Head is normocephalic without any lesions or masses noted. Facial features are symmetric. Eyes: Extraocular muscles are intact. Conjunctivae were clear. NECK: Supple without any masses. Trachea midline no deviation. No JVD, no bruits are appreciated CARDIAC: Regular rhythm, regular rate. S1/S2 are heard. No murmurs gallops or rubs. LUNGS: Rhonchi throughout. No wheeze, rhonchi or rales. No use of accessory muscles on inspiration or expiration. ABDOMEN: Soft, nontender. Nondistended. Bowel sounds heard in all 4 quadrants. No organomegaly or masses. Negative rebound, negative guarding EXTREMITIES: pulses are equal bilaterally. No cyanosis or clubbing. Mild nonpitting edema noted in upper and lower extremities. NEUROLOGY: Patient awake, Deep tendon reflexes are 2+ in upper and lower extremities bilaterally. Plantar reflex intact. Purposeful movements. - Urinary Catheter Management Indwelling Urethral Catheter Cath placed during this visit: yes Urethral indwelling: Yes Reason for continuing: Acute urinary retention Insertion date: 01/29/18 Insertion time: 10:39 Straight Cath placed during this visit: no Reason for continuing: Not indwelling catheter Results - Labs CBC & Chem 7: 02/05/18 06:00 02/05/18 06:00 Laboratory Results - last 24 hr 02/05/18 02/05/18 06:00 06:00 CBC w Diff Auto diff final WBC 8.1 RBC 3.92 L Hgb 11.5 L Hct 33.5 L MCV 85.4 MCH 29.3 MCHC 34.3 RDW 16.2 Plt Count 206 D MPV 8.2 Neut % (Auto) 69.6 Lymph % (Auto) 15.3 Charles % (Auto) 11.4 H Eos % (Auto) 3.6 Baso % (Auto) 0.1 Neut # (Auto) 5.7 Lymph # (Auto) 1.2 Charles # (Auto) 0.9 Eos # (Auto) 0.3 Baso # (Auto) 0.0 WBC Differential . Differential Comment . Sodium 141 Potassium 3.8 Chloride 110 H Carbon Dioxide 22.6 Anion Gap 8 BUN 17 Creatinine 0.72 Estimated GFR 76 L Random Glucose 105 Calcium 8.6 Microbiology 02/02/18 06:20 Blood - Peripheral Aerobic Blood Culture - Preliminary No growth in 3 days 02/02/18 06:20 Blood - Peripheral Anaerobic Blood Culture - Preliminary No growth in 3 days 02/01/18 10:11 Blood - Peripheral Aerobic Blood Culture - Preliminary No growth in 4 days 02/01/18 10:11 Blood - Peripheral Anaerobic Blood Culture - Preliminary No growth in 4 days 01/31/18 10:30 Blood - Peripheral Aerobic Blood Culture - Final Pasteurella multocida 01/31/18 10:30 Blood - Peripheral Anaerobic Blood Culture - Final No growth in 5 days 01/31/18 10:28 Blood - Peripheral Aerobic Blood Culture - Final No growth in 5 days 01/31/18 10:28 Blood - Peripheral Anaerobic Blood Culture - Final No growth in 5 days - Procedures ECHOCARDIOGRAM CONCLUSIONS The left ventricular systolic function is mildly reduced with an estimated ejection fraction of 45%. Wall thickness is normal. Normal left ventricular size. Global hypokinesis. The left atrial size is [id number] dilated. Moderate mitral valve regurgitation. Trileaflet aortic valve. Slight to mild aortic valve sclerosis is present. Moderate aortic valve regurgitation. There is mild tricuspid valve regurgitation. The estimated pulmonary arterial pressure is 45 mmHg. Assessment and Plan - Assessment (1) Severe sepsis Code(s): A41.9 - Sepsis, unspecified organism; R65.20 - Severe sepsis without septic shock Status: Acute (2) Leukocytosis Code(s): D72.829 - Elevated white blood cell count, unspecified Status: Acute (3) Fever of unknown origin Code(s): R50.9 - Fever, unspecified Status: Acute (4) Altered mental status Code(s): R41.82 - Altered mental status, unspecified Status: Acute (5) Acute renal failure superimposed on stage 2 chronic kidney disease Code(s): N17.9 - Acute kidney failure, unspecified; N18.2 - Chronic kidney disease, stage 2 (mild) Status: Acute (6) Acute dehydration Code(s): E86.0 - Dehydration Status: Acute - Plan Bacteremia -Pasteurella multocida isolated on blood cultures -Follow-up blood cultures continue to remain negative -Currently on Rocephin -Infectious disease is following the patient and recommending continuation Rocephin until all blood cultures are finalized and then will likely need 10 days with antibiotics thereafter -Further recommendations once blood cultures are complete Influenza A infection -Patient no longer febrile -Tamiflu was discontinued due to patient refusing medication, also is little to no benefit of the patient taken medication if greater than 2 days onset of symptoms. -Continue supportive care -Continue to monitor for any secondary pneumonia Acute renal failure superimposed on chronic kidney disease stage II, improved -Renal functions are improving with IV hydration -Continue monitor renal functions -Avoid nephrotoxins Esophageal mass versus food bolus with esophageal dilatation -Currently the patient is not stable enough to undergo any procedure or evaluation -GI was consulted and following the patient -There was consideration of endoscopy and PEG tube placement, however since patient is tolerating diet no PEG tube at this time. -Patient did have Dobbhoff earlier, however it has been removed -Calorie count in place at this time, await result -If patient has inadequate calorie count, patient will likely require PEG tube for tube feeding. This would need to be discussed with the family in further detail Altered mental status, likely toxic encephalopathy from sepsis, improving -Mentation improves daily -CT scan of the brain was unremarkable for any acute abnormality -Workup for metabolic encephalopathy was on remarkable -Speech therapy is following the patient on a daily basis -Avoid any sedating medications Left lower extremity DVT, -Ultrasound was performed that did indicate DVT -Patient is already on anticoagulation with Eliquis -Patient already has IVC filter severe sepsis, resolved -Patient meets criteria with leukocytosis, altered mental status, febrile illness, tachycardia, acute renal failure. Influenza A infection, bacteremia -Status post cautious hydration -Supportive care, IV Tylenol for fever -Urinalysis clear, chest x-ray did not indicate any acute abnormality -Influenza testing positive for influenza A -pneumococcal, Legionella testing was negative Hypoxia, resolved -Previous episode of hypoxia of 84% -Chest x-ray did indicate increasing prominence in the interstitial markings, concerning for some developing vascular congestion or volume overload -Continue O2 supplementation maintain O2 sats greater than 92% -DuoNeb every 4 hours as needed for shortness of breath/dyspnea -CTA of the thorax did not indicate any pulmonary emboli, however did have a soft tissue mass versus food bolus in the esophagus with esophageal dilatation. There is groundglass appearance the patient he indicating possible fluid overload. No infiltrate identified Leukocytosis with left shift, resolved -Continue to monitor CBC DVT prevention -Patient is on Eliquis Discharge Planning: Discharge planning once calorie count complete, blood cultures are finalized for appropriate antibiotics. (4) Altered mental status Qualifiers: Altered mental status type: unspecified Qualified Code(s): R41.82 - Altered mental status, unspecified
[2018-02-06] MEDS: Levothyroxine 75 MCG Tablet PO SCH (09:08)
[2018-02-06] MEDS: Dextrose 5%/NaCl 0.9% Inj 1,000 ML IV.CONT SCH (09:13)
--- NOTE | 2018-02-06 15:19 | P.DCO ---
Post Hospital Infusion Therapy Location of Infusion Therapy: [facility] Infusion Therapy Order Patient Weight: 68.1 kg - Diagnosis (1) Pasteurella infection Code(s): A28.0 - Pasteurellosis - Administer Medication Ceftriaxone Dose: 2 grams IV Directions: q 24 hours Stop Treatment: 02/13/18 - Additional Information Venous Access: PICC Line Additional Instructions: [x] Peripheral flush and dressing changes per protocol [x] Implanted port and central wireline operator: * Implanted port: 10 ml Normal Saline followed by 5 ml Heparin 100 units/ml Heparin flush after each use and monthly to maintain. [] May leave port accessed during therapy. [] May leave peripheral site accessed for duration of therapy. [x] If patient has SOB or respiratory distress, check oxygen saturation. If less than 90% or clinical signs of respiratory distress, administer oxygen at 2 L/min. via nasal cannula and notify physician. [x] Anaphylaxis/Reaction orders: * Stop infusion. * Keep IV line open with saline flush. * Notify physician. * Monitor vital signs every 15 minutes until symptoms resolve. * Check Oxygen saturation; Oxygen at 2 L/min. via nasal cannula if less than 90% or clinical signs of respiratory distress. * Administer diphenhydramine (Benadryl) 25 mg IV STAT, (unless patient has received as pre-med). May repeat once, if necessary. * Solu-Cortef 250 mg IVP over 30-60 seconds, use 100 mg vials for each dissolution. * Epinephrine (1mg/1 ml) 0.3 mg subcutaneously or IVP now with any signs of respiratory distress. * Check with physician for new additional pre-med orders if patient is re- challenged or re-treated. [x] May remove PICC line when treatment complete, after confirming with Physician. [x] If the patient is admitted to the hospital, the ED, or transferred via [facility] , complete transfer form including medication reconciliation order sheet. Weekly Labs: BMP, CBC w/diff Allergies mupirocin Allergy (Severe, Verified 01/28/18 16:33) Rash sulfamethoxazole Allergy (Severe, Verified 01/28/18 16:33) Rash trimethoprim Allergy (Severe, Verified 01/28/18 16:33) Rash SULFA DRUGS Allergy (Severe, Uncoded 01/28/18 16:33) Rash
--- NOTE | 2018-02-06 15:26 | P.PNID ---
Subjective Remarks: ID coverage: Patient is an 87-year-old female who is brought in due to altered mental status. She is normally awake and alert, interactive, lives in [facility]. There is some report that she had a fall, it was an unwitnessed, and she sustained a skin tear on her left leg. Per daughter she has not been her usual self, and she got worried because she did not answer her phone call. There was no mention that she had any fever or chills, or respiratory complaint or GI symptoms. She has had problems with UTI. On presentation, patient has been febrile. Her mental status improved after her temperature went down. She was admitted as a sepsis syndrome. Her WBC is 13,000. Urinalysis unremarkable. Chest x-ray did not show any acute infiltrate. Patient is still febrile today. Her influenza A testing came back positive. Infectious disease consultation has been requested to evaluate the patient. Patient is more alert today. She answers my questions verbally. His speech is fluent. States that she feels well. Afebrile. Denies pain. No shortness of breath. Denies nausea or vomiting. Blood culture from 02/01 and 02/02 negative. States she lives in [facility] with her cat - has not had any scratch or bites, but she had skin tear in her leg; her cat likes to lick her BC with Pasteurella - 2 from 01/30, one from No new (+) BC Antibiotics: Rocephin Levaquin Lines: RUE IV No evidence of infection Past Medical History: Dementia Depression Gastroesophageal reflux HTN (hypertension) Hyperlipidemia Hypothyroid Pneumonia Prolapsed uterus Stroke UTI (urinary tract infection) History of hysterectomy History of partial knee replacement History of umbilical hernia repair Allergies/Adverse Reactions: Allergies mupirocin Allergy (Severe, Verified 01/28/18 16:33) Rash sulfamethoxazole Allergy (Severe, Verified 01/28/18 16:33) Rash trimethoprim Allergy (Severe, Verified 01/28/18 16:33) Rash SULFA DRUGS Allergy (Severe, Uncoded 01/28/18 16:33) Rash Objective Vital Signs 02/05/18 16:32 02/05/18 19:35 02/05/18 20:00 Temperature 96.7 F L 98.3 F Pulse Rate 66 72 Respiratory Rate 20 20 Blood Pressure 157/77 H 166/73 H Pulse Oximetry 97 94 L 98 02/06/18 00:00 02/06/18 07:18 02/06/18 07:37 Temperature 99.5 F Pulse Rate 65 Respiratory Rate 20 Blood Pressure 159/67 H Pulse Oximetry 99 97 92 L 02/06/18 08:29 02/06/18 13:50 Temperature 96.7 F L 96.7 F L Pulse Rate 70 72 Respiratory Rate 18 16 Blood Pressure 185/93 H 158/62 H Pulse Oximetry 93 L 94 L Intake & Output 02/05/18 02/06/18 02/06/18 18:59 06:59 18:59 Intake Total 800 / 800 360 / 360 300 / 300 Balance 800 / 800 360 / 360 300 / 300 Weight 68.1 kg 68.1 kg Intake: IV 800 / 800 300 / 300 300 / 300 D5W/Normal Saline Inj 1,000 ML 700 / 700 300 / 300 300 / 300 @ 42 mls/hr IV.CONT .[id number] [facility] Rx#:[id number] Rocephin Inj 2,000 MG In NS Inj 100 / 100 100 ML @ 200 mls/hr IV.SIG Q24H [facility] Rx#:[id number] Oral 60 / 60 Other: # Voids 2 2 # Incontinent Bowel Movements 1 02/02/18 06:20 Blood - Peripheral Aerobic Blood Culture - Preliminary No growth in 4 days 02/02/18 06:20 Blood - Peripheral Anaerobic Blood Culture - Preliminary No growth in 4 days 02/01/18 10:11 Blood - Peripheral Aerobic Blood Culture - Final No growth in 5 days 02/01/18 10:11 Blood - Peripheral Anaerobic Blood Culture - Final No growth in 5 days 01/31/18 10:30 Blood - Peripheral Aerobic Blood Culture - Final Pasteurella multocida 01/31/18 10:30 Blood - Peripheral Anaerobic Blood Culture - Final No growth in 5 days 01/31/18 10:28 Blood - Peripheral Aerobic Blood Culture - Final No growth in 5 days 01/31/18 10:28 Blood - Peripheral Anaerobic Blood Culture - Final No growth in 5 days 01/30/18 14:13 Blood - Peripheral Aerobic Blood Culture - Final Pasteurella multocida 01/30/18 14:13 Blood - Peripheral Anaerobic Blood Culture - Final Pasteurella multocida Lab - Hematology Results 02/05/18 06:00 CBC w Diff Auto diff final WBC 8.1 RBC 3.92 L Hgb 11.5 L Hct 33.5 L MCV 85.4 MCH 29.3 MCHC 34.3 RDW 16.2 Plt Count 206 D MPV 8.2 Neut % (Auto) 69.6 Lymph % (Auto) 15.3 [place] % (Auto) 11.4 H Eos % (Auto) 3.6 Baso % (Auto) 0.1 Neut # (Auto) 5.7 Lymph # (Auto) 1.2 [place] # (Auto) 0.9 Eos # (Auto) 0.3 Baso # (Auto) 0.0 WBC Differential . Differential Comment . Lab - Chemistry Results 02/05/18 06:00 Sodium 141 Potassium 3.8 Chloride 110 H Carbon Dioxide 22.6 Anion Gap 8 BUN 17 Creatinine 0.72 Estimated GFR 76 L Random Glucose 105 Calcium 8.6 Imaging: ITS Impressions Head CT 01/28/18 15:39 CONCLUSION: 1. Stable negative trauma study with no evidence of hemorrhage or mass effect. Chest CTA 01/29/18 00:00 CONCLUSION: 1. No evidence of pulmonary embolism. 2. Dilatation esophagus which contains air and a pre by 2 cm lobular soft tissue mass. This could be food or possible tumor. 3. Smaller soft tissue masslike area in the proximal trachea could represent tumor or mucus. 4. Groundglass opacities in both lungs which could indicate pulmonary edema or underlying interstitial lung disease. 5. Small bilateral pleural effusions right greater than left. Head MRI 01/29/18 00:00 CONCLUSION: Atrophy and chronic ischemic changes deep white matter. No acute intracranial process identified. Head MRA 01/29/18 00:00 CONCLUSION: 1. Venous Doppler Study 01/29/18 00:00 CONCLUSION: 1. Deep venous thrombosis as described. Chest X-Ray 01/30/18 00:00 CONCLUSION: Mild interval improvement in pulmonary opacities. There is mild residual lung bases with scarring. Abdomen X-Ray 01/31/18 00:00 CONCLUSION: Feeding tube seen projecting over the lower medial left chest. This is likely within a hiatal hernia but this cannot not be confirmed on a single AP view. One could attempt to advance the Dobbhoff tube. If it is truly in the hiatal hernia, it should pass into the stomach within the abdomen. Physical Exam: GENERAL: Awake and alert. No acute distress. SKIN: Warm and dry. HEAD: Normocephalic. EYES: No scleral icterus. No injection or drainage. Oropharynx: No thrush. No lesions. NECK: Supple, trachea midline. No JVD or lymphadenopathy. CARDIOVASCULAR: Regular rate and rhythm without murmurs, gallops, or rubs. RESPIRATORY: Clear. Breath sounds equal bilaterally. No accessory muscle use. GASTROINTESTINAL: Abdomen soft, non-tender, nondistended. MUSCULOSKELETAL: No cyanosis, or edema. Normal muscle bulk. NEURO: non focal. PSYCH: Unable to assess. Assessment and Plan (1) Pasteurella infection Status: Acute Code(s): A28.0 - Pasteurellosis - Plan Impression Primary Pasteurella sepsis - fevers, leukocytosis, tachycardia, lethargy. - Mental status improved. - no new (+) BC (+) INfluenza A Possible PNA, usually Staph aureus could develop as secondary bacterial PNA - better ?Esophageal mass Hx dementia Clinically improved. Recommendation Stop Levaquin. Continue IV Rocephin for Pasteurella until 08/16/2017. PICC line or midline to be inserted. Orders for out of hospital written on infusion form. Okay to discharge when arrangements are made for treatment at snf facility.
[2018-02-07] MEDS: Dextrose 5%/NaCl 0.9% Inj 1,000 ML IV.CONT SCH (04:53)
[2018-02-07] MEDS: Levothyroxine 75 MCG Tablet PO SCH (08:30)
--- NOTE | 2018-02-07 09:20 | P.DIET ---
Nutritional Evaluation Type of nutrition evaluation: follow-up Nutrition consult regarding: Diet Evaluation Nutrition screening: [facility] Screening comments: 02/03 [facility] Calorie Count Subjective Barriers to Nutrition: Swallowing problem Subjective Comments: Nursing reports pt refused breakfast today; pt has small amounts of po intake when her daughters feed her. Objective - Diagnosis AMS, Fever, Dehydration - Objective [place] body weight: 100 kg % IBW: 141 Body Weight Used for Calculations: Upper end of IBW (50kg) Energy Needs - Lower Range (kCal/kg): 30 Energy Needs - Upper Range (kCal/kg): 35 Lower Limit kCal/kg (kCals): 1,500 Upper Limit kCal/kg (kCals): 1,750 Lower Limit Protein Factor (Grams per Kg): 1.1 Upper Limit Protein Factor (Grams per Kg): 1.4 Lower Protein Needs (Protein): 55 Upper Protein Needs (Protein): 70 Fluid Factor (ml/kg): 25 Estimated Fluid Needs (ml): 1,662 (Actual Wt used here) Dietitian Reviewed in Medical Record: Current diet, Curent medications, Intake & Output, Labs, Medical history Diet Order: Pureed with nectar thick liquids Speech Therapy Recommendations: Yes (Pureed honey thickened liquids) Objective Comments: PMH: hypertension, anemia, hypothyroidism, stroke, dementia, GERD, Hyperlipidemia, PNA Meds include: Synthroid +BM Feeding - Current PO Supplement Current Supplement: Ensure Original Current Frequency of Supplement: Three times a day Current kCals Provided by Supplement: 250 Current Protein Provided by Supplement: 9 - kCal Count Day 1 kCal Intake: 540 Day 1 Protein Intake: 14 Day 2 kCal Intake: 615 Day 2 Protein Intake: 30 Day 3 kCal Intake: 410 Day 3 Protein Intake: 11 Assessment Assessment: Pt at nutritional risk r/t diagnosis and poor po intake. [facility] for Calorie Count w /Inadequate PO Intake. Pt averaged 522 kcal and 18g protein per day. Rec feeding tube placement w/supplemental TF'ing, if consistent w/goals of care , to meet pt's assessed needs. For TF'ing, Rec Jevity 1.5 @ goal rate 50ml/hr x 22-hr(TF'ing held 1-hr before and 1-hr after for Synthroid). Free water Flushes 220ml Q 6-hr to meet hydration needs. For bolus feedings, Rec Jevity 1.5 , 1-can(240ml)5 x day w/85ml free water flush before and after each bolus feeding. Continue Ensure TID. Labs reviewed. Wt noted. Dietitian following. Recommendations: 1. MDC for Calorie Count w/Inadequate PO Intake 2. Rec feeding tube placement w/supplemental TF'ing, if consistent w/goals of care, to meet pt's assessed needs 3. For TF'ing, Rec Jevity 1.5 @ goal rate 50ml/hr x 22-hr(TF'ing held 1-hr before and 1-hr after for Synthroid) 3. Free water Flushes 220ml Q 6-hr to meet hydration needs 4. For bolus feedings, Rec Jevity 1.5, 1-can(240ml)5 x day w/85ml free water flush before and after each bolus feeding 5. Continue Ensure TID 6. Dietitian following Dietitian to Monitor: Lab values, Supplement acceptance, Intake & Output, Diet tolerance, Weight change, PO Intake, Swallow recommendations, Medical course
--- NOTE | 2018-02-07 12:48 | P.DS ---
Date of admission: 01/29/18 09:53 Primary care physician: Morgan Oviedo MD Attending physician on discharge: Tessa Huerta Anticipated date of discharge: 02/07/18 Brief History from admission: 87-year-old female with known history of hypertension, anemia, hypothyroidism, stroke, dementia who lives at a local [facility] presented to the hospital because of altered mental status. Patient has decreased level consciousness at this time. Unable to obtain any information with the patient. She does open her eyes but she does not speak. Information was taken from medical records. Patient apparently lives at an [facility] and fell Saturday night. The patient was found to have a fever yesterday and was sent to the emergency department for evaluation. Patient mentation did improve after fever was controlled in the emergency department. However this morning patient again is with fever and altered mental status. Workup thus far did not indicate any etiology of the patient's fever. Workup did indicate findings consistent with systemic inflammatory response syndrome and possibly could be severe sepsis if an infection source was found with fever, leukocytosis, tachycardia, acute renal failure. Urinalysis was clear, chest x-ray was unremarkable, patient was admitted for further evaluation and management. DS: Diagnosis - Discharge Diagnosis (1) Severe sepsis Status: Acute (2) Leukocytosis Status: Acute (3) Altered mental status Status: Acute (4) Acute renal failure superimposed on stage 2 chronic kidney disease Status: Acute (5) Acute dehydration Status: Acute (6) Bacteremia Status: Acute (7) Malnutrition Status: Acute (8) Influenzal acute upper respiratory infection Status: Acute (9) Left leg DVT Status: Acute (10) Oropharyngeal mass Status: Acute (11) Pasteurella infection Status: Acute (12) Fever Status: Acute DS: Summary Hospital Course: 87-year-old female with rather extensive hospital stay and multiple medical issues and problems. Patient originally presented to the emergency department on 01/28/18 because of altered mental status, recent fall, not acting right, decreased p.o. intake. There is indicated that the daughter states that she would not talk and had worsening level consciousness which is reason that they came to the hospital. Patient had workup done and found to have fever, after the fever was improved patient was more alert. ER physician cannot identify any source of infection. It was recommended that the patient be admitted for further evaluation and management. Patient was initially started on vancomycin and Zosyn for antibiotic coverage. Patient did have multiple cultures that were ascertained to include influenza testing, blood cultures, pneumococcal antigen, Legionella antigen. Patient was found to have positive influenza testing with influenza A. Patient was started on Tamiflu at that time. Infectious disease was consulted for further evaluation. Despite being treated for fever, influenza. Patient's mentation did not improve. Patient would not eat anything. Patient started developing fever again and follow blood cultures were ascertained. 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 Infectious disease was following the patient and patient was started on Rocephin and Levaquin. Infectious disease recommended continue monitor the patient until all blood cultures have been finalized for appropriate antibiotic regimen in the outpatient setting. It was recommended by infectious disease of the patient should require Rocephin 2 g IV every 24 hours with stop date of 02/13/18. Patient still has significant decreased p.o. intake. Patient was started on cautious hydration secondary to original IV administration, the patient have mild increase in respiratory demand and requiring oxygen with chest x-ray showing some mild pulmonary edema. Speech therapy continue to involve the patient in she was able to have pured diet with nectar thick liquid. However the patient would not eat with medical staff. One time the patient would eat as if the family fed her directly. The family did request hospice consult. However the did want full aggressive management. Patient did undergo calorie count to evaluate if patient required nutritional supplementation with tube feeding. Dietary recommends that the patient have tube feeding this time. Family does not want to pursue any PEG tube placement for tube feeding. They indicate that she is eating food at this time and did not want to have a feeding tube. At home of the patient does improve when she is out of the hospital and start eating more and will not require any supplemental feeding. Patient clinically stable this time. She is more alert at this time. She is eating very minimal amount of food. Recommendations have been made by infectious disease for antibiotics. Patient has been accepted at local nursing facility. Patient be transferred to half-way facility once arrangements made by case management. - Time Spent with Patient Total time spent providing and/or coordinating discharge services: Greater than 30 minutes - Quality: VTE Deep Vein Thrombosis/Pulmonary Embolism Present on Admission: No Exam Vital signs: Vital Signs 02/06/18 13:50 02/06/18 17:48 02/06/18 19:51 Temperature 96.7 F L 97.7 F Pulse Rate 72 78 Respiratory Rate 16 18 Blood Pressure 158/62 H 182/70 H Pulse Oximetry 94 L 95 93 L 02/06/18 20:00 02/07/18 00:00 02/07/18 07:29 Temperature 98 F 99.5 F Pulse Rate 84 81 Respiratory Rate 20 20 Blood Pressure 136/62 153/71 H Pulse Oximetry 94 L 95 95 02/07/18 07:51 02/07/18 08:00 02/07/18 12:00 Temperature 97.6 F 97.5 F L Pulse Rate 73 72 Respiratory Rate 20 Blood Pressure 136/62 178/81 H Pulse Oximetry 92 L 92 L 92 L Intake & Output 02/06/18 02/07/18 02/07/18 18:59 06:59 18:59 Intake Total 700 / 700 1150 / 1150 Balance 700 / 700 1150 / 1150 Weight 68.1 kg 68.3 kg Intake: IV 400 / 400 1150 / 1150 D5W/Normal Saline Inj 1,000 ML 300 / 300 1000 / 1000 @ 42 mls/hr IV.CONT .[id number] [facility] Rx#:[id number] Levaquin 750 mg Premix Inj 150 150 / 150 ML @ 100 mls/hr IV.SIG Q48H [facility] Rx#:[id number] Rocephin Inj 2,000 MG In NS Inj 100 / 100 100 ML @ 200 mls/hr IV.SIG Q24H [facility] Rx#:[id number] Oral 300 / 300 0 / 0 Other: # Voids 5 Date of Last Bowel Movement 02/06/18 02/06/18 # Incontinent Bowel Movements 3 Narrative: GENERAL: Well-developed, well-nourished, in no acute distress. Awakens easily, clear speech. HEENT: Head is normocephalic without any lesions or masses noted. Facial features are symmetric. Eyes: Extraocular muscles are intact. Conjunctivae were clear. NECK: Supple without any masses. Trachea midline no deviation. No JVD, no bruits are appreciated CARDIAC: Regular rhythm, regular rate. S1/S2 are heard. No murmurs gallops or rubs. LUNGS: Rhonchi throughout. No wheeze, rhonchi or rales. No use of accessory muscles on inspiration or expiration. ABDOMEN: Soft, nontender. Nondistended. Bowel sounds heard in all 4 quadrants. No organomegaly or masses. Negative rebound, negative guarding EXTREMITIES: pulses are equal bilaterally. No cyanosis or clubbing. Mild nonpitting edema noted in upper and lower extremities. NEUROLOGY: Patient awake, Deep tendon reflexes are 2+ in upper and lower extremities bilaterally. Plantar reflex intact. Purposeful movements. Results Procedures completed during hospitalization: ECHOCARDIOGRAM CONCLUSIONS The left ventricular systolic function is mildly reduced with an estimated ejection fraction of 45%. Wall thickness is normal. Normal left ventricular size. Global hypokinesis. The left atrial size is [id number] dilated. Moderate mitral valve regurgitation. Trileaflet aortic valve. Slight to mild aortic valve sclerosis is present. Moderate aortic valve regurgitation. There is mild tricuspid valve regurgitation. The estimated pulmonary arterial pressure is 45 mmHg. CALORIE COUNT Pt at nutritional risk r/t diagnosis and poor po intake. MDC for Calorie Count w /Inadequate PO Intake. Pt averaged 522 kcal and 18g protein per day. Rec feeding tube placement w/supplemental TF'ing, if consistent w/goals of care , to meet pt's assessed needs. For TF'ing, Rec Jevity 1.5 @ goal rate 50ml/hr x 22-hr(TF'ing held 1-hr before and 1-hr after for Synthroid). Free water Flushes 220ml Q 6-hr to meet hydration needs. For bolus feedings, Rec Jevity 1.5 , 1-can(240ml)5 x day w/85ml free water flush before and after each bolus feeding. Continue Ensure TID. Labs reviewed. Wt noted. Dietitian following. Recommendations: 1. MDC for Calorie Count w/Inadequate PO Intake 2. Rec feeding tube placement w/supplemental TF'ing, if consistent w/goals of care, to meet pt's assessed needs 3. For TF'ing, Rec Jevity 1.5 @ goal rate 50ml/hr x 22-hr(TF'ing held 1-hr before and 1-hr after for Synthroid) 3. Free water Flushes 220ml Q 6-hr to meet hydration needs 4. For bolus feedings, Rec Jevity 1.5, 1-can(240ml)5 x day w/85ml free water flush before and after each bolus feeding 5. Continue Ensure TID - Impressions ITS Impressions Head CT 01/28/18 15:39 CONCLUSION: 1. Stable negative trauma study with no evidence of hemorrhage or mass effect. Chest CTA 01/29/18 00:00 CONCLUSION: 1. No evidence of pulmonary embolism. 2. Dilatation esophagus which contains air and a pre by 2 cm lobular soft tissue mass. This could be food or possible tumor. 3. Smaller soft tissue masslike area in the proximal trachea could represent tumor or mucus. 4. Groundglass opacities in both lungs which could indicate pulmonary edema or underlying interstitial lung disease. 5. Small bilateral pleural effusions right greater than left. Head MRI 01/29/18 00:00 CONCLUSION: Atrophy and chronic ischemic changes deep white matter. No acute intracranial process identified. Head MRA 01/29/18 00:00 CONCLUSION: 1. Venous Doppler Study 01/29/18 00:00 CONCLUSION: 1. Deep venous thrombosis as described. Chest X-Ray 01/30/18 00:00 CONCLUSION: Mild interval improvement in pulmonary opacities. There is mild residual lung bases with scarring. Abdomen X-Ray 01/31/18 00:00 CONCLUSION: Feeding tube seen projecting over the lower medial left chest. This is likely within a hiatal hernia but this cannot not be confirmed on a single AP view. One could attempt to advance the Dobbhoff tube. If it is truly in the hiatal hernia, it should pass into the stomach within the abdomen. Discharge Plan - Discharge Disposition Patient Disposition: Discharge to SNF - Discharge Condition Condition: Stable - Discharge Order Discharge Orders: Discharge Order (Routine); Ordered 02/07/18 Ordered By: Parish Rosenbaum - Discharge Details Anticipated Discharge Date: 02/07/18 - Physicians Team Primary Care Provider: Morgan Oviedo Attending Provider: Tessa Huerta Other Providers: Patrizia Valenzuela MD ; rIwin Patterson MD ; Westley Faulkner MD ; [employer]
== END 2018-02-07 16:07 ==
LOC: PHED 15:31 → PHEDA 19:08 → INTOOBSV 19:08 → PH3 20:15
PROVIDERS: ADMIT Family Medicine; ATTEND Family Medicine